=== PATIENT | female | born 1960 | race Caucasian/White ===

== ENCOUNTER 2017-06-20 10:56 | Day surgery (SDC) | payer MEDICARE, MEDICAID, SELFPAY ==
[2017-06-17 14:26] VITALS: BMI 32.5
[2017-06-20 11:19] VITALS: BP 141/72; PULSE 71; RESP 20; TEMP 36.6; O2SAT 93
[2017-06-20 11:27] LABS: POC Glucose,Bedside 159 mg/dL (70-110)
[2017-06-20 12:01] VITALS: O2SAT 98
[2017-06-20 12:12] VITALS: BP 97/50; PULSE 65; RESP 18; TEMP 37.1; O2SAT 93
--- NOTE | 2017-06-20 12:12 | P.PCN_ITS ---
[facility] Procedure Note Procedure Note:: Upper Endoscopy Procedure Report: Esophagogastroduodenoscopy with cold biopsies Endoscopost: Alexy Hernandez II, MD Referring Physician: Charles James MD Date of Procedure: June 20, 2017 Equipment: Olympus GIF 180 standard upper endoscope Sedation: MAC sedation Indications: Mrs. Escalona is a 57-year-old female with chronic/persistent nausea for the last couple of months. She had bloating, gassiness, belching, heartburn, reflux and occasional dysphagia. She does drink very slowly. She does have a history of long-standing type 2 diabetes mellitus. The patient reports no melena or weight loss. She had an EGD in May 2013 and had some linear reactive gastritis. She was taken off of Reglan because she was also using the citalopram and buspirone. There was felt to be some risk of tardive dyskinesia. Procedure: Prior to the procedure, a history and physical exam was performed, and patient' s medications and allergies were reviewed. The risks, benefits and alternatives of the sedation and procedure were discussed with the patient. All questions were answered and informed consent was obtained. The patient was brought to the procedure room. Patient identification and proposed procedure were verified by the physician and the nurse. The patient was placed in a left lateral decubitus position and the scope was passed under direct vision. Throughout the procedure, the patient's blood pressure, pulse, and oxygen saturations were monitored continuously. The upper GI endoscopy was accomplished without difficulty. The patient tolerated the procedure well. Findings: The scope was passed directly into the upper esophagus and advanced to the third portion of the duodenum. The post bulbar duodenum and duodenal bulb were normal with normal mucosa and conniventes. The scope was withdrawn through a normal duodenal bulb and pylorus into the stomach. There was some bile reflux with linear reactive gastritis. The remainder of the antrum, body and fundus of the stomach were grossly normal. Upon retroflexion there was no hiatal hernia. 2 biopsies were taken in the antrum and along the lesser curvature for histology to rule out gastritis and/or H pylori. The scope was then withdrawn into the esophagus. There was mild esophageal dysmotility with nonerosive GERD. The remainder of the esophageal mucosa was normal. Impression: 1. Nonerosive GERD with mild esophageal dysmotility 2. Linear reactive gastritis/antritis with bile reflux Plan: The patient has significantly improved with domperidone. I would continue this is as maintenance therapy. We will discuss additional treatment options. I will follow-up the biopsies.
[2017-06-20 12:22] VITALS: BP 97/59; PULSE 69; RESP 20; TEMP 36.6; O2SAT 95
[2017-06-20 12:32] VITALS: BP 108/49; PULSE 68; RESP 20; TEMP 36.6; O2SAT 94
[2017-06-20 12:42] VITALS: BP 102/57; PULSE 71; RESP 20; TEMP 36.6; O2SAT 95
--- NOTE | 2017-06-20 14:26 | HMH.ANESCL ---
[facility] Anesthesia Checklist - Patient Identification Patient Identification: Arm Band, Verbal (Name & ) - Structural Data Admitted From: Home Planned Operative Procedure/s: egd Consent for Planned Operative Procedure(s) Verified: Yes Verified Documents: Surgical Consent - NPO Status Verified Time NPO: 00:00 - Additional verifications Patient : No Anesthesia Reactions: No Hx Blood Transfusions: No Blood Transfusion Reaction: No Cephalosporin Allergy: No Previous Colonoscopy: No - Cardiovascular Assessment Heart Sounds: S1 & S2 Pulse Strength: Baseline Pulse Rhythm: Regular Peripheral Edema: No - Airway Assessment C-Spine Mobility Assessed: Yes TMJ Mobility Assessed: Yes Dentition: Partials - Neurological Assessment Level of Consciousness: Awake, Alert, Appropriate Hx Seizures: No Numbness or tingling in extremities: No - Anesthesia Plan Anesthesia Risk discussed: Yes Anesthesia Plan: Verified ASA Class: III Anesthesia Type: MAC [facility] Anesthesia HX I have reviewed the patient's past medical history: Yes Medical History: Reports:: Diabetes Mellitus Type 2 (IDDM), Hyperlipidemia, Hypertension, Lung Disease (copd) Denies:: Diabetes Mellitus Type 1, Internal Pacemaker, Seizures Other Surgeries: Yes: Cardiac Catheterization, Coronary Stent. No: Pacemaker
== END 2017-06-20 12:42 | disposition home or self-care (01) ==
LOC: OUTP 11:01
PROVIDERS: Family Provider Internal Medicine; PCP Internal Medicine; Visit Provider Internal Medicine Gastroenterology
PROC: 0DJ08ZZ Inspection of Upper Intestinal Tract, Via Natural or Artificial Opening Endoscopic (ICD-10-PCS; CPT 43235; principal; 2017-06-20 12:00)
DX: E11.9 Type 2 diabetes mellitus without complications; K21.9 Gastro-esophageal reflux disease without esophagitis; K22.4 Dyskinesia of esophagus; K29.60 Other gastritis without bleeding
CPT/HCPCS: 43239; 82962; 88305; 88342

== ENCOUNTER 2017-07-01 04:34 | Inpatient (IN) | payer MEDICARE, MEDICAID, SELFPAY ==
[2017-07-01] VITALS (13 sets, daily range): BP systolic 112–135; BP diastolic 56–80; PULSE 80–111; RESP 16–24; TEMP 36.3–37.2; O2SAT 91–97; BMI 32.5; BMI 32.4
--- NOTE | 2017-07-01 04:54 | XR_ITS ---
XR chest 2V HISTORY: Shortness of air ITS.REASON: soa ORDERING PHYSICIAN: Olga Ennis MD PATIENT AGE: 57 years COMPARISON: None available FINDINGS: Normal heart size. The michel are slightly prominent. May be due to vasculature. Patchy density is present in the right middle lobe consistent with atelectasis or fibrosis or infiltrate. Remaining lungs are clear. No acute bony anomalies. IMPRESSION: Patchy density right middle lobe which may be due to atelectasis/fibrosis or infiltrate
--- NOTE | 2017-07-01 05:01 | HMH.EDSOB ---
ED Disposition Clinical Impression: Pneumonia, COPD (chronic obstructive pulmonary disease), Tobacco abuse, CAD (coronary artery disease) Disposition: Still a Patient Condition on Discharge: Fair Referrals: Charles James [Primary Care Provider] - - Critical Care Critical Care Time: No Attestation: On 07/01/17, the high probability of a clinically significant, sudden or life threatening deterioration of the following system(s) required my full and direct attention, intervention and personal management. The time I documented below is in addition to time spent performing reported procedures but includes the following listed in this critical care notation. Medical Decision Making - Miller Inquiry Pt receiving controlled substance: No Miller was queried for this patient: No Vital Signs: 07/01/17 04:35 07/01/17 05:05 07/01/17 05:30 Temperature 97.4 F L Temperature Source Oral Pulse Rate Pulse Rate [Right Brachial] 99 H 97 H 96 H Respiratory Rate 19 Blood Pressure [Right Arm] 135/68 121/65 120/63 Blood Pressure Mean [Right Arm] 90 83 82 Blood Pressure Source [Right Arm] Automatic Cuff Automatic Cuff Automatic Cuff Blood Pressure Position [Right Arm] Sitting Supine Supine 02 Sat by Pulse Oximetry 92 L 92 L 92 L Oxygen Delivery Method Room Air 07/01/17 05:33 07/01/17 06:00 Temperature Temperature Source Pulse Rate 99 H Pulse Rate [Right Brachial] 99 H Respiratory Rate Blood Pressure [Right Arm] 112/77 Blood Pressure Mean [Right Arm] 88 Blood Pressure Source [Right Arm] Automatic Cuff Blood Pressure Position [Right Arm] Supine 02 Sat by Pulse Oximetry 95 91 L Oxygen Delivery Method Room Air Room Air - Lab Data Lab Results 07/01/17 05:00: WBC 8.6, RBC 4.04 L, Hgb 11.7 L, Hct 35.8 L, MCV 88.6, MCH 29.0, MCHC 32.7, RDW 14.3, Plt Count 219, MPV 8.4, Neut % (Auto) 62.9, Lymph % (Auto) 23.3, Will % (Auto) 7.9, Eos % (Auto) 5.3, Baso % (Auto) 0.6, Neut # (Auto) 5.4, Lymph # (Auto) 2.0, Will # (Auto) 0.7, Eos # (Auto) 0.5 H, Baso # (Auto) 0.1 07/01/17 05:00: Sodium 133 L, Potassium 4.0, Chloride 102, Carbon Dioxide 27, Anion Gap 8.0, BUN 13, Creatinine 1.05 H, Estimated Creat Clear 92, Estimated GFR 54 L, Est GFR ( Amer) 66, Glucose 195 H, Calcium 9.0, Total Bilirubin 0.3, AST 27, ALT 30, Alkaline Phosphatase 115, Total Creatine Kinase 132, CK-MB (CK-2) 0.7, CK-MB (CK-2) Rel Index 0.5, Troponin I < 0.02, Total Protein 7.6, Albumin 3.6, Globulin 4.0 H, Albumin/Globulin Ratio 0.9 L 07/01/17 05:00: Lactic Acid 3.2 H 07/01/17 05:00: B-Natriuretic Peptide 23 Result diagrams: 07/01/17 05:00 07/01/17 05:00 Orders (Tests/Meds): ED MEDICATIONS Generic Name Dose Route Start Last Admin Trade Name Dagobertoq PRN Reason Stop Dose Admin Azithromycin 500 mg/ Sodium 250 mls @ 250 mls/hr 07/01/17 05:15 07/01/17 05:44 Chloride IV 07/15/17 05:14 250 mls/hr Q24H RAÚL Administration Protocol Ceftriaxone Sodium 1 gm/ 50 mls @ 100 mls/hr 07/01/17 05:15 07/01/17 05:17 Sodium Chloride IV 07/15/17 05:14 100 mls/hr Q24H RAÚL Administration Protocol Discontinued Medications Generic Name Dose Route Start Last Admin Trade Name Dagobertoq PRN Reason Stop Dose Admin Acetaminophen 650 mg 07/01/17 05:18 07/01/17 05:22 Acetaminophen 325mg Tab PO 07/01/17 05:19 650 mg ONCE ONE Administration Albuterol/Ipratropium 3 ml 07/01/17 05:09 07/01/17 05:20 Duoneb 3ml Neb IH 07/01/17 05:10 3 ml ONCE ONE Administration Methylprednisolone Sodium Succinate 125 mg 07/01/17 05:09 07/01/17 05:17 Solu-Medrol 125mg/2ml Vial IV 07/01/17 05:10 125 mg ONCE ONE Administration Promethazine HCl 12.5 mg 07/01/17 06:06 07/01/17 06:13 Phenergan 25mg/Ml 1ml Vial IV 07/01/17 06:07 12.5 mg ONCE ONE Administration Sodium Chloride 50 ml 07/01/17 06:06 Sod Chlor 0.9% 50ml Bag IV 07/01/17 06:07 ONCE ONE ORDERS Category Date Time Status Blood
--- NOTE | 2017-07-01 05:04 | ED_ITS ---
ED Disposition Clinical Impression: Pneumonia, COPD (chronic obstructive pulmonary disease), Tobacco abuse, CAD ( coronary artery disease) Disposition: Still a Patient Condition on Discharge: Fair Referrals: Charles James [Primary Care Provider] - - Critical Care Critical Care Time: No Attestation: On 07/01/17, the high probability of a clinically significant, sudden or life threatening deterioration of the following system(s) required my full and direct attention, intervention and personal management. The time I documented below is in addition to time spent performing reported procedures but includes the following listed in this critical care notation. Medical Decision Making - Miller Inquiry Pt receiving controlled substance: No Miller was queried for this patient: No Vital Signs: 07/01/17 04:35 07/01/17 05:05 07/01/17 05:30 Temperature 97.4 F L Temperature Source Oral Pulse Rate Pulse Rate [Right Brachial] 99 H 97 H 96 H Respiratory Rate 19 Blood Pressure [Right Arm] 135/68 121/65 120/63 Blood Pressure Mean [Right Arm] 90 83 82 Blood Pressure Source [Right Arm] Automatic Cuff Automatic Cuff Automatic Cuff Blood Pressure Position [Right Arm] Sitting Supine Supine 02 Sat by Pulse Oximetry 92 L 92 L 92 L Oxygen Delivery Method Room Air 07/01/17 05:33 07/01/17 06:00 Temperature Temperature Source Pulse Rate 99 H Pulse Rate [Right Brachial] 99 H Respiratory Rate Blood Pressure [Right Arm] 112/77 Blood Pressure Mean [Right Arm] 88 Blood Pressure Source [Right Arm] Automatic Cuff Blood Pressure Position [Right Arm] Supine 02 Sat by Pulse Oximetry 95 91 L Oxygen Delivery Method Room Air Room Air - Lab Data Lab Results 07/01/17 05:00: WBC 8.6, RBC 4.04 L, Hgb 11.7 L, Hct 35.8 L, MCV 88.6, MCH 29.0 , MCHC 32.7, RDW 14.3, Plt Count 219, MPV 8.4, Neut % (Auto) 62.9, Lymph % (Auto ) 23.3, [place] % (Auto) 7.9, Eos % (Auto) 5.3, Baso % (Auto) 0.6, Neut # (Auto) 5.4, Lymph # (Auto) 2.0, [place] # (Auto) 0.7, Eos # (Auto) 0.5 H, Baso # (Auto) 0.1 07/01/17 05:00: Sodium 133 L, Potassium 4.0, Chloride 102, Carbon Dioxide 27, Anion Gap 8.0, BUN 13, Creatinine 1.05 H, Estimated Creat Clear 92, Estimated GFR 54 L, Est GFR ( Amer) 66, Glucose 195 H, Calcium 9.0, Total Bilirubin 0.3, AST 27, ALT 30, Alkaline Phosphatase 115, Total Creatine Kinase 132, CK-MB (CK-2) 0.7, CK-MB (CK-2) Rel Index 0.5, Troponin I < 0.02, Total Protein 7.6, Albumin 3.6, Globulin 4.0 H, Albumin/Globulin Ratio 0.9 L 07/01/17 05:00: Lactic Acid 3.2 H 07/01/17 05:00: B-Natriuretic Peptide 23 Result diagrams: 07/01/17 05:00 07/01/17 05:00 Orders (Tests/Meds): ED MEDICATIONS Generic Name Dose Route Start Last Admin Trade Name Freq PRN Reason Stop Dose Admin Azithromycin 500 mg/ Sodium 250 mls @ 250 mls/hr 07/01/17 05:15 07/01/17 05: 44 Chloride IV 07/15/17 05:14 250 mls/hr Q24H RAÚL Administration Protocol Ceftriaxone Sodium 1 gm/ 50 mls @ 100 mls/hr 07/01/17 05:15 07/01/17 05:17 Sodium Chloride IV 07/15/17 05:14 100 mls/hr Q24H RAÚL Administration Protocol Discontinued Medications Generic Name Dose Route Start Last Admin Trade Name Freq PRN Reason Stop Dose Admin Acetaminophe
[2017-07-01 05:26] LABS: Basophils # 0.1 K/mm3 (0-0.2); Basophils % 0.6 % (0.1-2.0); Eosinophils # 0.5 K/mm3 (0.0-0.4); Eosinophils % 5.3 % (0.1-12.0); Hematocrit 35.8 % (37.0-47.0); Hemoglobin 11.7 g/dL (12.2-16.2); Lymphocytes % 23.3 K/mm3 (10-50); Mean Corpuscular HGB Conc 32.7 g/dL (31.8-35.4); Mean Corpuscular Volume 88.6 fl (81-99); Mean Platelet Volume 8.4 fl (7.4-10.4); Monocytes # 0.7 K/mm3 (0.1-1.0); Monocytes % 7.9 % (1.7-9.3); Neutrophils # 5.4 K/mm3 (1.8-7.8); Neutrophils % 62.9 % (37.0-80.0); Platelet Count 219 K/mm3 (142-424); Red Blood Count 4.04 M/mm3 (4.20-5.40); Red Cell Distribution Width 14.3 % (11.5-17.5); White Blood Count 8.6 K/mm3 (4.8-10.8)
[2017-07-01 05:51] LABS: Lactic Acid 3.2 mmol/L (0.4-2.0)
--- NOTE | 2017-07-01 05:53 | PC.NURSE ---
after zithromax infusion began pt began complaining of shakiness and upset stomach and overall not feeling well. pt requests med be stopped. infusion stopped. dr. kimbrough notified. will monitor for improvement in status. vitals stable.
[2017-07-01 05:58] LABS: Alanine Aminotransferase 30 U/L (12-78); Albumin Level 3.6 gm/dL (3.4-5.0); Albumin/Globulin Ratio 0.9 (1.1-1.8); Alkaline Phosphatase 115 U/L (46-116); Aspartate Amino Transferase 27 U/L (15-37); Bilirubin,Total 0.3 mg/dL (0.2-1.0); Blood Urea Nitrogen 13 mg/dL (7-18); CKMB Relative Index 0.5 U/L (0-4.0); Carbon Dioxide 27 mmol/L (21.0-32.0); Chloride 102 mmol/L (98-107); Creatine Kinase 132 U/L (26-192); Creatine Kinase MB 0.7 ng/ml (0.0-3.6); Creatinine Clearance Estimated 92 mL/min (0-300); Creatinine,Serum 1.05 mg/dL (0.55-1.02); Estimated Glomerular Filt Rate 54 ml/min (>60); GFR (African American) 66 ML/MIN (>60); Glucose 195 mg/dL (74-106); Sodium 133 mmol/L (136-145); Total Protein,Serum 7.6 gm/dL (6.4-8.2); Troponin I < 0.02 ng/ml (0.00-0.06)
--- NOTE | 2017-07-01 06:52 | PC.NURSE ---
report called to Tiffany Meade RN.
--- NOTE | 2017-07-01 07:32 | PC.NURSE ---
REPORT GIVEN TO Sherrie GOMEZ W/C
--- NOTE | 2017-07-01 07:39 | P.CONPHA_ITS ---
[facility] VTE Monitoring - Patient Demographics Admission date: 07/01/17 Report Date: 07/01/17 Time: 07:38 Allergies/Adverse Reactions: Patient Allergies adenosine Allergy (Intermediate, Verified 07/01/17 04:47) COUGHING Penicillins Allergy (Intermediate, Verified 07/01/17 04:47) I-RASH Height: 1.73 m Weight: 97.125 kg Patient Problems: Current Active Problems Pneumonia (Acute) COPD (chronic obstructive pulmonary disease) (Acute) Tobacco abuse (Acute) CAD (coronary artery disease) (Acute) - VTE Risk Labs: VTE Related Lab Results Hgb 11.7 g/dL (12.2-16.2) L 07/01/17 05:00 Hct 35.8 % (37.0-47.0) L 07/01/17 05:00 Plt Count 219 K/mm3 (142-424) 07/01/17 05:00 BUN 13 mg/dL (7-18) 07/01/17 05:00 Creatinine 1.05 mg/dL (0.55-1.02) H 07/01/17 05:00 Estimated Creat Clear 92 mL/min (0-300) 07/01/17 05:00 Clinical Trial Participant: No - Prophylaxis VTE Prophylaxis Ordered?: Yes Types of VTE Prophylaxis: TEDS Knee High
--- NOTE | 2017-07-01 08:21 | HMH.HP ---
*Admission Date: 07/01/17 *Chief complaint: Shortness of air and coughing *History of present illness: 57-year-old white female with very heavy smoking history, of over 40 pack years, who presented to the emergency department early this morning with shortness of air, cough, mucopurulent sputum production. Had been treated by Dr. James as an outpatient a couple weeks ago with azithromycin and albuterol inhalers. She is prescribed Symbicort inhaler but does not take this because it makes my heart race. In the emergency department she was found to have hypoxia, infiltrate and chest x-ray and significant coughing. Admitted to hospital for IV antibiotics and enhanced pulmonary toilet. [facility] History Medical History: Reports:: Congestive Heart Failure, Coronary Artery Disease, Diabetes Mellitus Type 2 (IDDM), Hyperlipidemia, Hypertension, Lung Disease (copd) Denies:: Cancer, Diabetes Mellitus Type 1, Internal Pacemaker, MRSA, Seizures Other Medical History: Denies: Blood Transfusion Reaction Other Surgeries: Yes: Cardiac Catheterization, Coronary Stent. No: Pacemaker Amputation: No Fractures: No - *Social History Educational Level: Completed High School Smoking Status: Current every day smoker Tobacco Type: cigarettes Alcohol Intake: never Occupational Status: disabled Housing: house Household Members: significant other - Psychiatric History Expresses thoughts of harming self/others: None Suicide Plan Description: No Plan *Family Hx:: Unable to obtain Review of Systems - Review of Systems Review of systems:: unable to obtain, other, pertinent systems reviewed and negative unless documented below Meds Home Medications Medication Instructions Recorded Confirmed Type Aspirin [Aspirin 81mg chewable 81 mg PO DAILY 06/17/17 07/01/17 History tab] Bisoprolol Fumarate 10 mg PO DAILY 06/17/17 07/01/17 History Buspirone HCl [Buspar 10mg tablet] 10 mg PO BID 06/17/17 07/01/17 History Citalopram Hydrobromide [Celexa 40 mg PO DAILY 06/17/17 07/01/17 History 40mg Tablet] Clopidogrel Bisulfate [Plavix 75mg 75 mg PO DAILY 06/17/17 07/01/17 History Tab] Insulin Glargine,Hum.rec.anlog 500 mg PO DIRECTED 06/17/17 07/01/17 History [Lantus Insulin 100units/mL 10mL vial] Lisinopril [Lisinopril 2.5mg Tab] 2.5 mg PO DAILY 06/17/17 07/01/17 History Magnesium 250 mg PO DAILY 06/17/17 07/01/17 History Metformin HCl [Metformin 500mg 1,000 mg PO BID 06/17/17 07/01/17 History Tablet] Pantoprazole Sodium [Protonix 40mg 40 mg PO DAILY 06/17/17 07/01/17 History tablet] Pravastatin Sodium [Pravachol 40mg 20 mg PO DAILY 06/17/17 07/01/17 History Tablet] diazePAM [diazePAM 5mg Tablet] 5 mg PO NEEDED PRN 06/17/17 07/01/17 History glipiZIDE [Glipizide ER] 2.5 mg PO BID 06/17/17 07/01/17 History hydroCHLOROthiazide [HCTZ 12.5mg 12.5 mg PO DAILY 06/17/17 07/01/17 History cap] Budesonide/Formoterol Fumarate 2 puffs IH BID 07/01/17 07/01/17 History [Symbicort 80-4.5 Mcg Inhaler] Linaclotide [Linzess] 145 mcg PO DAILY 07/01/17 07/01/17 History Allergies Allergy/AdvReac Type Severity Reaction Status Date / Time adenosine Allergy Intermediate COUGHING Verified 07/01/17 04:47 Penicillins Allergy Intermediate I-RASH Verified 07/01/17 04:47 Exam Vital signs and Labs for Last 24 Hours: Temp Pulse Resp BP Pulse Ox 98.9 F 90 24 130/67 94 L 07/01/17 07:25 07/01/17 07:25 07/01/17 07:25 07/01/17 07:25 07/01/17 07:25 I & O for Last 24 hours: Intake & Output 06/28/17 06/29/17 06/30/17 07/01/17 11:59 11:59 11:59 11:59 Weight 214 lb 2 oz Narrative: Patient is alert, oriented, acceptable O2 saturations on oxygen. Skin appears dry. Multiple evidence of nicotine use. Patient appears older than her stated age. Obesity noted. Patient has a heart motif tattoo on the ring finger of her left hand as well as prescription writing tattoo on the thenar aspect of her right
--- NOTE | 2017-07-01 08:24 | P.HP_ITS ---
*Admission Date: 07/01/17 *Chief complaint: Shortness of air and coughing *History of present illness: 57-year-old white female with very heavy smoking history, of over 40 pack years , who presented to the emergency department early this morning with shortness of air, cough, mucopurulent sputum production. Had been treated by Dr. James as an outpatient a couple weeks ago with azithromycin and albuterol inhalers. She is prescribed Symbicort inhaler but does not take this because it makes my heart race. In the emergency department she was found to have hypoxia, infiltrate and chest x-ray and significant coughing. Admitted to hospital for IV antibiotics and enhanced pulmonary toilet. [facility] History Medical History: Reports:: Congestive Heart Failure, Coronary Artery Disease, Diabetes Mellitus Type 2 (IDDM), Hyperlipidemia, Hypertension, Lung Disease ( copd) Denies:: Cancer, Diabetes Mellitus Type 1, Internal Pacemaker, MRSA, Seizures Other Medical History: Denies: Blood Transfusion Reaction Other Surgeries: Yes: Cardiac Catheterization, Coronary Stent. No: Pacemaker Amputation: No Fractures: No - *Social History Educational Level: Completed High School Smoking Status: Current every day smoker Tobacco Type: cigarettes Alcohol Intake: never Occupational Status: disabled Housing: house Household Members: significant other - Psychiatric History Expresses thoughts of harming self/others: None Suicide Plan Description: No Plan *Family Hx:: Unable to obtain Review of Systems - Review of Systems Review of systems:: unable to obtain, other, pertinent systems reviewed and negative unless documented below Meds Home Medications Medication Instructions Recorded Confirmed Type Aspirin [Aspirin 81mg chewable 81 mg PO DAILY 06/17/17 07/01/17 History tab] Bisoprolol Fumarate 10 mg PO DAILY 06/17/17 07/01/17 History Buspirone HCl [Buspar 10mg tablet] 10 mg PO BID 06/17/17 07/01/17 History Citalopram Hydrobromide [Celexa 40 mg PO DAILY 06/17/17 07/01/17 History 40mg Tablet] Clopidogrel Bisulfate [Plavix 75mg 75 mg PO DAILY 06/17/17 07/01/17 History Tab] Insulin Glargine,Hum.rec.anlog 500 mg PO DIRECTED 06/17/17 07/01/17 History [Lantus Insulin 100units/mL 10mL vial] Lisinopril [Lisinopril 2.5mg Tab] 2.5 mg PO DAILY 06/17/17 07/01/17 History Magnesium 250 mg PO DAILY 06/17/17 07/01/17 History Metformin HCl [Metformin 500mg 1,000 mg PO BID 06/17/17 07/01/17 History Tablet] Pantoprazole Sodium [Protonix 40mg 40 mg PO DAILY 06/17/17 07/01/17 History tablet] Pravastatin Sodium [Pravachol 40mg 20 mg PO DAILY 06/17/17 07/01/17 History Tablet] diazePAM [diazePAM 5mg Tablet] 5 mg PO NEEDED PRN 06/17/17 07/01/17 History glipiZIDE [Glipizide ER] 2.5 mg PO BID 06/17/17 07/01/17 History hydroCHLOROthiazide [HCTZ 12.5mg 12.5 mg PO DAILY 06/17/17 07/01/17 History cap] Budesonide/Formoterol Fumarate 2 puffs IH BID 07/01/17 07/01/17 History [Symbicort 80-4.5 Mcg Inhaler] Linaclotide [Linzess] 145 mcg PO DAILY 07/01/17 07/01/17 History Allergies Allergy/AdvReac Type Severity Reaction Status Date / Time adenosine Allergy Intermediate COUGHING Verified 07/01/17 04:47 Penicillins Allergy Intermediate I-RASH Verified 07/01/17 04:47 Exam Vital signs and Labs for Last 24 Hours: Temp Pulse Resp BP Pulse
[2017-07-01 09:26] LABS: Reflex Lactic Add Lactic Reflex
[2017-07-01 10:26] LABS: Lactic Acid Follow Up (RFLX 1) 3.6 (0.4-2.0)
[2017-07-01 12:02] LABS: Reflex Lactic (2 hrs) Add Lactic Reflex
[2017-07-01 12:04] LABS: POC Glucose,Bedside 348 mg/dL (70-110)
[2017-07-01 15:54] LABS: Lactic Acid Follow up (RFLX 2) 4.6 (0.4-2.0)
[2017-07-01 17:33] LABS: POC Glucose,Bedside 281 mg/dL (70-110)
[2017-07-01 21:42] LABS: POC Glucose,Bedside 381 mg/dL (70-110)
[2017-07-02] VITALS (9 sets, daily range): BP systolic 107–144; BP diastolic 50–67; PULSE 60–100; RESP 18–22; TEMP 36.6–37.1; O2SAT 92–97
--- NOTE | 2017-07-02 03:40 | PC.NURSE ---
Pt has rested in intervals this shift. She has complained of a QUINTEROS from coughing, medicated with PRN tylenol and pt also requested a medication to calm her nerves, administered per jun. Pt lung sounds revealed scattered rhonchi and wheezing. BS active in all 4 qauds. Tolerating 3L NC well, attempted to wean o2, pt sats drop to 88 on RA. VSS. No acute distress noted. Will continue to monitor.
[2017-07-02 06:34] LABS: POC Glucose,Bedside 277 mg/dL (70-110)
[2017-07-02 07:03] LABS: Basophils % 0.2 % (0.1-2.0); Eosinophils % 0.3 % (0.1-12.0); Hematocrit 35.5 % (37.0-47.0); Lymphocytes # 1.1 K/mm3 (0.7-4.5); Lymphocytes % 12.5 K/mm3 (10-50); Mean Corpuscular Hemoglobin 28.6 pg (27.0-31.2); Mean Corpuscular Volume 92.2 fl (81-99); Mean Platelet Volume 8.4 fl (7.4-10.4); Monocytes # 0.4 K/mm3 (0.1-1.0); Monocytes % 3.9 % (1.7-9.3); Neutrophils # 7.6 K/mm3 (1.8-7.8); Neutrophils % 83.1 % (37.0-80.0); Platelet Count 237 K/mm3 (142-424); Red Blood Count 3.85 M/mm3 (4.20-5.40); Red Cell Distribution Width 14.4 % (11.5-17.5); White Blood Count 9.1 K/mm3 (4.8-10.8)
[2017-07-02 07:04] LABS: Anion Gap 14.1 mEq/L (5-15); Blood Urea Nitrogen 16 mg/dL (7-18); Carbon Dioxide 25 mmol/L (21.0-32.0); Chloride 102 mmol/L (98-107); Creatinine Clearance Estimated 80 mL/min (0-300); Estimated Glomerular Filt Rate 46 ml/min (>60); GFR (African American) 56 ML/MIN (>60); Glucose 270 mg/dL (74-106); Potassium 4.1 mmoL/L (3.5-5.1); Sodium 137 mmol/L (136-145)
--- NOTE | 2017-07-02 07:28 | PC.NURSE ---
report to maylin segundo rn
--- NOTE | 2017-07-02 09:50 | HMH.ACPN2 ---
Internal Medicine - PN: Subj *Date: 07/02/17 *Time: 09:50 Interval history: Overall feels much better, and wonders about going home today. She continues to cough but is much less short of air. Exam Vital signs and Labs for Last 24 Hours: Temp Pulse Resp BP Pulse Ox 98.7 F 96 H 22 144/67 97 07/02/17 07:52 07/02/17 07:52 07/02/17 07:52 07/02/17 07:52 07/02/17 07:52 Laboratory Results - last 24 hr 07/01/17 09:57: Lactic Acid Fup @ 4Hr 3.6 H 07/01/17 11:53: POC Glucose 348 07/01/17 12:10: Lactic Acid Fup @ 2Hr 4.6 H 07/01/17 17:23: POC Glucose 281 07/01/17 20:07: POC Glucose 381 07/02/17 06:19: POC Glucose 277 07/02/17 06:35: WBC 9.1, RBC 3.85 L, Hgb 11.0 L, Hct 35.5 L, MCV 92.2, MCH 28.6, MCHC 31.0 L, RDW 14.4, Plt Count 237, MPV 8.4, Neut % (Auto) 83.1 H, Lymph % (Auto) 12.5, [place] % (Auto) 3.9, Eos % (Auto) 0.3, Baso % (Auto) 0.2, Neut # (Auto) 7.6, Lymph # (Auto) 1.1, [place] # (Auto) 0.4, Eos # (Auto) 0.0, Baso # (Auto) 0.0 07/02/17 06:35: Sodium 137, Potassium 4.1, Chloride 102, Carbon Dioxide 25, Anion Gap 14.1, BUN 16, Creatinine 1.20 H, Estimated Creat Clear 80, Estimated GFR 46 L, Est GFR ( Amer) 56 L, Glucose 270 H I & O for Last 24 hours: Intake & Output 06/29/17 06/30/17 07/01/17 07/02/17 11:59 11:59 11:59 11:59 Intake Total 150 / 150 1100 / 1100 Output Total 3200 / 3200 Balance 150 / 150 -2100 / -2100 Weight 214 lb 2 oz 213 lb 4 oz Microbiology Reports for the Last 24 Hours: Microbiology 07/01/17 14:20 Sputum - Expectorated Sputum Gram Stain - Final Narrative: Patient is pleasant, alert, still wearing oxygen, continues to have rhonchi in both lower lung [place], worse on the left, heart rate regular. Good perfusion. Abdomen is soft. Assessment and Plan (1) CAD (coronary artery disease) Current visit: Yes Status: Chronic Category: Medical Code(s): I25.10 - Atherosclerotic heart disease of [place] coronary artery without angina pectoris (2) COPD (chronic obstructive pulmonary disease) Current visit: Yes Status: Acute Category: Medical Code(s): J44.9 - Chronic obstructive pulmonary disease, unspecified (3) Pneumonia Current visit: Yes Status: Acute Category: Medical Code(s): J18.9 - Pneumonia, unspecified organism (4) Tobacco abuse Current visit: Yes Status: Acute Category: Medical Code(s): Z72.0 - Tobacco use - Assessment and plan all Dx Assessment and Plan for all problems:: Patient is improved. I d like to keep her for at least one more day to assess sputum culture results before appropriate antibiotics can be prescribed as an outpatient. She certainly willing to do this.
[2017-07-02 11:36] LABS: POC Glucose,Bedside 331 mg/dL (70-110)
[2017-07-02 17:03] LABS: POC Glucose,Bedside 329 mg/dL (70-110)
--- NOTE | 2017-07-02 17:23 | PC.NURSE ---
PATIENT IS RESTING IN BED AT THIS TIME. PATIENT HAS A VERY PRODUCTIVE COUGH WITH GREENISH-YELLOW SPUTUM. PATIENTS LUNGS CONTINUE TO SOUND WHEEZES. VITAL SIGNS ARE STABLE. NO DISTRESS NOTED, DENIES ANY NEEDS, WILL CONTINUE TO MONITOR.
--- NOTE | 2017-07-02 19:00 | PC.NURSE ---
REPORT GIVEN TO WILDA COX
[2017-07-02 21:33] LABS: POC Glucose,Bedside 400 mg/dL (70-110)
[2017-07-03 03:08] VITALS: O2SAT 90
[2017-07-03 04:00] VITALS: BP 136/59; PULSE 96; RESP 22; TEMP 36.5; O2SAT 98
--- NOTE | 2017-07-03 04:41 | PC.NURSE ---
PT HAS SLEPT. ON 2L PER NC. REQUESTED VALIUM AT HS. PT AMBULATED ON EVENING SHIFT.
[2017-07-03 06:00] VITALS: PULSE 91; O2SAT 95
[2017-07-03 06:25] LABS: POC Glucose,Bedside 319 mg/dL (70-110)
[2017-07-03 07:19] LABS: Basophils % 0.1 % (0.1-2.0); Eosinophils % 0.2 % (0.1-12.0); Hematocrit 33.5 % (37.0-47.0); Hemoglobin 10.6 g/dL (12.2-16.2); Lymphocytes # 1.1 K/mm3 (0.7-4.5); Lymphocytes % 11.7 K/mm3 (10-50); Mean Corpuscular HGB Conc 31.7 g/dL (31.8-35.4); Mean Corpuscular Hemoglobin 29.1 pg (27.0-31.2); Mean Corpuscular Volume 91.9 fl (81-99); Mean Platelet Volume 8.4 fl (7.4-10.4); Monocytes # 0.3 K/mm3 (0.1-1.0); Monocytes % 3.7 % (1.7-9.3); Neutrophils # 7.8 K/mm3 (1.8-7.8); Neutrophils % 84.3 % (37.0-80.0); Platelet Count 245 K/mm3 (142-424); Red Blood Count 3.64 M/mm3 (4.20-5.40); Red Cell Distribution Width 14.7 % (11.5-17.5); White Blood Count 9.2 K/mm3 (4.8-10.8)
[2017-07-03 07:25] LABS: Anion Gap 15.2 mEq/L (5-15); Blood Urea Nitrogen 23 mg/dL (7-18); Carbon Dioxide 24 mmol/L (21.0-32.0); Chloride 101 mmol/L (98-107); Creatinine Clearance Estimated 78 mL/min (0-300); Creatinine,Serum 1.23 mg/dL (0.55-1.02); Estimated Glomerular Filt Rate 45 ml/min (>60); GFR (African American) 55 ML/MIN (>60); Glucose 295 mg/dL (74-106); Potassium 4.2 mmoL/L (3.5-5.1); Sodium 136 mmol/L (136-145)
[2017-07-03 07:41] VITALS: BP 138/73; PULSE 92; RESP 20; TEMP 36.9; O2SAT 95
--- NOTE | 2017-07-03 08:20 | HMH.DCSUM ---
General - General Admission date: 07/01/17 Discharge date: 07/03/17 HPI HPI: 57-year-old white female with very heavy smoking history, of over 40 pack years, who presented to the emergency department early this morning with shortness of air, cough, mucopurulent sputum production. Had been treated by Dr. James as an outpatient a couple weeks ago with azithromycin and albuterol inhalers. She is prescribed Symbicort inhaler but does not take this because it makes my heart race. In the emergency department she was found to have hypoxia, infiltrate and chest x-ray and significant coughing. Admitted to hospital for IV antibiotics and enhanced pulmonary toilet. Hospital Course Hospital Course: She was admitted, placed on cefepime and levofloxacin because of her exposure to antibiotics and her failure to improve on p.o. antibiotics. She improved nicely with steroids, pulmonary toilet and IV fluids. She actually wished to go home 24 hours after admission but we were waiting on Gram stain results from her sputum culture. The following day, this morning, she is improving, overall better with diminished oxygen requirement and better airway movement. Gram stain shows gram-positive diplococci. Her graph plan will be to discharge her home with levofloxacin, short-term follow-up with Dr. James. Continuing prednisone therapy and nebulizers at home. I strongly encouraged her to stop smoking. Objective Vital signs: Temp Pulse Resp BP Pulse Ox 98.4 F 92 H 20 138/73 95 07/03/17 07:41 07/03/17 07:41 07/03/17 07:41 07/03/17 07:41 07/03/17 07:41 Narrative: Patient is alert, pleasant. Oriented ?3. Heart rate regular. Good distal perfusion. Abdomen soft. Lungs are much improved with only minimal rhonchi on deep inspiration and expiration. No wheezing. No areas of crackles. Results Labs on day of discharge: Labs from last 24 hours 07/03/17 07/03/17 07/03/17 06:40 06:40 06:08 WBC 9.2 RBC 3.64 L Hgb 10.6 L Hct 33.5 L MCV 91.9 MCH 29.1 MCHC 31.7 L RDW 14.7 Plt Count 245 MPV 8.4 Neut % (Auto) 84.3 H Lymph % (Auto) 11.7 [place] % (Auto) 3.7 Eos % (Auto) 0.2 Baso % (Auto) 0.1 Neut # (Auto) 7.8 Lymph # (Auto) 1.1 [place] # (Auto) 0.3 Eos # (Auto) 0.0 Baso # (Auto) 0.0 Sodium 136 Potassium 4.2 Chloride 101 Carbon Dioxide 24 Anion Gap 15.2 H BUN 23 H D Creatinine 1.23 H Estimated Creat Clear 78 Estimated GFR 45 L Est GFR ( Amer) 55 L Glucose 295 H POC Glucose 319 07/02/17 07/02/17 07/02/17 21:03 16:36 11:20 WBC RBC Hgb Hct MCV MCH MCHC RDW Plt Count MPV Neut % (Auto) Lymph % (Auto) [place] % (Auto) Eos % (Auto) Baso % (Auto) Neut # (Auto) Lymph # (Auto) [place] # (Auto) Eos # (Auto) Baso # (Auto) Sodium Potassium Chloride Carbon Dioxide Anion Gap BUN Creatinine Estimated Creat Clear Estimated GFR Est GFR ( Amer) Glucose POC Glucose 400 329 331 DS: Diagnosis - Discharge Diagnosis (1) CAD (coronary artery disease) Status: Chronic (2) COPD (chronic obstructive pulmonary disease) Status: Acute (3) Pneumonia Status: Acute (4) Tobacco abuse Status: Acute Discharge Plan - Patient Discharge Instructions ACTIVITY: Continue current activity, Limited activity DIET: continue same diet - Follow up Plan Follow up with: Charles James [Primary Care Provider] - 07/07/17 Disposition: Home, Self-Nursing Home Medications: Home Medications Medication Instructions Recorded Confirmed Type Aspirin [Aspirin 81mg chewable 81 mg PO DAILY 06/17/17 07/01/17 History tab] Bisoprolol Fumarate 10 mg PO DAILY 06/17/17 07/01/17 History Buspirone HCl [Buspar 10mg tablet] 10 mg PO BID 06/17/17 07/01/17 History Citalopram Hydrobromide [Celexa 40 mg PO DA
--- NOTE | 2017-07-03 08:26 | P.DS_ITS ---
General - General Admission date: 07/01/17 Discharge date: 07/03/17 HPI HPI: 57-year-old white female with very heavy smoking history, of over 40 pack years , who presented to the emergency department early this morning with shortness of air, cough, mucopurulent sputum production. Had been treated by Dr. James as an outpatient a couple weeks ago with azithromycin and albuterol inhalers. She is prescribed Symbicort inhaler but does not take this because it makes my heart race. In the emergency department she was found to have hypoxia, infiltrate and chest x-ray and significant coughing. Admitted to hospital for IV antibiotics and enhanced pulmonary toilet. Hospital Course Hospital Course: She was admitted, placed on cefepime and levofloxacin because of her exposure to antibiotics and her failure to improve on p.o. antibiotics. She improved nicely with steroids, pulmonary toilet and IV fluids. She actually wished to go home 24 hours after admission but we were waiting on Gram stain results from her sputum culture. The following day, this morning, she is improving, overall better with diminished oxygen requirement and better airway movement. Gram stain shows gram-positive diplococci. Her graph plan will be to discharge her home with levofloxacin, short-term follow-up with Dr. James. Continuing prednisone therapy and nebulizers at home. I strongly encouraged her to stop smoking. Objective Vital signs: Temp Pulse Resp BP Pulse Ox 98.4 F 92 H 20 138/73 95 07/03/17 07:41 07/03/17 07:41 07/03/17 07:41 07/03/17 07:41 07/03/17 07:41 Narrative: Patient is alert, pleasant. Oriented ?3. Heart rate regular. Good distal perfusion. Abdomen soft. Lungs are much improved with only minimal rhonchi on deep inspiration and expiration. No wheezing. No areas of crackles. Results Labs on day of discharge: Labs from last 24 hours 07/03/17 07/03/17 07/03/17 06:40 06:40 06:08 WBC 9.2 RBC 3.64 L Hgb 10.6 L Hct 33.5 L MCV 91.9 MCH 29.1 MCHC 31.7 L RDW 14.7 Plt Count 245 MPV 8.4 Neut % (Auto) 84.3 H Lymph % (Auto) 11.7 [place] % (Auto) 3.7 Eos % (Auto) 0.2 Baso % (Auto) 0.1 Neut # (Auto) 7.8 Lymph # (Auto) 1.1 [place] # (Auto) 0.3 Eos # (Auto) 0.0 Baso # (Auto) 0.0 Sodium 136 Potassium 4.2 Chloride 101 Carbon Dioxide 24 Anion Gap 15.2 H BUN 23 H D Creatinine 1.23 H Estimated Creat Clear 78 Estimated GFR 45 L Est GFR ( Amer) 55 L Glucose 295 H POC Glucose 319 07/02/17 07/02/17 07/02/17 21:03 16:36 11:20 WBC RBC Hgb Hct MCV MCH MCHC RDW Plt Count MPV Neut % (Auto) Lymph % (Auto) [place] % (Auto) Eos % (Auto) Baso % (Auto) Neut # (Auto) Lymph # (Auto) [place] # (Auto) Eos # (Auto) Baso # (Auto) Sodium Potassium Chloride Carbon Dioxide Anion Gap BUN Cre
[2017-07-03 09:10] VITALS: O2SAT 89
--- NOTE | 2017-07-03 09:45 | PC.NURSE ---
CHECKED PATIENTS OXYGEN STATS: RESTING WITH OUT OXYGEN 89% ON ROOM AIR. WALKING WITH OUT OXYGEN 87% ON ROOM AIR. WALKING WITH OXYGEN 91% ON 2 LITERS. WILL CONTINUE TO MONITOR.
[2017-07-03 11:55] LABS: POC Glucose,Bedside 406 mg/dL (70-110)
== END 2017-07-03 12:55 | disposition home or self-care (01) | DRG 190 ==
LOC: ER 06:44 → 2ND 07:42
PROVIDERS: Admitting Provider Family Medicine; Emergency Provider Emergency Medicine; Family Provider Internal Medicine; PCP Internal Medicine; Visit Provider Internal Medicine Adolescent Medicine
DX: J44.0 Chronic obstructive pulmonary disease with (acute) lower respiratory infection (principal); J18.9 Pneumonia, unspecified organism; I50.9 Heart failure, unspecified; Z72.0 Tobacco use; R09.02 Hypoxemia; I25.10 Atherosclerotic heart disease of native coronary artery without angina pectoris; E11.9 Type 2 diabetes mellitus without complications; Z95.5 Presence of coronary angioplasty implant and graft; I10 Essential (primary) hypertension
CPT/HCPCS: 36415; 71046; 80048; 80053; 82550; 82553; 82962; 83605; 83880; 84484; 85025; 87040; 87070; 87205; 93005; 94640; 94761; 96365; 96375; 99284; 99406; J0456; J0692; J1956

== ENCOUNTER → 2017-07-25 15:32 | Outpatient (CLI) | payer MEDICARE, MEDICAID, SELFPAY ==
--- NOTE | 2017-07-25 15:41 | XR_ITS ---
XR chest 2V HISTORY: ITS.REASON: COPD,SOA,COUGH ORDERING PHYSICIAN: Charles James PATIENT AGE: 57 years COMPARISON: 07/01/2017 FINDINGS: The cardiomediastinal silhouette and pulmonary vascularity are within normal limits. Hyperinflation with mild coarsening of the bronchovascular markings consistent with COPD with persistent opacity in the anterior clear space inferiorly slightly more prominent consistent with an area of atelectasis, fibrosis, or infiltrate. The remaining lungs are clear. The michel are somewhat prominent but may be due to prominent pulmonary vessels. IMPRESSION: COPD with slight increasing density in the anterior clear space suggesting an area of atelectasis or infiltrate slightly worse
== END ==
PROVIDERS: PCP Internal Medicine; Visit Provider Internal Medicine
DX: J44.9 Chronic obstructive pulmonary disease, unspecified (principal); R06.02 Shortness of breath; R05 Cough
CPT/HCPCS: 71046

== ENCOUNTER → 2017-09-13 14:23 | Outpatient (CLI) | payer MEDICARE, MEDICAID, SELFPAY | PROVIDERS: PCP Internal Medicine; Visit Provider Internal Medicine | DX: G47.33 Obstructive sleep apnea (adult) (pediatric) (principal); I10 Essential (primary) hypertension; R40.0 Somnolence; R06.83 Snoring | CPT/HCPCS: G0399 ==

== ENCOUNTER → 2017-10-03 13:27 | Outpatient (CLI) | payer MEDICARE, MEDICAID, SELFPAY | PROVIDERS: PCP Internal Medicine; Visit Provider Internal Medicine | DX: R55 Syncope and collapse (principal) | CPT/HCPCS: 93225; 93226 ==

== ENCOUNTER → 2017-10-28 09:34 | Outpatient (CLI) | payer MEDICARE, MEDICAID, SELFPAY ==
--- NOTE | 2017-10-28 09:36 | US_ITS ---
US transvaginal Ordering Physician: Arsen Lopez MD Patient Age: 57 years: Female HISTORY: ITS.REASON: Postmenopausal bleeding- look at endometriumMW TECHNIQUE: Transvaginal pelvic ultrasound. Pelvic pain. Postmenopausal bleeding. Vaginal bleeding COMPARISON :CT abdomen pelvis from 10/01/2017. FINDINGS Uterus appears normal in size. 6.65 cm in length x 2.9 cm AP x 4.1 cm wide. Endometrial stripe slightly more generous at the fundus measuring where it measures up to 6.5 mm. Slight hypoechoic appearance about endometrium in some areas. The ovaries appear normal size. Diffusely slight hypoechoic appearance to the ovaries bilaterally but with otherwise normal features and normal color Doppler flow. No significant enlargement or mass.. Right ovary measures 3.15 cm x 1.9 cm x 1.5 cm Left ovary measures 3.4 x 1.6 x 1.5 cm. No fluid in the cul-de-sac. IMPRESSION: . Uterus normal in size. Ovaries normal in size and appear satisfactory. No fluid in cul-de-sac.
== END ==
PROVIDERS: Family Provider Internal Medicine; PCP Internal Medicine; Visit Provider Nurse Practitioner Obstetrics & Gynecology
DX: N95.0 Postmenopausal bleeding (principal)
CPT/HCPCS: 76830

== ENCOUNTER → 2017-12-27 20:21 | Outpatient (CLI) | payer MEDICARE, MEDICAID, SELFPAY | PROVIDERS: PCP Internal Medicine; Visit Provider Nurse Practitioner Family | DX: G47.33 Obstructive sleep apnea (adult) (pediatric) (principal); R06.83 Snoring; R53.1 Weakness | CPT/HCPCS: 95811 ==

== ENCOUNTER → 2018-01-05 08:06 | Outpatient (POV) | payer MEDICARE, MEDICAID, SELFPAY | PROVIDERS: Family Provider Internal Medicine; PCP Internal Medicine; Visit Provider Dentist | DX: Z00.00 Encounter for general adult medical examination without abnormal findings (principal) ==

== ENCOUNTER → 2018-03-15 13:43 | Outpatient (CLI) | payer MEDICARE, MEDICAID, SELFPAY ==
--- NOTE | 2018-03-15 13:47 | CI_ITS ---
Cerebrovascular Exam Indications: 785.9 Bruit. 435.9 Unspecified transient cerebral ischemia. IMPRESSIONS 1. The bilateral vertebral arteries are patent with normal antegrade flow. 2. Study suggests less than 20% stenosis. 3. Study suggests 20-49% stenosis involving the left internal carotid artery. No change from the study of 18-Nov-2015. History: Risk factors: Current tobacco use. Hypertension. Hyperlipidemia. Carotid duplex study. Complete study and Doppler flow study including spectral analysis, color and urias scale imaging. Height: Height: 172.7cm. Height: 68in. Weight: Weight: 99.8kg. Weight: 219.5lb. Body mass index: BMI: 33.5kg/m^2. Body surface area: BSA: 2.22m^2. Location: Vascular laboratory. Patient status: Outpatient. Tables: Arterial flow: + +--------+---------+ Location V sys V ed + +--------+---------+ Right CCA - proximal 109cm/s 29.9cm/s + +--------+---------+ Right CCA - distal 91.9cm/s 29.1cm/s + +--------+---------+ Right ECA 101cm/s --------- + +--------+---------+ Right ICA - proximal 61.3cm/s 16.5cm/s + +--------+---------+ Right ICA - mid 70.7cm/s 24.4cm/s + +--------+---------+ Right ICA - distal 73.1cm/s -24.4cm/s + +--------+---------+ Right vertebral 59.7cm/s --------- + +--------+---------+ Left CCA - proximal 116cm/s 25.9cm/s + +--------+---------+ Left CCA - distal 106cm/s 25.9cm/s + +--------+---------+ Left ECA 167cm/s --------- + +--------+---------+ Left ICA - proximal 112cm/s 28.3cm/s + +--------+---------+ Left ICA - mid 111cm/s 29.1cm/s + +--------+---------+ Left ICA - distal 112cm/s 33.8cm/s + +--------+---------+ Left vertebral 38.5cm/s --------- + +--------+---------+ Velocity ratios: + + + + + + Right, V sys Right, V ed Left, V sys Left, V ed + + + + + + Max ICA/dist CCA 0.8 0.84 1.06 1.31 + + + + + + (Report amended ) Electronically signed by: Enrique Seaman [id number]
== END ==
PROVIDERS: PCP Internal Medicine; Visit Provider Internal Medicine
DX: R42 Dizziness and giddiness (principal); R09.89 Other specified symptoms and signs involving the circulatory and respiratory systems
CPT/HCPCS: 93880

== ENCOUNTER → 2018-06-27 14:01 | Outpatient (CLI) | payer MEDICARE, MEDICAID, SELFPAY | PROVIDERS: PCP Internal Medicine; Visit Provider Specialist | DX: G47.33 Obstructive sleep apnea (adult) (pediatric) (principal); G47.36 Sleep related hypoventilation in conditions classified elsewhere | CPT/HCPCS: 94762 ==

== ENCOUNTER → 2018-07-21 16:33 | Outpatient (CLI) | payer MEDICARE, MEDICAID, SELFPAY ==
--- NOTE | 2018-07-21 16:40 | XR_ITS ---
XR tibia fibula LT 2V CLINICAL INDICATION: Pain following injury With swelling and bruising ITS.REASON: S/P L LOWER LEG INJURY 07/12/18 ORDERING PHYSICIAN: Charles James PATIENT AGE: 58 years Comparison: None FINDINGS: No acute bony abnormality. There is mild Yamile soft tissue swelling of the lower extremity. No radio opaque foreign body or bony erosive process IMPRESSION: Soft tissue swelling otherwise negative
== END ==
PROVIDERS: PCP Internal Medicine; Visit Provider Internal Medicine
DX: M79.662 Pain in left lower leg (principal)
CPT/HCPCS: 73590

== ENCOUNTER → 2018-09-18 14:19 | Outpatient (CLI) | payer MEDICARE, MEDICAID, SELFPAY ==
--- NOTE | 2018-09-18 14:32 | XR_ITS ---
EXAM: XR cervical spine w flex/ext HISTORY: ITS.REASON: neck pain ORDERING PHYSICIAN: Constanza Dugan MD PATIENT AGE: 58 years COMPARISON: None FINDINGS: Flexion and extension views are obtained of the cervical spine showing no abnormal subluxation in flexion or extension to the C6 level. C6 and C7 are not well demonstrated. There does appear to be an old spinous process fracture of C7 which is only faintly visualized. IMPRESSION: No abnormal subluxation to the C6 level. Old spinous process fracture C7
[2018-09-18 17:58] LABS: Ferritin 26 ng/mL (8-388); Thyroid Stimulating Hormone 4.38 uIU/ml (0.358-3.740)
[2018-09-21 08:56] LABS: Vitamin B12 320 pg/mL (232-1245)
== END ==
PROVIDERS: PCP Internal Medicine; Visit Provider Specialist
DX: G62.9 Polyneuropathy, unspecified (principal); G93.40 Encephalopathy, unspecified; J38.3 Other diseases of vocal cords; M54.2 Cervicalgia; R29.2 Abnormal reflex; E83.10 Disorder of iron metabolism, unspecified; F17.210 Nicotine dependence, cigarettes, uncomplicated
CPT/HCPCS: 36415; 72052; 82607; 82728; 82746; 84443

== ENCOUNTER → 2018-09-22 12:59 | Outpatient (CLI) | payer MEDICARE, MEDICAID, SELFPAY ==
--- NOTE | 2018-09-22 13:01 | MR_ITS ---
MR head/brain wo con HISTORY: Dizziness, pain and numbness and tingling with difficulty with speech ITS.REASON: encephalopathy ORDERING PHYSICIAN: Constanza Dugan MD PATIENT AGE: 58 years Comparison: 11/18/2015 TECHNIQUE: Standard multiplanar multiecho sequences are performed without contrast. FINDINGS: No midline shift, mass effect, intracranial hemorrhage, or hydrocephalus is evident. No evidence of acute infarction. There are small cystic areas in both right and left cerebral peduncles not severely changed and may be due to small areas of cystic encephalomalacia or perivascular dilated spaces. These are not significantly changed. The cerebellopontine angles, cerebellum, and brainstem are unremarkable. There is normal urias-white matter differentiation. Small amount of fluid in the mastoid sinuses. Small retention cyst is present in the sphenoid sinus anteriorly as well as both maxillary sinuses. The pituitary, optic chiasm, corpus callosum, and craniocervical junction evident unremarkable appearance. IMPRESSION: 1. Overall no significant change with no acute finding. 2. Stable small cystic areas within the cerebral peduncles. 3. Mild mastoid sinus disease..
--- NOTE | 2018-09-22 13:01 | MR_ITS ---
MR cervical spine wo con, MR 3-d myelogram/MRCP HISTORY: Head leans forward when sitting and standing. Head also leans to the left. Quiver in voice. Dizziness. Constant neck pain. Bilateral arm pain, numbness. and tingling. ITS.REASON: neck pain ORDERING PHYSICIAN: Constanza Dugan MD PATIENT AGE: 58 years Comparison: X-RAY 09-18-18 TECHNIQUE: Standard multiplanar multiecho sequences are performed without contrast. 3-D MIP and myelographic images are also rendered and reviewed FINDINGS: There is normal alignment. The craniocervical junction has an unremarkable appearance. C2-C3: Unremarkable. C3-C4: Unremarkable. C4-C5: Small central disc protrusion without cord flattening or impingement. There is narrowing of the canal at this level at 10 mm. C5-C6: Minimal bulging disc with narrowing of the canal at 10 mm. No cord effacement. C6-C7 and C7-T1 have an unremarkable appearance. IMPRESSION: 1. Small central disc protrusion at C4-C5 and minimal bulging disc at C5-C6 with canal narrowing at both levels at 10 mm. No cord effacement or impingement. 2. Otherwise negative IMPRESSION:
== END ==
PROVIDERS: PCP Internal Medicine; Visit Provider Specialist
DX: G24.3 Spasmodic torticollis (principal); G62.9 Polyneuropathy, unspecified; G93.40 Encephalopathy, unspecified; J38.7 Other diseases of larynx; M54.2 Cervicalgia; R29.2 Abnormal reflex
CPT/HCPCS: 70551; 72141; 76376

== ENCOUNTER → 2018-10-23 12:24 | Outpatient (POV) | payer MEDICARE, MEDICAID, SELFPAY | PROVIDERS: Visit Provider Specialist | DX: R20.0 Anesthesia of skin (principal); R20.2 Paresthesia of skin; R53.1 Weakness | CPT/HCPCS: 95886; 95910 ==

== ENCOUNTER → 2019-04-30 11:22 | Outpatient (POV) | payer MEDICARE, MEDICAID, SELFPAY | PROVIDERS: Visit Provider Nurse Practitioner Family | DX: Z00.00 Encounter for general adult medical examination without abnormal findings (principal) ==

== ENCOUNTER → 2019-09-10 15:13 | Outpatient (CLI) | payer MEDICARE, MEDICAID, SELFPAY ==
--- NOTE | 2019-09-10 15:18 | XR_ITS ---
PROCEDURE: XR CHEST 2V CLINICAL HISTORY: COPD, EDEMA, SOA COMPARISON: CTAC CTA-CHEST from 08/21/2014 CXR2V XR chest 2V from 09/22/2017 CXR1VP XR chest portable from 11/15/2017 XR CHEST 2V from 12/11/2018 FINDINGS: There is borderline cardiomegaly without failure. Are prominent consistent with prominent pulmonary arteries which may be seen with pulmonary arterial hypertension. There is evidence of old granulomatous disease. There are mild fibrotic changes in the lower aspect of the anterior clear space. No lobar consolidation or collapse. IMPRESSION: Borderline cardiomegaly with possible pulmonary arterial hypertension Dictated by: Enrique Seaman MD 09/10/2019 15:52 Electronically signed by Enrique Seaman MD in [place] 09/10/2019 15:52
== END ==
PROVIDERS: PCP Internal Medicine; Visit Provider Internal Medicine
DX: R06.02 Shortness of breath (principal); J44.9 Chronic obstructive pulmonary disease, unspecified; R60.9 Edema, unspecified
CPT/HCPCS: 71046; 94618

== ENCOUNTER → 2019-09-18 13:58 | Outpatient (CLI) | payer MEDICARE, MEDICAID, SELFPAY ==
--- NOTE | 2019-09-18 14:05 | CA_ITS ---
APPROVED REPORT EXAM: Comprehensive 2D, Doppler, and color-flow Echocardiogram Call Center Support Consultant: Elizabeth Whitney RDCS Ht: 5 ft 8 in Wt: 222lbs BSA: 2.14 BP: 144/62 mmHg Indications: HARRISON,SOA,COPD,PP,DM,HTN,HLP 2D Dimensions LVOT 1.53 cm (M/F) 1.5-2.5 M-Mode Dimensions RVDd 4.76 cm (0.9-2.6) LVDd 4.71 cm (3.5-5.7) LVDs 3.31 cm (3.5-5.7) IVSd 0.85 cm (0.6-1.1) PWd 0.76 cm (0.6-1.1) EF (Teich) 56.80% FS 29.70% EDV (Teich) 102.90 mL ESV (Teich) 44.50 mL LV Diastology E/A Ratio 0.56 Mitral Valve MV A Velocity 114.00 (40-130 cm/s) Left Ventricle Left atrium is mildly enlarged, left ventricle is normal size, mild concentric left ventricular hypertrophy, visually estimated ejection fraction 55% with no regional wall motion abnormality, there is abnormal septal motion. Diastolic parameters are inconclusive. Right Ventricle Right atrium and right ventricle moderately enlarged, contractility of the right ventricle is mildly reduced. Aortic Valve Aortic valve is minimally thickened and fibrosed, there is no aortic stenosis aortic insufficiency. Mitral Valve Mitral valve is grossly normal, there is mild mitral regurgitation. Tricuspid Valve Tricuspid valve is grossly normal, there is mild tricuspid regurgitation, tricuspid regurgitation jet velocity is inadequate for calculation of the right ventricular systolic pressure. Pulmonic Valve Pulmonic valve is poorly visualized. Great Vessels Aortic root is normal size. Pericardium No significant pericardial effusion noted. Conclusion 1. Mildly enlarged left atrium, normal left ventricular size, mild concentric left ventricular hypertrophy, visually estimated ejection fraction 55%, there is abnormal septal motion, diastolic parameters are inconclusive. 2. Moderately enlarged right ventricle with mild reduced contractility. 3. Mild mitral and tricuspid regurgitation. Tricuspid regurgitation jet velocity is inadequate for calculation of the right ventricular systolic pressure. 4. No significant pericardial effusion noted. Electronically signed by : Lake Flores, 09/18/2019 22:43:08
[2019-09-18 14:35] VITALS: PULSE 78; PULSE 80
== END ==
PROVIDERS: PCP Internal Medicine; Visit Provider Internal Medicine
DX: R06.09 Other forms of dyspnea (principal); J44.9 Chronic obstructive pulmonary disease, unspecified
CPT/HCPCS: 93306; 94060; 94640

== ENCOUNTER 2019-10-13 14:44 | Emergency (ER) | payer MEDICARE, MEDICAID, SELFPAY ==
[2019-10-13] VITALS (8 sets, daily range): BP systolic 125–155; BP diastolic 75–94; PULSE 78–88; RESP 22–36; TEMP 36.6; O2SAT 88–95; BMI 33.4
--- NOTE | 2019-10-13 15:01 | ECG_ITS ---
APPROVED REPORT Exam: Resting ECG HR:82 bpm ECG Measurements Heart Rate 82 AXES WY 210 P 65 QRSd 80 QRS 149 QT 390 T -52 QTc 455 <Conclusion> Sinus rhythm with 1st degree AV block Right axis deviation Pulmonary disease pattern ST & T wave abnormality, unchanged from prior Abnormal ECG Electronically signed by : Kareem Newell, 10/15/2019 17:13:28
--- NOTE | 2019-10-13 15:11 | PC.NURSE ---
HARSHIL HILL gave verbal order for antibody COVID test HARSHIL HILL at
[2019-10-13 15:12] LABS: Basophils # 0.1 K/mm3 (0-0.2); Basophils % 0.7 % (0.1-2.0); Eosinophils # 0.2 K/mm3 (0.0-0.4); Eosinophils % 2.2 % (0.1-12.0); Hematocrit 31.7 % (37.0-47.0); Lymphocytes # 1.6 K/mm3 (0.7-4.5); Lymphocytes % 21.5 % (10-50); Mean Corpuscular HGB Conc 31.7 g/dL (31.8-35.4); Mean Corpuscular Hemoglobin 27.3 pg (27.0-31.2); Mean Corpuscular Volume 86.2 fl (81-99); Mean Platelet Volume 9.2 fl (7.4-10.4); Monocytes # 0.5 K/mm3 (0.1-1.0); Monocytes % 7.2 % (1.7-9.3); Neutrophils # 5.1 K/mm3 (1.8-7.8); Neutrophils % 68.5 % (37.0-80.0); Platelet Count 270 K/mm3 (142-424); Red Blood Count 3.67 M/mm3 (4.20-5.40); Red Cell Distribution Width 16.5 % (11.5-17.5); White Blood Count 7.4 K/mm3 (4.8-10.8)
--- NOTE | 2019-10-13 15:12 | PC.NURSE ---
notified rad of xray order
--- NOTE | 2019-10-13 15:13 | CT_ITS ---
PROCEDURE: CT CHEST WO CON CLINICAL INDICATION: SOA Shortness of air, severe shortness of air with leg swelling COMPARISON: CT ANGIO CHEST from 10/13/2019 TECHNIQUE: Axial images obtained with sagittal and coronal reformats. All CT scans at the facility use one or more dose reduction, viz: automated exposure control, ma/kV adjustment per patient size (including targeted exams where dose is matched to indication, i.e. head), or iterative reconstruction technique. FINDINGS: HEART AND MEDIASTINAL STRUCTURES: Mild mediastinal and bilateral hilar adenopathy. Coronary artery calcifications. Cannot adequately evaluate for pulmonary embolus based on this exam therefore, suggest CT angiogram for further evaluation. LUNGS AND PLEURAL SPACES: Upper lobe predominant centrilobular emphysema with mosaic attenuation in the lower lobes. Mild prominence of the interstitium. Scattered calcified granulomas. Atelectatic changes. Trace bilateral effusions. BONY STRUCTURES: No acute bony abnormalities apparent. UPPER ABDOMEN: Unremarkable. ADDITIONAL FINDINGS: No other significant abnormalities. IMPRESSION: Mosaic attenuation in the lower lungs which could be secondary to infectious or inflammatory process or small airway disease. Enlarged mediastinal and hilar lymph nodes along with mild prominence of the interstitium. Sarcoidosis would be considered Trace bilateral effusions Coronary artery disease Dictated by: Enrique Seaman MD 10/14/2019 10:19 Electronically signed by Enrique Seaman MD in [place] 10/14/2019 10:19
--- NOTE | 2019-10-13 15:13 | CT_ITS ---
PROCEDURE: CT ANGIO CHEST CLINCIAL INDICATION: SOA Severe shortness of air COMPARISON: CT CHEST WO RUFINO from 10/13/2019 TECHNIQUE: IV Contrast: 70ML OPTIRAY 350 Axial images obtained with sagittal and coronal reformats. All CT scans at the facility use one or more dose reduction, viz: automated exposure control, ma/kV adjustment per patient size (including targeted exams where dose is matched to indication, i.e. head), or iterative reconstruction technique. FINDINGS: HEART AND MEDIASTINAL STRUCTURES: There is mild mediastinal adenopathy with nodes measuring up to 2 cm in the pretracheal, precarinal, aortopulmonic window area. Mildly prominent nodes are present in the michel on both sides as well. Subcarinal adenopathy is present measuring up to 2.7 by 1.6 cm. No evidence of aortic aneurysm dissection or pulmonary embolus. LUNGS AND PLEURAL SPACES: Centrilobular emphysema with diffuse mosaic attenuation of the lower lobes. There is mild thickening of the interlobular septa in the upper lobes. Mild atelectatic changes are present in the right middle lobe. There are trace bilateral effusions and there is evidence of old granulomatous disease BONY STRUCTURES: Degenerative change thoracic spine UPPER ABDOMEN: Unremarkable. ADDITIONAL FINDINGS: No other significant abnormalities. IMPRESSION: 1. No evidence of pulmonary embolus. 2. Mediastinal and hilar adenopathy. Etiology is indeterminate. There is some interstitial lung disease suspected. Sarcoidosis would be included in the differential diagnosis. 3. Mosaic attenuation in the lower lung zones which may be secondary to infectious or inflammatory process or small airway disease. There are centrilobular emphysematous changes with mild prominence of the interstitium in the upper lobes. Dictated by: Enrique Seaman MD 10/14/2019 10:11 Electronically signed by Enrique Seaman MD in [place] 10/14/2019 10:11
--- NOTE | 2019-10-13 15:15 | PC.NURSE ---
ER MD states to cancel chest xray and order CT chest without contrast and CTA chest PE protocol notified Martha in radiology of changes
[2019-10-13 15:21] LABS: Alanine Aminotransferase 14 U/L (12-78); Albumin Level 4.6 g/dl (3.5-5.0); Albumin/Globulin Ratio 1.5 (1.1-1.8); Alkaline Phosphatase 108 U/L (38-126); Anion Gap 15.7 mEq/L (5-15); Aspartate Amino Transferase 22 U/L (14-36); Bilirubin,Total 0.7 mg/dl (0.2-1.3); Blood Urea Nitrogen 13 mg/dl (7-17); Calcium 9.8 mg/dl (8.4-10.2); Carbon Dioxide 23 mmol/L (22.0-30.0); Chloride 104 mmol/L (98-107); Creatinine Clearance Estimated 107 mL/min (50-200); Estimated Glomerular Filt Rate 64 ml/min (>60); GFR (African American) 78 ML/MIN (>60); Glucose 209 mg/dl (74-100); Potassium 4.7 mmoL/L (3.5-5.1); Sodium 138 mmol/L (136-145); Total Protein,Serum 7.6 g/dl (6.3-8.2)
[2019-10-13 15:23] LABS: Lactic Acid 2.8 mmol/L (0.7-2.1)
[2019-10-13 15:34] LABS: Troponin I < 0.01 ng/ml (0.00-0.034)
[2019-10-13 15:49] LABS: Coronavirus 19 IgG Antibody Negative (Negative); Coronavirus 19 IgM Antibody Negative (Negative)
[2019-10-13 16:07] LABS: NT Pro Brain Natriuretic Pep. 2170 pg/mL (0-125)
--- NOTE | 2019-10-13 16:33 | PC.NURSE ---
Pt to rad.
--- NOTE | 2019-10-13 17:01 | PC.NURSE ---
Pt to restroom upon getting back from CT. Pt states the hat fell into the toilet spilling the urine. Unable to measure at this time. Will continue to monitor.
--- NOTE | 2019-10-13 17:49 | PC.NURSE ---
Pt urinated 600ml of urine at this time.
--- NOTE | 2019-10-13 18:06 | HMH.EDSOB ---
ED Disposition Clinical Impression: CHF (congestive heart failure) Disposition: Home, Self-Care Condition on Discharge: Good Additional Instructions: Please nut picker your prescriptions tomorrow. Also please continue to wear the home oxygen 01/11. Please follow-up with your director of advertising sales for further management. Prescriptions: methylPREDNISolone [Medrol 4mg tab] 4 mg PO DIRECTED #21 tab Transmission Status: [facility] to [facility] Referrals: Charles James [Primary Care Provider] - - Critical Care Critical Care Time: No Attestation: On 10/13/19, the high probability of a clinically significant, sudden or life threatening deterioration of the following system(s) required my full and direct attention, intervention and personal management. The time I documented below is in addition to time spent performing reported procedures but includes the following listed in this critical care notation. Medical Decision Making - Medical Records Medical records reviewed: Yes: I reviewed the patient's medical records. - Miller Inquiry Pt receiving controlled substance: No Vital Signs: 10/13/19 14:57 10/13/19 15:06 10/13/19 15:08 Temperature 97.9 F Temperature Source Oral Pulse Rate [Right Radial] 88 80 Respiratory Rate 36 H Blood Pressure [Right Arm] 140/90 137/79 Blood Pressure Mean [Right Arm] 106 98 Blood Pressure Source [Right Arm] Automatic Cuff Automatic Cuff Blood Pressure Position [Right Arm] Sitting Sitting 02 Sat by Pulse Oximetry 88 L 95 91 L Oxygen Delivery Method Room Air Nasal Cannula Nasal Cannula Oxygen Flow Rate (LPM) 2 2 10/13/19 15:47 10/13/19 16:14 10/13/19 16:30 Temperature Temperature Source Pulse Rate [Right Radial] 80 85 Respiratory Rate Blood Pressure [Right Arm] 145/79 H 137/85 155/94 H Blood Pressure Mean [Right Arm] 101 102 114 Blood Pressure Source [Right Arm] Automatic Cuff Automatic Cuff Automatic Cuff Blood Pressure Position [Right Arm] Sitting Sitting Sitting 02 Sat by Pulse Oximetry 90 L 90 L Oxygen Delivery Method Nasal Cannula Nasal Cannula Oxygen Flow Rate (LPM) 2 2 10/13/19 17:41 Temperature Temperature Source Pulse Rate [Right Radial] 78 Respiratory Rate Blood Pressure [Right Arm] Blood Pressure Mean [Right Arm] Blood Pressure Source [Right Arm] Blood Pressure Position [Right Arm] 02 Sat by Pulse Oximetry 92 L Oxygen Delivery Method Nasal Cannula Oxygen Flow Rate (LPM) 2 - Lab Data Lab results reviewed: Yes: I reviewed the patient's lab results. Lab Results 10/13/19 15:00: WBC 7.4, RBC 3.67 L, Hgb 10.0 L, Hct 31.7 L, MCV 86.2, MCH 27.3, MCHC 31.7 L, RDW 16.5, Plt Count 270, MPV 9.2, Neut % (Auto) 68.5, Lymph % (Auto) 21.5, [place] % (Auto) 7.2, Eos % (Auto) 2.2, Baso % (Auto) 0.7, Neut # (Auto) 5.1, Lymph # (Auto) 1.6, Henry # (Auto) 0.5, Eos # (Auto) 0.2, Baso # (Auto) 0.1 10/13/19 15:00: Sodium 138, Potassium 4.7, Chloride 104, Carbon Dioxide 23, Anion Gap 15.7 H, BUN 13, Creatinine 0.90, Estimated Creat Clear 107, Estimated GFR 64, Est GFR ( Amer) 78, Glucose 209 H, Calcium 9.8, Total Bilirubin 0.7, AST 22, ALT 14, Alkaline Phosphatase 108, Troponin I < 0.01, Total Protein 7.6, Albumin 4.6, Globulin 3.0, Albumin/Globulin Ratio 1.5 10/13/19 15:00: Lactate 2.8 H 10/13/19 15:00: SARS-CoV-2 IgG Ab (Rapid) Negative, SARS-CoV-2 IgM Ab (Rapid) Negative 10/13/19 15:00: NT-Pro-B Natriuret Pep 2170 H Result diagrams: 10/13/19 15:00 10/13/19 15:00 Orders (Tests/Meds): ED MEDICATIONS Discontinued Medications Generic Name Dose Route Start Last Admin Trade Name Freq PRN Reason Stop Dose Admin Dexamethasone Sodium Phosphate 10 mg 10/13/19 18:04 Decadron 4mg/Ml 1ml Vial IV 10/13/19 18:05 ONCE ONE Furosemide 40 mg 10/13/19 15:53 10/13/19 16:08 Lasix 40mg/4ml Vial IV 10/13/19 15:54 40 mg ONCE ONE Administration Ioversol 70 ml 10/13/19 17:03 10/13/19 17:04 Rad-Optiray 350 100ml Vial IV
== END 2019-10-13 18:42 | disposition home or self-care (01) ==
PROVIDERS: Emergency Provider Family Medicine; PCP Internal Medicine
DX: I50.21 Acute systolic (congestive) heart failure (principal); E11.9 Type 2 diabetes mellitus without complications; I10 Essential (primary) hypertension; E78.5 Hyperlipidemia, unspecified; Z79.84 Long term (current) use of oral hypoglycemic drugs; Z88.0 Allergy status to penicillin; Z87.891 Personal history of nicotine dependence; Z79.899 Other long term (current) drug therapy
CPT/HCPCS: 71250; 71275; 80053; 83605; 83880; 84484; 85025; 86328; 87040; 93005; 96374; 99284; Q9967

== ENCOUNTER → 2019-11-22 12:44 | Outpatient (CLI) | payer MEDICARE, MEDICAID, SELFPAY ==
--- NOTE | 2019-11-22 12:47 | NM_ITS ---
PROCEDURE: NM PUL VENT AND PERFUSE CLINICAL INDICATION: PULMONARY HYPERTENSION COMPARISON: No exams were available for comparison TECHNIQUE: Dose 35.5 mCi technetium DTPA inhaled and 8.3 mCi technetium MAA IV FINDINGS: Ventilation images show patchy activity in both lungs with mild diffuse decreased activity in the upper lobes. There is some clumping of the radiopharmaceutical centrally on the ventilation images. Perfusion images show shows homogeneous decreased activity in the right upper lobe. This is not a true defect but rather merely decreased activity. No mismatch pulmonary segmental perfusion defects apparent. IMPRESSION: 1. Low probability for pulmonary embolus. No mismatched pulmonary ventilation and perfusion defects apparent. 2. Match decreased activity in the right upper lobe with some clumping of the radiopharmaceutical centrally on the ventilation images which may be related underlying obstructive airway disease Dictated b Enrique Seaman MD 11/22/2019 17:49 Enrique Seaman MD in [facility] 11/22/2019 17:49
--- NOTE | 2019-11-22 14:07 | XR_ITS ---
PROCEDURE: XR CHEST 2V CLINICAL HISTORY: SOB The shortness of breath, current smoker COMPARISON: CR CXR1VP XR chest portable from 11/15/2017 CR XR CHEST 2V from 12/11/2018 CR XR CHEST 2V from 09/10/[address] ANGIO CHEST from 10/13/2019 FINDINGS: The cardiomediastinal silhouette and pulmonary vascularity are within normal limits. Changes of COPD. There is also prominence of the pulmonary arteries suggesting pulmonary arterial hypertension. Fibrotic changes are present in the anterior clear space. No lobar consolidation or collapse No acute bony abnormalities. IMPRESSION: COPD with suspected pulmonary arterial hypertension. No change with no acute finding Dictated b Enrique Seaman MD 11/22/2019 15:46 Enrique Seaman MD in [facility] 11/22/2019 15:46
== END ==
PROVIDERS: PCP Internal Medicine; Visit Provider Internal Medicine Critical Care Medicine
DX: I27.20 Pulmonary hypertension, unspecified (principal)
CPT/HCPCS: 71046; 78582; A9540; A9567

== ENCOUNTER → 2019-12-24 08:34 | Outpatient (CLI) | payer MEDICARE, MEDICAID, SELFPAY ==
[2019-12-24 10:17] LABS: Chloride 99 mmol/L (98-107); Potassium 4.8 mmoL/L (3.5-5.1); Sodium 136 mmol/L (136-145)
[2019-12-24 10:20] LABS: Anion Gap 20.8 mEq/L (5-15); Blood Urea Nitrogen 15 mg/dl (7-17); Carbon Dioxide 21 mmol/L (22.0-30.0); Estimated Glomerular Filt Rate 57 ml/min (>60); GFR (African American) 69 ML/MIN (>60)
[2019-12-24 10:21] LABS: Calcium 9.9 mg/dl (8.4-10.2); Glucose 387 mg/dl (74-100)
== END ==
PROVIDERS: Visit Provider Nurse Practitioner Acute Care
DX: R06.02 Shortness of breath (principal); I27.20 Pulmonary hypertension, unspecified
CPT/HCPCS: 36415; 80048

== ENCOUNTER → 2020-01-16 14:01 | Outpatient (CLI) | payer MEDICARE, MEDICAID, SELFPAY ==
--- NOTE | 2020-01-16 14:05 | CT_ITS ---
PROCEDURE: CT CHEST WO CON CLINICAL INDICATION: SOA Smoker, shortness of air COMPARISON: CT CT CHEST WO CON from 10/13/[address] ANGIO CHEST from 10/13/2019 TECHNIQUE: Axial images obtained with sagittal and coronal reformats. All CT scans at the facility use one or more dose reduction, viz: automated exposure control, ma/kV adjustment per patient size (including targeted exams where dose is matched to indication, i.e. head), or iterative reconstruction technique. FINDINGS: HEART AND MEDIASTINAL STRUCTURES: There are mildly prominent mediastinal lymph nodes. These may be slightly smaller compared to the previous exam. Pretracheal and precarinal area measuring up 2 1.2 cm previously measuring 1.5 cm. Coronary artery calcifications are present. LUNGS AND PLEURAL SPACES: There are centrilobular emphysematous changes. Patchy ground-glass attenuation once again noted in the lower lobes with some atelectatic changes in the right middle lobe. Atelectatic changes are present in the lingula which have developed in the interval.. There are few calcified granulomas. Changes BONY STRUCTURES: No acute bony abnormalities apparent. UPPER ABDOMEN: Unremarkable. ADDITIONAL FINDINGS: No other significant abnormalities. IMPRESSION: 1. Persistent mosaic/ground-glass attenuation in the lower lobes which may be slightly improved with persistent right middle lobe atelectasis and new atelectasis in the lingula. Trace bilateral effusions have resolved. 2. Mild mediastinal adenopathy unchanged to slightly improved. 3. COPD with centrilobular emphysema Dictated by: Enrique Seaman MD 01/17/2020 14:42 Enrique Seaman MD in [facility] 01/17/2020 14:42
== END ==
PROVIDERS: PCP Internal Medicine; Visit Provider Internal Medicine Critical Care Medicine
DX: J44.9 Chronic obstructive pulmonary disease, unspecified (principal)
CPT/HCPCS: 71250

== ENCOUNTER → 2020-01-21 13:58 | Outpatient (POV) | payer MEDICARE, MEDICAID, SELFPAY | PROVIDERS: Visit Provider Nurse Practitioner Family | DX: Z00.00 Encounter for general adult medical examination without abnormal findings (principal) ==

== ENCOUNTER → 2020-01-22 13:50 | Outpatient (CLI) | payer MEDICARE, MEDICAID, SELFPAY ==
[2020-01-22 13:53] LABS: Adenovirus F 40/41, stool Not Detected (NotDetected); Astrovirus Not Detected (NotDetected); Campylobacter Not Detected (NotDetected); Clostridium Difficile A/B, PCR Not Detected (NotDetected); Cryptosporidium Not Detected (NotDetected); Cyclospora Cayetanesis Not Detected (NotDetected); Entamoeba histolytica Not Detected (NotDetected); Enteroaggregative E coli Not Detected (NotDetected); Enterotoxigenic E coli Not Detected (NotDetected); Giardia lamblia Not Detected (NotDetected); Norovirus Not Detected (NotDetected); Plesimonas Shigalloides, PCR Not Detected (NotDetected); Rotavirus A Not Detected (NotDetected); Salmonella, PCR Not Detected (NotDetected); Sapovirus Not Detected (NotDetected); Shiga-like toxin E coli Not Detected (NotDetected); Shigella Enterovasive E coli Not Detected (NotDetected); Vibrio Cholerae Not Detected (NotDetected); Vibrio, PCR Not Detected (NotDetected); Yersinia Entercolitica, PCR Not Detected (NotDetected)
[2020-01-25 14:38] LABS: Enteropathogenic E coli Detected (NotDetected)
== END ==
PROVIDERS: Visit Provider Nurse Practitioner Family
DX: K31.84 Gastroparesis (principal); R14.0 Abdominal distension (gaseous); R19.7 Diarrhea, unspecified; A04.0 Enteropathogenic Escherichia coli infection; K30 Functional dyspepsia
CPT/HCPCS: 87506

== ENCOUNTER → 2020-01-29 09:30 | Outpatient (CLI) | payer MEDICARE, MEDICAID, SELFPAY ==
--- NOTE | 2020-01-29 09:32 | US_ITS ---
PROCEDURE: US ABDOMEN LIMITED CLINICAL INDICATION: RUQ PAIN COMPARISON: US ABD US ABD(COMPLETE-MULTI ORGANS from 01/31/[address] ABDOMEN PELVIS WO CON from 12/11/2018 FINDINGS: PANCREAS: Unremarkable. No obvious mass or abnormal fluid collection. No ductal dilatation LIVER: No focal liver lesions demonstrated. Homogeneous echogenicity. No intrahepatic biliary ductal dilatation evident. There is appropriate direction of blood flow within the portal vein. The portal vein is slightly prominent at 19 mm. RIGHT KIDNEY: Unremarkable. Normal size and echogenicity. No hydronephrosis GALLBLADDER: There is a small amount of sludge noted. Small polyp is present along the anterior gallbladder wall at 3 mm. No shadowing stones are apparent. Common bile duct is normal at 3 mm. IMPRESSION: 1. Small gallbladder wall polyp in mild sludge noted. No shadowing stones. 2. Mildly prominent portal vein with appropriate direction of blood flow within the portal vein. Dictated by: Enrique Seaman MD 01/29/2020 13:00 Enrique Seaman MD in [facility] 01/29/2020 13:00
== END ==
PROVIDERS: PCP Internal Medicine; Visit Provider Internal Medicine
DX: R10.11 Right upper quadrant pain (principal)
CPT/HCPCS: 76705

== ENCOUNTER → 2020-02-20 15:03 | Outpatient (CLI) | payer MEDICARE, MEDICAID, SELFPAY | PROVIDERS: PCP Internal Medicine; Visit Provider Nurse Practitioner Family | DX: Z71.3 Dietary counseling and surveillance (principal); E11.9 Type 2 diabetes mellitus without complications | CPT/HCPCS: 97802 ==

== ENCOUNTER → 2020-02-25 10:22 | Outpatient (CLI) | payer MEDICARE, MEDICAID, SELFPAY ==
--- NOTE | 2020-02-25 10:25 | NM_ITS ---
PROCEDURE: NM HEPATOBILIARY W PHARM CLINICAL INDICATION: ABD PAIN,N/V COMPARISON: No exams were available for comparison TECHNIQUE: DOSE: 8.12 mCi technetium Choletec and 1.9 mcg of CCK FINDINGS: Homogeneous activity is present within the hepatic parenchyma. Activity is present in the gallbladder by 20 minutes. Activity is present in the small bowel by 25 minutes. The gallbladder ejection fraction is calculated to be 13 percent. Mild pain reported with CCK infusion. IMPRESSION: No evidence of common or cystic duct obstruction. Low gallbladder ejection fraction of 13 percent. Mild pain was reported with CCK infusion. These findings may be seen with gallbladder dyskinesia. Dictated by: Enrique Seaman MD 02/25/2020 17:43 Enrique Seaman MD in [facility] 02/25/2020 17:43
--- NOTE | 2020-02-25 10:53 | HMH.ITSHM ---
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 []VORTIOXETIN TIZANADINE POTASSIUM ONDANSETRON MEDROL METFORMIN MECLIZINE LISINOPRIL LEVOTHYROXINE INSULIN PANTOPRAZOLE PLAVIX HCTZ GLIPIZIDE GABAPENTIN FLUCONAZOLE DULOXETINE DIAZEPAM BISOPROLOL ATORVASTATIN ALBUTEROL BUSPIRONE ASA
== END ==
PROVIDERS: PCP Internal Medicine; Visit Provider Nurse Practitioner Family
DX: R10.11 Right upper quadrant pain (principal); R11.2 Nausea with vomiting, unspecified
CPT/HCPCS: 78227; A9537; J2805

== ENCOUNTER → 2020-09-24 14:50 | Outpatient (CLI) | payer MEDICARE, MEDICAID, SELFPAY ==
--- NOTE | 2020-09-24 14:53 | CT_ITS ---
PROCEDURE: CT CHEST WO CON CLINICAL INDICATION: SOB COMPARISON: CT CT CHEST WO CON from 01/16/2020 TECHNIQUE: Axial images obtained with sagittal and coronal reformats. All CT scans at the facility use one or more dose reduction, viz: automated exposure control, ma/kV adjustment per patient size (including targeted exams where dose is matched to indication, i.e. head), or iterative reconstruction technique. FINDINGS: Scattered areas of atelectasis and some scar versus atelectasis in the right middle lobe again noted similar to prior exam. No new pulmonary consolidation or ground-glass opacities in the lungs. Scattered mild emphysematous changes are present. No pleural effusion or pneumothorax. Heart is not enlarged. No pericardial effusion or thickening. Multiple middle mediastinal lymph nodes are again noted similar to prior exam. Scattered calcified granulomata again noted in both lungs. Calcified hilar and middle mediastinal lymph nodes also are unchanged. Some coronary artery calcifications similar to prior exam. Mild calcification of the thoracic aorta without aneurysm. No discrete pulmonary nodules are noted. Images of the upper abdomen show several calcifications in the spleen. Prior cholecystectomy. No adrenal mass. IMPRESSION: Scattered mild emphysematous changes and bilateral areas of unchanged atelectasis and some scar versus atelectasis in the right middle lobe, similar to prior exam. No new pulmonary consolidation or ground-glass opacities in the lungs. No discrete pulmonary nodules. Moderate middle mediastinal lymphadenopathy similar to prior exam. Dictated by: Alex Golden MD 09/24/2020 16:11 Alex Golden MD in [facility] 09/24/2020 16:11
== END ==
PROVIDERS: PCP Internal Medicine; Visit Provider Internal Medicine Critical Care Medicine
DX: R06.02 Shortness of breath (principal)
CPT/HCPCS: 71250

== ENCOUNTER 2021-01-31 14:59 | Emergency (ER) | payer MEDICARE, MEDICAID, SELFPAY ==
[2021-01-31 15:46] VITALS: BMI 29.2
--- NOTE | 2021-01-31 15:46 | XR_ITS ---
PROCEDURE INFORMATION: Exam: XR Chest Exam date and time: 01/31/2021 3:46 PM Age: 60 years old Clinical indication: Shortness of breath TECHNIQUE: Imaging protocol: XR of the chest. Views: 2 views. COMPARISON: CT CHEST WO CON 09/24/2020 2:57 PM FINDINGS: Lungs: Faint infiltrates are seen within both lungs. Pleural spaces: Unremarkable. No pleural effusion. No pneumothorax. Heart/Mediastinum: Unremarkable. No cardiomegaly. Bones/joints: Unremarkable. IMPRESSION: Faint bilateral lung infiltrates may represent pneumonia.
--- NOTE | 2021-01-31 15:47 | ECG_ITS ---
APPROVED REPORT Exam: Resting ECG HR:75 bpm ECG Measurements Heart Rate 75 AXES [place] 248 P 73 QRSd 94 QRS 121 QT 424 T 93 QTc 473 Conclusion Sinus rhythm with 1st degree AV block Right axis deviation Pulmonary disease pattern Incomplete right bundle branch block Nonspecific T wave abnormality Prolonged QT Abnormal ECG Electronically signed by : Kareem Newell MD 02/01/2021 08:46:29
[2021-01-31 15:48] VITALS: BP 104/55; PULSE 81; RESP 18; TEMP 37.1; O2SAT 93; BMI 29.2
--- NOTE | 2021-01-31 15:53 | HMH.EDGENADL ---
ED Disposition Clinical Impression: CAP (community acquired pneumonia) Qualifiers: Laterality: unspecified laterality Qualified Code(s): J18.9 - Pneumonia, unspecified organism COPD (chronic obstructive pulmonary disease) Qualifiers: COPD type: unspecified COPD Qualified Code(s): J44.9 - Chronic obstructive pulmonary disease, unspecified Disposition: Home, Self-Care Condition on Discharge: Fair Instructions: DI for Pneumonia -- Adult Additional Instructions: Take antibiotics as prescribed. Take prednisone as prescribed. Continue your inhalers. Wear your oxygen 24 hours a day. Follow-up with your primary care provider next week, call Tuesday to make appointment. Return to the emergency department if worsening shortness of breath. Prescriptions: Cefdinir [Omnicef 300mg Capsule] 300 mg PO BID #20 cap Transmission Status: Pending to [email or web address] # predniSONE [Prednisone 20mg Tab] 20 mg PO BID #10 tab Transmission Status: Pending to [email or web address] # Azithromycin [Zithromax 250mg tab] 250 mg PO DAILY #4 tab Transmission Status: Pending to [email or web address] # Referrals: Charles James [Primary Care Provider] - - Critical Care Critical Care Time: No Attestation: On 01/31/21, the high probability of a clinically significant, sudden or life threatening deterioration of the following system(s) required my full and direct attention, intervention and personal management. The time I documented below is in addition to time spent performing reported procedures but includes the following listed in this critical care notation. Medical Decision Making - Medical Records Medical records reviewed: Yes: I reviewed the patient's medical records. MR Comment: Reviewed most recent emergency department visit in October 2019. Diagnosis was congestive heart failure, apparently based on elevated BNP. However, chest x-ray and CT scan of the chest were not interpreted as showing congestive heart failure. Reviewed prior echocardiogram results, see below. - Miller Inquiry Pt receiving controlled substance: No Vital Signs: 01/31/21 15:48 Temperature 98.7 F Temperature Source Oral Pulse Rate [Left Radial] 81 Respiratory Rate 18 Blood Pressure [Right Arm] 104/55 L Blood Pressure Mean [Right Arm] 71 Blood Pressure Source [Right Arm] Automatic Cuff Blood Pressure Position [Right Arm] Sitting 02 Sat by Pulse Oximetry 93 L Oxygen Delivery Method Nasal Cannula Oxygen Flow Rate (LPM) 3.5 - Lab Data Lab Results 01/31/21 15:43: WBC 11.1 H, RBC 4.31, Hgb 9.4 L, Hct 32.9 L, MCV 76.2 L, MCH 21.8 L, MCHC 28.6 L, RDW 18.5 H, Plt Count 463 H, MPV 9.0, Neut % (Auto) 71.8, Lymph % (Auto) 19.7, [place] % (Auto) 5.2, Eos % (Auto) 2.4, Baso % (Auto) 0.9, Neut # (Auto) 8.0 H, Lymph # (Auto) 2.2, [place] # (Auto) 0.6, Eos # (Auto) 0.3, Baso # (Auto) 0.1 01/31/21 15:43: Sodium 140, Potassium 4.6, Chloride 101, Carbon Dioxide 24, Anion Gap 19.6 H, BUN 16, Creatinine 1.30 H, Estimated Creat Clear 64, Estimated GFR 42 L, Est GFR ( Amer) 51 L, Glucose 193 H, Calcium 9.9, Total Bilirubin 0.4, AST 25, ALT 15, Alkaline Phosphatase 132 H, Troponin I < 0.01, Total Protein 8.3 H, Albumin 4.8, Globulin 3.5 H, Albumin/Globulin Ratio 1.4 01/31/21 15:43: NT-Pro-B Natriuret Pep 378 H 01/31/21 16:03: SARS-CoV-2 (PCR) Not detected, Influenza A Untype (PCR) Not detected, Influenza Type B (PCR) Not detected 01/31/21 18:00: Lactate 2.5 H Result diagrams: 01/31/21 15:43 01/31/21 15:43 Orders (Tests/Meds): ED MEDICATIONS Generic Name Dose Route Start Last Admin Trade Name Freq PRN Reason Stop Dose Admin Ceftriaxone Sodium 1 gm/ 50 mls @ 100 mls/hr 01/31/21 17:45 01/31/21 18:22 Sodium Chloride IV 02/14/21 17:44 100 mls/hr Q24H RAÚL Administration Azithromycin 500 mg/ Sodium 250 mls @ 250 mls/hr 01/31/21 17:45 Chloride IV 11/06/21 17:44 Q24H RAÚL Discontinued Medications Generic Name Dose Ro
[2021-01-31 16:00] LABS: Basophils # 0.1 K/mm3 (0-0.2); Basophils % 0.9 % (0.1-2.0); Eosinophils # 0.3 K/mm3 (0.0-0.4); Eosinophils % 2.4 % (0.1-12.0); Hematocrit 32.9 % (37.0-47.0); Hemoglobin 9.4 g/dL (12.2-16.2); Lymphocytes # 2.2 K/mm3 (0.7-4.5); Lymphocytes % 19.7 % (10-50); Mean Corpuscular HGB Conc 28.6 g/dL (31.8-35.4); Mean Corpuscular Hemoglobin 21.8 pg (27.0-31.2); Mean Corpuscular Volume 76.2 fl (81-99); Monocytes # 0.6 K/mm3 (0.1-1.0); Monocytes % 5.2 % (1.7-9.3); Neutrophils % 71.8 % (37.0-80.0); Platelet Count 463 K/mm3 (142-424); Red Blood Count 4.31 M/mm3 (4.20-5.40); Red Cell Distribution Width 18.5 % (11.5-17.5); White Blood Count 11.1 K/mm3 (4.8-10.8)
[2021-01-31 16:03] LABS: Chloride 101 mmol/L (98-107); Potassium 4.6 mmoL/L (3.5-5.1); Sodium 140 mmol/L (136-145)
[2021-01-31 16:06] LABS: Alanine Aminotransferase 15 U/L (12-78); Albumin Level 4.8 g/dl (3.5-5.0); Albumin/Globulin Ratio 1.4 (1.1-1.8); Alkaline Phosphatase 132 U/L (38-126); Anion Gap 19.6 mEq/L (5-15); Aspartate Amino Transferase 25 U/L (14-36); Bilirubin,Total 0.4 mg/dl (0.2-1.3); Blood Urea Nitrogen 16 mg/dl (7-17); Calcium 9.9 mg/dl (8.4-10.2); Carbon Dioxide 24 mmol/L (22.0-30.0); Creatinine Clearance Estimated 64 mL/min (50-200); Estimated Glomerular Filt Rate 42 ml/min (>60); GFR (African American) 51 ML/MIN (>60); Globulin 3.5 g/dL (1.3-3.2); Glucose 193 mg/dl (74-100); Total Protein,Serum 8.3 g/dl (6.3-8.2)
[2021-01-31 16:10] LABS: Coronavirus 19, PCR Not Detected (NotDetected); Influenza A, PCR Not Detected (NotDetected); Influenza B, PCR Not Detected (NotDetected)
[2021-01-31 16:16] LABS: NT Pro Brain Natriuretic Pep. 378 pg/mL (0-125)
[2021-01-31 16:18] LABS: Troponin I < 0.01 ng/ml (0.00-0.034)
[2021-01-31 18:25] LABS: Lactic Acid 2.5 mmol/L (0.7-2.1)
[2021-01-31 19:43] VITALS: BP 138/75; PULSE 73; RESP 18; TEMP 36.8; O2SAT 98
[2021-01-31 22:10] LABS: Reflex Lactic Add Lactic Reflex
== END 2021-01-31 20:40 | disposition home or self-care (01) ==
PROVIDERS: Emergency Provider Emergency Medicine; PCP Internal Medicine
DX: J18.9 Pneumonia, unspecified organism (principal); J44.9 Chronic obstructive pulmonary disease, unspecified; Z20.822 Contact with and (suspected) exposure to COVID-19; E11.65 Type 2 diabetes mellitus with hyperglycemia; I10 Essential (primary) hypertension; E78.5 Hyperlipidemia, unspecified; Z99.81 Dependence on supplemental oxygen; Z87.891 Personal history of nicotine dependence; I50.9 Heart failure, unspecified; Z88.0 Allergy status to penicillin; Z79.899 Other long term (current) drug therapy
CPT/HCPCS: 71046; 80053; 83605; 83880; 84484; 85025; 87040; 87077; 87186; 93005; 96365; 96375; 99284; C9803; J0456; U0003; U0005

== ENCOUNTER → 2021-03-17 15:22 | Outpatient (CLI) | payer MEDICARE, MEDICAID, SELFPAY ==
[2021-03-17 15:43] LABS: Basophils # 0.1 K/mm3 (0-0.2); Basophils % 0.7 % (0.1-2.0); Eosinophils # 0.3 K/mm3 (0.0-0.4); Eosinophils % 2.7 % (0.1-12.0); Hematocrit 29.8 % (37.0-47.0); Hemoglobin 8.7 g/dL (12.2-16.2); Lymphocytes # 1.8 K/mm3 (0.7-4.5); Lymphocytes % 18.7 % (10-50); Mean Corpuscular Hemoglobin 21.6 pg (27.0-31.2); Mean Corpuscular Volume 74.3 fl (81-99); Mean Platelet Volume 9.3 fl (7.4-10.4); Monocytes # 0.7 K/mm3 (0.1-1.0); Monocytes % 7.2 % (1.7-9.3); Neutrophils # 6.8 K/mm3 (1.8-7.8); Neutrophils % 70.6 % (37.0-80.0); Platelet Count 383 K/mm3 (142-424); Red Blood Count 4.01 M/mm3 (4.20-5.40); Red Cell Distribution Width 18.9 % (11.5-17.5); White Blood Count 9.6 K/mm3 (4.8-10.8)
[2021-03-17 17:02] LABS: Hemoglobin A1C 6.9 % (4.0-6.0)
[2021-03-17 17:17] LABS: Alanine Aminotransferase 11 U/L (12-78); Albumin Level 4.5 g/dl (3.5-5.0); Albumin/Globulin Ratio 1.8 (1.1-1.8); Alkaline Phosphatase 110 U/L (38-126); Anion Gap 15.6 mEq/L (5-15); Aspartate Amino Transferase 17 U/L (14-36); Bilirubin,Total 0.2 mg/dl (0.2-1.3); Blood Urea Nitrogen 21 mg/dl (7-17); Calcium 9.7 mg/dl (8.4-10.2); Carbon Dioxide 25 mmol/L (22.0-30.0); Chloride 102 mmol/L (98-107); Chol/HDL Ratio 3.4 (1-3.5); Cholesterol 110 mg/dl (140-200); Estimated Glomerular Filt Rate 42 ml/min (>60); GFR (African American) 51 ML/MIN (>60); Globulin 2.5 g/dL (1.3-3.2); Glucose 101 mg/dl (74-100); HDL Cholesterol 32 mg/dl (40-60); Potassium 4.6 mmoL/L (3.5-5.1); Sodium 138 mmol/L (136-145); Triglycerides 237 mg/dl (30-150); VLDL Cholesterol 47 mg/dL (0-40)
[2021-03-17 17:28] LABS: Direct LDL Cholesterol 51.89 mg/dL (100-129)
== END ==
PROVIDERS: Visit Provider Internal Medicine
DX: E11.59 Type 2 diabetes mellitus with other circulatory complications (principal); E11.42 Type 2 diabetes mellitus with diabetic polyneuropathy; I25.10 Atherosclerotic heart disease of native coronary artery without angina pectoris; I10 Essential (primary) hypertension; E78.5 Hyperlipidemia, unspecified; J44.9 Chronic obstructive pulmonary disease, unspecified; Z79.4 Long term (current) use of insulin
CPT/HCPCS: 80053; 80061; 83036; 85025

== ENCOUNTER 2021-05-03 14:48 | Inpatient (IN) | payer MEDICARE, MEDICAID, SELFPAY ==
[2021-05-03] VITALS (14 sets, daily range): BP systolic 104–136; BP diastolic 57–77; PULSE 83–103; RESP 14–24; TEMP 36.4–37.4; O2SAT 68–100; BMI 25.1; BMI 30.7
--- NOTE | 2021-05-03 14:52 | PC.NURSE ---
pt in the bathroom at this time
--- NOTE | 2021-05-03 15:30 | HMH.EDGENADL ---
ED Disposition Clinical Impression: Elevated troponin, COPD exacerbation Respiratory failure with hypoxia Qualifiers: Chronicity: acute on chronic Qualified Code(s): J96.21 - Acute and chronic respiratory failure with hypoxia Pneumonia Qualifiers: Pneumonia type: due to unspecified organism Laterality: bilateral Lung location: lower lobe of lung Qualified Code(s): J18.9 - Pneumonia, unspecified organism Congestive heart failure Qualifiers: Heart failure type: unspecified Heart failure chronicity: acute on chronic Qualified Code(s): I50.9 - Heart failure, unspecified Anemia Qualifiers: Anemia type: unspecified type Qualified Code(s): D64.9 - Anemia, unspecified Disposition: Admitted As Inpatient Condition on Discharge: Serious - Critical Care Critical Care Time: Yes Attestation: On 05/03/21, the high probability of a clinically significant, sudden or life threatening deterioration of the following system(s) required my full and direct attention, intervention and personal management. The time I documented below is in addition to time spent performing reported procedures but includes the following listed in this critical care notation. Total Critical Care Time: 35 Vital system(s) involved:: Respiratory Failure My critical care processes included: Assessment & monitoring of V/S, Initial and Re-exams, Data Review/Interpretation, Coordinating Care, Medication Orders and management, Documentation Medical Decision Making - Miller Inquiry Pt receiving controlled substance: No Vital Signs: 05/03/21 14:49 05/03/21 14:50 05/03/21 15:27 Temperature 97.6 F Temperature Source Oral Pulse Rate 92 H Pulse Rate [Left Radial] 103 H Respiratory Rate 24 Blood Pressure 112/69 Blood Pressure [Right Arm] 114/58 L Blood Pressure Mean Blood Pressure Mean [Right Arm] 76 Blood Pressure Source [Right Arm] Automatic Cuff Blood Pressure Position [Right Arm] Sitting 02 Sat by Pulse Oximetry 68 L 95 93 L Oxygen Delivery Method Room Air Non-Rebreather Oxygen Flow Rate (LPM) 15 05/03/21 15:30 05/03/21 15:45 05/03/21 16:15 Temperature Temperature Source Pulse Rate 91 H 95 H 91 H Pulse Rate [Left Radial] Respiratory Rate Blood Pressure 107/66 L 107/66 L 109/57 L Blood Pressure [Right Arm] Blood Pressure Mean Blood Pressure Mean [Right Arm] Blood Pressure Source [Right Arm] Blood Pressure Position [Right Arm] 02 Sat by Pulse Oximetry 95 99 97 Oxygen Delivery Method Oxygen Flow Rate (LPM) 05/03/21 16:17 05/03/21 16:30 05/03/21 17:01 Temperature Temperature Source Pulse Rate 92 H 95 H Pulse Rate [Left Radial] Respiratory Rate Blood Pressure 109/57 L 114/67 104/70 L Blood Pressure [Right Arm] Blood Pressure Mean 76 Blood Pressure Mean [Right Arm] Blood Pressure Source [Right Arm] Blood Pressure Position [Right Arm] 02 Sat by Pulse Oximetry 97 96 Oxygen Delivery Method Oxygen Flow Rate (LPM) 05/03/21 17:37 05/03/21 17:45 Temperature Temperature Source Pulse Rate 83 91 H Pulse Rate [Left Radial] Respiratory Rate Blood Pressure 136/77 Blood Pressure [Right Arm] Blood Pressure Mean Blood Pressure Mean [Right Arm] Blood Pressure Source [Right Arm] Blood Pressure Position [Right Arm] 02 Sat by Pulse Oximetry 99 Oxygen Delivery Method Oxygen Flow Rate (LPM) - Lab Data Lab Results 05/03/21 15:13: WBC 11.3 H, RBC 3.92 L, Hgb 8.5 L, Hct 28.1 L, MCV 71.7 L, MCH 21.7 L, MCHC 30.3 L, RDW 19.1 H, Plt Count 472 H, MPV 9.1, Neut % (Auto) 67.5, Lymph % (Auto) 23.8, [place] % (Auto) 6.4, Eos % (Auto) 1.0, Baso % (Auto) 1.3, Neut # (Auto) 7.6, Lymph # (Auto) 2.7, [place] # (Auto) 0.7, Eos # (Auto) 0.1, Baso # (Auto) 0.2 05/03/21 15:13: Sodium 139, Potassium 4.5, Chloride 102, Carbon Dioxide 20 L, Anion Gap 21.5 H, BUN 27 H, Creatinine 1.60 H, Estimated Creat Clear 48, Estimated GFR 33 L, Est GFR ( Amer) 40 L, G
--- NOTE | 2021-05-03 15:37 | XR_ITS ---
PROCEDURE INFORMATION: Exam: XR Chest Exam date and time: 05/03/2021 3:37 PM Age: 61 years old Clinical indication: Shortness of breath; Additional info: SOA TECHNIQUE: Imaging protocol: XR of the chest. Views: 1 view. COMPARISON: CR XR CHEST 2V 01/31/2021 3:50 PM FINDINGS: Lungs: Bilateral hyperinflation is present. Atelectasis and/or early infiltrative changes noted within both lung bases. Pleural spaces: There is no evidence of pneumothorax. Heart/Mediastinum: Unremarkable. No cardiomegaly. Bones/joints: Unremarkable. Other findings: The patient's chin overlies the lung apices. IMPRESSION: 1. Bilateral hyperinflation is present. 2. Atelectasis and/or early infiltrative changes noted within both lung bases.
--- NOTE | 2021-05-03 15:40 | PC.NURSE ---
respiratory at beside drawing ABG
--- NOTE | 2021-05-03 15:42 | PC.NURSE ---
radiology at bedside
[2021-05-03 15:44] LABS: ABG Base Excess -3.4 mmol/L (-2.4-2.3); ABG HCO3 21.9 mmhg (22.0-26.0); ABG Oxygen Saturation 91 % (90-100); ABG PCO2 38.9 mmhg (35.0-45.0); ABG PH 7.37 mmol/L (7.35-7.45); ABG PO2 69.5 mmhg (80-100); ABG TCO2 23.1 mmhg (23-27)
[2021-05-03 15:45] LABS: Allen's Test Acceptable; Oxygen 100 NRB %
[2021-05-03 15:46] LABS: Coronavirus 19, PCR Not Detected (NotDetected); Influenza A, PCR Not Detected (NotDetected); Influenza B, PCR Not Detected (NotDetected)
[2021-05-03 15:46] LABS: Source Right Radial
[2021-05-03 15:48] LABS: Basophils # 0.2 K/mm3 (0-0.2); Basophils % 1.3 % (0.1-2.0); Eosinophils # 0.1 K/mm3 (0.0-0.4); Hematocrit 28.1 % (37.0-47.0); Hemoglobin 8.5 g/dL (12.2-16.2); Lymphocytes # 2.7 K/mm3 (0.7-4.5); Lymphocytes % 23.8 % (10-50); Mean Corpuscular HGB Conc 30.3 g/dL (31.8-35.4); Mean Corpuscular Hemoglobin 21.7 pg (27.0-31.2); Mean Corpuscular Volume 71.7 fl (81-99); Mean Platelet Volume 9.1 fl (7.4-10.4); Monocytes # 0.7 K/mm3 (0.1-1.0); Monocytes % 6.4 % (1.7-9.3); Neutrophils # 7.6 K/mm3 (1.8-7.8); Neutrophils % 67.5 % (37.0-80.0); Platelet Count 472 K/mm3 (142-424); Red Blood Count 3.92 M/mm3 (4.20-5.40); Red Cell Distribution Width 19.1 % (11.5-17.5); White Blood Count 11.3 K/mm3 (4.8-10.8)
[2021-05-03 15:49] LABS: Chloride 102 mmol/L (98-107)
[2021-05-03 15:50] LABS: Potassium 4.5 mmoL/L (3.5-5.1); Sodium 139 mmol/L (136-145)
--- NOTE | 2021-05-03 15:50 | ECG_ITS ---
APPROVED REPORT Exam: Resting ECG HR:93 bpm ECG Measurements Heart Rate 93 AXES [place] 224 P 59 QRSd 90 QRS 136 QT 312 T -37 QTc 363 Conclusion SINUS RHYTHM WITH FIRST DEGREE AV BLOCK ABNORMAL ECG UNCONFIRMED REPORT Electronically signed by : Kareem Newell MD 05/04/2021 18:35:39
[2021-05-03 15:53] LABS: Anion Gap 21.5 mEq/L (5-15); Blood Urea Nitrogen 27 mg/dl (7-17); Calcium 9.7 mg/dl (8.4-10.2); Carbon Dioxide 20 mmol/L (22.0-30.0); Creatinine Clearance Estimated 48 mL/min (50-200); Estimated Glomerular Filt Rate 33 ml/min (>60); GFR (African American) 40 ML/MIN (>60); Glucose 225 mg/dl (74-100)
--- NOTE | 2021-05-03 15:57 | INFXCTL.NOTE ---
urine collected and sent to lab. aircraft launch and recovery technician at beside drawing ABG Respiratory at beside
[2021-05-03 16:01] LABS: Microscopic, Urine URINE MICROSCOPIC (MICROSCOPIC)
[2021-05-03 16:04] LABS: NT Pro Brain Natriuretic Pep. 4880 pg/mL (0-125)
[2021-05-03 16:08] LABS: Appearance,Urine CLOUDY (Clear); Bilirubin,Urine Negative (Negative); Blood, Urine 3+ (Negative); Color,Urine YELLOW (Yellow); Glucose,Urine (UA) 3+ (Negative); Ketones,Urine Negative (Negative); Leukocyte Esterase,Urine Negative (Negative); Nitrate,Urine POSITIVE (Negative); PH,Urine 5.5 (5.0-8.5); Protein,Urine Negative (Negative); Urobilinogen,Urine 0.2 EU/dl (0.2)
[2021-05-03 16:11] LABS: Troponin I 0.11 ng/ml (0.00-0.034)
[2021-05-03 16:28] LABS: Bacteria,Urine 3+ /lpf
--- NOTE | 2021-05-03 16:44 | PC.NURSE ---
call placed for Dr. Newell
--- NOTE | 2021-05-03 16:46 | PC.NURSE ---
Dr. Newell returned call back to ED at this time.
--- NOTE | 2021-05-03 17:00 | PC.NURSE ---
called supervisor tank house for admission, stated she would call back
--- NOTE | 2021-05-03 17:05 | PC.NURSE ---
house cleaner supervisor called back for admission
--- NOTE | 2021-05-03 17:11 | PC.NURSE ---
respiratory therapist is bedside
[2021-05-03 17:21] LABS: Iron 28 ug/dL (37-170)
[2021-05-03 17:31] LABS: Total Iron Binding Capacity 408 ug/dL (265-497)
[2021-05-03 17:57] LABS: Ferritin 10.6 ng/ml (11.1-264)
--- NOTE | 2021-05-03 18:16 | PC.NURSE ---
Report called to Claudia [facility]
[2021-05-03 18:43] LABS: Vitamin B12 255 pg/mL (239-931)
[2021-05-03 18:47] LABS: Lactic Acid 1.3 mmol/L (0.7-2.1)
[2021-05-03 18:48] LABS: Folate 6.92 ng/mL
[2021-05-04] VITALS (10 sets, daily range): BP systolic 93–140; BP diastolic 54–77; PULSE 60–110; RESP 16–23; TEMP 36.4–37.3; O2SAT 93–100; BMI 30.4
[2021-05-04 06:28] LABS: Basophils % 0.2 % (0.1-2.0); Hematocrit 27.6 % (37.0-47.0); Hemoglobin 8.2 g/dL (12.2-16.2); Lymphocytes # 0.5 K/mm3 (0.7-4.5); Lymphocytes % 6.1 % (10-50); Mean Corpuscular HGB Conc 29.9 g/dL (31.8-35.4); Mean Corpuscular Hemoglobin 21.5 pg (27.0-31.2); Mean Platelet Volume 8.6 fl (7.4-10.4); Monocytes # 0.1 K/mm3 (0.1-1.0); Monocytes % 1.3 % (1.7-9.3); Neutrophils # 7.4 K/mm3 (1.8-7.8); Neutrophils % 92.4 % (37.0-80.0); Platelet Count 366 K/mm3 (142-424); Red Blood Count 3.83 M/mm3 (4.20-5.40); Red Cell Distribution Width 18.6 % (11.5-17.5)
[2021-05-04 06:31] LABS: Blood Urea Nitrogen 26 mg/dl (7-17); Calcium 9.2 mg/dl (8.4-10.2); Carbon Dioxide 25 mmol/L (22.0-30.0); Chloride 101 mmol/L (98-107); Creatinine Clearance Estimated 66 mL/min (50-200); Estimated Glomerular Filt Rate 42 ml/min (>60); GFR (African American) 51 ML/MIN (>60); Glucose 197 mg/dl (74-100); Sodium 137 mmol/L (136-145)
[2021-05-04 06:40] LABS: MANUAL DIFFERENTIAL MANUAL DIFFERENTIAL (MANUAL DIFF)
--- NOTE | 2021-05-04 06:45 | CA_ITS ---
APPROVED REPORT EXAM: Comprehensive 2D, Doppler, and color-flow Echocardiogram Presales Engineer: Shanon Ralph, RT(R) Ht: 5 ft 11 in Wt: 180lbs BSA: 2.02 BP: 140/71 mmHg Indications: CHF, pneumonia, resp failure on vapotherm, COPD, HTN, DM, SOB, hyperlipidemia, elevated troponin, low hemoglobin, weakness, CAD, TIA 2D Dimensions LVOT 1.99 cm (M/F) 1.5-2.5 LA Volume 24.90 mL LA Volume Index 12.38 mL/m2 (M/F) 16-34 M-Mode Dimensions RVDd 2.73 cm (0.9-2.6) LA Diam 3.74 cm (1.9-4.0) LVDd 4.02 cm (3.5-5.7) Ao Diam 2.97 cm (2.0-3.7) LVDs 2.92 cm (3.5-5.7) IVSd 1.25 cm (0.6-1.1) PWd 1.10 cm (0.6-1.1) EF (Teich) 53.70% FS 27.40% EDV (Teich) 70.80 mL TAPSE 2.45 (<1.7) ESV (Teich) 32.80 mL LV Diastology E Decel Time 180.00 (160-240 msec) E/A Ratio 0.7 MED E' 13.70 (< 7 cm/sec) E'/MED E' Ratio 6.30 (>14) LAT E' 16.10 (<10 cm/sec) E/LAT E' Ratio 5.36 (>14) Mitral Valve MV E Max Deni. 86.00 (40-130 cm/s) MV A Velocity 122.00 (40-130 cm/s) E/A Ratio 0.71 MV Decel. Time 180.00 (160-240 ms) MV PHT 53.00 ms Left Ventricle Left atrium is mildly enlarged, left ventricle is normal size, mild concentric left ventricular hypertrophy, visually estimated ejection fraction 55% with no regional wall motion abnormality, grade 1 diastolic dysfunction seen without tissue Doppler evidence of raise left atrial pressure. Right Ventricle Right atrium and right ventricle are mildly enlarged with normal contractility. Aortic Valve Aortic valve is minimally thickened and calcified without aortic stenosis or aortic insufficiency. Mitral Valve Mitral valve grossly normal, there is trace mitral regurgitation. Tricuspid Valve Tricuspid valve grossly normal, there is trace tricuspid regurgitation, tricuspid regurgitation jet velocity is inadequate for calculation of the right ventricular systolic pressure. Pulmonic Valve Pulmonic valve is poorly visualized. Great Vessels Aortic root is normal size. Inferior vena cava is mildly enlarged with normal inspiratory collapse. Pericardium No significant pericardial effusion noted. Conclusion 1. Mild biatrial enlargement, normal left ventricular size, mild concentric left ventricular hypertrophy, visually estimated ejection fraction 55% with no regional wall motion abnormality, grade 1 diastolic dysfunction seen without tissue Doppler evidence of raise left atrial pressure. 2. Mildly enlarged right ventricle with normal contractility. 3. Trace mitral and tricuspid regurgitation. 4. No significant pericardial effusion noted. 5. Inferior vena cava is mildly dilated with normal inspiratory collapse. Electronically signed by : Lake Flores MD 05/04/2021 13:42:42
--- NOTE | 2021-05-04 07:48 | HMH.PHAVTE ---
[facility] Pharmacy VTE Monitoring - Patient Demographics Admission date: 05/04/21 Report Date: 05/04/21 Time: 07:48 Allergies/Adverse Reactions: Patient Allergies adenosine Allergy (Intermediate, Verified 05/03/21 18:57) COUGHING Penicillins Allergy (Intermediate, Verified 05/03/21 18:57) I-RASH Height: 1.73 m Weight: 90.945 kg Patient Problems: Current Active Problems CHF (congestive heart failure) (Acute) Respiratory failure with hypoxia (Acute) Elevated troponin (Acute) Anemia (Acute) COPD exacerbation (Acute) Pneumonia (Acute) - VTE Risk Labs: VTE Related Lab Results Hgb 8.2 g/dL (12.2-16.2) L 05/04/21 05:45 Hct 27.6 % (37.0-47.0) L 05/04/21 05:45 Plt Count 366 K/mm3 (142-424) 05/04/21 05:45 BUN 26 mg/dl (7-17) H 05/04/21 05:45 Creatinine 1.30 mg/dl (0.52-1.04) H 05/04/21 05:45 Estimated Creat Clear 66 mL/min (50-200) 05/04/21 05:45 Clinical Trial Participant: No - Prophylaxis VTE Prophylaxis Ordered?: Yes Types of VTE Prophylaxis: TEDS Knee High
--- NOTE | 2021-05-04 08:00 | HMH.PHAINT ---
verified pt meds with pharmacy
[2021-05-04 08:06] LABS: POC Glucose,Bedside 210 (70-110)
[2021-05-04 08:06] LABS: POC Glucose,Bedside 296 (70-110)
[2021-05-04 08:08] LABS: Lymphocytes % 6 % (10-50); Monocytes % 1 % (2-9); Neutrophils % 93 % (42-76); Total Cells Counted 100
[2021-05-04 08:09] LABS: Microcytosis 1+; Platelet Estimate Normal; Poikilocytosis 2+
[2021-05-04 08:10] LABS: Anisocytosis 1+
--- NOTE | 2021-05-04 08:52 | HMH.HP ---
*Admission Date: 05/03/21 *Chief complaint: Fatigue/dyspnea. *History of present illness: 61-year-old white female, oxygen dependent COPD, follows with Dr. Marks in [place] for pulmonary care, came to the emergency department because of shortness of air, fatigue and congestion, and was found to be in significantly more need of oxygen than her baseline, transition to Vapotherm in the emergency department and stabilized with O2 saturations in the low 90s. Other work-up included lower hemoglobin which has been trending downward over the past couple of years. Electrolytes were essentially normal. Her initial troponin was slightly elevated at 0.11, but uncertain etiology. She denies anginal chest pain. This morning she feels much more comfortable and actually wanted to discuss going home today. [facility] History I have reviewed the patient's past medical history: Yes Medical History: Reports:: Congestive Heart Failure, Coronary Artery Disease, Diabetes Mellitus Type 2, Hyperlipidemia, Hypertension, Lung Disease, Transient Ischemic Attacks (TIA) Denies:: Cancer, Diabetes Mellitus Type 1, Internal Pacemaker, MRSA, Seizures *Have you ever received a pneumonia vaccine?: Yes *Have you received a flu vaccine this season?: Yes Other Medical History: Reports: Other. Denies: Blood Transfusion Reaction Other Surgeries: Yes: Cardiac Catheterization, Cardiac Surgery, Cholecystectomy, Coronary Stent, Tubal Ligation, Other. 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 Review of Systems - Review of Systems Review of systems:: pertinent systems reviewed and negative unless documented below Meds Home Medications Medication Instructions Recorded Confirmed Type Aspirin [Aspirin 81mg chewable 81 mg PO DAILY 06/17/17 05/03/21 History tab] Buspirone HCl [Buspar 10mg 10 mg PO BID 06/17/17 05/03/21 History tablet] Clopidogrel Bisulfate [Plavix 75mg 75 mg PO DAILY 06/17/17 05/03/21 History Tab] Metformin HCl [Glucophage 500mg 1,000 mg PO BID 06/17/17 05/03/21 History Tablet] Pantoprazole Sodium [Protonix 40mg 40 mg PO DAILY 06/17/17 05/03/21 History tablet] diazePAM [diazePAM 5mg Tablet] 5 mg PO TID PRN 06/17/17 05/04/21 History glipiZIDE [Glipizide ER] 2.5 mg PO BID 06/17/17 05/03/21 History lisinopriL [Lisinopril 2.5mg Tab] 2.5 mg PO DAILY 06/17/17 05/03/21 History meclizine 25 mg tablet 25 mg PO TID PRN 10 Days tab 07/18/18 05/04/21 History atorvastatin 40 mg tablet 40 mg PO HS #30 tab 09/18/18 05/04/21 History gabapentin 300 mg capsule 300 mg PO 5XDAY 90 Days #450 cap 09/18/18 05/04/21 History ondansetron 4 mg disintegrating 4 mg PO NEEDED PRN 8 Days #50 09/18/18 05/03/21 History tablet tab duloxetine 60 mg capsule,delayed 60 mg PO DAILY #90 cap 10/30/18 05/03/21 History release insulin glargine 100 unit/mL 85 unit SQ HS ml MDD diabetes 01/30/19 05/04/21 History subcutaneous solution levothyroxine 50 mcg tablet 50 mcg PO DAILY #90 tab 01/30/19 05/03/21 History fluticasone fur. 100 mcg-umeclid 1 puff INHALATION Q4H 05/30/19 05/03/21 History 62.5 mcg-vilant 25 mcg inhalat.powder prucalopride 2 mg tablet 2 mg PO DAILY 05/30/19 05/03/21 History tizanidine 4 mg tablet 4 mg PO TID PRN 05/30/19 05/04/21 History Bumetanide 1 mg PO DAILY 05/03/21 05/03/21 History Spironolactone [Spironolactone 25 mg PO DAILY 05/03/21 05/03/21 History 25mg Tablet] Empagliflozin [Jardiance] 25 mg PO AM 05/04/21
--- NOTE | 2021-05-04 09:52 | PC.NURSE ---
Pts vapotherm settings turned down to 30 L and 80%.
[2021-05-04 21:33] LABS: POC Glucose,Bedside 367 (70-110)
[2021-05-05] VITALS (13 sets, daily range): BP systolic 101–119; BP diastolic 44–61; PULSE 60–85; RESP 16–20; TEMP 36.4–36.8; O2SAT 90–100; BMI 32.1
--- NOTE | 2021-05-05 06:49 | HMH.ACPN2 ---
Internal Medicine - PN: Subj *Date: 05/05/21 *Time: 20:05 Interval history: Febrile on rounds this morning. Hemodynamically stable. Continues to have significant oxygen requirement. Satting 100% on Vapotherm of 70% this morning. Dropped to 60% during rounds. Having some nausea, this is chronic for her given gastroparesis. No diarrhea or vomiting. Sitting at bedside on exam Exam Vital signs and Labs for Last 24 Hours: Temp Pulse Resp BP Pulse Ox 97.9 F 72 23 104/63 L 99 05/04/21 16:00 05/05/21 06:30 05/04/21 16:00 05/04/21 16:00 05/05/21 06:30 Laboratory Results - last 24 hr 05/03/21 15:57: Urine Color Yellow, Urine Appearance Cloudy, Urine pH 5.5, Ur Specific [place] 1.020, Urine Protein Negative, Urine Glucose (UA) 3+, Urine Ketones Negative, Urine Blood 3+, Urine Nitrate Positive, Urine Bilirubin Negative, Urine Urobilinogen 0.2, Ur Leukocyte Esterase Negative, Urine RBC 10-20, Urine WBC 10-20, Ur Squamous Epith Cells 3-5, Urine Bacteria 3+ 05/03/21 23:16: POC Glucose 296 H 05/04/21 05:45: Total Counted 100, Neutrophils % (Manual) 93 H, Lymphocytes % (Manual) 6 L, Monocytes % (Manual) 1 L, Platelet Estimate Normal, Poikilocytosis 2+, Anisocytosis 1+, Microcytosis 1+ 05/04/21 05:51: POC Glucose 210 H 05/04/21 16:14: POC Glucose 367 H* I & O for Last 24 hours: Intake & Output 05/02/21 05/03/21 05/04/21 05/05/21 23:59 23:59 23:59 23:59 Intake Total 1440 / 1440 Output Total 950 / 950 Balance 490 / 490 Weight 91.796 kg 90.945 kg Microbiology Reports for the Last 24 Hours: Microbiology 05/03/21 15:57 Urine,Clean Catch Urine Culture - Preliminary Gram Negative Rods - Constitutional mild distress, obese - *Routine HEENT Exam Head: Present: normocephalic Eye: Present: EOMI, PERRL ENT: Present: mucous membranes moist - *Routine Neck Exam Present: supple. Absent: lymphadenopathy - *Routine Respiratory Exam Present: wheezes, crackles, diminished air movement - *Routine Cardiovascular Exam Present: RRR - *Routine Abdominal Exam Present: soft, normoactive bowel sounds. Absent: tenderness - *Routine Extremities Exam Present: edema. Absent: cyanosis, clubbing - *Routine Skin Exam Present: warm. Absent: rash - *Routine Neurological Exam Present: alert, oriented X3 Assessment and Plan (1) Acute on chronic respiratory failure with hypoxemia Status: Acute Category: Medical Code(s): J96.21 - Acute and chronic respiratory failure with hypoxia (2) Anemia Status: Acute Qualifiers: Anemia type: unspecified type Qualified Code(s): D64.9 - Anemia, unspecified Category: Medical Code(s): D64.9 - Anemia, unspecified (3) CAP (community acquired pneumonia) Status: Acute Category: Medical Code(s): J18.9 - Pneumonia, unspecified organism (4) CHF (congestive heart failure) Status: Acute Qualifiers: Heart failure type: unspecified Heart failure chronicity: acute on chronic Qualified Code(s): I50.9 - Heart failure, unspecified Category: Medical Code(s): I50.9 - Heart failure, unspecified (5) COPD (chronic obstructive pulmonary disease) Status: Acute Category: Medical Code(s): J44.9 - Chronic obstructive pulmonary disease, unspecified (6) UTI (urinary tract infection) Status: Acute Category: Medical Code(s): N39.0 - Urinary tract infection, site not specified (7) BANDAR (acute kidney injury) Status: Acute Category: Medical Code(s): N17.9 - Acute kidney failure, unspecified - Assessment and plan all Dx Assessment and Plan for all problems:: 61-year-old female with chronic anemia, who presented with pneumonia and UTI. Acute on chronic hypoxemic respiratory failure requiring increased oxygen above baseline 3 L nasal cannula that she uses at home. Continue ceftriaxone and azithromycin for broad coverage for both respiratory and urinary source. E. coli from urine sensitive
[2021-05-05 09:35] LABS: Basophils % 0.1 % (0.1-2.0); Hematocrit 27.2 % (37.0-47.0); Hemoglobin 7.7 g/dL (12.2-16.2); Lymphocytes # 0.4 K/mm3 (0.7-4.5); Lymphocytes % 4.6 % (10-50); Mean Corpuscular HGB Conc 28.2 g/dL (31.8-35.4); Mean Corpuscular Volume 74.5 fl (81-99); Mean Platelet Volume 8.3 fl (7.4-10.4); Monocytes # 0.2 K/mm3 (0.1-1.0); Monocytes % 2.6 % (1.7-9.3); Neutrophils # 8.6 K/mm3 (1.8-7.8); Neutrophils % 92.8 % (37.0-80.0); Platelet Count 356 K/mm3 (142-424); Red Blood Count 3.65 M/mm3 (4.20-5.40); Red Cell Distribution Width 18.5 % (11.5-17.5); White Blood Count 9.2 K/mm3 (4.8-10.8)
[2021-05-05 09:44] LABS: MANUAL DIFFERENTIAL MANUAL DIFFERENTIAL (MANUAL DIFF)
[2021-05-05 09:56] LABS: Anion Gap 19.9 mEq/L (5-15); Blood Urea Nitrogen 38 mg/dl (7-17); Carbon Dioxide 22 mmol/L (22.0-30.0); Chloride 98 mmol/L (98-107); Creatinine Clearance Estimated 57 mL/min (50-200); Estimated Glomerular Filt Rate 33 ml/min (>60); GFR (African American) 40 ML/MIN (>60); Potassium 4.9 mmoL/L (3.5-5.1); Sodium 135 mmol/L (136-145)
[2021-05-05 10:04] LABS: Glucose 421 mg/dl (74-100)
[2021-05-05 11:38] LABS: POC Glucose,Bedside 391 (70-110)
[2021-05-05 11:38] LABS: POC Glucose,Bedside 370 (70-110)
[2021-05-05 11:39] LABS: POC Glucose,Bedside 332 (70-110)
[2021-05-05 14:18] LABS: Lymphocytes % 3 % (10-50); Monocytes % 1 % (2-9); Neutrophils % 96 % (42-76); Total Cells Counted 100
[2021-05-05 14:19] LABS: Anisocytosis 1+; Microcytosis 1+; Platelet Estimate Normal; Poikilocytosis 1+
[2021-05-05 17:28] LABS: POC Glucose,Bedside 393 (70-110)
--- NOTE | 2021-05-05 20:02 | PC.NURSE ---
Addendum entered by Jeff Seymour RN 05/05/21 20:34: Made Dr. Choe aware of pt's critical glucose of 421, NNO Original Note: Held lisinopril this am and made Dr. Choe aware. Also received order for a 21 mg nicotine patch prn daily for pt.
[2021-05-06] VITALS (12 sets, daily range): BP systolic 100–115; BP diastolic 48–55; PULSE 56–90; RESP 18–20; TEMP 36.4–36.9; O2SAT 88–100; BMI 31.3
[2021-05-06 00:44] LABS: POC Glucose,Bedside 401 (70-110)
[2021-05-06 07:37] LABS: Anion Gap 10.2 mEq/L (5-15); Blood Urea Nitrogen 42 mg/dl (7-17); Calcium 8.8 mg/dl (8.4-10.2); Carbon Dioxide 28 mmol/L (22.0-30.0); Chloride 97 mmol/L (98-107); Creatinine Clearance Estimated 74 mL/min (50-200); Estimated Glomerular Filt Rate 46 ml/min (>60); GFR (African American) 55 ML/MIN (>60); Glucose 278 mg/dl (74-100); Potassium 4.2 mmoL/L (3.5-5.1); Sodium 131 mmol/L (136-145)
[2021-05-06 08:11] LABS: Basophils % 0.1 % (0.1-2.0); Eosinophils % 0.1 % (0.1-12.0); Hematocrit 24.3 % (37.0-47.0); Hemoglobin 7.1 g/dL (12.2-16.2); Lymphocytes # 0.3 K/mm3 (0.7-4.5); Lymphocytes % 5.9 % (10-50); Mean Corpuscular HGB Conc 29.4 g/dL (31.8-35.4); Mean Corpuscular Hemoglobin 21.2 pg (27.0-31.2); Mean Corpuscular Volume 72.2 fl (81-99); Mean Platelet Volume 9.2 fl (7.4-10.4); Monocytes # 0.1 K/mm3 (0.1-1.0); Monocytes % 1.8 % (1.7-9.3); Neutrophils # 4.4 K/mm3 (1.8-7.8); Platelet Count 360 K/mm3 (142-424); Red Blood Count 3.37 M/mm3 (4.20-5.40); Red Cell Distribution Width 18.4 % (11.5-17.5); White Blood Count 4.8 K/mm3 (4.8-10.8)
[2021-05-06 08:16] LABS: MANUAL DIFFERENTIAL MANUAL DIFFERENTIAL (MANUAL DIFF)
--- NOTE | 2021-05-06 08:43 | HMH.ACPN2 ---
Internal Medicine - PN: Subj *Date: 05/06/21 *Time: 08:43 Interval history: Overall patient feels better, is eating 100% of her meals. Up and around in the room and when the chair even with her Vapotherm device. Microbiology results reviewed. Exam Vital signs and Labs for Last 24 Hours: Temp Pulse Resp BP Pulse Ox 97.5 F L 71 18 115/52 L 97 05/06/21 07:32 05/06/21 07:32 05/06/21 07:32 05/06/21 07:32 05/06/21 07:32 Laboratory Results - last 24 hr 05/04/21 12:08: POC Glucose 391 H* 05/04/21 20:55: POC Glucose 370 H* 05/05/21 07:44: POC Glucose 332 H* 05/05/21 09:15: WBC 9.2, RBC 3.65 L, Hgb 7.7 L, Hct 27.2 L, MCV 74.5 L, MCH 21.0 L, MCHC 28.2 L, RDW 18.5 H, Plt Count 356, MPV 8.3, Neut % (Auto) 92.8 H, Lymph % (Auto) 4.6 L, [place] % (Auto) 2.6, Eos % (Auto) 0.0 L, Baso % (Auto) 0.1, Neut # (Auto) 8.6 H, Lymph # (Auto) 0.4 L, [place] # (Auto) 0.2, Eos # (Auto) 0.0, Baso # (Auto) 0.0, Total Counted 100, Neutrophils % (Manual) 96 H, Lymphocytes % (Manual) 3 L, Monocytes % (Manual) 1 L, Platelet Estimate Normal, Poikilocytosis 1+, Anisocytosis 1+, Microcytosis 1+ 05/05/21 09:15: Sodium 135 L, Potassium 4.9, Chloride 98, Carbon Dioxide 22, Anion Gap 19.9 H, BUN 38 H D, Creatinine 1.60 H D, Estimated Creat Clear 57, Estimated GFR 33 L, Est GFR ( Amer) 40 L D, Glucose 421 H*, Calcium 9.0 05/05/21 11:41: POC Glucose 393 H* 05/05/21 20:47: POC Glucose 401 H* 05/06/21 06:01: Sodium 131 L, Potassium 4.2, Chloride 97 L, Carbon Dioxide 28, Anion Gap 10.2, BUN 42 H, Creatinine 1.20 H D, Estimated Creat Clear 74, Estimated GFR 46 L, Est GFR ( Amer) 55 L D, Glucose 278 H D, Calcium 8.8 05/06/21 06:14: WBC 4.8 D, RBC 3.37 L, Hgb 7.1 L, Hct 24.3 L, MCV 72.2 L, MCH 21.2 L, MCHC 29.4 L, RDW 18.4 H, Plt Count 360, MPV 9.2, Neut % (Auto) 92.0 H, Lymph % (Auto) 5.9 L, [place] % (Auto) 1.8, Eos % (Auto) 0.1, Baso % (Auto) 0.1, Neut # (Auto) 4.4, Lymph # (Auto) 0.3 L, [place] # (Auto) 0.1, Eos # (Auto) 0.0, Baso # (Auto) 0.0 I & O for Last 24 hours: Intake & Output 05/03/21 05/04/21 05/05/21 05/06/21 11:59 11:59 11:59 11:59 Intake Total 600 / 600 1320 / 1320 960 / 960 Output Total 950 / 950 Balance -350 / -350 1320 / 1320 960 / 960 Weight 200 lb 8 oz 211 lb 10.3 oz 206 lb 8 oz Microbiology Reports for the Last 24 Hours: Microbiology 05/06/21 01:00 Sputum - Expectorated Sputum Gram Stain - Final 05/03/21 16:05 Blood Blood Culture - Preliminary NO GROWTH AFTER 48 HOURS 05/03/21 16:05 Blood Blood Culture - Preliminary NO GROWTH AFTER 48 HOURS 05/03/21 15:57 Urine,Clean Catch Urine Culture - Final Escherichia coli Narrative: Loose rhonchi in chest, good air movement, minimal wheezing. Heart rate regular. Abdomen soft, good distal perfusion. ENT exam clear. Neurologic exam intact. Assessment and Plan (1) Acute on chronic respiratory failure with hypoxemia Status: Acute Category: Medical Code(s): J96.21 - Acute and chronic respiratory failure with hypoxia (2) Anemia Status: Acute Qualifiers: Anemia type: unspecified type Qualified Code(s): D64.9 - Anemia, unspecified Category: Medical Code(s): D64.9 - Anemia, unspecified (3) CAP (community acquired pneumonia) Status: Acute Category: Medical Code(s): J18.9 - Pneumonia, unspecified organism (4) CHF (congestive heart failure) Status: Acute Qualifiers: Heart failure type: unspecified Heart failure chronicity: acute on chronic Qualified Code(s): I50.9 - Heart failure, unspecified Category: Medical Code(s): I50.9 - Heart failure, unspecified (5) COPD (chronic obstructive pulmonary disease) Status: Acute Category: Medical Code(s): J44.9 - Chronic obstructive pulmonary disease, unspecified (6) UTI (urinary tract infection) Status: Acute Category: Medical Code(s): N39.0 - Urinary tract infection, site not s
--- NOTE | 2021-05-06 10:15 | PC.NURSE ---
RESP CARE NOTE: Pt vapotherm settings decreased per Dr Newell order. Vapotherm placed on 25L/40% FIO2. Will continue to monitor patient.
[2021-05-06 11:27] LABS: POC Glucose,Bedside 347 (70-110)
[2021-05-06 11:27] LABS: POC Glucose,Bedside 308 (70-110)
--- NOTE | 2021-05-06 11:52 | PC.NURSE ---
RESP CARE NOTE: Pt sleeping in semi fowlers position with vapotherm in place. SPO2 at 76% on 25lpm/40% FIO2. To maintain SPO2 of 90% vapotherm settings we adjusted to 40lpm/80% FIO2. NSG informed, and will continue to monitor patient.
[2021-05-06 12:22] LABS: Anisocytosis 2+; Eosinophils % 1 % (0-3); Hypochromasia 2+; Lymphocytes % 1 % (10-50); Microcytosis 2+; Monocytes % 1 % (2-9); Neutrophils % 97 % (42-76); Platelet Estimate Normal; Total Cells Counted 100
[2021-05-06 16:55] LABS: POC Glucose,Bedside 458 (70-110)
[2021-05-06 16:55] LABS: POC Glucose,Bedside 431 (70-110)
--- NOTE | 2021-05-06 18:47 | PC.NURSE ---
No acute changes this shift. Pt remains on vapotherm, d/t unsuccessful attempts of weaning fio2 and LPM down. Pt currently 35/70%. No other acute changes or complaints
[2021-05-07] VITALS (8 sets, daily range): BP systolic 105–120; BP diastolic 51–58; PULSE 55–66; RESP 16–19; TEMP 36.4–36.9; O2SAT 91–100; BMI 30.6
[2021-05-07 08:04] LABS: Anion Gap 12.2 mEq/L (5-15); Basophils % 0.3 % (0.1-2.0); Blood Urea Nitrogen 39 mg/dl (7-17); Calcium 8.7 mg/dl (8.4-10.2); Carbon Dioxide 27 mmol/L (22.0-30.0); Chloride 97 mmol/L (98-107); Creatinine Clearance Estimated 87 mL/min (50-200); Eosinophils % 0.1 % (0.1-12.0); Estimated Glomerular Filt Rate 57 ml/min (>60); GFR (African American) 68 ML/MIN (>60); Glucose 394 mg/dl (74-100); Hematocrit 27.4 % (37.0-47.0); Lymphocytes # 0.2 K/mm3 (0.7-4.5); Lymphocytes % 3.5 % (10-50); Mean Corpuscular HGB Conc 29.2 g/dL (31.8-35.4); Mean Corpuscular Hemoglobin 21.3 pg (27.0-31.2); Mean Corpuscular Volume 72.9 fl (81-99); Monocytes # 0.1 K/mm3 (0.1-1.0); Monocytes % 2.1 % (1.7-9.3); Neutrophils # 5.4 K/mm3 (1.8-7.8); Neutrophils % 93.9 % (37.0-80.0); Platelet Count 305 K/mm3 (142-424); Potassium 4.2 mmoL/L (3.5-5.1); Red Blood Count 3.75 M/mm3 (4.20-5.40); Red Cell Distribution Width 18.3 % (11.5-17.5); Sodium 132 mmol/L (136-145); White Blood Count 5.7 K/mm3 (4.8-10.8)
[2021-05-07 08:17] LABS: MANUAL DIFFERENTIAL MANUAL DIFFERENTIAL (MANUAL DIFF)
[2021-05-07 09:57] LABS: Lymphocytes % 7 % (10-50); Monocytes % 3 % (2-9); Neutrophils % 90 % (42-76); Total Cells Counted 100
[2021-05-07 09:58] LABS: Anisocytosis 1+; Hypochromasia 2+; Microcytosis 1+; Platelet Estimate Normal
--- NOTE | 2021-05-07 14:20 | HMH.DCSUM ---
General - General Admission date:: 05/03/21 Discharge date: 05/07/21 HPI HPI: 61-year-old white female, oxygen dependent COPD, follows with Dr. Marks in [place] for pulmonary care, came to the emergency department because of shortness of air, fatigue and congestion, and was found to be in significantly more need of oxygen than her baseline, transition to Vapotherm in the emergency department and stabilized with O2 saturations in the low 90s. Other work-up included lower hemoglobin which has been trending downward over the past couple of years. Electrolytes were essentially normal. Her initial troponin was slightly elevated at 0.11, but uncertain etiology. She denies anginal chest pain. This morning she feels much more comfortable and actually wanted to discuss going home today. Hospital Course Hospital Course: Patient was admitted, placed on standard IV antibiotics and Solu-Medrol for COPD exacerbation with superimposed lobar pneumonia. Patient was tested for Covid and flu with PCR testing that was negative. Patient did require Vapotherm over the first couple of days of hospital admission but today this was able to be weaned as she started to feel better and move about and cough up a significant amount of mucus. Blood cultures and sputum cultures were negative throughout her hospital course. Today she was feeling much better, down to 6 to 8 L on nasal cannula, and she will be discharged home with antibiotics, steroids, oxygen and nebulizer treatments as noted. I will do a telemedicine visit on her on Tuesday. She will follow-up before that as needed. Instructions were given about weaning O2 based on pulse oximetry readings at home. Of note she was found to be chronically anemic in the hospital. This is been going on for quite a while. She does not recall any work-up done although has had a normal colonoscopy within the past year. Iron studies were done showing low ferritin and total iron stores. This will be addressed as an outpatient. Objective Vital signs: Temp Pulse Resp BP Pulse Ox 98.2 F 64 16 107/51 L 92 L 05/07/21 11:13 05/07/21 13:45 05/07/21 11:13 05/07/21 11:13 05/07/21 13:45 no acute distress - *Routine HEENT Exam Head: Present: normocephalic Eye: Present: EOMI, PERRL ENT: Present: mucous membranes moist - *Routine Neck Exam Present: supple - *Routine Respiratory Exam Present: rhonchi Comments: Good air movement bilaterally. Much better than admission. Breathing comfortably. No retractions, no respiratory distress - *Routine Cardiovascular Exam Present: RRR - *Routine Abdominal Exam Present: soft, normoactive bowel sounds. Absent: tenderness - *Routine Extremities Exam Absent: cyanosis, clubbing, edema - *Routine Skin Exam Present: warm. Absent: rash - Detailed Eye Exam Eyelids: Bilateral normal inspection Results Labs on day of discharge: Labs from last 24 hours 05/07/21 05/07/21 05/06/21 07:45 07:45 16:40 WBC 5.7 RBC 3.75 L Hgb 8.0 L Hct 27.4 L MCV 72.9 L MCH 21.3 L MCHC 29.2 L RDW 18.3 H Plt Count 305 MPV 8.0 Neut % (Auto) 93.9 H Lymph % (Auto) 3.5 L [place] % (Auto) 2.1 Eos % (Auto) 0.1 Baso % (Auto) 0.3 Neut # (Auto) 5.4 Lymph # (Auto) 0.2 L [place] # (Auto) 0.1 Eos # (Auto) 0.0 Baso # (Auto) 0.0 Total Counted 100 Neutrophils % (Manual) 90 H Lymphocytes % (Manual) 7 L Monocytes % (Manual) 3 Platelet Estimate Normal Hypochromasia 2+ Anisocytosis 1+ Microcytosis 1+ Sodium 132 L Potassium 4.2 Chloride 97 L Carbon Dioxide 27 Anion Gap 12.2 BUN 39 H Creatinine 1.00 Estimated Creat Clear 87 Estimated GFR 57 L Est GFR ( Amer) 68 D Glucose 394 H POC Glucose 431 H* Calcium 8.7 05/06/21 11:11 WBC RBC Hgb Hct MCV MCH MCHC RDW Plt Count MPV Neut % (Auto) Lymph % (Auto
[2021-05-07 14:25] LABS: POC Glucose,Bedside 344 (70-110)
[2021-05-07 14:25] LABS: POC Glucose,Bedside 410 (70-110)
[2021-05-07 14:25] LABS: POC Glucose,Bedside 327 (70-110)
--- NOTE | 2021-05-07 14:40 | SW/DCPLANNER ---
SET UP NEBULIZER AND A CONCENTRATOR TO ACCOMMODATE MORE LITER FLOW FOR THIS PATIENT THAT ALREADY HAS HOME 02.. PATIENT IS DISCHARGING THIS AFTERNOON..... PATIENT IS ALREADY ESTABLISHED WITH [facility].
--- NOTE | 2021-05-07 15:18 | HMH.PHAINT ---
DISCHARGE COUNSELING COMPLETED ON PATIENT. NEW MEDICATIONS INCLUDE DUONEBS, DEXAMETHASONE, AND CEFDINIR. ALL NEW PRESCRIPTIONS WERE SENT TO CLINIC PHARMACY. PATIENT IS TO CONTINUE ALL OTHER HOME MEDICATIONS. PATIENT VERBALIZED UNDERSTANDING AND HAD NO QUESTIONS AT THIS TIME. -PAM COHEN, PETERD
== END 2021-05-07 16:52 | disposition home or self-care (01) | DRG 193 ==
LOC: ER 17:00 → 2ND 17:25
PROVIDERS: Internal Medicine Adolescent Medicine; Admitting Provider Internal Medicine Adolescent Medicine; Emergency Provider Emergency Medicine; PCP Internal Medicine; Visit Provider Internal Medicine Adolescent Medicine
DX: J18.9 Pneumonia, unspecified organism (principal); J96.21 Acute and chronic respiratory failure with hypoxia; J44.0 Chronic obstructive pulmonary disease with (acute) lower respiratory infection; N39.0 Urinary tract infection, site not specified; I50.30 Unspecified diastolic (congestive) heart failure; N17.9 Acute kidney failure, unspecified; D64.9 Anemia, unspecified; Z79.4 Long term (current) use of insulin; I11.0 Hypertensive heart disease with heart failure; I25.10 Atherosclerotic heart disease of native coronary artery without angina pectoris; Z86.73 Personal history of transient ischemic attack (TIA), and cerebral infarction without residual deficits; Z87.891 Personal history of nicotine dependence
CPT/HCPCS: 36415; 71045; 80048; 81001; 82607; 82728; 82746; 82803; 82962; 83540; 83550; 83605; 83880; 84484; 85007; 85025; 87040; 87070; 87077; 87086; 87088; 87186; 87205; 93005; 93306; 94640; 96365; 96375; 99285; C9803; J0456; J0696; U0003; U0005

== ENCOUNTER → 2021-05-13 13:02 | Outpatient (CLI) | payer MEDICARE, MEDICAID, SELFPAY ==
--- NOTE | 2021-05-13 13:07 | CT_ITS ---
FINAL REPORT CLINICAL HISTORY: HX OF TOBACCO USE COMPARISON: CT chest without contrast dated September 24, 2020 and January 16, 2020 FINDINGS: Low-Dose Chest CT CTDI vol (mGy): 2.90 DLP (mGy-cm): 101.86 Axial images were obtained from the lung apex to the mid abdomen by computed tomography. Low-dose protocol was utilized. FINDINGS: CHEST: There is no axillary adenopathy. There is no hilar or mediastinal adenopathy. The heart is proper size. There are moderate to severe coronary artery calcifications. There is no pericardial or pleural effusion. Limited images of the upper abdomen are unremarkable. Lung window images demonstrate moderate emphysema. There is mild scarring. There are multiple small pulmonary nodules, many are calcified and consistent with granulomas. Some of them are not definitely calcified. There is a 2 mm nodule in the lateral right upper lobe on image 26. There is a 2 mm nodule in the lateral right middle lobe on image 50. IMPRESSION: Lung RADS category 2S. Recommend 12 month follow-up low-dose chest CT. S modifier: [id number] coronary artery calcifications. Reviewed, Interpreted and Dictated by Carmine Magaña III, MD Transcribed by Christal Yoo Authenticated by Carmine Magaña III, MD on 05/13/2021 04:57:05 PM [facility]
--- NOTE | 2021-05-13 13:08 | XR_ITS ---
FINAL REPORT CLINICAL HISTORY: LT FOOT INJURY-PAIN/BRUISING FINDINGS: LEFT FOOT Three views of the left foot demonstrate no acute fracture or dislocation. There are mild degenerative changes. There are calcaneal spurs. The soft tissues are unremarkable. IMPRESSION: No acute bony abnormality. Reviewed, Interpreted and Dictated by Carmine Magaña III, MD Transcribed by Christal Yoo Authenticated by Carmine Magaña III, MD on 05/13/2021 02:14:47 PM [facility]
== END ==
PROVIDERS: PCP Internal Medicine; Visit Provider Internal Medicine Critical Care Medicine
DX: Z87.891 Personal history of nicotine dependence (principal); Z12.2 Encounter for screening for malignant neoplasm of respiratory organs; M79.672 Pain in left foot; S99.922A Unspecified injury of left foot, initial encounter
CPT/HCPCS: 71271; 73630

== ENCOUNTER 2021-05-18 13:44 | Outpatient (CLI) | payer MEDICARE, MEDICAID, SELFPAY ==
--- NOTE | 2021-05-18 14:45 | PC.NURSE ---
1445-pt notified about length of infusion and did not want to stay and have it today but would come back tomorrow
== END 2021-05-18 14:45 | disposition home or self-care (01) ==
LOC: INF 13:45
PROVIDERS: PCP Internal Medicine; Visit Provider Internal Medicine
DX: D50.9 Iron deficiency anemia, unspecified (principal)

== ENCOUNTER 2021-05-19 10:09 | Outpatient (CLI) | payer MEDICARE, MEDICAID, SELFPAY ==
[2021-05-19 10:35] VITALS: BP 109/43; PULSE 68; RESP 20; O2SAT 100
[2021-05-19 12:00] VITALS: BP 110/60; PULSE 70; RESP 20
[2021-05-19 13:30] VITALS: BP 122/59; PULSE 76; RESP 20
[2021-05-19 14:40] VITALS: BP 116/53; PULSE 74; RESP 20
== END 2021-05-19 14:40 | disposition home or self-care (01) ==
LOC: INF 10:10
PROVIDERS: PCP Internal Medicine; Visit Provider Internal Medicine
DX: D50.9 Iron deficiency anemia, unspecified (principal)
CPT/HCPCS: 96365; 96366; J1756

== ENCOUNTER 2021-06-02 08:04 | Outpatient (CLI) | payer MEDICARE, MEDICAID, SELFPAY ==
[2021-06-02 10:20] VITALS: BP 101/55; PULSE 83; RESP 22; O2SAT 98
[2021-06-02 11:30] VITALS: BP 117/78; PULSE 59; RESP 21
[2021-06-02 12:20] VITALS: BP 123/60; PULSE 77; RESP 22
[2021-06-02 14:02] VITALS: BP 120/53; PULSE 81; RESP 22; O2SAT 98
== END 2021-06-02 14:02 | disposition home or self-care (01) ==
LOC: INF 08:05
PROVIDERS: PCP Internal Medicine; Visit Provider Internal Medicine
DX: D50.0 Iron deficiency anemia secondary to blood loss (chronic) (principal)
CPT/HCPCS: 96365; 96366; J1756

== ENCOUNTER → 2021-06-16 14:08 | Outpatient (CLI) | payer MEDICARE, MEDICAID, SELFPAY ==
[2021-06-16 14:46] LABS: Basophils # 0.1 K/mm3 (0-0.2); Basophils % 0.6 % (0.1-2.0); Eosinophils # 0.1 K/mm3 (0.0-0.4); Eosinophils % 1.2 % (0.1-12.0); Hematocrit 34.1 % (37.0-47.0); Hemoglobin 10.4 g/dL (12.2-16.2); Lymphocytes # 1.5 K/mm3 (0.7-4.5); Lymphocytes % 17.1 % (10-50); Mean Corpuscular HGB Conc 30.6 g/dL (31.8-35.4); Mean Corpuscular Hemoglobin 25.4 pg (27.0-31.2); Mean Corpuscular Volume 83.1 fl (81-99); Mean Platelet Volume 9.3 fl (7.4-10.4); Monocytes # 0.7 K/mm3 (0.1-1.0); Monocytes % 8.1 % (1.7-9.3); Neutrophils # 6.5 K/mm3 (1.8-7.8); Platelet Count 293 K/mm3 (142-424); Reticulocyte % (Auto) 3.1 % (0.9-3.2); White Blood Count 8.9 K/mm3 (4.8-10.8)
[2021-06-16 15:02] LABS: Red Cell Distribution Width 26.3 % (11.5-17.5)
[2021-06-16 15:11] LABS: Anion Gap 20.5 mEq/L (5-15); Blood Urea Nitrogen 20 mg/dl (7-17); Calcium 9.4 mg/dl (8.4-10.2); Carbon Dioxide 25 mmol/L (22.0-30.0); Chloride 94 mmol/L (98-107); Estimated Glomerular Filt Rate 38 ml/min (>60); GFR (African American) 46 ML/MIN (>60); Glucose 225 mg/dl (74-100); Potassium 4.5 mmoL/L (3.5-5.1); Sodium 135 mmol/L (136-145)
[2021-06-16 15:36] LABS: Hemoglobin A1C 6.9 % (4.0-6.0)
== END ==
PROVIDERS: Visit Provider Internal Medicine
DX: I25.118 Atherosclerotic heart disease of native coronary artery with other forms of angina pectoris (principal); I10 Essential (primary) hypertension; E11.40 Type 2 diabetes mellitus with diabetic neuropathy, unspecified; E11.59 Type 2 diabetes mellitus with other circulatory complications; D50.9 Iron deficiency anemia, unspecified; F17.209 Nicotine dependence, unspecified, with unspecified nicotine-induced disorders; Z79.4 Long term (current) use of insulin
CPT/HCPCS: 80048; 83036; 85025; 85044

== ENCOUNTER 2021-06-21 15:06 | Emergency (ER) | payer MEDICARE, MEDICAID, SELFPAY ==
[2021-06-21] VITALS (7 sets, daily range): BP systolic 93–112; BP diastolic 54–68; PULSE 78–94; RESP 13–32; TEMP 36.6; O2SAT 95–98; BMI 31.8
--- NOTE | 2021-06-21 | ECG_ITS ---
APPROVED REPORT Exam: Resting ECG HR:91 bpm ECG Measurements Heart Rate 91 AXES FL 212 P 77 QRSd 104 QRS 137 QT 363 T 80 QTc 412 Conclusion SINUS RHYTHM WITH FIRST DEGREE AV BLOCK POSSIBLE LEFT ATRIAL ENLARGEMENT [-0.1mV P-WAVE IN V1/V2] PATTERN CONSISTENT WITH PULMONARY DISEASE INCOMPLETE RIGHT BUNDLE BRANCH BLOCK [90+ ms QRS DURATION, TERMINAL R IN V1/V2, 40+ ms S IN I/aVL/V4/V5/V6] RIGHT VENTRICULAR HYPERTROPHY [SOME/ALL OF: PROMINENT R IN V1, LATE TRANSITION, RAD, SANAZ, SSS] ABNORMAL ECG UNCONFIRMED REPORT Electronically signed by : Kareem Newell MD 06/22/2021 13:43:36
--- NOTE | 2021-06-21 15:26 | XR_ITS ---
PROCEDURE INFORMATION: Exam: XR Chest Exam date and time: 06/21/2021 3:26 PM Age: 61 years old Clinical indication: Shortness of breath; Additional info: SOA, fall TECHNIQUE: Imaging protocol: XR of the chest. Views: 1 view. COMPARISON: CR XR CHEST PORTABLE 05/03/2021 3:40 PM FINDINGS: Lungs: No lobar consolidation, effusion or edema. Mild nonspecific interstitial prominence. Pleural spaces: Unremarkable. No pleural effusion. No pneumothorax. Heart/Mediastinum: Unremarkable. No cardiomegaly. Bones/joints: Unremarkable. IMPRESSION: No lobar consolidation, effusion or edema. Plain films are relatively insensitive for detecting any possible ground glass opacities.
--- NOTE | 2021-06-21 15:27 | PC.NURSE ---
tech obtained bs reported rn and md of result 209
--- NOTE | 2021-06-21 15:27 | PC.NURSE ---
pt sitting up in bed speaking with Dr. Brown. Call light within reach. Nothing needed at this time.
[2021-06-21 15:33] LABS: POC Glucose,Bedside 209 (70-110)
[2021-06-21 15:37] LABS: Basophils # 0.1 K/mm3 (0-0.2); Basophils % 1.3 % (0.1-2.0); Eosinophils # 0.2 K/mm3 (0.0-0.4); Eosinophils % 1.9 % (0.1-12.0); Hematocrit 36.9 % (37.0-47.0); Hemoglobin 11.5 g/dL (12.2-16.2); Lymphocytes # 1.8 K/mm3 (0.7-4.5); Lymphocytes % 17.8 % (10-50); Mean Corpuscular HGB Conc 31.2 g/dL (31.8-35.4); Mean Corpuscular Hemoglobin 26.2 pg (27.0-31.2); Mean Corpuscular Volume 83.9 fl (81-99); Mean Platelet Volume 8.3 fl (7.4-10.4); Monocytes # 0.6 K/mm3 (0.1-1.0); Monocytes % 5.9 % (1.7-9.3); Neutrophils # 7.3 K/mm3 (1.8-7.8); Neutrophils % 73.1 % (37.0-80.0); Platelet Count 340 K/mm3 (142-424); White Blood Count 9.9 K/mm3 (4.8-10.8)
[2021-06-21 15:41] LABS: Anion Gap 20.7 mEq/L (5-15); Blood Urea Nitrogen 20 mg/dl (7-17); Calcium 9.9 mg/dl (8.4-10.2); Carbon Dioxide 22 mmol/L (22.0-30.0); Chloride 97 mmol/L (98-107); Creatinine Clearance Estimated 79 mL/min (50-200); Estimated Glomerular Filt Rate 51 ml/min (>60); GFR (African American) 61 ML/MIN (>60); Glucose 191 mg/dl (74-100); Potassium 4.7 mmoL/L (3.5-5.1); Sodium 135 mmol/L (136-145)
[2021-06-21 15:43] LABS: Red Cell Distribution Width 25.6 % (11.5-17.5)
--- NOTE | 2021-06-21 15:43 | CT_ITS ---
PROCEDURE INFORMATION: Exam: CT Angiography Head With Contrast, Arteriography Exam date and time: 06/21/2021 3:43 PM Age: 61 years old Clinical indication: Injury or trauma; Fall; Blunt trauma; Head; Injury date: 06/21/21; Additional info: Recurrent falls with weakness and dizziness TECHNIQUE: Imaging protocol: Computed tomography angiography of the head with contrast. Exam focused on the arteries. 3D rendering (Not supervised by radiologist): MIP and/or 3D reconstructed images were created by the technologist. Radiation optimization: All CT scans at this facility use at least one of these dose optimization techniques: automated exposure control; mA and/or kV adjustment per patient size (includes targeted exams where dose is matched to clinical indication); or iterative reconstruction. Contrast material: ISOVUE; Contrast volume: 100 ml; Contrast route: INTRAVENOUS (IV); COMPARISON: CT HEAD/BRAIN WO CON 06/21/2021 2:58 PM FINDINGS: ANTERIOR CIRCULATION: Right internal carotid artery: 2 x 2 mm aneurysm versus prominent infundibulum projecting inferior to the supraclinoid segment of the right internal carotid artery. Right middle cerebral artery: Unremarkable. No occlusion or significant stenosis. No aneurysm. Right anterior cerebral artery: Unremarkable. No occlusion or significant stenosis. No aneurysm. Left internal carotid artery: Unremarkable. Intracranial segment is patent with no significant stenosis. No aneurysm. Left middle cerebral artery: Unremarkable. No occlusion or significant stenosis. No aneurysm. Left anterior cerebral artery: Unremarkable. No occlusion or significant stenosis. No aneurysm. POSTERIOR CIRCULATION: Right vertebral artery: Unremarkable. No occlusion or significant stenosis. No aneurysm. Left vertebral artery: Unremarkable. No occlusion or significant stenosis. No aneurysm. Basilar artery: Unremarkable. No occlusion or significant stenosis. No aneurysm. Right posterior cerebral artery: Unremarkable. No occlusion or significant stenosis. No aneurysm. Left posterior cerebral artery: Unremarkable. No occlusion or significant stenosis. No aneurysm. Aorta: Limited atherosclerosis without dissection, flow-limiting lesion in the main intracranial arterial branching. Brain: No definite mass, mass effect, or midline shift. Cerebral ventricles: No ventriculomegaly. Bones/joints: Unremarkable. No acute fracture. Soft tissues: Unremarkable. Other findings: Please see noncontrast head CT report same date. IMPRESSION: 1. Please see noncontrast head CT report same date. 2. Limited atherosclerosis without dissection, flow-limiting lesion in the main intracranial arterial branching. 3. 2 x 2 mm aneurysm versus prominent infundibulum projecting inferior to the supraclinoid segment of the right internal carotid artery.
--- NOTE | 2021-06-21 15:43 | CT_ITS ---
PROCEDURE INFORMATION: Exam: CT Angiography Neck With Contrast Exam date and time: 06/21/2021 3:43 PM Age: 61 years old Clinical indication: Dizziness and giddiness and headache; Additional info: Recurrent falls with weakness and dizziness TECHNIQUE: Imaging protocol: Computed tomography angiography of the neck with contrast. 3D rendering (Not supervised by radiologist): MIP and/or 3D reconstructed images were created by the technologist. Radiation optimization: All CT scans at this facility use at least one of these dose optimization techniques: automated exposure control; mA and/or kV adjustment per patient size (includes targeted exams where dose is matched to clinical indication); or iterative reconstruction. Contrast material: ISOVUE; Contrast volume: 100 ml; Contrast route: INTRAVENOUS (IV); COMPARISON: CT HEAD/BRAIN WO CON 06/21/2021 2:58 PM FINDINGS: Right common carotid artery: No stenosis. No dissection or occlusion. Right internal carotid artery: Limited calcific plaque right carotid bulb and origin of right internal carotid artery with mild stenosis of the internal carotid. Right external carotid artery: No occlusion or stenosis of the origin. Left common carotid artery: No stenosis. No dissection or occlusion. Left internal carotid artery: Irregular calcific plaque left carotid bulb and origin of the left internal carotid artery with short segment severe stenosis at the origin of the internal carotid. No occlusion. Left external carotid artery: Severe stenosis origin left external carotid artery. Right vertebral artery: No stenosis. No dissection or occlusion. Left vertebral artery: No stenosis. No dissection or occlusion. Soft tissues: Normal. No significant soft tissue swelling. Bones/joints: No acute fracture. Lungs: Emphysema. IMPRESSION: 1. Irregular calcific plaque left carotid bulb and origin of the left internal carotid artery with short segment severe stenosis at the origin of the internal carotid. No occlusion. 2. Limited calcific plaque right carotid bulb and origin of right internal carotid artery with mild stenosis of the internal carotid. REFERENCES: NASCET CRITERIA. The degree of internal carotid artery stenosis is based on NASCET criteria. Normal is no stenosis. Mild is less than 50% stenosis. Moderate is 50-69% stenosis. Severe is 70% to 99% stenosis. Total occlusion is no detectable patent lumen.
--- NOTE | 2021-06-21 15:43 | XR_ITS ---
PROCEDURE INFORMATION: Exam: XR Pelvis Exam date and time: 06/21/2021 3:43 PM Age: 61 years old Clinical indication: Injury or trauma; Fall; Blunt trauma (contusions or hematomas); Bilateral; Pelvic region; Injury date: 06/21/21; Additional info: Left buttocks pain after fall TECHNIQUE: Imaging protocol: XR pelvis. Views: 1 or 2 view. COMPARISON: CT ABDOMEN PELVIS WO CON 12/11/2018 9:10 PM FINDINGS: Bones/joints: No fracture seen on trauma AP views of the pelvis. Soft tissues: Unremarkable. IMPRESSION: No fracture seen on trauma AP views of the pelvis.
--- NOTE | 2021-06-21 15:43 | CT_ITS ---
PROCEDURE INFORMATION: Exam: CT Head Without Contrast Exam date and time: 06/21/2021 3:43 PM Age: 61 years old Clinical indication: Dizziness and walking, difficulty; Additional info: Recurrent falls with weakness and dizziness TECHNIQUE: Imaging protocol: Computed tomography of the head without contrast. Radiation optimization: All CT scans at this facility use at least one of these dose optimization techniques: automated exposure control; mA and/or kV adjustment per patient size (includes targeted exams where dose is matched to clinical indication); or iterative reconstruction. COMPARISON: FINDINGS: Brain: There is age-appropriate cerebral atrophy. Moderate changes of chronic small vessel ischemia within the cerebral white matter regions bilaterally. No acute infarct or hemorrhage. Cerebral ventricles: No ventriculomegaly. Paranasal sinuses: Visualized sinuses are unremarkable. No fluid levels. Mastoid air cells: Visualized mastoid air cells are well aerated. Bones/joints: Unremarkable. No acute fracture. Soft tissues: Unremarkable. IMPRESSION: No acute intracranial abnormality.
--- NOTE | 2021-06-21 15:46 | XR_ITS ---
PROCEDURE INFORMATION: Exam: XR Left Femur Exam date and time: 06/21/2021 3:46 PM Age: 61 years old Clinical indication: Injury or trauma; Fall; Blunt trauma; Thigh or upper leg; Left; Injury date: 06/21/21; Additional info: Left thigh tenderness after fall TECHNIQUE: Imaging protocol: XR Left femur. Views: 2 views. COMPARISON: CT ABDOMEN PELVIS WO CON 12/11/2018 9:10 PM FINDINGS: Bones/joints: Mild osteoarthritis in the hips. No fracture or subluxation. Soft tissues: Unremarkable. IMPRESSION: Mild osteoarthritis in the hips. No fracture or subluxation.
--- NOTE | 2021-06-21 15:47 | PC.NURSE ---
customer experience retail clerk is in with the patient at this time. is still bedside. nothing needed at this time.
--- NOTE | 2021-06-21 15:48 | HMH.EDGENADL ---
ED Disposition Clinical Impression: Generalized weakness Disposition: Home, Self-Care Condition on Discharge: Fair Referrals: Charles James [Primary Care Provider] - - Critical Care Critical Care Time: No Attestation: On 06/21/21, the high probability of a clinically significant, sudden or life threatening deterioration of the following system(s) required my full and direct attention, intervention and personal management. The time I documented below is in addition to time spent performing reported procedures but includes the following listed in this critical care notation. Medical Decision Making - Miller Inquiry Pt receiving controlled substance: No Vital Signs: 06/21/21 15:24 06/21/21 15:30 06/21/21 16:30 Temperature 97.8 F Temperature Source Oral Pulse Rate 94 H 87 Pulse Rate [Radial] 90 Respiratory Rate 28 H 13 Blood Pressure 93/54 L 106/68 L Blood Pressure [Right Arm] 112/57 L Blood Pressure Mean [Right Arm] 75 Blood Pressure Position [Right Arm] Sitting 02 Sat by Pulse Oximetry 95 95 97 Oxygen Delivery Method Nasal Cannula Nasal Cannula Nasal Cannula Oxygen Flow Rate (LPM) 6 6 6 06/21/21 17:00 06/21/21 17:30 06/21/21 18:00 Temperature Temperature Source Pulse Rate 83 80 78 Pulse Rate [Radial] Respiratory Rate 28 H 32 H 27 H Blood Pressure 110/60 107/59 L 109/55 L Blood Pressure [Right Arm] Blood Pressure Mean [Right Arm] Blood Pressure Position [Right Arm] 02 Sat by Pulse Oximetry 98 95 97 Oxygen Delivery Method Nasal Cannula Nasal Cannula Nasal Cannula Oxygen Flow Rate (LPM) 6 6 6 - Lab Data Lab Results 06/21/21 15:18: WBC 9.9, RBC 4.40, Hgb 11.5 L, Hct 36.9 L, MCV 83.9, MCH 26.2 L, MCHC 31.2 L, RDW 25.6 H*, Plt Count 340, MPV 8.3, Neut % (Auto) 73.1, Lymph % (Auto) 17.8, [place] % (Auto) 5.9, Eos % (Auto) 1.9, Baso % (Auto) 1.3, Neut # (Auto) 7.3, Lymph # (Auto) 1.8, Wise # (Auto) 0.6, Eos # (Auto) 0.2, Baso # (Auto) 0.1 06/21/21 15:18: Sodium 135 L, Potassium 4.7, Chloride 97 L, Carbon Dioxide 22, Anion Gap 20.7 H, BUN 20 H, Creatinine 1.10 H, Estimated Creat Clear 79, Estimated GFR 51 L, Est GFR ( Amer) 61, Glucose 191 H, Calcium 9.9, Troponin I < 0.01 06/21/21 15:18: Lactate 4.6 H 06/21/21 15:18: Phosphorus 4.0, Magnesium 1.7, NT-Pro-B Natriuret Pep 159 H, TSH 2.94, Thyroxine (T4) 6.7 06/21/21 15:26: POC Glucose 209 H 06/21/21 15:47: VBG pH 7.31, VBG pCO2 42.4, VBG pO2 38.7, VBG HCO3 20.9 L, VBG Total CO2 22.2 L, VBG O2 Saturation 69.6, VBG Base Excess -5.3 L 06/21/21 16:46: SARS-CoV-2 (PCR) Not detected, Influenza A Untype (PCR) Not detected, Influenza Type B (PCR) Not detected 06/21/21 17:05: Urine Color Yellow, Urine Appearance Clear, Urine pH 5.5, Ur Specific [place] 1.010, Urine Protein Negative, Urine Glucose (UA) 2+, Urine Ketones Negative, Urine Blood Negative, Urine Nitrate Negative, Urine Bilirubin Negative, Urine Urobilinogen 0.2, Ur Leukocyte Esterase Trace, Urine RBC Occasional, Urine WBC 3-5, Ur Squamous Epith Cells Occasional, Urine Bacteria Trace 06/21/21 18:25: Troponin I < 0.01 06/21/21 18:25: Lactate 2.9 H Result diagrams: 06/21/21 15:18 06/21/21 15:18 Orders (Tests/Meds): ED MEDICATIONS Generic Name Dose Route Start Last Admin Trade Name Freq PRN Reason Stop Dose Admin Lactated Ringer's 1,000 mls @ 999 mls/hr 06/21/21 16:30 06/21/21 17:51 Lactated Ringer's 1000 Ml Bag IV 06/21/21 17:30 Not Given .Q1H1M RAÚL Sodium Chloride 10 ml 06/21/21 15:27 Sodium Chloride 0.9% 10ml Flush Syringe IV 07/21/21 15:26 NEEDED PRN Maintain IV Site Discontinued Medications Generic Name Dose Route Start Last Admin Trade Name Dagobertoq PRN Reason Stop Dose Admin Lactated Ringer's 2,760 mls @ 1,380 mls/hr 06/21/21 16:09 06/21/21 16:33 Lactated Ringer's 1000 Ml Bag 30 ml/kg infuse over 2 hr (2760 ml) 06/21/21 18:08 1,380 mls/hr IV Administration .Q2H ONE Iopamidol 100 ml 06/21/21 16:14 06/21/21 16:
[2021-06-21 15:53] LABS: Troponin I < 0.01 ng/ml (0.00-0.034)
--- NOTE | 2021-06-21 15:55 | PC.NURSE ---
pt to CT scan
--- NOTE | 2021-06-21 15:56 | CT_ITS ---
PROCEDURE INFORMATION: Exam: CT Lumbar Spine Without Contrast Exam date and time: 06/21/2021 3:56 PM Age: 61 years old Clinical indication: Injury or trauma; Fall; Blunt trauma (contusions or hematomas); Injury date: 06/21/21; Additional info: Lower back pain after fall TECHNIQUE: Imaging protocol: Computed tomography images of the lumbar spine without contrast. Radiation optimization: All CT scans at this facility use at least one of these dose optimization techniques: automated exposure control; mA and/or kV adjustment per patient size (includes targeted exams where dose is matched to clinical indication); or iterative reconstruction. COMPARISON: CT ABDOMEN PELVIS WO CON 12/11/2018 9:10 PM FINDINGS: Vertebrae: No lumbar fracture or subluxation. Discs/Spinal canal/Neural foramina: Mild degenerative change without CT evidence of greater than mild stenosis at any level. Vasculature: Atherosclerosis. Soft tissues: Unremarkable. IMPRESSION: No lumbar fracture or subluxation.
[2021-06-21 16:02] LABS: Magnesium 1.7 mg/dl (1.6-2.3)
[2021-06-21 16:03] LABS: Lactic Acid 4.6 mmol/L (0.7-2.1)
--- NOTE | 2021-06-21 16:03 | PC.NURSE ---
Aliyah from lab called a critical lactic of 4.6 MD notified.
[2021-06-21 16:12] LABS: NT Pro Brain Natriuretic Pep. 159 pg/mL (0-125)
[2021-06-21 16:19] LABS: VBG Base Excess -5.3 mmol/L (-2.4-2.3); VBG HCO3 20.9 mmol/L (23-30); VBG Oxygen Saturation 69.6 % (50-70); VBG PCO2 42.4 mmol/L (35-51); VBG PH 7.31 mmol/L (7.31-7.41); VBG PO2 38.7 mmol/L (28-40); VBG Total CO2 22.2 mmol/L (23-27)
[2021-06-21 16:20] LABS: T4 (Thyroxine) 6.7 ug/dl (5.53-11.0)
--- NOTE | 2021-06-21 16:29 | PC.NURSE ---
back from CT scan and hooked back up to cardiac monitoring and vital signs. call light within reach.
[2021-06-21 16:33] LABS: Thyroid Stimulating Hormone 2.94 uIU/mL (0.465-4.68)
[2021-06-21 16:52] LABS: Coronavirus 19, PCR Not Detected (NotDetected); Influenza A, PCR Not Detected (NotDetected); Influenza B, PCR Not Detected (NotDetected)
--- NOTE | 2021-06-21 16:54 | PC.NURSE ---
Covid swab obtained
[2021-06-21 17:20] LABS: Microscopic, Urine URINE MICROSCOPIC (MICROSCOPIC)
[2021-06-21 17:21] LABS: Appearance,Urine CLEAR (Clear); Bilirubin,Urine Negative (Negative); Blood, Urine Negative (Negative); Color,Urine YELLOW (Yellow); Glucose,Urine (UA) 2+ (Negative); Ketones,Urine Negative (Negative); Leukocyte Esterase,Urine TRACE (Negative); Nitrate,Urine Negative (Negative); PH,Urine 5.5 (5.0-8.5); Protein,Urine Negative (Negative); Urobilinogen,Urine 0.2 EU/dl (0.2)
[2021-06-21 17:45] LABS: Bacteria,Urine Trace /lpf; RBC,Urine Occasional #/hpf (0-3); Squamous Epithelial Cell,Urine Occasional #/hpf (0-5)
[2021-06-21 18:33] LABS: Reflex Lactic Add Lactic Reflex
[2021-06-21 18:42] LABS: Lactic Acid Follow Up (RFLX 1) 2.9 mmol/L (0.7-2.1)
[2021-06-21 19:01] LABS: Troponin I < 0.01 ng/ml (0.00-0.034)
[2021-06-21 19:52] LABS: Reflex Lactic (2 hrs) Add Lactic Reflex
== END 2021-06-21 19:51 | disposition home or self-care (01) ==
PROVIDERS: Emergency Provider Student in an Organized Health Care Education/Training Program; PCP Internal Medicine
DX: R53.83 Other fatigue (principal); W18.39XA Other fall on same level, initial encounter; Y92.019 Unspecified place in single-family (private) house as the place of occurrence of the external cause; J44.9 Chronic obstructive pulmonary disease, unspecified; I50.9 Heart failure, unspecified; I10 Essential (primary) hypertension; E78.5 Hyperlipidemia, unspecified; F17.210 Nicotine dependence, cigarettes, uncomplicated; R42 Dizziness and giddiness; Z79.899 Other long term (current) drug therapy; Z88.0 Allergy status to penicillin
CPT/HCPCS: 36415; 70450; 70496; 70498; 71045; 72131; 72170; 73552; 80048; 81001; 82803; 82962; 83605; 83735; 83880; 84100; 84436; 84443; 84484; 85025; 87040; 93005; 96365; 99284; C9803; Q9967; U0003; U0005

== ENCOUNTER → 2021-06-24 15:46 | Outpatient (CLI) | payer MEDICARE, MEDICAID, SELFPAY ==
--- NOTE | 2021-06-24 15:50 | XR_ITS ---
FINAL REPORT CLINICAL HISTORY: CHEST PAIN, patient fell last night, pain in right lateral side of chest. COMPARISON: June 21, 2021 FINDINGS: Two views of the chest were obtained. The heart size and pulmonary vascularity are within normal limits. The mediastinum is normal. The lungs are hyperinflated consistent with COPD. No acute pulmonary abnormality is identified. There is no pneumothorax. The bony thorax is intact. IMPRESSION: No acute cardiopulmonary process. Reviewed, Interpreted and Dictated by Carmine Magaña III, MD Transcribed by Anatoliy Guthrie Authenticated by Carmine Magaña III, MD on 06/24/2021 04:31:45 PM [facility]
--- NOTE | 2021-06-24 15:53 | XR_ITS ---
FINAL REPORT CLINICAL HISTORY: WRIST PAIN, right, patient fell last night. FINDINGS: 3 views of the right wrist were obtained. There is an oblique nondisplaced fracture of the distal radius. The fracture line extends to the radiocarpal joint. The joint spaces are intact. There is no soft tissue abnormality. IMPRESSION: Nondisplaced distal radius fracture with intra-articular extension. Reviewed, Interpreted and Dictated by Carmine Magaña III, MD Transcribed by Anatoliy Guthrie Authenticated by Carmine Magaña III, MD on 06/24/2021 04:31:[address] [facility]
== END ==
PROVIDERS: PCP Internal Medicine; Visit Provider Internal Medicine
DX: R07.89 Other chest pain (principal); M25.531 Pain in right wrist; W19.XXXA Unspecified fall, initial encounter
CPT/HCPCS: 71046; 73110

== ENCOUNTER 2021-07-02 14:12 | Inpatient (IN) | payer MEDICARE, MEDICAID, SELFPAY ==
[2021-07-02] VITALS (21 sets, daily range): BP systolic 73–120; BP diastolic 36–66; PULSE 54–96; RESP 15–22; TEMP 36.5–36.8; O2SAT 87–100; BMI 30.9; BMI 31.1
--- NOTE | 2021-07-02 13:50 | ECG_ITS ---
APPROVED REPORT Exam: Resting ECG HR:75 bpm ECG Measurements Heart Rate 75 AXES OK 238 P 76 QRSd 105 QRS 139 QT 412 T 90 QTc 441 Conclusion SINUS RHYTHM WITH FIRST DEGREE AV BLOCK PATTERN CONSISTENT WITH PULMONARY DISEASE ABNORMAL ECG UNCONFIRMED REPORT Electronically signed by : Kareem Newell MD 07/03/2021 19:41:12
--- NOTE | 2021-07-02 14:04 | XR_ITS ---
FINAL REPORT CLINICAL HISTORY: WEAKNESS COMPARISON: June 24, 2021 FINDINGS: The heart size is normal. The mediastinum is normal. The lungs are underinflated. There are patchy bibasilar airspace infiltrates that have increased since the prior exam. There are no pleural effusions. There is no pneumothorax. There is no osseous abnormality. IMPRESSION: Worsening bibasilar pneumonia. Reviewed, Interpreted and Dictated by He Barlow MD Transcribed by Anatoliy Guthrie Authenticated by He Barlow MD on 07/02/2021 03:00:47 PM [facility]
--- NOTE | 2021-07-02 14:04 | PC.NURSE ---
ED MD at
--- NOTE | 2021-07-02 14:12 | CT_ITS ---
FINAL REPORT TECHNIQUE: Axial CT images were performed through the head. Coronal reformatted images were submitted. This study was performed with techniques to keep radiation doses as low as reasonably achievable (ALARA). Individualized dose reduction techniques using automated exposure control or adjustment of mA and/or kV according to the patient's size were employed. CLINICAL HISTORY: multiple falls FINDINGS: There is mild atrophy. There is mild hyperostosis frontalis interna. The ventricles are normal in size. There is no evidence of hemorrhage. There is no mass or edema identified. There is no abnormal extra-axial fluid seen. The sinuses are well aerated. IMPRESSION: No acute intracranial process. Reviewed, Interpreted and Dictated by He Barlow MD Transcribed by Christal Yoo Authenticated by He Barlow MD on 07/02/2021 03:24:34 PM [facility]
--- NOTE | 2021-07-02 14:12 | CT_ITS ---
FINAL REPORT TECHNIQUE: Axial images were obtained of the cervical spine by computed tomography. Coronal and sagittal reconstruction process performed. This study was performed with techniques to keep radiation doses as low as reasonably achievable (ALARA). Individualized dose reduction techniques using automated exposure control or adjustment of mA and/or kV according to the patient''s size were employed. CLINICAL HISTORY: multiple falls FINDINGS: Cervical vertebrae show normal height. Disc spaces are well-preserved. There is no malalignment. The facets are properly aligned. There is no significant disc bulge or protrusion. IMPRESSION: No fracture. Reviewed, Interpreted and Dictated by He Barlow MD Transcribed by Christal Yoo Authenticated by He Barlow MD on 07/02/2021 03:24:36 PM [facility]
[2021-07-02 14:14] LABS: Basophils # 0.1 K/mm3 (0-0.2); Basophils % 1.1 % (0.1-2.0); Eosinophils # 0.3 K/mm3 (0.0-0.4); Eosinophils % 2.5 % (0.1-12.0); Hematocrit 35.8 % (37.0-47.0); Lymphocytes # 1.5 K/mm3 (0.7-4.5); Lymphocytes % 13.9 % (10-50); Mean Corpuscular HGB Conc 30.8 g/dL (31.8-35.4); Mean Corpuscular Hemoglobin 26.9 pg (27.0-31.2); Mean Corpuscular Volume 87.2 fl (81-99); Mean Platelet Volume 8.9 fl (7.4-10.4); Monocytes # 0.7 K/mm3 (0.1-1.0); Monocytes % 6.2 % (1.7-9.3); Neutrophils # 8.3 K/mm3 (1.8-7.8); Neutrophils % 76.2 % (37.0-80.0); Platelet Count 423 K/mm3 (142-424); Red Blood Count 4.11 M/mm3 (4.20-5.40); Red Cell Distribution Width 24.8 % (11.5-17.5); White Blood Count 10.9 K/mm3 (4.8-10.8)
--- NOTE | 2021-07-02 14:15 | XR_ITS ---
FINAL REPORT CLINICAL HISTORY: fall, contusion LT LOWER LEG FINDINGS: LEFT TIBIA FIBULA 2 views were obtained. There is no acute fracture or dislocation. The joint spaces are intact. There is mild soft tissue swelling about the ankle. IMPRESSION: Mild swelling without acute fracture Reviewed, Interpreted and Dictated by He Barlow MD Transcribed by Christal Yoo Authenticated by He Barlow MD on 07/02/2021 03:24:34 PM [facility]
--- NOTE | 2021-07-02 14:19 | HMH.EDGENADL ---
ED Disposition Clinical Impression: Pneumonia Qualifiers: Pneumonia type: due to unspecified organism Laterality: bilateral Lung location: lower lobe of lung Qualified Code(s): J18.9 - Pneumonia, unspecified organism Sepsis Qualifiers: Sepsis type: sepsis due to unspecified organism Sepsis acute organ dysfunction status: with acute organ dysfunction Severe sepsis acute organ dysfunction type: acute respiratory failure Acute respiratory failure type: with hypercapnia Severe sepsis shock status: with septic shock Qualified Code(s): A41.9 - Sepsis, unspecified organism; R65.21 - Severe sepsis with septic shock; J96.02 - Acute respiratory failure with hypercapnia Disposition: Admitted As Inpatient Condition on Discharge: Good - Critical Care Critical Care Time: Yes Attestation: On , the high probability of a clinically significant, sudden or life threatening deterioration of the following system(s) required my full and direct attention, intervention and personal management. The time I documented below is in addition to time spent performing reported procedures but includes the following listed in this critical care notation. Vital system(s) involved:: Respiratory Failure, Renal Failure, Shock (Septic) My critical care processes included: Assessment & monitoring of V/S, Initial and Re-exams, Data Review/Interpretation, Coordinating Care, Medication Orders and management, Documentation Medical Decision Making - Medical Records Medical records reviewed: Yes: I reviewed the patient's medical records. - Miller Inquiry Pt receiving controlled substance: No Vital Signs: 07/02/21 13:53 07/02/21 13:56 07/02/21 14:07 Temperature 97.7 F Temperature Source Oral Pulse Rate 76 77 Pulse Rate [Radial] 54 L Respiratory Rate 20 22 15 Blood Pressure 73/41 L 73/42 L Blood Pressure [Right Arm] 74/36 L Blood Pressure Mean [Right Arm] 48 Blood Pressure Position [Right Arm] Sitting 02 Sat by Pulse Oximetry 87 L 88 L 88 L Oxygen Delivery Method Nasal Cannula Nasal Cannula Oxygen Flow Rate (LPM) 6 6 07/02/21 14:45 07/02/21 15:15 07/02/21 15:21 Temperature Temperature Source Pulse Rate 80 71 71 Pulse Rate [Radial] Respiratory Rate 21 21 20 Blood Pressure 101/53 L 88/47 L 91/44 L Blood Pressure [Right Arm] Blood Pressure Mean [Right Arm] Blood Pressure Position [Right Arm] 02 Sat by Pulse Oximetry 91 L 100 100 Oxygen Delivery Method Nasal Cannula BiPAP BiPAP Oxygen Flow Rate (LPM) 6 07/02/21 16:00 07/02/21 16:30 07/02/21 17:00 Temperature Temperature Source Pulse Rate 79 77 82 Pulse Rate [Radial] Respiratory Rate 19 20 17 Blood Pressure 95/47 L 98/47 L 106/50 L Blood Pressure [Right Arm] Blood Pressure Mean [Right Arm] Blood Pressure Position [Right Arm] 02 Sat by Pulse Oximetry 96 99 99 Oxygen Delivery Method BiPAP BiPAP BiPAP Oxygen Flow Rate (LPM) 07/02/21 17:33 Temperature Temperature Source Pulse Rate 75 Pulse Rate [Radial] Respiratory Rate 17 Blood Pressure 110/56 L Blood Pressure [Right Arm] Blood Pressure Mean [Right Arm] Blood Pressure Position [Right Arm] 02 Sat by Pulse Oximetry 99 Oxygen Delivery Method BiPAP Oxygen Flow Rate (LPM) - Lab Data Lab Results 07/02/21 14:05: WBC 10.9 H, RBC 4.11 L, Hgb 11.0 L, Hct 35.8 L, MCV 87.2, MCH 26.9 L, MCHC 30.8 L, RDW 24.8 H, Plt Count 423, MPV 8.9, Neut % (Auto) 76.2, Lymph % (Auto) 13.9, [place] % (Auto) 6.2, Eos % (Auto) 2.5, Baso % (Auto) 1.1, Neut # (Auto) 8.3 H, Lymph # (Auto) 1.5, [place] # (Auto) 0.7, Eos # (Auto) 0.3, Baso # (Auto) 0.1 07/02/21 14:05: Sodium 138, Potassium 4.0, Chloride 101, Carbon Dioxide 25, Anion Gap 16.0 H, BUN 44 H, Creatinine 3.00 H, Estimated Creat Clear 29, Estimated GFR 16 L*, Est GFR ( Amer) 19 L*, Glucose 79, Calcium 8.8, Total Bilirubin 0.6, AST 28, ALT 14, Alkaline Phosphatase 156 H, Troponin I < 0.01, Total Protein 7.1, Albumin 4.3, Globulin 2.8, Albumin/Globulin
--- NOTE | 2021-07-02 14:20 | PC.NURSE ---
LUNGS DIMINISHED YURY
--- NOTE | 2021-07-02 14:21 | PC.NURSE ---
pt is on bedpan at this time.
[2021-07-02 14:26] LABS: Chloride 101 mmol/L (98-107); Sodium 138 mmol/L (136-145)
[2021-07-02 14:28] LABS: Blood Urea Nitrogen 44 mg/dl (7-17); Creatinine Clearance Estimated 29 mL/min (50-200); Estimated Glomerular Filt Rate 16 ml/min (>60); GFR (African American) 19 ML/MIN (>60)
[2021-07-02 14:29] LABS: Alanine Aminotransferase 14 U/L (12-78); Albumin Level 4.3 g/dl (3.5-5.0); Albumin/Globulin Ratio 1.5 (1.1-1.8); Alkaline Phosphatase 156 U/L (38-126); Aspartate Amino Transferase 28 U/L (14-36); Bilirubin,Total 0.6 mg/dl (0.2-1.3); Calcium 8.8 mg/dl (8.4-10.2); Carbon Dioxide 25 mmol/L (22.0-30.0); Globulin 2.8 g/dL (1.3-3.2); Glucose 79 mg/dl (74-100); Total Protein,Serum 7.1 g/dl (6.3-8.2)
[2021-07-02 14:30] LABS: Lactic Acid 1.5 mmol/L (0.7-2.1)
[2021-07-02 14:38] LABS: NT Pro Brain Natriuretic Pep. 1020 pg/mL (0-125)
[2021-07-02 14:38] LABS: VBG Base Excess -4.2 mmol/L (-2.4-2.3); VBG HCO3 23.2 mmol/L (23-30); VBG Oxygen Saturation 66.8 % (50-70); VBG PH 7.24 mmol/L (7.31-7.41); VBG PO2 40.5 mmol/L (28-40); VBG Total CO2 24.8 mmol/L (23-27)
[2021-07-02 14:43] LABS: VBG PCO2 54.9 mmol/L (35-51)
[2021-07-02 14:43] LABS: Troponin I < 0.01 ng/ml (0.00-0.034)
--- NOTE | 2021-07-02 14:45 | PC.NURSE ---
PT INCONTINENT OF STOOL PT CLEANED LINENS CHANGED
--- NOTE | 2021-07-02 14:47 | PC.NURSE ---
Patient to radiology by stretcher with 2 rad techs
[2021-07-02 15:05] LABS: Ammonia < 9 umol/L (9-30)
--- NOTE | 2021-07-02 15:10 | PC.NURSE ---
Respiratory at BS to correction officer supervisor to bipap
[2021-07-02 15:22] LABS: Coronavirus 19, PCR Not Detected (NotDetected); Influenza A, PCR Not Detected (NotDetected); Influenza B, PCR Not Detected (NotDetected)
--- NOTE | 2021-07-02 15:23 | HMH.PHACONS ---
- Pharmacy Consult Date: 07/02/21 Time: 15:23 Referring provider: DR. AMADOR Reason for Consult:: VANCOMYCIN DOSING Allergies and ADEs:: Allergies Allergy/AdvReac Type Severity Reaction Status Date / Time adenosine Allergy Intermediate COUGHING Verified 05/03/21 18:57 Penicillins Allergy Intermediate I-RASH Verified 05/03/21 18:57 Home Medications:: Home Medications Medication Instructions Recorded Confirmed Type Aspirin [Aspirin 81mg chewable 81 mg PO DAILY 06/17/17 05/03/21 History tab] Buspirone HCl [Buspar 10mg 10 mg PO BID 06/17/17 05/03/21 History tablet] Clopidogrel Bisulfate [Plavix 75mg 75 mg PO DAILY 06/17/17 05/03/21 History Tab] Metformin HCl [Glucophage 500mg 1,000 mg PO BID 06/17/17 05/03/21 History Tablet] Pantoprazole Sodium [Protonix 40mg 40 mg PO DAILY 06/17/17 05/03/21 History tablet] diazePAM [diazePAM 5mg Tablet] 5 mg PO TID PRN 06/17/17 05/04/21 History glipiZIDE [Glipizide ER] 2.5 mg PO BID 06/17/17 05/03/21 History lisinopriL [Lisinopril 2.5mg Tab] 2.5 mg PO DAILY 06/17/17 05/03/21 History meclizine 25 mg tablet 25 mg PO TID PRN 10 Days tab 07/18/18 05/04/21 History atorvastatin 40 mg tablet 40 mg PO HS #30 tab 09/18/18 05/04/21 History gabapentin 300 mg capsule 300 mg PO 5XDAY 90 Days #450 cap 09/18/18 05/04/21 History ondansetron 4 mg disintegrating 4 mg PO NEEDED PRN 8 Days #50 09/18/18 05/03/21 History tablet tab duloxetine 60 mg capsule,delayed 60 mg PO DAILY #90 cap 10/30/18 05/03/21 History release insulin glargine 100 unit/mL 85 unit SQ HS ml MDD diabetes 01/30/19 05/04/21 History subcutaneous solution levothyroxine 50 mcg tablet 50 mcg PO DAILY #90 tab 01/30/19 05/03/21 History fluticasone fur. 100 mcg-umeclid 1 puff INHALATION Q4H 05/30/19 05/03/21 History 62.5 mcg-vilant 25 mcg inhalat.powder prucalopride 2 mg tablet 2 mg PO DAILY 05/30/19 05/03/21 History tizanidine 4 mg tablet 4 mg PO TID PRN 05/30/19 05/04/21 History Bumetanide 1 mg PO DAILY 05/03/21 05/03/21 History Spironolactone [Spironolactone 25 mg PO DAILY 05/03/21 05/03/21 History 25mg Tablet] Empagliflozin [Jardiance] 25 mg PO AM 05/04/21 05/04/21 History Vortioxetine Hydrobromide 10 mg PO DAILY 05/04/21 05/03/21 History [Trintellix] bisoproloL fumarate [Bisoprolol 5 mg PO DAILY 05/04/21 05/04/21 History Fumarate] dilTIAZem HCl [Diltiazem 240mg 240 mg PO DAILY 05/04/21 05/04/21 History 24Hr ER Cap] Cefdinir [Omnicef 300mg Capsule] 300 mg PO BID #14 cap 05/07/21 Rx Ipratropium/Albuterol Sulfate 3 ml IH QID #120 ml 05/07/21 Rx [Duoneb 3mL neb] dexAMETHasone [Decadron 4mg tablet] 4 mg PO BID #14 tab 05/07/21 Rx Height: 1.73 m Weight: 92.079 kg Laboratory Results:: Laboratory Results - last 24 hr 07/02/21 14:05: WBC 10.9 H, RBC 4.11 L, Hgb 11.0 L, Hct 35.8 L, MCV 87.2, MCH 26.9 L, MCHC 30.8 L, RDW 24.8 H, Plt Count 423, MPV 8.9, Neut % (Auto) 76.2, Lymph % (Auto) 13.9, [place] % (Auto) 6.2, Eos % (Auto) 2.5, Baso % (Auto) 1.1, Neut # (Auto) 8.3 H, Lymph # (Auto) 1.5, [place] # (Auto) 0.7, Eos # (Auto) 0.3, Baso # (Auto) 0.1 07/02/21 14:05: Sodium 138, Potassium 4.0, Chloride 101, Carbon Dioxide 25, Anion Gap 16.0 H, BUN 44 H, Creatinine 3.00 H, Estimated Creat Clear 29, Estimated GFR 16 L*, Est GFR ( Amer) 19 L*, Glucose 79, Calcium 8.8, Total Bilirubin 0.6, AST 28, ALT 14, Alkaline Phosphatase 156 H, Troponin I < 0.01, Total Protein 7.1, Albumin 4.3, Globulin 2.8, Albumin/Globulin Ratio 1.5 07/02/21 14:05: Lactate 1.5 07/02/21 14:05: NT-Pro-B Natriuret Pep 1020 H 07/02/21 14:14: VBG pH 7.24 L, VBG pCO2 54.9 H, VBG pO2 40.5 H, VBG HCO3 23.2, VBG Total CO2 24.8, VBG O2 Saturation 66.8, VBG Base Excess -4.2 L 07/02/21 14:45: Ammonia < 9 L Medical History: Reports:: Congestive Heart Failure, Coronary Artery Disease, Diabetes Mellitus Type 2, Hyperlipidemia, Hypertension, Lung Disease, Transient Ischemic Attacks (TIA) Denies:: Cancer, Diabetes M
[2021-07-02 15:52] LABS: Microscopic, Urine URINE MICROSCOPIC (MICROSCOPIC)
[2021-07-02 16:05] LABS: Appearance,Urine CLEAR (Clear); Bilirubin,Urine Negative (Negative); Blood, Urine Negative (Negative); Color,Urine YELLOW (Yellow); Glucose,Urine (UA) TRACE (Negative); Ketones,Urine Negative (Negative); Leukocyte Esterase,Urine Negative (Negative); Nitrate,Urine Negative (Negative); PH,Urine 5.5 (5.0-8.5); Protein,Urine Negative (Negative); Specific Gravity, Urine >= 1.030 (1.005-1.030); Urobilinogen,Urine 0.2 EU/dl (0.2)
[2021-07-02 17:02] LABS: ABG Base Excess -3.7 mmol/L (-2.4-2.3); ABG HCO3 22.6 mmhg (22.0-26.0); ABG Oxygen Saturation 93 % (90-100); ABG PCO2 46.3 mmhg (35.0-45.0); ABG PH 7.31 mmol/L (7.35-7.45); ABG PO2 75.1 mmhg (80-100); ABG TCO2 24.1 mmhg (23-27)
[2021-07-02 17:03] LABS: Allen's Test Acceptable; Oxygen 40% %; Pressure Support 18/8; Vent Rate 20
[2021-07-02 17:04] LABS: Source Right Brachial
--- NOTE | 2021-07-02 17:19 | PC.NURSE ---
ED MD on Phone with Dr. Jarrett for possible admission
[2021-07-02 17:28] LABS: Yeast,Urine 1+ /lpf
--- NOTE | 2021-07-02 17:31 | PC.NURSE ---
pt has had several loose bowel movements since she has been in the ED. Pt is incontinent at this time.
--- NOTE | 2021-07-02 18:00 | PC.NURSE ---
FAMILY UPDATED ON PLAN OF CARE
[2021-07-02 18:26] LABS: Troponin I < 0.01 ng/ml (0.00-0.034)
--- NOTE | 2021-07-02 18:53 | PC.NURSE ---
PT CONTINUES ON BIPAP ABRAN WELL
--- NOTE | 2021-07-02 19:20 | PC.NURSE ---
Patient chose password of William for her information.
--- NOTE | 2021-07-02 21:49 | PC.NURSE ---
patient up to floor via stretcher @ this time.
--- NOTE | 2021-07-02 22:18 | PC.NURSE ---
Pt is unsure of medications she takes.
[2021-07-03] VITALS (8 sets, daily range): BP systolic 104–127; BP diastolic 55–70; PULSE 57–110; RESP 15–22; TEMP 36.7–37; O2SAT 90–100; BMI 31.1; BMI 31.0
[2021-07-03 02:55] LABS: ABG Base Excess -4.6 mmol/L (-2.4-2.3); ABG HCO3 20.4 mmhg (22.0-26.0); ABG Oxygen Saturation 88 % (90-100); ABG PCO2 34.4 mmhg (35.0-45.0); ABG PH 7.39 mmol/L (7.35-7.45); ABG PO2 56.7 mmhg (80-100); ABG TCO2 21.4 mmhg (23-27)
[2021-07-03 02:57] LABS: Allen's Test Acceptable; Source Left Radial
[2021-07-03 03:15] LABS: POC Glucose,Bedside 318 (70-110)
--- NOTE | 2021-07-03 04:12 | PC.NURSE ---
PT ORIENTED TO SELF ONLY. PT HAS REMOVED MITTENS, PULLED OUT HER 2ND IV (L AC) AND REMOVED BIPAP. ATTEMPTED TO REORIENT PT, MITTENS REPLACED, BIPAP REPLACED. BED ALARM REMAINS ACTIVATED.
[2021-07-03 05:02] LABS: ABG Base Excess -1.5 mmol/L (-2.4-2.3); ABG HCO3 22.7 mmhg (22.0-26.0); ABG Oxygen Saturation 98 % (90-100); ABG PCO2 34.5 mmhg (35.0-45.0); ABG PH 7.44 mmol/L (7.35-7.45); ABG PO2 105.4 mmhg (80-100); ABG TCO2 23.8 mmhg (23-27)
[2021-07-03 05:05] LABS: Allen's Test Acceptable; Oxygen 40 %; Pressure Support 10; Source Right Radial
[2021-07-03 06:32] LABS: POC Glucose,Bedside 238 (70-110)
--- NOTE | 2021-07-03 07:16 | P.CONPHA_ITS ---
[facility] Pharmacy VTE Monitoring - Patient Demographics Admission date: 07/03/21 Report Date: 07/03/21 Time: 07:16 Allergies/Adverse Reactions: Patient Allergies adenosine Allergy (Intermediate, Verified 05/03/21 18:57) COUGHING Penicillins Allergy (Intermediate, Verified 05/03/21 18:57) I-RASH Height: 1.73 m Weight: 93.032 kg Patient Problems: Current Active Problems Sepsis (Acute) Pneumonia (Acute) - VTE Risk Labs: VTE Related Lab Results Hgb 11.0 g/dL (12.2-16.2) L 07/02/21 14:05 Hct 35.8 % (37.0-47.0) L 07/02/21 14:05 Plt Count 423 K/mm3 (142-424) 07/02/21 14:05 BUN 44 mg/dl (7-17) H 07/02/21 14:05 Creatinine 3.00 mg/dl (0.52-1.04) H 07/02/21 14:05 Estimated Creat Clear 29 mL/min (50-200) 07/02/21 14:05 Was VTE Risk Assessment Performed: Yes VTE Score: 7 VTE Risk Level: Moderate Risk Clinical Trial Participant: No - Prophylaxis VTE Prophylaxis Ordered?: Yes Types of VTE Prophylaxis: TEDS Knee High
--- NOTE | 2021-07-03 08:56 | CA_ITS ---
APPROVED REPORT EXAM: Comprehensive 2D, Doppler, and color-flow Echocardiogram Public Improvement Inspector: Wilda Caldera CRT Ht: 5 ft 8 in Wt: 205lbs BSA: 2.07 BP: 108/85 mmHg Indications: ef check Shortness of Breath R06.02, Hypertension I10 M-Mode Dimensions RVDd 2.82 cm (0.9-2.6) LA Diam 3.66 cm (1.9-4.0) LVDd 4.75 cm (3.5-5.7) Ao Diam 3.51 cm (2.0-3.7) LVDs 2.95 cm (3.5-5.7) IVSd 0.90 cm (0.6-1.1) PWd 1.00 cm (0.6-1.1) EF (Teich) 68.00% FS 37.90% EDV (Teich) 104.90 mL ESV (Teich) 33.60 mL Conclusion 1. Limited echocardiogram was performed to evaluate left ventricular systolic function. 2. Normal left ventricular size with hyperdynamic left ventricular systolic function, estimated ejection fraction over 65%. With no regional wall motion abnormality. 3. No significant pericardial effusion noted. Electronically signed by : Lake Flores MD 07/03/2021 15:59:26
--- NOTE | 2021-07-03 08:57 | HMH.HP ---
*Admission Date: 07/03/21 *Chief complaint: soa *History of present illness: 61-year-old female presenting to the ED with generalized weakness, confusion. History of CHF, COPD, diabetes, CKD. Per ed note pt states the patient has had several falls over the past week most recently overnight. 6 L nasal cannula oxygen at home. Pt wears bipap at night. Pt she is more confused than normal. [facility] History I have reviewed the patient's past medical history: Yes Medical History: Reports:: Congestive Heart Failure, Coronary Artery Disease, Diabetes Mellitus Type 2, Hyperlipidemia, Hypertension, Lung Disease, Myocardial Infarction, Transient Ischemic Attacks (TIA) Denies:: Cancer, Diabetes Mellitus Type 1, Internal Pacemaker, MRSA, Seizures *Have you ever received a pneumonia vaccine?: Yes *Have you received a flu vaccine this season?: Yes Other Medical History: Reports: Anemia, Cataracts, Hypothyroidism, Other. Denies: Blood Transfusion Reaction Other Surgeries: Yes: Cardiac Catheterization, Cardiac Surgery, Cholecystectomy, Colonoscopy, Coronary Stent, EGD, Tubal Ligation, Other. 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 Review of Systems - Review of Systems Review of systems:: pertinent systems reviewed and negative unless documented below - Constitutional Reports fatigue, Reports weakness - Eyes Denies blurry vision - ENT Denies bleeding gums - *Cardiovascular Reports shortness of breath with activity, Denies chest pain at rest - *Respiratory Reports shortness of breath, Reports shortness of breath with activity, Denies change in phlegm color - *Gastrointestinal Denies abdominal pain - *Genitourinary Denies urinary urgency - *Musculoskeletal Denies abnormal walking - Integumentary/Breasts Denies hair loss - *Neurologic Denies abnormal walking - Psychiatric Denies abnormal sleep pattern - Endocrine Denies excessive sweating - Hematologic/Lymphatic Denies easy bruising - Allergic/Immunologic Denies GI upset with certain foods Meds Home Medications Medication Instructions Recorded Confirmed Type Aspirin [Aspirin 81mg chewable 81 mg PO DAILY 06/17/17 07/02/21 History tab] Buspirone HCl [Buspar 10mg 10 mg PO BID 06/17/17 07/02/21 History tablet] Clopidogrel Bisulfate [Plavix 75mg 75 mg PO DAILY 06/17/17 07/02/21 History Tab] Metformin HCl [Glucophage 500mg 1,000 mg PO BIDWMEAL 06/17/17 07/03/21 History Tablet] Pantoprazole Sodium [Protonix 40mg 40 mg PO DAILY 06/17/17 07/02/21 History tablet] diazePAM [diazePAM 5mg Tablet] 5 mg PO TIDP PRN 06/17/17 07/03/21 History lisinopriL [Lisinopril 2.5mg Tab] 2.5 mg PO DAILY 06/17/17 07/02/21 History atorvastatin 40 mg tablet 40 mg PO HS #30 tab 09/18/18 07/02/21 History duloxetine 60 mg capsule,delayed 60 mg PO DAILY #90 cap 10/30/18 07/02/21 History release insulin glargine 100 unit/mL 85 unit SQ HS ml 01/30/19 07/02/21 History subcutaneous solution levothyroxine 50 mcg tablet 50 mcg PO DAILYDM #90 tab 01/30/19 07/03/21 History fluticasone fur. 100 mcg-umeclid 1 puff INHALATION DAILY 05/30/19 07/03/21 History 62.5 mcg-vilant 25 mcg inhalat.powder prucalopride 2 mg tablet 2 mg PO DAILY 05/30/19 07/02/21 History tizanidine 4 mg tablet 4 mg PO TID PRN 05/30/19 07/02/21 History Bumetanide 1 mg PO DAILY 05/03/21 07/02/21 History Spironolactone [Spironolactone 25 mg PO DAILY 05/03/21 07/02/21 History 25mg Tablet]
--- NOTE | 2021-07-03 11:18 | XR_ITS ---
FINAL REPORT CLINICAL HISTORY: hypoxia COMPARISON: July 02, 2021 FINDINGS: The heart is mildly enlarged. The mediastinum is normal. There is coarse interstitial opacity in both lungs that is probably chronic. There are no pleural effusions. There is no pneumothorax. There is no osseous abnormality. IMPRESSION: No acute cardiopulmonary process Reviewed, Interpreted and Dictated by He Barlow MD Transcribed by Anatoliy Guthrie Authenticated by He Barlow MD on 07/03/2021 12:38:[address] [facility]
--- NOTE | 2021-07-03 12:15 | HMH.PULMCON ---
*Admission Date: 07/03/21 *Reason for consult:: Acute on chronic hypoxic respiratory failure. *History of present illness: Patient altered. Much of the history is obtained from chart review. Ms. Escalona is a 61-year-old female current smoker greater than [id number] smoking history, diagnosed with COPD, chronic hypoxic respiratory failure uses 2 to 3 L oxygen at home presented to the hospital with worsening respiratory distress found to be hypoxic and chest x-ray pulmonary infiltrates and pulmonary was called for further management. [facility] History Medical History: Reports:: Congestive Heart Failure, Coronary Artery Disease, Diabetes Mellitus Type 2, Hyperlipidemia, Hypertension, Lung Disease, Myocardial Infarction, Transient Ischemic Attacks (TIA) Denies:: Cancer, Diabetes Mellitus Type 1, Internal Pacemaker, MRSA, Seizures *Have you ever received a pneumonia vaccine?: Yes *Have you received a flu vaccine this season?: Yes Other Medical History: Reports: Anemia, Cataracts, Hypothyroidism, Other. Denies: Blood Transfusion Reaction Other Surgeries: Yes: Cardiac Catheterization, Cardiac Surgery, Cholecystectomy, Colonoscopy, Coronary Stent, EGD, Tubal Ligation, Other. 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 ROS - Review of Systems Review of systems:: unable to obtain Unable to obtain a reliable review of systems as patient's altered mentation and unable to engage in meaningful conversation Meds Home Medications Medication Instructions Recorded Confirmed Type Aspirin [Aspirin 81mg chewable 81 mg PO DAILY 06/17/17 07/02/21 History tab] Buspirone HCl [Buspar 10mg 10 mg PO BID 06/17/17 07/02/21 History tablet] Clopidogrel Bisulfate [Plavix 75mg 75 mg PO DAILY 06/17/17 07/02/21 History Tab] Metformin HCl [Glucophage 500mg 1,000 mg PO BIDWMEAL 06/17/17 07/03/21 History Tablet] Pantoprazole Sodium [Protonix 40mg 40 mg PO DAILY 06/17/17 07/02/21 History tablet] diazePAM [diazePAM 5mg Tablet] 5 mg PO TIDP PRN 06/17/17 07/03/21 History lisinopriL [Lisinopril 2.5mg Tab] 2.5 mg PO DAILY 06/17/17 07/02/21 History atorvastatin 40 mg tablet 40 mg PO HS #30 tab 09/18/18 07/02/21 History duloxetine 60 mg capsule,delayed 60 mg PO DAILY #90 cap 10/30/18 07/02/21 History release insulin glargine 100 unit/mL 85 unit SQ HS ml 01/30/19 07/02/21 History subcutaneous solution levothyroxine 50 mcg tablet 50 mcg PO DAILYDM #90 tab 01/30/19 07/03/21 History fluticasone fur. 100 mcg-umeclid 1 puff INHALATION DAILY 05/30/19 07/03/21 History 62.5 mcg-vilant 25 mcg inhalat.powder prucalopride 2 mg tablet 2 mg PO DAILY 05/30/19 07/02/21 History tizanidine 4 mg tablet 4 mg PO TID PRN 05/30/19 07/02/21 History Bumetanide 1 mg PO DAILY 05/03/21 07/02/21 History Spironolactone [Spironolactone 25 mg PO DAILY 05/03/21 07/02/21 History 25mg Tablet] Empagliflozin [Jardiance] 25 mg PO DAILYDM 05/04/21 07/03/21 History Vortioxetine Hydrobromide 10 mg PO DAILY 05/04/21 07/02/21 History [Trintellix] bisoproloL fumarate [Bisoprolol 10 mg PO DAILY 05/04/21 07/03/21 History Fumarate] dilTIAZem HCl [Diltiazem 240mg 240 mg PO DAILY 05/04/21 07/02/21 History 24Hr ER Cap] Ipratropium/Albuterol Sulfate 3 ml IH QID 07/02/21 07/02/21 History [Duoneb 3mL neb] Albuterol Sulfate [Proair Hfa] 2 puffs IH Q4HP PRN 07/03/21 07/03/21 History Gabapentin 300 mg PO 1300 07/03/21 07/03/21 History Gabapentin 600 mg PO BID
--- NOTE | 2021-07-03 14:41 | CA_ITS ---
FINAL REPORT TECHNIQUE: Bilateral lower extremity venous duplex was performed with augmentation and compression. CLINICAL HISTORY: HYPOXIA,SMOKER,HTN,HLD,DM FINDINGS: Proper flow is seen throughout the deep venous systems bilaterally. There is no evidence of deep venous thrombosis. IMPRESSION: No evidence of deep venous thrombosis. Reviewed, Interpreted and Dictated by He Barlow MD Transcribed by Carmen Burris Authenticated by He Barlow MD on 07/03/2021 03:45:15 PM [facility]
--- NOTE | 2021-07-03 15:59 | PC.NURSE ---
patient has remained confused but is able to answer some questions appropriately. realizes she is confused. has been up to shower chair and had a shower. gan removed. family has been visiting. vitals stable. remains on 6 l o2.
[2021-07-03 18:09] LABS: Microscopic, Urine URINE MICROSCOPIC (MICROSCOPIC)
[2021-07-03 18:31] LABS: Appearance,Urine CLEAR (Clear); Bilirubin,Urine Negative (Negative); Blood, Urine 3+ (Negative); Color,Urine YELLOW (Yellow); Glucose,Urine (UA) 3+ (Negative); Ketones,Urine Negative (Negative); Leukocyte Esterase,Urine Negative (Negative); Nitrate,Urine Negative (Negative); Protein,Urine Negative (Negative); Specific Gravity, Urine 1.015 (1.005-1.030); Urobilinogen,Urine 0.2 EU/dl (0.2)
[2021-07-03 18:42] LABS: Bacteria,Urine Trace /lpf; Squamous Epithelial Cell,Urine Occasional #/hpf (0-5)
[2021-07-03 20:13] LABS: POC Glucose,Bedside 255 (70-110)
[2021-07-04] VITALS (9 sets, daily range): BP systolic 100–119; BP diastolic 44–54; PULSE 64–89; RESP 17–20; TEMP 36.4–37.2; O2SAT 89–95; BMI 31.1
[2021-07-04 01:20] LABS: POC Glucose,Bedside 342 (70-110)
[2021-07-04 01:21] LABS: POC Glucose,Bedside 135 (70-110)
[2021-07-04 07:01] LABS: POC Glucose,Bedside 215 (70-110)
[2021-07-04 08:45] LABS: Anion Gap 10.9 mEq/L (5-15); Blood Urea Nitrogen 24 mg/dl (7-17); Calcium 9.1 mg/dl (8.4-10.2); Carbon Dioxide 28 mmol/L (22.0-30.0); Chloride 104 mmol/L (98-107); Creatinine Clearance Estimated 88 mL/min (50-200); Estimated Glomerular Filt Rate 57 ml/min (>60); GFR (African American) 68 ML/MIN (>60); Glucose 176 mg/dl (74-100); Potassium 3.9 mmoL/L (3.5-5.1); Sodium 139 mmol/L (136-145)
[2021-07-04 08:49] LABS: Vancomycin,Trough 5.4 ug/mL (5.0-10.0)
--- NOTE | 2021-07-04 09:09 | HMH.ACPN2 ---
Internal Medicine - PN: Subj *Date: 07/04/21 *Time: 09:11 Interval history: Patient relays uneventful night. She is more alert today Exam Vital signs and Labs for Last 24 Hours: Temp Pulse Resp BP Pulse Ox 98.9 F 64 18 118/54 L 94 L 07/04/21 08:00 07/04/21 08:00 07/04/21 08:00 07/04/21 08:00 07/04/21 08:00 Laboratory Results - last 24 hr 07/03/21 11:00: POC Glucose 342 H* 07/03/21 14:43: Urine Color Yellow, Urine Appearance Clear, Urine pH 5.0, Ur Specific [place] 1.015, Urine Protein Negative, Urine Glucose (UA) 3+, Urine Ketones Negative, Urine Blood 3+, Urine Nitrate Negative, Urine Bilirubin Negative, Urine Urobilinogen 0.2, Ur Leukocyte Esterase Negative, Urine RBC 10-20, Urine WBC 3-5, Ur Squamous Epith Cells Occasional, Urine Bacteria Trace 07/03/21 17:11: POC Glucose 135 H 07/03/21 20:00: POC Glucose 255 H 07/04/21 06:14: POC Glucose 215 H 07/04/21 08:05: Vancomycin Trough 5.4 07/04/21 08:05: Sodium 139, Potassium 3.9, Chloride 104, Carbon Dioxide 28, Anion Gap 10.9, BUN 24 H D, Creatinine 1.00 D, Estimated Creat Clear 88, Estimated GFR 57 L, Est GFR ( Amer) 68 D, Glucose 176 H, Calcium 9.1 I & O for Last 24 hours: Intake & Output 07/01/21 07/02/21 07/03/21 07/04/21 23:59 23:59 23:59 23:59 Intake Total 1080 / 1080 0 / 0 Output Total 2900 / 2900 Balance -1820 / -1820 0 / 0 Weight 205 lb 1.6 oz 205 lb 0.478 oz 205 lb 4 oz - Constitutional no acute distress, chronically ill appearing - *Routine HEENT Exam Head: Present: normocephalic Eye: Present: EOMI, PERRL ENT: Present: mucous membranes moist - *Routine Neck Exam Present: supple. Absent: lymphadenopathy - *Routine Respiratory Exam Present: rhonchi, diminished air movement. Absent: accessory muscle use, wheezes - *Routine Cardiovascular Exam Present: RRR - *Routine Abdominal Exam Present: soft, normoactive bowel sounds. Absent: tenderness - *Routine Extremities Exam Absent: cyanosis, clubbing, edema - *Routine Skin Exam Present: warm. Absent: cyanosis, rash - *Routine Neurological Exam Present: alert, oriented X3, moving all extremities, vision grossly intact, hearing grossly intact, normal speech. Absent: tremors, asterixis Assessment and Plan (1) Pneumonia Status: Acute Qualifiers: Pneumonia type: due to unspecified organism Laterality: bilateral Lung location: lower lobe of lung Qualified Code(s): J18.9 - Pneumonia, unspecified organism Category: Medical Code(s): J18.9 - Pneumonia, unspecified organism (2) Sepsis Status: Acute Qualifiers: Sepsis type: sepsis due to unspecified organism Sepsis acute organ dysfunction status: with acute organ dysfunction Severe sepsis acute organ dysfunction type: acute respiratory failure Acute respiratory failure type: with hypercapnia Severe sepsis shock status: with septic shock Qualified Code(s): A41.9 - Sepsis, unspecified organism; R65.21 - Severe sepsis with septic shock; J96.02 - Acute respiratory failure with hypercapnia Category: Medical Code(s): A41.9 - Sepsis, unspecified organism (3) BANDAR (acute kidney injury) Status: Acute Category: Medical Code(s): N17.9 - Acute kidney failure, unspecified (4) CHF (congestive heart failure) Status: Acute Qualifiers: Heart failure type: unspecified Heart failure chronicity: acute on chronic Qualified Code(s): I50.9 - Heart failure, unspecified Category: Medical Code(s): I50.9 - Heart failure, unspecified (5) Generalized weakness Status: Acute Category: Medical Code(s): R53.1 - Weakness - Assessment and plan all Dx Assessment and Plan for all problems:: We will continue current antibiotic regimen. Will continue duo nebs with budesonide. Blood and urine cultures are pending. Patient appears to have made good progress in terms of mentation.
--- NOTE | 2021-07-04 09:10 | PC.NURSE ---
spoke with MD ray pt hypotension. he wants me to give all morning medications
--- NOTE | 2021-07-04 09:25 | HMH.PHACONS ---
- Pharmacy Consult Date: 07/04/21 Time: 09:25 Referring provider: DR. HOLMAN Reason for Consult:: VANCOMYCIN TROUGH LEVEL Allergies and ADEs:: Allergies Allergy/AdvReac Type Severity Reaction Status Date / Time adenosine Allergy Intermediate COUGHING Verified 05/03/21 18:57 Penicillins Allergy Intermediate I-RASH Verified 05/03/21 18:57 Home Medications:: Home Medications Medication Instructions Recorded Confirmed Type Aspirin [Aspirin 81mg chewable 81 mg PO DAILY 06/17/17 07/02/21 History tab] Buspirone HCl [Buspar 10mg 10 mg PO BID 06/17/17 07/02/21 History tablet] Clopidogrel Bisulfate [Plavix 75mg 75 mg PO DAILY 06/17/17 07/02/21 History Tab] Metformin HCl [Glucophage 500mg 1,000 mg PO BIDWMEAL 06/17/17 07/03/21 History Tablet] Pantoprazole Sodium [Protonix 40mg 40 mg PO DAILY 06/17/17 07/02/21 History tablet] diazePAM [diazePAM 5mg Tablet] 5 mg PO TIDP PRN 06/17/17 07/03/21 History lisinopriL [Lisinopril 2.5mg Tab] 2.5 mg PO DAILY 06/17/17 07/02/21 History atorvastatin 40 mg tablet 40 mg PO HS #30 tab 09/18/18 07/02/21 History duloxetine 60 mg capsule,delayed 60 mg PO DAILY #90 cap 10/30/18 07/02/21 History release insulin glargine 100 unit/mL 85 unit SQ HS ml 01/30/19 07/02/21 History subcutaneous solution levothyroxine 50 mcg tablet 50 mcg PO DAILYDM #90 tab 01/30/19 07/03/21 History fluticasone fur. 100 mcg-umeclid 1 puff INHALATION DAILY 05/30/19 07/03/21 History 62.5 mcg-vilant 25 mcg inhalat.powder prucalopride 2 mg tablet 2 mg PO DAILY 05/30/19 07/02/21 History tizanidine 4 mg tablet 4 mg PO TID PRN 05/30/19 07/02/21 History Bumetanide 1 mg PO DAILY 05/03/21 07/02/21 History Spironolactone [Spironolactone 25 mg PO DAILY 05/03/21 07/02/21 History 25mg Tablet] Empagliflozin [Jardiance] 25 mg PO DAILYDM 05/04/21 07/03/21 History Vortioxetine Hydrobromide 10 mg PO DAILY 05/04/21 07/02/21 History [Trintellix] bisoproloL fumarate [Bisoprolol 10 mg PO DAILY 05/04/21 07/03/21 History Fumarate] dilTIAZem HCl [Diltiazem 240mg 240 mg PO DAILY 05/04/21 07/02/21 History 24Hr ER Cap] Ipratropium/Albuterol Sulfate 3 ml IH QID 07/02/21 07/02/21 History [Duoneb 3mL neb] Albuterol Sulfate [Proair Hfa] 2 puffs IH Q4HP PRN 07/03/21 07/03/21 History Gabapentin 300 mg PO 1300 07/03/21 07/03/21 History Gabapentin 600 mg PO BID 07/03/21 07/03/21 History glipiZIDE [Glucotrol 5mg tablet] 2.5 mg PO BIDWMEAL 07/03/21 07/03/21 History Height: 1.73 m Weight: 93.1 kg Laboratory Results:: Laboratory Results - last 24 hr 07/03/21 11:00: POC Glucose 342 H* 07/03/21 14:43: Urine Color Yellow, Urine Appearance Clear, Urine pH 5.0, Ur Specific [place] 1.015, Urine Protein Negative, Urine Glucose (UA) 3+, Urine Ketones Negative, Urine Blood 3+, Urine Nitrate Negative, Urine Bilirubin Negative, Urine Urobilinogen 0.2, Ur Leukocyte Esterase Negative, Urine RBC 10-20, Urine WBC 3-5, Ur Squamous Epith Cells Occasional, Urine Bacteria Trace 07/03/21 17:11: POC Glucose 135 H 07/03/21 20:00: POC Glucose 255 H 07/04/21 06:14: POC Glucose 215 H 07/04/21 08:05: Vancomycin Trough 5.4 07/04/21 08:05: Sodium 139, Potassium 3.9, Chloride 104, Carbon Dioxide 28, Anion Gap 10.9, BUN 24 H D, Creatinine 1.00 D, Estimated Creat Clear 88, Estimated GFR 57 L, Est GFR ( Amer) 68 D, Glucose 176 H, Calcium 9.1 Medical History: Reports:: Congestive Heart Failure, Coronary Artery Disease, Diabetes Mellitus Type 2, Hyperlipidemia, Hypertension, Lung Disease, Myocardial Infarction, Transient Ischemic Attacks (TIA) Denies:: Cancer, Diabetes Mellitus Type 1, Internal Pacemaker, MRSA, Seizures Assessment and Plan (1) Pneumonia Status: Acute Qualifiers: Pneumonia type: due to unspecified organism Laterality: bilateral Lung location: lower lobe of lung Qualified Code(s): J18.9 - Pneumonia, unspecified organism Category: Medical Code(s): J18.9 - Pneumonia, unspecified organism
[2021-07-04 11:06] LABS: POC Glucose,Bedside 138 (70-110)
[2021-07-04 21:01] LABS: POC Glucose,Bedside 196 (70-110)
[2021-07-05] VITALS: BP 124/54; PULSE 70; RESP 20; TEMP 36.7; O2SAT 87
[2021-07-05 04:00] VITALS: BP 118/52; PULSE 71; RESP 16; TEMP 36.3; O2SAT 89
[2021-07-05 05:00] VITALS: BMI 67.4
--- NOTE | 2021-07-05 05:06 | PC.NURSE ---
pt has rested fairly well throughout shift, pt is alert and oriented and has been able to make needs known, pt does become SOA with any exertion, lungs remain clear, sputum sent down this shift for culture, pt was medicated x1 for back pain, vss, call light within reach will continue to monitor at this time
[2021-07-05 05:56] VITALS: PULSE 67; PULSE 69; O2SAT 95
--- NOTE | 2021-07-05 06:00 | XR_ITS ---
PROCEDURE INFORMATION: Exam: XR Chest Exam date and time: 07/05/2021 5:46 AM Age: 61 years old Clinical indication: Shortness of breath and other: Pneumonia; Additional info: Pna TECHNIQUE: Imaging protocol: XR of the chest. Views: 1 view. COMPARISON: CR XR CHEST PORTABLE 07/03/2021 11:35 AM FINDINGS: Lungs: No focal airspace disease. Pleural spaces: Unremarkable. No pleural effusion. No pneumothorax. Heart/Mediastinum: Cardiomediastinal silhouette is within normal limits. Bones/joints: Unremarkable. IMPRESSION: No acute cardiopulmonary abnormality.
[2021-07-05 06:25] LABS: POC Glucose,Bedside 135 (70-110)
[2021-07-05 08:00] VITALS: BP 123/58; PULSE 98; RESP 16; TEMP 36.8; O2SAT 94
[2021-07-05 08:24] LABS: Basophils # 0.1 K/mm3 (0-0.2); Basophils % 1.1 % (0.1-2.0); Eosinophils # 0.2 K/mm3 (0.0-0.4); Eosinophils % 3.5 % (0.1-12.0); Hematocrit 32.7 % (37.0-47.0); Hemoglobin 10.2 g/dL (12.2-16.2); Lymphocytes # 1.7 K/mm3 (0.7-4.5); Lymphocytes % 28.1 % (10-50); Mean Corpuscular HGB Conc 31.1 g/dL (31.8-35.4); Mean Corpuscular Hemoglobin 27.2 pg (27.0-31.2); Mean Corpuscular Volume 87.5 fl (81-99); Mean Platelet Volume 8.6 fl (7.4-10.4); Monocytes # 0.4 K/mm3 (0.1-1.0); Monocytes % 5.8 % (1.7-9.3); Neutrophils # 3.6 K/mm3 (1.8-7.8); Neutrophils % 61.3 % (37.0-80.0); Platelet Count 358 K/mm3 (142-424); Red Blood Count 3.74 M/mm3 (4.20-5.40); White Blood Count 5.9 K/mm3 (4.8-10.8)
[2021-07-05 08:34] LABS: Red Cell Distribution Width 25.1 % (11.5-17.5)
[2021-07-05 08:54] LABS: Chloride 100 mmol/L (98-107); Potassium 3.4 mmoL/L (3.5-5.1); Sodium 139 mmol/L (136-145)
[2021-07-05 08:57] LABS: Anion Gap 13.4 mEq/L (5-15); Blood Urea Nitrogen 22 mg/dl (7-17); Calcium 8.9 mg/dl (8.4-10.2); Carbon Dioxide 29 mmol/L (22.0-30.0); Creatinine Clearance Estimated 60 mL/min (50-200); Estimated Glomerular Filt Rate 57 ml/min (>60); GFR (African American) 68 ML/MIN (>60); Glucose 129 mg/dl (74-100)
--- NOTE | 2021-07-05 09:26 | HMH.DCSUM ---
General - General Admission date:: 07/02/21 Discharge date: 07/05/21 HPI HPI: 61-year-old female presenting to the ED with generalized weakness, confusion. History of CHF, COPD, diabetes, CKD. Per ed note pt states the patient has had several falls over the past week most recently overnight. 6 L nasal cannula oxygen at home. Pt wears bipap at night. Pt she is more confused than normal. Hospital Course Hospital Course: Patient is a 63-year-old white female, admitted to our service with a longstanding history of COPD and propensity for pneumonia. Patient received broad-spectrum antibiotics. White count declined progressively over the course of her stay, which correlated with clinical signs of improvement. Patient's renal function proved with a creatinine of 1.0 at discharge. Patient's chest imaging improved. Patient has home oxygen and home nebulizer equipment. Patient follows Dr. James for her primary care. Objective Vital signs: Temp Pulse Resp BP Pulse Ox 98.3 F 98 H 16 123/58 L 94 L 07/05/21 08:00 07/05/21 08:00 07/05/21 08:00 07/05/21 08:00 07/05/21 08:00 obese, chronically ill appearing, cooperative - *Routine HEENT Exam Head: Present: normocephalic Eye: Present: EOMI, PERRL ENT: Present: mucous membranes moist - *Routine Neck Exam Present: supple - *Routine Respiratory Exam Present: decreased breath sounds. Absent: respiratory distress, wheezes - *Routine Cardiovascular Exam Present: RRR - *Routine Abdominal Exam Present: soft, normoactive bowel sounds. Absent: tenderness - *Routine Extremities Exam Absent: cyanosis, clubbing, edema - *Routine Skin Exam Present: warm. Absent: jaundice, rash Results Labs on day of discharge: Labs from last 24 hours 07/05/21 07/05/21 07/05/21 07:00 07:00 06:16 WBC 5.9 D RBC 3.74 L Hgb 10.2 L Hct 32.7 L MCV 87.5 MCH 27.2 MCHC 31.1 L RDW 25.1 H* Plt Count 358 MPV 8.6 Neut % (Auto) 61.3 Lymph % (Auto) 28.1 Bulloch % (Auto) 5.8 Eos % (Auto) 3.5 Baso % (Auto) 1.1 Neut # (Auto) 3.6 Lymph # (Auto) 1.7 Bulloch # (Auto) 0.4 Eos # (Auto) 0.2 Baso # (Auto) 0.1 Sodium 139 Potassium 3.4 L Chloride 100 Carbon Dioxide 29 Anion Gap 13.4 BUN 22 H Creatinine 1.00 Estimated Creat Clear 60 Estimated GFR 57 L Est GFR ( Amer) 68 Glucose 129 H D POC Glucose 135 H Calcium 8.9 07/04/21 07/04/21 20:06 10:55 WBC RBC Hgb Hct MCV MCH MCHC RDW Plt Count MPV Neut % (Auto) Lymph % (Auto) Bulloch % (Auto) Eos % (Auto) Baso % (Auto) Neut # (Auto) Lymph # (Auto) Bulloch # (Auto) Eos # (Auto) Baso # (Auto) Sodium Potassium Chloride Carbon Dioxide Anion Gap BUN Creatinine Estimated Creat Clear Estimated GFR Est GFR ( Amer) Glucose POC Glucose 196 H 138 H Calcium Preliminary micro results at discharge 07/03/21 14:43 Urine Culture - Preliminary Urine,Clean Catch NO GROWTH AFTER 24 HOURS 07/02/21 14:05 Blood Culture - Preliminary Blood NO GROWTH AFTER 48 HOURS 07/02/21 14:05 Blood Culture - Preliminary Blood NO GROWTH AFTER 48 HOURS DS: Diagnosis - Discharge Diagnosis (1) Pneumonia Status: Acute (2) Sepsis Status: Acute (3) BANDAR (acute kidney injury) Status: Acute (4) CHF (congestive heart failure) Status: Acute (5) Generalized weakness Status: Acute Discharge Plan - Patient Discharge Instructions ACTIVITY: Limited activity DIET: diabetic diet Patient Instructions: Sepsis, DI for Heart Failure, DI for Pneumonia -- Adult, Acute Kidney Injury, Catheter-associated Urinary Tract Infection - Follow up Plan Follow up with: Charles James [Primary Care Provider] - 07/07/21 (please have pt call for appointment) Disposition: Home, Self-Care Condition at discharge:: Improved Home [place]
--- NOTE | 2021-07-05 11:10 | PC.NURSE ---
pt has been discahrged from [facility]. IV discontinued. pt was on 3lnc upon discahrge
--- NOTE | 2021-07-06 14:29 | CARE MANAGER ---
Spoke with patient regarding hospital stay and she said she had gotten her medicine, knows her follow-up and has no issues at this time.
--- NOTE | 2021-07-09 10:05 | SW/DCPLANNER ---
Patient information has been faxed to [facility].
== END 2021-07-05 11:00 | disposition home or self-care (01) | DRG 871 ==
LOC: ER 15:24 → 2ND 17:32
PROVIDERS: Nurse Practitioner Family; Admitting Provider Family Medicine; Emergency Provider Emergency Medicine; PCP Internal Medicine; Visit Provider Family Medicine
DX: A41.9 Sepsis, unspecified organism (principal); J18.9 Pneumonia, unspecified organism; J96.02 Acute respiratory failure with hypercapnia; R65.21 Severe sepsis with septic shock; J96.21 Acute and chronic respiratory failure with hypoxia; J44.0 Chronic obstructive pulmonary disease with (acute) lower respiratory infection; N17.9 Acute kidney failure, unspecified; I13.0 Hypertensive heart and chronic kidney disease with heart failure and stage 1 through stage 4 chronic kidney disease, or unspecified chronic kidney disease; Z99.81 Dependence on supplemental oxygen; Z86.73 Personal history of transient ischemic attack (TIA), and cerebral infarction without residual deficits; Z95.5 Presence of coronary angioplasty implant and graft; F17.210 Nicotine dependence, cigarettes, uncomplicated; E11.22 Type 2 diabetes mellitus with diabetic chronic kidney disease; N18.9 Chronic kidney disease, unspecified; Z79.4 Long term (current) use of insulin; E03.9 Hypothyroidism, unspecified; I50.9 Heart failure, unspecified
CPT/HCPCS: 51702; 70450; 71045; 72125; 73590; 80048; 80053; 80202; 81001; 82140; 82803; 82962; 83605; 83880; 84484; 85025; 87040; 87070; 87081; 87086; 87106; 87205; 93005; 93306; 93308; 93970; 94640; 94761; 96365; 96366; 96367; 96375; 99285; C9803; J0692; U0003; U0005

== ENCOUNTER → 2021-07-08 14:52 | Outpatient (CLI) | payer MEDICARE, MEDICAID, SELFPAY ==
--- NOTE | 2021-07-08 14:59 | XR_ITS ---
FINAL REPORT CLINICAL HISTORY: FALL, LEFT 5TH FINGER, INJURY FINDINGS: LEFT FIFTH FINGER Three views demonstrate a nondisplaced fracture involving the proximal aspect of the fifth mid phalanx. Mild degenerative changes are present. No other fracture or dislocation. IMPRESSION: Fracture as above. Reviewed, Interpreted and Dictated by Carmine Magaña III, MD Transcribed by Carmen Burris Authenticated by Carmine Magaña III, MD on 07/08/2021 04:09:50 PM [facility]
== END ==
PROVIDERS: PCP Internal Medicine; Visit Provider Internal Medicine
DX: S62.647D Nondisplaced fracture of proximal phalanx of left little finger, subsequent encounter for fracture with routine healing (principal)
CPT/HCPCS: 73140

== ENCOUNTER 2021-07-08 15:39 | Outpatient (RCR) | payer MEDICARE, MEDICAID, SELFPAY | END 2021-07-08 16:30 | disposition home or self-care (01) | LOC: OT 15:39 | PROVIDERS: Visit Provider Internal Medicine | DX: S52.571D Other intraarticular fracture of lower end of right radius, subsequent encounter for closed fracture with routine healing (principal) | CPT/HCPCS: 97763 ==

== ENCOUNTER → 2021-07-22 17:44 | Outpatient (CLI) | payer MEDICARE, MEDICAID, SELFPAY ==
[2021-07-22 18:38] LABS: Basophils # 0.1 K/mm3 (0-0.2); Basophils % 1.1 % (0.1-2.0); Eosinophils # 0.5 K/mm3 (0.0-0.4); Eosinophils % 6.3 % (0.1-12.0); Hematocrit 33.9 % (37.0-47.0); Hemoglobin 10.8 g/dL (12.2-16.2); Lymphocytes # 1.8 K/mm3 (0.7-4.5); Lymphocytes % 22.7 % (10-50); Mean Corpuscular HGB Conc 31.7 g/dL (31.8-35.4); Mean Corpuscular Hemoglobin 28.1 pg (27.0-31.2); Mean Corpuscular Volume 88.5 fl (81-99); Mean Platelet Volume 9.3 fl (7.4-10.4); Monocytes # 0.4 K/mm3 (0.1-1.0); Monocytes % 5.5 % (1.7-9.3); Neutrophils % 64.4 % (37.0-80.0); Platelet Count 331 K/mm3 (142-424); Red Blood Count 3.83 M/mm3 (4.20-5.40); Red Cell Distribution Width 21.6 % (11.5-17.5); White Blood Count 7.7 K/mm3 (4.8-10.8)
[2021-07-22 18:43] LABS: Alanine Aminotransferase 17 U/L (12-78); Albumin Level 4.5 g/dl (3.5-5.0); Alkaline Phosphatase 157 U/L (38-126); Aspartate Amino Transferase 18 U/L (14-36); Bilirubin,Total 0.5 mg/dl (0.2-1.3); Blood Urea Nitrogen 26 mg/dl (7-17); Carbon Dioxide 20 mmol/L (22.0-30.0); Chloride 104 mmol/L (98-107); Estimated Glomerular Filt Rate 42 ml/min (>60); GFR (African American) 51 ML/MIN (>60); Globulin 2.3 g/dL (1.3-3.2); Glucose 137 mg/dl (74-100); Sodium 137 mmol/L (136-145); Total Protein,Serum 6.8 g/dl (6.3-8.2)
== END ==
PROVIDERS: PCP Internal Medicine; Visit Provider Internal Medicine
DX: N39.0 Urinary tract infection, site not specified (principal); D50.9 Iron deficiency anemia, unspecified; I10 Essential (primary) hypertension; I25.118 Atherosclerotic heart disease of native coronary artery with other forms of angina pectoris; E11.59 Type 2 diabetes mellitus with other circulatory complications; I27.81 Cor pulmonale (chronic); J44.9 Chronic obstructive pulmonary disease, unspecified; Z79.4 Long term (current) use of insulin
CPT/HCPCS: 80053; 85025; 87086

== ENCOUNTER → 2021-08-05 16:50 | Outpatient (CLI) | payer MEDICARE, MEDICAID, SELFPAY | PROVIDERS: PCP Internal Medicine; Visit Provider Internal Medicine | DX: N39.0 Urinary tract infection, site not specified (principal) | CPT/HCPCS: 87086 ==

== ENCOUNTER → 2021-08-14 10:21 | Outpatient (CLI) | payer MEDICARE, MEDICAID, SELFPAY ==
--- NOTE | 2021-08-14 10:26 | MR_ITS ---
FINAL REPORT CLINICAL HISTORY: LT SIDED WEAKNESS. PT WAS IN THE HOSPITAL RECENTLY FOR COPD. POSSIBLE STROKE WHILE IN HOSPITAL X'S 1 MONTH AGO. FINDINGS: Multi planar MR imaging was obtained through the brain without contrast. The midline structures appear intact. There is no evidence of Chiari malformation. On T2 and flair axial images the brain parenchyma is homogeneous. On diffusion-weighted images there is no evidence of restricted diffusion. The visualized paranasal sinuses demonstrate normal signal voids. The seventh and eighth nerve root complexes are intact. IMPRESSION: Essentially unremarkable nonenhanced brain MRI. Reviewed, Interpreted and Dictated by He Barlow MD Transcribed by Leta Connor Authenticated by He Barlow MD on 08/14/2021 04:03:29 PM [facility]
== END ==
PROVIDERS: PCP Internal Medicine; Visit Provider Internal Medicine
DX: M62.81 Muscle weakness (generalized) (principal)
CPT/HCPCS: 70551

== ENCOUNTER → 2021-09-04 14:41 | Outpatient (CLI) | payer MEDICARE, MEDICAID, SELFPAY ==
--- NOTE | 2021-09-04 14:49 | XR_ITS ---
FINAL REPORT CLINICAL HISTORY: COPD COMPARISON: July 05, 2021 FINDINGS: PA and lateral views of the chest were obtained. The heart size is normal. There is enlargement of the central pulmonary vessels which is similar to the prior. There are changes of emphysema. The lungs are otherwise clear. The lungs are clear. There is no pleural effusion or pneumothorax. No acute osseous abnormality is identified. IMPRESSION: 1. No acute cardiopulmonary process. 2. Enlargement of the central pulmonary vessels, similar to the prior. Reviewed, Interpreted and Dictated by Lelia Cabrera MD Transcribed by Christal Yoo Authenticated by Lelia Cabrera MD on 09/04/2021 03:42:02 PM [facility]
== END ==
PROVIDERS: PCP Internal Medicine; Visit Provider Internal Medicine
DX: J18.9 Pneumonia, unspecified organism (principal); J44.9 Chronic obstructive pulmonary disease, unspecified
CPT/HCPCS: 71046

== ENCOUNTER → 2021-11-10 16:48 | Outpatient (CLI) | payer MEDICARE, MEDICAID, SELFPAY ==
[2021-11-10 18:20] LABS: Basophils # 0.1 K/mm3 (0-0.2); Eosinophils # 0.2 K/mm3 (0.0-0.4); Eosinophils % 2.1 % (0.1-12.0); Hematocrit 39.3 % (37.0-47.0); Hemoglobin 12.3 g/dL (12.2-16.2); Lymphocytes # 1.5 K/mm3 (0.7-4.5); Lymphocytes % 16.6 % (10-50); Mean Corpuscular HGB Conc 31.3 g/dL (31.8-35.4); Mean Corpuscular Hemoglobin 28.9 pg (27.0-31.2); Mean Corpuscular Volume 92.1 fl (81-99); Mean Platelet Volume 9.2 fl (7.4-10.4); Monocytes # 0.6 K/mm3 (0.1-1.0); Monocytes % 6.5 % (1.7-9.3); Neutrophils # 6.6 K/mm3 (1.8-7.8); Neutrophils % 73.7 % (37.0-80.0); Platelet Count 335 K/mm3 (142-424); Red Blood Count 4.27 M/mm3 (4.20-5.40); Red Cell Distribution Width 16.3 % (11.5-17.5); White Blood Count 8.9 K/mm3 (4.8-10.8)
[2021-11-10 18:55] LABS: Creatinine,Urine Random 16 mg/dL (Not Estab.); Hemoglobin A1C 6.9 % (4.0-6.0)
[2021-11-10 18:59] LABS: Alanine Aminotransferase 14 U/L (12-78); Albumin Level 4.6 g/dl (3.5-5.0); Albumin/Globulin Ratio 1.7 (1.1-1.8); Alkaline Phosphatase 118 U/L (38-126); Anion Gap 18.1 mEq/L (5-15); Aspartate Amino Transferase 18 U/L (14-36); Bilirubin,Total 0.4 mg/dl (0.2-1.3); Blood Urea Nitrogen 24 mg/dl (7-17); Calcium 10.5 mg/dl (8.4-10.2); Carbon Dioxide 20 mmol/L (22.0-30.0); Chloride 106 mmol/L (98-107); Chol/HDL Ratio 3.5 (1-3.5); Cholesterol 140 mg/dl (140-200); Estimated Glomerular Filt Rate 38 ml/min (>60); GFR (African American) 46 ML/MIN (>60); Globulin 2.7 g/dL (1.3-3.2); Glucose 108 mg/dl (74-100); HDL Cholesterol 40 mg/dl (40-60); Potassium 5.1 mmoL/L (3.5-5.1); Sodium 139 mmol/L (136-145); Total Protein,Serum 7.3 g/dl (6.3-8.2); Triglycerides 257 mg/dl (30-150); VLDL Cholesterol 51 mg/dL (0-40)
[2021-11-10 19:03] LABS: Microalbumin < 6.000 mg/L (0-16.7)
[2021-11-10 19:09] LABS: Direct LDL Cholesterol 55.01 mg/dL (100-129)
== END ==
PROVIDERS: PCP Internal Medicine; Visit Provider Internal Medicine
DX: E11.59 Type 2 diabetes mellitus with other circulatory complications (principal); E11.42 Type 2 diabetes mellitus with diabetic polyneuropathy; I25.118 Atherosclerotic heart disease of native coronary artery with other forms of angina pectoris; I27.81 Cor pulmonale (chronic); J44.9 Chronic obstructive pulmonary disease, unspecified; I10 Essential (primary) hypertension; E78.5 Hyperlipidemia, unspecified; Z79.4 Long term (current) use of insulin
CPT/HCPCS: 80053; 80061; 82043; 82570; 83036; 85025

== ENCOUNTER → 2022-01-25 15:11 | Outpatient (CLI) | payer MEDICARE, MEDICAID, SELFPAY ==
--- NOTE | 2022-01-25 15:15 | XR_ITS ---
FINAL REPORT CLINICAL HISTORY: SOA,COPD COMPARISON: 09/04/2021 FINDINGS: 2 views of the chest were obtained . The heart is enlarged. The mediastinum is within normal limits. There are mild bibasilar opacities, favor atelectasis or scarring. Lungs are hyperinflated consistent with COPD. There is no pneumothorax. Osseous structures are unremarkable. IMPRESSION: Mild bibasilar opacities, favor atelectasis or scarring. Reviewed, Interpreted and Dictated by Carmine Magaña III, MD Transcribed by Leta Connor Authenticated and [facility]
== END ==
PROVIDERS: PCP Internal Medicine; Visit Provider Internal Medicine
DX: R06.02 Shortness of breath (principal)
CPT/HCPCS: 71046

== ENCOUNTER 2022-01-28 13:51 | Inpatient (IN) | payer MEDICARE, MEDICAID, SELFPAY ==
[2022-01-28] VITALS (16 sets, daily range): BP systolic 84–120; BP diastolic 33–59; PULSE 74–85; RESP 17–33; TEMP 36.1–36.6; O2SAT 86–98; BMI 32.8; BMI 31.1; BMI 31.5
--- NOTE | 2022-01-28 14:09 | ECG_ITS ---
APPROVED REPORT Exam: Resting ECG HR:85 bpm ECG Measurements Heart Rate 85 AXES ME 219 P 74 QRSd 98 QRS 136 QT 368 T -74 QTc 410 Conclusion SINUS RHYTHM WITH FIRST DEGREE AV BLOCK INCOMPLETE RIGHT BUNDLE BRANCH BLOCK [90+ ms QRS DURATION, TERMINAL R IN V1/V2, 40+ ms S IN I/aVL/V4/V5/V6] ABNORMAL ECG UNCONFIRMED REPORT Electronically signed by : Kareem Newell MD 01/28/2022 17:13:00
--- NOTE | 2022-01-28 14:15 | PC.NURSE ---
Pt noted at 86% on 4L. She's usually on 4L at home. Increased to 6L. aware.
--- NOTE | 2022-01-28 14:20 | XR_ITS ---
FINAL REPORT CLINICAL HISTORY: SOA, cough, congestion x days. Hx COPD, smoker COMPARISON: 01/25/2022 FINDINGS: A single portable view of the chest was obtained. There is cardiomegaly. There is persistent but partially improved pulmonary vascular congestion. The mediastinum is within normal limits. There are mild right lung base opacities consistent with atelectasis or pneumonia. The bony thorax is intact. IMPRESSION: Cardiomegaly with persistent but partially improved pulmonary vascular congestion. Mild right lung base atelectasis or pneumonia. Reviewed, Interpreted and Dictated by Carmine Magaña III, MD Transcribed by Christal Yoo Authenticated and [facility]
--- NOTE | 2022-01-28 14:20 | PC.NURSE ---
RT called for pt eval
--- NOTE | 2022-01-28 14:27 | PC.NURSE ---
Radiology at bedside.
--- NOTE | 2022-01-28 14:27 | HMH.EDGENADL ---
Discharge Plan Disposition Patient Disposition: Admitted As Inpatient Condition: Serious Clinical Impressions Clinical Impression: Septic shock, Pneumonia, BANDAR (acute kidney injury), Acute and chronic respiratory failure with hypoxia Discharge ED Provider: Tay Amin General Adult HPI General Chief complaint: Shortness of Breath/Dyspnea Stated complaint: SOA Time Seen by Provider: 01/28/22 14:28 Mode of Arrival: Ambulatory Source of Information: Patient Limitations: No Limitations Description of Symptoms (Recalled from ER Triage Doc. by RN): pt states she has had increased shortness of breath and weakness for a week and a half, she has fallen several times, states she has a productive cough along with stuffy/ runny nose, denies fever, was seen by Dr James on Tuesday for the same thing History of Present Illness HPI narrative: Patient states that she has been sick for a week and a half. She has been generally weak, has fallen several times. She denies any injuries except for bruises. She has had a cough producing green sputum. She has had a stuffy runny nose. She denies chest pain. Denies fever. She has increased swelling of her legs and feet. She saw Dr. James in the office on Tuesday. She says that she had a chest x-ray done which showed fluid in the lungs and was started on metolazone (although review of x-ray report shows radiologist interpretation is atelectasis or scarring in the bases and there is no mention of pulmonary edema, congestive heart failure, or pleural effusions). She notes she is already on bumetanide. Despite the 2 diuretics she says she is not urinating very much. Related Data Home Medications Medication Instructions Recorded Confirmed aspirin 81 mg chewable tablet 81 mg PO DAILY heart health 06/17/17 01/28/22 buspirone 10 mg tablet 10 mg PO BID Depression 06/17/17 01/28/22 clopidogrel 75 mg tablet 75 mg PO DAILY platelet inhibitor 06/17/17 01/28/22 diazepam 5 mg tablet 5 mg PO TIDP PRN Anxiety 06/17/17 01/28/22 lisinopril 2.5 mg tablet 2.5 mg PO DAILY Hypertension 06/17/17 01/28/22 metformin 500 mg tablet 1,000 mg PO BIDWMEAL Diabetes 06/17/17 01/28/22 pantoprazole 40 mg tablet,delayed 40 mg PO DAILY acid reflux 06/17/17 01/28/22 release atorvastatin 40 mg tablet 40 mg PO HS High cholesterol #30 09/18/18 01/28/22 tabs duloxetine 60 mg capsule,delayed 60 mg PO DAILY Depression #90 caps 10/30/18 01/28/22 release insulin glargine 100 unit/mL 85 unit SQ HS Diabetes 01/30/19 01/28/22 subcutaneous solution levothyroxine 50 mcg tablet 50 mcg PO DAILYDM hypothyroidism 01/30/19 01/28/22 #90 tabs fluticasone fur. 100 mcg-umeclid 1 puff inhalation DAILY COPD 05/30/19 01/28/22 62.5 mcg-vilant 25 mcg inhalat.powder prucalopride 2 mg tablet 2 mg PO DAILY constipation 05/30/19 01/28/22 bumetanide 1 mg tablet 1 mg PO DAILY Edema 05/03/21 01/28/22 spironolactone 25 mg tablet 25 mg PO DAILY Edema 05/03/21 01/28/22 bisoprolol fumarate 5 mg tablet 10 mg PO DAILY Hypertension 05/04/21 01/28/22 diltiazem HCl 240 mg 240 mg PO DAILY Hypertension 05/04/21 01/28/22 capsule,extended release 24 hr empagliflozin 25 mg tablet 25 mg PO DAILYDM Diabetes 05/04/21 01/28/22 vortioxetine 10 mg tablet 10 mg PO DAILY Depression 05/04/21 01/28/22 ipratropium 0.5 mg-albuterol 3 mg 3 ml IH QID UNKNOWN 07/02/21 01/28/22 (2.5 mg base)/3 mL nebulization soln albuterol sulfate 90 mcg/actuation 2 puffs IH Q4HP PRN Shortness Of 07/03/21 01/28/22 aerosol inhaler Breath gabapentin 300 mg capsule 300 mg PO 1300 NEUROPATHY 07/03/21 01/28/22 gabapentin 300 mg capsule 600 mg PO BID NEUROPATHY 07/03/21 01/28/22 glipizide 5 mg tablet 2.5 mg PO BIDWMEAL Diabetes 07/03/21 01/28/22 fluconazole 150 mg tablet 150 mg PO Q3D Infection 01/28/22 01/28/22 (Diflucan) levofloxacin 750 mg tablet 750 mg PO DAILY antibiotic 01/28/22 Allergies Allergy/AdvReac Type Severity Reaction Status Date / Time adenosine Allergy Intermedi
--- NOTE | 2022-01-28 14:44 | PC.NURSE ---
RESP PLACED PT ON VENTI MASK @50% O2 SAT 92%
[2022-01-28 14:45] LABS: ABG HCO3 21.4 mmhg (22.0-26.0); ABG Oxygen Saturation 86 % (90-100); ABG PCO2 38.3 mmhg (35.0-45.0); ABG PH 7.37 mmol/L (7.35-7.45); ABG PO2 53.7 mmhg (80-100); ABG TCO2 22.6 mmhg (23-27); Allen's Test Acceptable; Oxygen 6L NC %; Source Left Radial
--- NOTE | 2022-01-28 14:51 | PC.NURSE ---
pt sitting up in bed, IVF started per ER MD order, explained to pt about bp being low and starting IVF to help increase bp. Pt verbalized understanding. Call light hooked to pt bedrail in reach of pt. Pt drinking ice water (okayed per ER MD)
[2022-01-28 14:58] LABS: Coronavirus 19, PCR Not Detected (NotDetected); Influenza A, PCR Not Detected (NotDetected); Influenza B, PCR Not Detected (NotDetected)
[2022-01-28 15:03] LABS: Basophils # 0.1 K/mm3 (0-0.2); Basophils % 0.6 % (0.1-2.0); Eosinophils # 0.4 K/mm3 (0.0-0.4); Eosinophils % 3.1 % (0.1-12.0); Hematocrit 39.6 % (37.0-47.0); Hemoglobin 11.2 g/dL (12.2-16.2); Lymphocytes # 1.8 K/mm3 (0.7-4.5); Lymphocytes % 12.8 % (10-50); Mean Corpuscular HGB Conc 28.3 g/dL (31.8-35.4); Mean Corpuscular Hemoglobin 26.9 pg (27.0-31.2); Mean Corpuscular Volume 95.3 fl (81-99); Mean Platelet Volume 8.4 fl (7.4-10.4); Monocytes # 0.9 K/mm3 (0.1-1.0); Monocytes % 6.4 % (1.7-9.3); Neutrophils # 10.6 K/mm3 (1.8-7.8); Neutrophils % 77.2 % (37.0-80.0); Platelet Count 381 K/mm3 (142-424); Red Blood Count 4.16 M/mm3 (4.20-5.40); Red Cell Distribution Width 16.6 % (11.5-17.5); White Blood Count 13.8 K/mm3 (4.8-10.8)
[2022-01-28 15:22] LABS: Alanine Aminotransferase 19 U/L (12-78); Albumin Level 4.5 g/dl (3.5-5.0); Albumin/Globulin Ratio 1.6 (1.1-1.8); Alkaline Phosphatase 147 U/L (38-126); Anion Gap 24.6 mEq/L (5-15); Aspartate Amino Transferase 28 U/L (14-36); Bilirubin,Total 0.6 mg/dl (0.2-1.3); Blood Urea Nitrogen 34 mg/dl (7-17); Calcium 9.3 mg/dl (8.4-10.2); Carbon Dioxide 21 mmol/L (22.0-30.0); Chloride 100 mmol/L (98-107); Creatinine Clearance Estimated 38 mL/min (50-200); Estimated Glomerular Filt Rate 22 ml/min (>60); GFR (African American) 26 ML/MIN (>60); Globulin 2.8 g/dL (1.3-3.2); Glucose 122 mg/dl (74-100); Potassium 4.6 mmoL/L (3.5-5.1); Sodium 141 mmol/L (136-145); Total Protein,Serum 7.3 g/dl (6.3-8.2)
[2022-01-28 15:25] LABS: Lactic Acid 3.4 mmol/L (0.7-2.1)
[2022-01-28 15:51] LABS: NT Pro Brain Natriuretic Pep. 8530 pg/mL (0-125)
[2022-01-28 15:54] LABS: Troponin I 0.02 ng/ml (0.00-0.034)
--- NOTE | 2022-01-28 16:25 | PC.NURSE ---
[place] speaking with dr. petty
--- NOTE | 2022-01-28 16:38 | PC.NURSE ---
house called for bed
--- NOTE | 2022-01-28 16:42 | EXP.HP ---
History of Present Illness *Admission Date: 01/28/22 *Reason for visit:: weakness, falling,Shortness of breath *History of present illness: 61 yo F with complex medical history of Patient states that she has been sick for a week and a half.? She has been generally weak, has fallen several times.? She denies any injuries except for bruises.? She has had a cough producing green sputum.? She has had a stuffy runny nose.? She denies chest pain.? Denies fever.? She has increased swelling of her legs and feet.? She saw Dr. James in the office on Tuesday.? She says that she had a chest x-ray done which showed fluid in the lungs and was started on metolazone (although review of x-ray report shows radiologist interpretation is atelectasis or scarring in the bases and there is no mention of pulmonary edema, congestive heart failure, or pleural effusions).? She notes she is already on bumetanide.? Despite the 2 diuretics she says she is not urinating very much. [facility] Medical History (Updated 01/28/22 @ 19:20 by Alex Choe MD) Anemia CHF (congestive heart failure) COPD (chronic obstructive pulmonary disease) Generalized weakness Respiratory failure with hypoxia Tobacco abuse Surgical History (Updated 01/28/22 @ 19:16 by Alex Choe MD) History of cardiac cath Family History Coronary artery disease Hypertension Social History Smoking Status: Current every day smoker tobacco type: cigarettes packs per day: 1 second hand exposure: No alcohol intake: never counseling provided: none substance use type: marijuana current occupational status: disabled Travel in the last 8 weeks: None household members: significant other housing: house number of children: 1 current occupational exposures/hazards: No caffeine: No Review of Systems Review of Systems Review of systems (narrative): 14 point review of systems performed, pertinent positives and negatives as per HPI Constitutional Constitutional: Denies headache(s) and Reports weakness ENT Ears, Nose, Mouth, and Throat: Denies headache(s) *Musculoskeletal Musculoskeletal: Denies numbness *Neurologic Neurologic: Denies headache(s), Denies numbness and Reports weakness Meds Home Medications and Allergies Home Medications Medication Instructions Recorded Confirmed Type aspirin 81 mg chewable tablet 81 mg PO DAILY heart health 06/17/17 01/28/22 History buspirone 10 mg tablet 10 mg PO BID Depression 06/17/17 01/28/22 History clopidogrel 75 mg tablet 75 mg PO DAILY platelet inhibitor 06/17/17 01/28/22 History diazepam 5 mg tablet 5 mg PO TIDP PRN Anxiety 06/17/17 01/28/22 History lisinopril 2.5 mg tablet 2.5 mg PO DAILY Hypertension 06/17/17 01/28/22 History metformin 500 mg tablet 1,000 mg PO BIDWMEAL Diabetes 06/17/17 01/28/22 History pantoprazole 40 mg tablet,delayed 40 mg PO DAILY acid reflux 06/17/17 01/28/22 History release atorvastatin 40 mg tablet 40 mg PO HS High cholesterol #30 09/18/18 01/28/22 History tabs duloxetine 60 mg capsule,delayed 60 mg PO DAILY Depression #90 caps 10/30/18 01/28/22 History release insulin glargine 100 unit/mL 85 unit SQ HS Diabetes 01/30/19 01/28/22 History subcutaneous solution levothyroxine 50 mcg tablet 50 mcg PO DAILYDM hypothyroidism 01/30/19 01/28/22 History #90 tabs fluticasone fur. 100 mcg-umeclid 1 puff inhalation DAILY COPD 05/30/19 01/28/22 History 62.5 mcg-vilant 25 mcg inhalat.powder prucalopride 2 mg tablet 2 mg PO DAILY constipation 05/30/19 01/28/22 History bumetanide 1 mg tablet 1 mg PO DAILY Edema 05/03/21 01/28/22 History spironolactone 25 mg tablet 25 mg PO DAILY Edema 05/03/21 01/28/22 History bisoprolol fumarate 5 mg tablet 10 mg PO DAILY Hypertension 05/04/21 01/28/22 History diltiazem HCl 240 mg 240 mg PO DAILY Hypertension 05/04/21 01/28/22 History capsule,extended release 24
--- NOTE | 2022-01-28 17:02 | PC.NURSE ---
Assisted pt to bsc with 2 person assist. Pt had BM and urinated. Pt tolerated well. Pt cleaned and assisted back to bed. No concerns voiced at this time. Fluids and antibiotics going. Updated pt.
--- NOTE | 2022-01-28 17:09 | PC.NURSE ---
attemtpted to call report, ludivina gordillo states she will call me back she is in another pts room
--- NOTE | 2022-01-28 17:32 | PC.NURSE ---
Called report to Adebayo [facility].
--- NOTE | 2022-01-28 17:36 | ECG_ITS ---
APPROVED REPORT Exam: Resting ECG HR:76 bpm ECG Measurements Heart Rate 76 AXES WV 196 P 15 QRSd 90 QRS 137 QT 405 T -79 QTc 435 Conclusion SINUS RHYTHM PATTERN CONSISTENT WITH PULMONARY DISEASE ABNORMAL ECG UNCONFIRMED REPORT Electronically signed by : Kareem Newell MD 01/29/2022 12:34:38
--- NOTE | 2022-01-28 17:38 | PC.NURSE ---
Pt rang out and stated she is having chest pain. ER MD notified and EKG obtained.
--- NOTE | 2022-01-28 17:55 | PC.NURSE ---
Pt arrived to the floor at this time
--- NOTE | 2022-01-28 18:24 | XR_ITS ---
PROCEDURE INFORMATION: Exam: XR Right Foot Exam date and time: 01/28/2022 7:22 PM Age: 61 years old Clinical indication: Injury or trauma; Fall; Blunt trauma; Patient HX: Patient fell, right foot pain with bruising. Inpatient in this hospital. TECHNIQUE: Imaging protocol: Radiologic exam of the Right foot. Views: 3 or more views. COMPARISON: No relevant prior studies available. FINDINGS: Bones/joints: Osteopenia. Small plantar calcaneal spur. Minimal spurring at the Achilles tendon calcaneal attachment. No fractures. Normal alignment is maintained in the midfoot, hindfoot, and forefoot. Joint spaces are well-maintained. No blastic or lytic lesions. No gross ankle joint effusion. No hindfoot coalition. Soft tissues: No periostitis or osteolysis. Dorsal soft tissue swelling in the forefoot. 3 x 1.5 mm ovoid density in the dorsal medial soft tissues of the forefoot near the 1st metatarsal head, probably an incidental soft tissue calcification. Small foreign body less likely. IMPRESSION: 1. No fracture or dislocation. 2. Soft tissue swelling in the forefoot. 3. 3 mm ovoid probable soft tissue calcification in the dorsal medial forefoot, less likely small foreign body. 4. Mild calcaneal spurring.
[2022-01-28 18:55] LABS: Reflex Lactic Add Lactic Reflex
[2022-01-28 19:01] LABS: Troponin I 0.02 ng/ml (0.00-0.034)
[2022-01-28 19:40] LABS: Lactic Acid Follow Up (RFLX 1) 2.1 mmol/L (0.7-2.1)
--- NOTE | 2022-01-28 19:49 | PC.NURSE ---
1855- Sepsis bolus completed at this time.
[2022-01-28 21:23] LABS: Reflex Lactic (2 hrs) Add Lactic Reflex
--- NOTE | 2022-01-28 22:00 | PC.NURSE ---
fsbs 45, notified silver sanchez, ordered to give 1 amp D50, 1 amp D50 given per IV
[2022-01-28 22:02] LABS: Lactic Acid Follow up (RFLX 2) 1.2 mmol/L (0.7-2.1)
[2022-01-28 22:14] LABS: Troponin I 0.02 ng/ml (0.00-0.034)
--- NOTE | 2022-01-28 22:34 | PC.NURSE ---
spoke with MAYTE Clinton about pt's frequent bedpan use with no results, telephone order to place gan catheter, successfully placed 16FR gan catheter with 1000ml clear yellow urine out, sent UA to lab per protocol
[2022-01-29] VITALS (18 sets, daily range): BP systolic 91–128; BP diastolic 52–78; PULSE 72–96; RESP 13–28; TEMP 36.4–36.8; O2SAT 90–98; BMI 31.1; BMI 31.0
--- NOTE | 2022-01-29 00:03 | PC.NURSE ---
[address] Emptied trash and linens
--- NOTE | 2022-01-29 05:50 | PC.NURSE ---
fsbs 40, notified MAYTE Clinton, instructed to give amp D50, amp D50 given
--- NOTE | 2022-01-29 05:58 | PC.NURSE ---
[address] Trash emptied and ice water refilled
[2022-01-29 06:49] LABS: Potassium 3.8 mmoL/L (3.5-5.1)
[2022-01-29 06:52] LABS: Alanine Aminotransferase 13 U/L (12-78); Albumin Level 3.9 g/dl (3.5-5.0); Albumin/Globulin Ratio 1.6 (1.1-1.8); Alkaline Phosphatase 119 U/L (38-126); Aspartate Amino Transferase 24 U/L (14-36); Bilirubin,Total 0.3 mg/dl (0.2-1.3); Blood Urea Nitrogen 27 mg/dl (7-17); Calcium 8.6 mg/dl (8.4-10.2); Carbon Dioxide 22 mmol/L (22.0-30.0); Creatinine Clearance Estimated 59 mL/min (50-200); Estimated Glomerular Filt Rate 35 ml/min (>60); GFR (African American) 43 ML/MIN (>60); Globulin 2.5 g/dL (1.3-3.2); Total Protein,Serum 6.4 g/dl (6.3-8.2)
[2022-01-29 07:15] LABS: Basophils # 0.1 K/mm3 (0-0.2); Basophils % 0.7 % (0.1-2.0); Eosinophils # 0.5 K/mm3 (0.0-0.4); Eosinophils % 4.3 % (0.1-12.0); Hematocrit 33.5 % (37.0-47.0); Hemoglobin 10.5 g/dL (12.2-16.2); Lymphocytes # 2.2 K/mm3 (0.7-4.5); Lymphocytes % 20.7 % (10-50); Mean Corpuscular HGB Conc 31.4 g/dL (31.8-35.4); Mean Corpuscular Hemoglobin 27.9 pg (27.0-31.2); Mean Corpuscular Volume 88.9 fl (81-99); Monocytes # 0.8 K/mm3 (0.1-1.0); Neutrophils # 7.3 K/mm3 (1.8-7.8); Neutrophils % 67.3 % (37.0-80.0); Platelet Count 346 K/mm3 (142-424); Red Blood Count 3.77 M/mm3 (4.20-5.40); Red Cell Distribution Width 17.3 % (11.5-17.5); White Blood Count 10.8 K/mm3 (4.8-10.8)
[2022-01-29 07:45] LABS: Chloride 107 mmol/L (98-107); Sodium 141 mmol/L (136-145)
[2022-01-29 07:47] LABS: Anion Gap 15.8 mEq/L (5-15)
[2022-01-29 07:50] LABS: Glucose 31 mg/dl (74-100)
--- NOTE | 2022-01-29 07:51 | PC.NURSE ---
received call from lab reporting glucose 31. Notified Dr. Choe who reports that he will order MIVF and enter order in computer.
--- NOTE | 2022-01-29 08:38 | NM_ITS ---
FINAL REPORT CLINICAL HISTORY: emphysema, right heart failure, enlarged RV FINDINGS: The patient was injected with 7.52 mCi of technetium 99m MAA. 35.8 mCi of aerosolized DTPA was utilized for ventilation. Images of the lungs were obtained in multiple projections. Overall, perfusion is superior to ventilation. There are no mismatched defects to suggest PE. IMPRESSION: Low probability for PE. Reviewed, Interpreted and Dictated by Carmine Magaña III, MD Transcribed by Leta Connor Authenticated and [facility]
[2022-01-29 08:47] LABS: POC Glucose,Bedside 125 (70-110)
[2022-01-29 08:47] LABS: POC Glucose,Bedside 152 (70-110)
[2022-01-29 08:47] LABS: POC Glucose,Bedside 159 (70-110)
--- NOTE | 2022-01-29 08:55 | EXP.CARD.CON ---
History of Present Illness History of Present Illness Consult date: 01/29/22 Requesting physician: Alex Choe Consult reason: hypotension Chief complaint: SOA, hypotension, weakness Additional Medical History:: 1. Diabetes mellitus, treated for many years A. Hemoglobin A1c, 6.9, 11/10/2021 2. History of coronary artery disease with prior coronary stenting, [place], [place], records unavailable 3. Smoking with history of centrilobular emphysema on CT of the chest back to 2019 A. Tobacco use continued, 1 pack/day x [address] of the chest evidence of emphysema, patient followed by research quality assurance specialist in [place], [place], records unavailable C. PFTs, 2019, moderately severe obstructive airway disease 4. Prior history of TIA with confusion, remotely with no residual. Chronic Plavix therapy. A. CT of head, 06/2021, age-appropriate cerebral atrophy with moderate changes of chronic small vessel ischemia within the cerebral white matter regions bilaterally. No acute infarct or hemorrhage. B. CTA of head, 06/2021, see noncontrast CT report above. Limited atherosclerosis without dissection or flow-limiting lesion in the main intracranial arterial branching. 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 C. Brain MRI, 08/14/2021, essentially unremarkable nonenhanced brain MRI. 5. BANDAR, 01/28/2022 6. History of cardiac ablation for unknown reason with records unavailable at this time 7. Hypertension A. Echo, 09/18/19, mild LAE, normal LV size, mild concentric LVH, EF 55% with abnormal septal motion. Diastolic parameters inconclusive. Moderately enlarged RV with mild reduced contractility. Mild MR and TR. B. Echo, 05/04/21, mild biatrial enlargement, normal LV size, mild concentric LVH, EF 55% with no regional WMA grade 1 diastolic dysfunction, mild RV enlargement with normal contractility. Trace MR TR. 8. Carotid artery disease A. Carotid duplex, 03/15/2018, 20-49% stenosis of the LICA, less than 20% of the JESSICA B. Neck CTA, 06/21/2021, mild stenosis JESSICA, severe stenosis of the origin of LICA 9. Hyperlipidemia A. LDL 55 on 11/10/2021 10. Nonerosive GERD with mild esophageal dysmotility, linear reactive gastritis/antritis with bile reflux on EGD, Dr. Alexy Hernandez, 2018 A. Colonoscopy, 2019, colonic polyps x6, left-sided diverticulosis, grade 1-2 internal hemorrhoid 11. Obstructive sleep apnea, CPAP use 12. History of major depressive disorder History of present illness: Patient states that she has been sick for a week and a half.? She has been generally weak, has fallen several times.? She denies any injuries except for bruises.? She has had a cough producing green sputum.? She has had a stuffy runny nose.? She denies chest pain.? Denies fever.? She has increased swelling of her legs and feet.? She saw Dr. James in the office on Tuesday.? She says that she had a chest x-ray done which showed fluid in the lungs and was started on metolazone (although review of x-ray report shows radiologist interpretation is atelectasis or scarring in the bases and there is no mention of pulmonary edema, congestive heart failure, or pleural effusions).? She notes she is already on bumetanide.? Despite the 2 diuretics she says she is not urinating very much. The above per Dr. Choe, hospitalist 61-year-old pleasant white female in bed slightly drowsy at this time but able to answer and respond to questions appropriately. Blood sugar noted to be 31 this morning but has received an amp of D50 just prior to my arrival and has been started on glucose infusion. Patient confirms events as noted above. Earlier this morning echocardiogram was performed with preliminary report revealing significant RV enlargement to the point of pressing against the left side with mildly reduced left ventricular ejection fraction. Right ventricular sy
--- NOTE | 2022-01-29 10:30 | PC.NURSE ---
pt to radiology via wheelchair with La Espinoza
--- NOTE | 2022-01-29 11:00 | HMH.PHAINT1 ---
Pharmacy Intervention Comments: MEDICATION RECONCILIATION COMPLETE USING LIST FROM DR PAK'S OFFICE AND EXTERNAL PHARMACY FILL HISTORY.
--- NOTE | 2022-01-29 11:24 | EXP.ACUTE.PN ---
Subjective *Date: 01/29/22 *Time: 18:35 Interval history: Patient complains of shortness of breath. Still appears quite fatigued and ill. Denies chest pain, nausea, vomiting. Significant other at bedside along with brother this morning. Echo obtained this morning, concern for significantly elevated RVSP. Discussed concern for heart failure with patient. Her blood pressures have stabilized overnight, appears to be improving from her sepsis however concerned that her symptoms now are complicated by her heart failure. Discussed this with her on rounds this morning. Patient is afebrile, able to wean down to nasal cannula oxygen 6 to 8 L. Tolerating this better than the Ventimask. Wharton catheter still in place having adequate urine output. Medical Exam Vital signs and Labs for Last 24 Hours: Vital Signs Temp Pulse Pulse Resp BP BP Pulse Ox 01/29/22 09:59 81 01/29/22 09:59 82 01/29/22 08:00 97.5 F L 80 26 H 96/52 L 90 L 01/29/22 06:47 76 01/29/22 06:47 78 01/29/22 06:47 90 L 01/29/22 06:00 78 18 110/61 92 L 01/29/22 04:00 75 01/29/22 04:00 97.9 F 01/29/22 04:00 75 20 123/61 90 L 01/29/22 02:00 72 21 117/67 96 01/29/22 00:00 74 13 105/57 L 93 L 01/28/22 22:00 81 17 90/57 L 93 L 01/29/22 00:00 95 01/29/22 00:00 74 01/28/22 20:00 80 01/29/22 00:00 97.7 F 01/28/22 20:00 97.9 F 84 20 120/54 L 92 L 01/28/22 20:00 81 33 H 99/59 L 88 L 01/28/22 19:00 74 22 103/47 L 93 L 01/28/22 18:30 97 F L 77 26 H 88/54 L 94 L 01/28/22 19:32 75 01/28/22 19:32 76 01/28/22 19:32 90 L 01/28/22 18:17 97.8 F 79 26 H 100/58 L 01/28/22 17:30 79 25 H 96/58 L 95 01/28/22 17:00 79 28 H 100/51 L 91 L 01/28/22 16:30 76 28 H 84/40 L 93 L 01/28/22 16:04 78 29 H 88/44 L 87 L 01/28/22 15:36 78 26 H 88/41 L 86 L 01/28/22 15:30 78 30 H 85/50 L 93 L 01/28/22 15:03 76 28 H 108/33 L 93 L 01/28/22 14:52 93 L 01/28/22 14:30 84 20 87/41 L 88 L 01/28/22 14:15 97.5 F L 85 28 H 98/45 L 88 L FiO2 01/29/22 09:59 01/29/22 09:59 01/29/22 08:00 50 01/29/22 06:47 01/29/22 06:47 01/29/22 06:47 50 01/29/22 06:00 50 01/29/22 04:00 01/29/22 04:00 01/29/22 04:00 50 01/29/22 02:00 50 01/29/22 00:00 50 01/28/22 22:00 50 01/29/22 00:00 50 01/29/22 00:00 01/28/22 20:00 01/29/22 00:00 01/28/22 20:00 01/28/22 20:00 01/28/22 19:00 50 01/28/22 18:30 50 01/28/22 19:32 01/28/22 19:32 01/28/22 19:32 50 01/28/22 18:17 01/28/22 17:30 01/28/22 17:00 01/28/22 16:30 01/28/22 16:04 01/28/22 15:36 01/28/22 15:30 01/28/22 15:03 01/28/22 14:52 50 01/28/22 14:30 01/28/22 14:15 Intake and Output 01/28/22 01/29/22 01/29/22 23:59 07:59 15:59 Intake Total 0 / 0 Output Total 2400 / 2400 650 / 650 Balance -2400 / -2400 -650 / -650 Intake: Intake, Oral Amount 0 / 0 Output: Output, Urine Amount 1100 / 1100 650 / 650 Output, Stool Amount 300 / 300 Output, Urine Amount (Catheter) 1000 / 1000 Wharton 1000 / 1000 Other: Number of Unmeasured Voids 1 Number of Bowel Movements 2 Weight 94.12 kg 93.395 kg Patient Weight 01/29/22 23:59 Weight 93.395 kg Laboratory Results - last 24 hr 01/28/22 14:15: SARS-CoV-2 (PCR) Not detected, Influenza A Untype (PCR) Not detected, Influenza Type B (PCR) Not detected 01/28/22 14:26: WBC 13.8 H, RBC 4.16 L, Hgb 11.2 L, Hct 39.6, MCV 95.3, MCH 26.9 L, MCHC 28.3 L, RDW 16.6, Plt Count 381, MPV 8.4, Neut % (Auto) 77.2, Lymph % (Auto) 12.8, Imperial % (Auto) 6.4, Eos % (Auto) 3.1, Baso % (Auto) 0.6, Neut # (Auto) 10.6 H, Lymph # (Auto) 1.8, Imperial # (Auto) 0.9, Eos # (Auto) 0.4, Baso # (Auto) 0.1 01/28/22 14:26: Lactate 3.4 H 01/28/22 14:26: Sodium 141, Potassium 4.6, Chl
--- NOTE | 2022-01-29 12:24 | PC.NURSE ---
back from radiology
[2022-01-29 16:30] LABS: POC Glucose,Bedside 184 (70-110)
[2022-01-29 20:17] LABS: POC Glucose,Bedside 75 (70-110)
[2022-01-30] VITALS (21 sets, daily range): BP systolic 102–143; BP diastolic 57–83; PULSE 75–103; RESP 12–31; TEMP 36.4–36.9; O2SAT 89–100; BMI 30.5
[2022-01-30 02:26] LABS: POC Glucose,Bedside 240 (70-110)
[2022-01-30 07:01] LABS: Basophils # 0.1 K/mm3 (0-0.2); Basophils % 1.3 % (0.1-2.0); Chloride 98 mmol/L (98-107); Eosinophils # 0.3 K/mm3 (0.0-0.4); Eosinophils % 4.6 % (0.1-12.0); Hematocrit 35.4 % (37.0-47.0); Lymphocytes # 1.3 K/mm3 (0.7-4.5); Lymphocytes % 17.7 % (10-50); Mean Corpuscular HGB Conc 31.1 g/dL (31.8-35.4); Mean Corpuscular Hemoglobin 28.1 pg (27.0-31.2); Mean Corpuscular Volume 90.3 fl (81-99); Mean Platelet Volume 8.3 fl (7.4-10.4); Monocytes # 0.6 K/mm3 (0.1-1.0); Monocytes % 7.7 % (1.7-9.3); Neutrophils # 5.1 K/mm3 (1.8-7.8); Neutrophils % 68.7 % (37.0-80.0); Platelet Count 244 K/mm3 (142-424); Red Blood Count 3.92 M/mm3 (4.20-5.40); Red Cell Distribution Width 17.3 % (11.5-17.5); White Blood Count 7.4 K/mm3 (4.8-10.8)
[2022-01-30 07:02] LABS: Potassium 3.2 mmoL/L (3.5-5.1); Sodium 140 mmol/L (136-145)
[2022-01-30 07:04] LABS: Alanine Aminotransferase 16 U/L (12-78); Albumin Level 4.2 g/dl (3.5-5.0); Albumin/Globulin Ratio 1.6 (1.1-1.8); Alkaline Phosphatase 124 U/L (38-126); Anion Gap 16.2 mEq/L (5-15); Aspartate Amino Transferase 23 U/L (14-36); Bilirubin,Total 0.6 mg/dl (0.2-1.3); Blood Urea Nitrogen 23 mg/dl (7-17); Calcium 8.9 mg/dl (8.4-10.2); Carbon Dioxide 29 mmol/L (22.0-30.0); Creatinine Clearance Estimated 66 mL/min (50-200); Estimated Glomerular Filt Rate 42 ml/min (>60); GFR (African American) 51 ML/MIN (>60); Globulin 2.6 g/dL (1.3-3.2); Glucose 137 mg/dl (74-100); Total Protein,Serum 6.8 g/dl (6.3-8.2)
[2022-01-30 07:05] LABS: Magnesium 1.7 mg/dl (1.6-2.3)
[2022-01-30 08:12] LABS: POC Glucose,Bedside 144 (70-110)
--- NOTE | 2022-01-30 09:39 | PC.NURSE ---
received call from [facility]. They do not have any beds available. Spoke to Carmen ([phone]) who wishes to speak to Dr. Choe. Number given to him to return call.
--- NOTE | 2022-01-30 10:30 | EXP.ACUTE.PN ---
Subjective *Date: 01/30/22 *Time: 18:34 Interval history: Chief complaint remains fatigue and shortness of breath. No significant improvement or worsening clinically from yesterday. Denies chest pain, vomiting, diarrhea. Mild nausea this morning on exam. Tolerating p.o. intake however. Stable on 8 L nasal cannula this morning, weaned to 6 L during morning rounds. Maintaining saturations in the mid 90s. Further discussed concerns for severity of heart failure today. Expressed the need to consider other institutions for transfer other than [facility]. Patient is open to other transfer options in [place] however she is very clear that she does not want to consider anywhere else at this time. Offered [place] as another option, she does not want to look outside of [place] for the time being. Wharton catheter monitoring urine output. Has responded very well to Lasix from last night. Negative greater than 2 L over the past 24 hours. Blood pressure acceptable this morning, above 110/70. Afebrile Medical Exam Vital signs and Labs for Last 24 Hours: Vital Signs Temp Pulse Pulse Resp BP Pulse Ox FiO2 01/30/22 08:00 88 25 H 112/69 98 01/30/22 08:30 87 01/30/22 08:30 86 01/30/22 08:30 97 01/30/22 08:00 98.5 F 01/30/22 06:00 75 18 106/61 L 96 01/30/22 05:00 83 01/30/22 04:00 97.6 F 01/30/22 04:00 83 12 115/83 91 L 01/30/22 02:00 79 22 106/62 L 89 L 01/30/22 00:00 86 01/30/22 00:00 99 H 23 115/57 L 96 01/29/22 23:42 97.6 F 01/29/22 20:00 96 H 01/29/22 22:00 90 24 116/71 96 01/29/22 20:00 96 H 23 99/72 L 95 01/29/22 19:39 98.2 F 01/29/22 19:13 92 H 01/29/22 19:13 93 H 01/29/22 19:13 90 L 01/29/22 18:00 92 H 16 93/53 L 93 L 01/29/22 16:00 90 01/29/22 16:00 50 01/29/22 16:00 97.5 F L 92 H 28 H 91/60 L 98 50 01/29/22 15:12 80 01/29/22 15:12 80 01/29/22 14:00 85 22 92/55 L 93 L 50 01/29/22 12:20 97.6 F 80 20 128/78 92 L 40 Intake and Output 01/29/22 01/30/22 01/30/22 23:59 07:59 15:59 Intake Total 781 / 901 640 / 1000 360 / 1000 Output Total 3700 / 4350 1800 / 1800 Balance -2919 / -3449 -1160 / -800 360 / -800 Intake: Intake, Oral Amount 120 / 240 360 / 360 Intake, Total IV Amount 661 / 661 640 / 640 D5W/0.45% NaCl w/20mEq KCL 1, 661 / 661 640 / 640 000 ml @ 50 mls/hr IV .Q20H [facility] Rx#:[id number] Output: Output, Urine Amount 1000 / 1650 1800 / 1800 Output, Urine Amount (Catheter) 2700 / 2700 Wharton 2700 / 2700 Other: Number of Unmeasured Voids 0 Weight 91.49 kg Patient Weight 01/30/22 23:59 Weight 91.49 kg Laboratory Results - last 24 hr 01/29/22 12:23: POC Glucose 75 01/29/22 16:10: POC Glucose 184 H 01/29/22 20:50: POC Glucose 240 H 01/30/22 05:47: POC Glucose 144 H 01/30/22 06:35: WBC 7.4 D, RBC 3.92 L, Hgb 11.0 L, Hct 35.4 L, MCV 90.3, MCH 28.1, MCHC 31.1 L, RDW 17.3, Plt Count 244 D, MPV 8.3, Neut % (Auto) 68.7, Lymph % (Auto) 17.7, Hudson % (Auto) 7.7, Eos % (Auto) 4.6, Baso % (Auto) 1.3, Neut # (Auto) 5.1, Lymph # (Auto) 1.3, Hudson # (Auto) 0.6, Eos # (Auto) 0.3, Baso # (Auto) 0.1 01/30/22 06:35: Sodium 140, Potassium 3.2 L, Chloride 98, Carbon Dioxide 29, Anion Gap 16.2 H, BUN 23 H, Creatinine 1.30 H, Estimated Creat Clear 66, Estimated GFR 42 L, Est GFR ( Amer) 51 L, Glucose 137 H, Calcium 8.9, Magnesium 1.7 D, Total Bilirubin 0.6, AST 23, ALT 16, Alkaline Phosphatase 124, Total Protein 6.8, Albumin 4.2, Globulin 2.6, Albumin/Globulin Ratio 1.6 I & O for Labs for Last 24 Hours: Intake & Output 01/27/22 01/28/22 01/29/22 01/30/22 23:59 23:59 23:59 23:59 Intake Total 901 / 901 1000 / 1000 Output Total 2400 / 2400 4350 / 4350 1800 / 1800 Balance -2400 / -2400 -3449 / -3449 -800 / -800 Weight 94.12 kg 93 kg 91.49 kg
[2022-01-30 10:31] LABS: POC Glucose,Bedside 291 (70-110)
[2022-01-30 18:01] LABS: POC Glucose,Bedside 267 (70-110)
[2022-01-30 19:07] LABS: Chloride 90 mmol/L (98-107); Potassium 3.6 mmoL/L (3.5-5.1); Sodium 139 mmol/L (136-145)
[2022-01-30 19:09] LABS: Blood Urea Nitrogen 23 mg/dl (7-17)
[2022-01-30 19:10] LABS: Anion Gap 20.6 mEq/L (5-15); Calcium 8.7 mg/dl (8.4-10.2); Carbon Dioxide 32 mmol/L (22.0-30.0); Creatinine Clearance Estimated 62 mL/min (50-200); Estimated Glomerular Filt Rate 38 ml/min (>60); GFR (African American) 46 ML/MIN (>60)
[2022-01-30 19:11] LABS: Glucose 269 mg/dl (74-100)
--- NOTE | 2022-01-30 19:14 | PC.NURSE ---
[facility] called and [facility] does not have a bed at this time.
--- NOTE | 2022-01-30 21:25 | PC.NURSE ---
report given to BROOKE Leigh at [facility], calling for ambulance now to transport pt to [facility] [phone]
--- NOTE | 2022-01-30 22:57 | PC.NURSE ---
PT LEFT FLOOR VIA STRETCHER WITH EMS AT THIS TIME
[2022-01-31 05:01] LABS: POC Glucose,Bedside 260 (70-110)
--- NOTE | 2022-01-31 07:42 | EXP.DC.SUM ---
General Admission date:: 01/28/22 Discharge date: 01/30/22 HPI HPI HPI: 61 yo F with complex medical history of Patient states that she has been sick for a week and a half.? She has been generally weak, has fallen several times.? She denies any injuries except for bruises.? She has had a cough producing green sputum.? She has had a stuffy runny nose.? She denies chest pain.? Denies fever.? She has increased swelling of her legs and feet.? She saw Dr. James in the office on Tuesday.? She says that she had a chest x-ray done which showed fluid in the lungs and was started on metolazone (although review of x-ray report shows radiologist interpretation is atelectasis or scarring in the bases and there is no mention of pulmonary edema, congestive heart failure, or pleural effusions).? She notes she is already on bumetanide.? Despite the 2 diuretics she says she is not urinating very much. Hospital Course Hospital Course Hospital Course: 61-year-old female with multiple cardiac comorbidities who presented with severe sepsis secondary to pneumonia versus CHF exacerbation versus volume overload. Treated initially for sepsis per protocol with fluid bundle. Blood pressures improved. Started on antibiotic for pneumonia, and cultures obtained.? Patient's blood pressure low normal but map above 65 at this time.? Given improvement in sepsis symptoms, heart failure was addressed leading to diuresis. Able to wean oxygen requirement from 50% Ventimask to 6 L nasal cannula. Imaging concerning for severe right-sided heart failure. In light of her combined systolic and diastolic failure and the severity thereof, transfer initiated for higher level of care to coordinate care with her planisher, cardiology, and for ongoing infection. Patient transferred to [facility], appreciate their assistance in care of this patient. Problems addressed as follows: Essential hypertension Severely elevated RVSP Diastolic CHF - Holding blood pressure meds at this time.? Given low blood pressures. - Continue diuresis.? Goal -1 to 2 L a day as tolerated by patient. - Echo obtained yesterday showing severely elevated right ventricular systolic pressure, estimated at ~100mmHg - Holding on heart cath due to BANDAR. - Cardiology consulted, appreciate their recommendations - VQ scan with low likelihood of PE.? No perfusion mismatch.? Have low suspicion for CTEPH -Again discussed this morning with patient the benefit in transferring to a tertiary care center.? Spoke with [facility] patient is on a wait list for telemetry bed.? Have contacted , on wait list with them as well. Severe sepsis, resolved Pneumonia -Treated with sepsis bundle, 30 per cake bolus. Tolerated well with improvement in blood pressure and stabilization clinically. Cultures obtained, currently negative. Started on ceftriaxone and azithromycin for pneumonia. Initial oxygen requirement of 50% Venti, weaned to 6 L nasal cannula by time of discharge. Goal saturation greater 92%. Continued duo nebs and home long-acting inhalers. BANDAR on CKD -Improved over hospitalization with fluids, remained appropriate with diuresis. Presented with creatinine of 2.5, down to 1.3 on day of discharge. Type 2 diabetes -Continued home regimen with decreased Lantus dose.? Initiated sliding scale insulin and fingersticks before meals and at bedtime. Hypokalemia -Secondary to diuresis.? Replacing IV as needed Patient has severe right-sided heart failure in conjunction with systolic heart failure. Needs higher level of care. Was on a wait list at and [facility]. [facility] gratefully excepted her for transfer. Stable at discharge with transfer to higher level of care for further work-up and management of her heart failure. Exam Data for Last 24 hours Vital signs and Labs for Last 24 Hours: Temp Pulse Resp BP Pulse Ox FiO2 98.2 F 97 H 26 H 113/70 94 L 50 01/30/22 20:00 01/30/22 22:00
== END 2022-01-30 22:57 | disposition short-term general hospital (02) | DRG 871 ==
LOC: ER 16:24 → 2ND 18:21
PROVIDERS: Admitting Provider Internal Medicine Adolescent Medicine; Emergency Provider Emergency Medicine; PCP Internal Medicine; Visit Provider Internal Medicine Adolescent Medicine
DX: A41.9 Sepsis, unspecified organism (principal); I50.33 Acute on chronic diastolic (congestive) heart failure; J18.9 Pneumonia, unspecified organism; R65.21 Severe sepsis with septic shock; J96.21 Acute and chronic respiratory failure with hypoxia; N17.9 Acute kidney failure, unspecified; I13.0 Hypertensive heart and chronic kidney disease with heart failure and stage 1 through stage 4 chronic kidney disease, or unspecified chronic kidney disease; Z79.4 Long term (current) use of insulin; F17.210 Nicotine dependence, cigarettes, uncomplicated; I11.0 Hypertensive heart disease with heart failure; J43.2 Centrilobular emphysema; Z86.73 Personal history of transient ischemic attack (TIA), and cerebral infarction without residual deficits; F32.A Depression, unspecified; G47.33 Obstructive sleep apnea (adult) (pediatric); F32.9 Major depressive disorder, single episode, unspecified; Z71.6 Tobacco abuse counseling; I25.10 Atherosclerotic heart disease of native coronary artery without angina pectoris; E11.22 Type 2 diabetes mellitus with diabetic chronic kidney disease; N18.9 Chronic kidney disease, unspecified; E87.6 Hypokalemia
CPT/HCPCS: 36415; 71045; 71046; 73630; 78582; 80048; 80053; 82803; 82962; 83605; 83735; 83880; 84484; 85025; 87040; 93005; 93041; 93306; 94640; 94761; 99291; A9540; A9567; C9803; J0456; J0696; J2405; J3475; U0003; U0005

== ENCOUNTER 2022-03-01 22:15 | Emergency (ER) | payer MEDICARE, MEDICAID, SELFPAY ==
[2022-03-01 22:16] VITALS: BP 148/78; PULSE 87; RESP 26; TEMP 36.5; O2SAT 89; BMI 33.7
--- NOTE | 2022-03-01 22:41 | ECG_ITS ---
APPROVED REPORT Exam: Resting ECG HR:100 bpm ECG Measurements Heart Rate 100 AXES WV 214 P 75 QRSd 96 QRS 122 QT 340 T 92 QTc 397 Conclusion SINUS TACHYCARDIA WITH FIRST DEGREE AV BLOCK INCOMPLETE RIGHT BUNDLE BRANCH BLOCK [90+ ms QRS DURATION, TERMINAL R IN V1/V2, 40+ ms S IN I/aVL/V4/V5/V6] RIGHT VENTRICULAR HYPERTROPHY [SOME/ALL OF: PROMINENT R IN V1, LATE TRANSITION, RAD, SANAZ, SSS] ST DEVIATION AND MODERATE T-WAVE ABNORMALITY, CONSIDER ANTEROLATERAL ISCHEMIA [-0.1+ mV T-WAVE IN V3-V6] ABNORMAL ECG UNCONFIRMED REPORT Electronically signed by : Kareem Newell MD 03/04/2022 20:19:19
[2022-03-01 22:54] VITALS: BMI 33.9
--- NOTE | 2022-03-01 22:55 | XR_ITS ---
PROCEDURE INFORMATION: Exam: XR Chest Exam date and time: 03/01/2022 11:36 PM Age: 61 years old Clinical indication: Shortness of breath; Additional info: SOA, copd, recent pna/hospitalization TECHNIQUE: Imaging protocol: Radiologic exam of the chest. Views: 1 view. COMPARISON: CR XR CHEST PORTABLE 01/28/2022 2:38 PM FINDINGS: Lungs: Peripheral left mid lung interstitial infiltrate, consider COVID-19 pneumonitis. Pleural spaces: Unremarkable. No pleural effusion. No pneumothorax. Heart/Mediastinum: Unremarkable. No cardiomegaly. Bones/joints: Unremarkable. IMPRESSION: Peripheral left mid lung interstitial infiltrate, consider COVID-19 pneumonitis.
[2022-03-01 23:08] LABS: Basophils % 0.5 % (0.1-2.0); Eosinophils # 0.2 K/mm3 (0.0-0.4); Hematocrit 33.1 % (37.0-47.0); Hemoglobin 10.4 g/dL (12.2-16.2); Lymphocytes # 1.5 K/mm3 (0.7-4.5); Lymphocytes % 17.6 % (10-50); Mean Corpuscular HGB Conc 31.3 g/dL (31.8-35.4); Mean Corpuscular Hemoglobin 28.4 pg (27.0-31.2); Mean Corpuscular Volume 90.5 fl (81-99); Mean Platelet Volume 9.3 fl (7.4-10.4); Monocytes # 0.4 K/mm3 (0.1-1.0); Monocytes % 4.3 % (1.7-9.3); Neutrophils # 6.4 K/mm3 (1.8-7.8); Neutrophils % 75.5 % (37.0-80.0); Platelet Count 255 K/mm3 (142-424); Red Blood Count 3.65 M/mm3 (4.20-5.40); Red Cell Distribution Width 17.6 % (11.5-17.5); White Blood Count 8.4 K/mm3 (4.8-10.8)
[2022-03-01 23:10] LABS: Alanine Aminotransferase 20 U/L (12-78); Albumin Level 4.6 g/dl (3.5-5.0); Albumin/Globulin Ratio 1.7 (1.1-1.8); Alkaline Phosphatase 114 U/L (38-126); Aspartate Amino Transferase 24 U/L (14-36); Bilirubin,Total 0.6 mg/dl (0.2-1.3); Blood Urea Nitrogen 20 mg/dl (7-17); Calcium 8.2 mg/dl (8.4-10.2); Carbon Dioxide 24 mmol/L (22.0-30.0); Chloride 98 mmol/L (98-107); Creatinine Clearance Estimated 64 mL/min (50-200); Estimated Glomerular Filt Rate 38 ml/min (>60); GFR (African American) 46 ML/MIN (>60); Globulin 2.7 g/dL (1.3-3.2); Glucose 291 mg/dl (74-100); Sodium 140 mmol/L (136-145); Total Protein,Serum 7.3 g/dl (6.3-8.2)
[2022-03-01 23:11] LABS: ABG Base Excess -2.7 mmol/L (-2.4-2.3); ABG HCO3 21.9 mmhg (22.0-26.0); ABG Oxygen Saturation 82 % (90-100); ABG PCO2 34.9 mmhg (35.0-45.0); ABG PH 7.42 mmol/L (7.35-7.45); ABG TCO2 22.9 mmhg (23-27)
[2022-03-01 23:12] LABS: Allen's Test Acceptable; Oxygen 6lpm %; Source Right Radial
[2022-03-01 23:22] LABS: NT Pro Brain Natriuretic Pep. 2890 pg/mL (0-125)
--- NOTE | 2022-03-01 23:24 | PC.NURSE ---
Dr Mendoza aware of critical ABG
[2022-03-01 23:30] LABS: Troponin I < 0.01 ng/ml (0.00-0.034)
[2022-03-01 23:52] LABS: Lactic Acid 3.5 mmol/L (0.7-2.1)
[2022-03-02 00:03] LABS: Coronavirus 19, PCR Not Detected (NotDetected); Influenza A, PCR Not Detected (NotDetected); Influenza B, PCR Not Detected (NotDetected)
[2022-03-02 00:13] LABS: Acetone, Serum (Rapid) None Detected (None Detect)
--- NOTE | 2022-03-02 02:12 | HMH.EDSOB ---
Discharge Plan Disposition Patient Disposition: Home, Self-Care Chief Complaint: Shortness of Breath/Dyspnea Prescriptions Prescriptions: No Action atorvastatin 40 mg tablet 40 mg PO HS Qty: 30 aoixysdhrch-izgfgsjee-shoskzkl 100-62.5-25 mcg blister with device 1 puff INHALATION DAILY duloxetine 60 mg capsule,delayed release(DR/EC) 60 mg PO DAILY Qty: 90 levothyroxine 50 mcg tablet 50 mcg PO DAILYDM Qty: 90 spironolactone 25 MG tablet 25 mg PO DAILY bumetanide 1 MG tablet 1 - 2 mg PO DAILY empagliflozin 25 MG tablet 25 mg PO DAILYDM metolazone 5 mg tablet 5 mg PO DAILY bisoprolol fumarate 10 mg tablet 10 mg PO DAILY Label Comments: TAKE ONE TABLET BY MOUTH EVERY DAY metformin 500 MG tablet 1,000 mg PO BIDWMEAL clopidogrel 75 MG tablet 75 mg PO DAILY aspirin 81 MG tablet,chewable 81 mg PO DAILY pantoprazole 40 MG tablet,delayed release (DR/EC) 40 mg PO DAILY buspirone 10 MG tablet 10 mg PO BID lisinopril 2.5 MG tablet 2.5 mg PO DAILY diazepam 5 MG tablet 5 mg PO TIDP PRN (Reason: Anxiety) insulin glargine 100 unit/mL solution 85 unit SQ HS albuterol sulfate 8.5 GM HFA aerosol inhaler 2 puffs IH Q4HP PRN (Reason: Shortness Of Breath) Label Comments: INHALE TWO PUFFS BY MOUTH FOUR TIMES DAILY NEEDED --SHAKE WELL BEFORE USE-- glipizide 5 MG tablet 2.5 mg PO BIDWMEAL gabapentin 300 MG capsule 600 mg PO BID gabapentin 300 MG capsule 300 mg PO 1300 potassium chloride 10 mEq capsule, extended release 20 meq PO DAILY Label Comments: TAKE TWO CAPSULES BY MOUTH EVERY DAY WITH FUROSEMIDE sildenafil (pulm.hypertension) 20 mg tablet 20 mg PO TID Label Comments: TAKE ONE TABLET BY MOUTH EVERY 8 HOURS FOR pulmonary hypertension Referrals Follow up/Referrals: Charles James MD [Primary Care Provider] - See instructions Clinical Impressions Clinical Impression: CHF (congestive heart failure), COPD (chronic obstructive pulmonary disease) Instructions Patient Instructions: DI for Shortness of Breath Discharge ED Provider: Uriel Mendoza Resp/SOB HPI General Chief Complaint: Shortness of Breath/Dyspnea Stated Complaint: SOA Time Seen by Provider: 03/02/22 02:12 Mode of Arrival: Family Vehicle Source of Information: Patient, Significant Other and Medical Record Limitations: No Limitations Description of Symptoms (Recalled from ER Triage Doc. by RN): Pt c/o SOA and increased work of breathing. Pt has a copd and new pulmonary htn. She was recently admitted (transfer to [facility]) for pneumonia and d/c about 3 wks ago. Stated she was started on Sildenifil. Pt reprots she was d/c on on O2 @ 6lpm nc and was doing ok until last 2 days and tonight is worsened greatly. History of Present Illness pt with rt side ht failure with admit at [facility] a few weeks ago - has good and bad days with sob - MD Complaint: shortness of breath Onset (ago): day(s) Context: recent illness Severity: moderate Consistency/Duration: intermittent Relieving factors: oxygen Exacerbating factors: movement Known history of: COPD and congestive heart failure Associated symptoms: denies other symptoms Related Data Home oxygen amount: other (6 liters ) Home Medications Medication Instructions Recorded Confirmed aspirin 81 mg chewable tablet 81 mg PO DAILY heart health 06/17/17 03/02/22 buspirone 10 mg tablet 10 mg PO BID Depression 06/17/17 03/02/22 clopidogrel 75 mg tablet 75 mg PO DAILY platelet inhibitor 06/17/17 03/02/22 diazepam 5 mg tablet 5 mg PO TIDP PRN Anxiety 06/17/17 03/02/22 lisinopril 2.5 mg tablet 2.5 mg PO DAILY Hypertension 06/17/17 03/02/22 metformin 500 mg tablet 1,000 mg PO BIDWMEAL Diabetes 06/17/17 03/02/22 pantoprazole 40 mg tablet,delayed 40 mg PO DAILY acid reflux 06/17/17 03/02/22 release atorvastatin 40 mg tablet 40 mg PO HS
[2022-03-02 03:28] LABS: Troponin I < 0.01 ng/ml (0.00-0.034)
[2022-03-02 03:29] LABS: Reflex Lactic Add Lactic Reflex
[2022-03-02 03:34] VITALS: BP 116/70; PULSE 83; RESP 24; TEMP 36.8; O2SAT 95
[2022-03-02 03:41] LABS: Lactic Acid Follow Up (RFLX 1) 2.7 mmol/L (0.7-2.1)
== END 2022-03-02 03:55 | disposition home or self-care (01) ==
PROVIDERS: Emergency Provider Emergency Medicine; PCP Internal Medicine
DX: I50.9 Heart failure, unspecified (principal); J44.9 Chronic obstructive pulmonary disease, unspecified; I27.20 Pulmonary hypertension, unspecified; Z87.01 Personal history of pneumonia (recurrent); Z79.82 Long term (current) use of aspirin; Z79.84 Long term (current) use of oral hypoglycemic drugs; Z79.4 Long term (current) use of insulin; Z79.51 Long term (current) use of inhaled steroids; Z79.899 Other long term (current) drug therapy; Z88.0 Allergy status to penicillin; Z88.8 Allergy status to other drugs, medicaments and biological substances; Z72.0 Tobacco use
CPT/HCPCS: 71045; 80053; 82009; 82803; 83605; 83880; 84484; 85025; 93005; 96374; 96375; 99285; C9803; U0003; U0005

== ENCOUNTER → 2022-03-22 17:18 | Outpatient (CLI) | payer MEDICARE, MEDICAID, SELFPAY ==
[2022-03-22 19:15] LABS: Basophils # 0.1 K/mm3 (0-0.2); Basophils % 0.7 % (0.1-2.0); Eosinophils # 0.1 K/mm3 (0.0-0.4); Eosinophils % 1.2 % (0.1-12.0); Hematocrit 33.5 % (37.0-47.0); Hemoglobin 10.2 g/dL (12.2-16.2); Lymphocytes # 1.1 K/mm3 (0.7-4.5); Lymphocytes % 13.3 % (10-50); Mean Corpuscular HGB Conc 30.5 g/dL (31.8-35.4); Mean Corpuscular Hemoglobin 26.8 pg (27.0-31.2); Mean Corpuscular Volume 87.9 fl (81-99); Mean Platelet Volume 9.1 fl (7.4-10.4); Monocytes # 0.4 K/mm3 (0.1-1.0); Monocytes % 4.8 % (1.7-9.3); Neutrophils # 6.4 K/mm3 (1.8-7.8); Neutrophils % 80.1 % (37.0-80.0); Platelet Count 326 K/mm3 (142-424); Red Blood Count 3.82 M/mm3 (4.20-5.40); Red Cell Distribution Width 17.2 % (11.5-17.5); White Blood Count 7.9 K/mm3 (4.8-10.8)
[2022-03-22 19:33] LABS: Anion Gap 21.7 mEq/L (5-15); Blood Urea Nitrogen 21 mg/dl (7-17); Calcium 9.2 mg/dl (8.4-10.2); Carbon Dioxide 21 mmol/L (22.0-30.0); Chloride 103 mmol/L (98-107); Estimated Glomerular Filt Rate 42 ml/min (>60); GFR (African American) 50 ML/MIN (>60); Glucose 59 mg/dl (74-100); Potassium 4.7 mmoL/L (3.5-5.1); Sodium 141 mmol/L (136-145)
[2022-03-22 21:05] LABS: Hemoglobin A1C 5.8 % (4.0-6.0)
== END ==
PROVIDERS: PCP Internal Medicine; Visit Provider Internal Medicine
DX: E11.59 Type 2 diabetes mellitus with other circulatory complications (principal); E11.42 Type 2 diabetes mellitus with diabetic polyneuropathy; I10 Essential (primary) hypertension; J44.9 Chronic obstructive pulmonary disease, unspecified; J18.9 Pneumonia, unspecified organism; I27.81 Cor pulmonale (chronic); Z79.4 Long term (current) use of insulin
CPT/HCPCS: 80048; 83036; 85025

== ENCOUNTER 2022-04-07 14:32 | Inpatient (IN) | payer MEDICARE, MEDICAID, SELFPAY ==
[2022-04-07] VITALS (16 sets, daily range): BP systolic 109–134; BP diastolic 63–78; PULSE 88–94; RESP 20–30; TEMP 36.4–36.7; O2SAT 84–95; BMI 32.6
--- NOTE | 2022-04-07 14:33 | PC.NURSE ---
1433 PT PLACED ON 6L/NC PER PT HOME REQUIREMENT, SAT MINIMALLY IMPROVED. PT PLACED ON NRB AT 15L/NC
--- NOTE | 2022-04-07 14:33 | ECG_ITS ---
APPROVED REPORT Exam: Resting ECG HR:93 bpm ECG Measurements Heart Rate 93 AXES MA 220 P 152 QRSd 89 QRS 151 QT 365 T 6 QTc 416 Conclusion SINUS RHYTHM WITH FIRST DEGREE AV BLOCK Right axis deviation and RVH - previously noted ABNORMAL ECG UNCONFIRMED REPORT Electronically signed by : Kareem Newell MD 04/09/2022 08:55:31
--- NOTE | 2022-04-07 14:39 | PC.NURSE ---
RT at BS for SONA
--- NOTE | 2022-04-07 14:40 | PC.NURSE ---
RESPIRATORY AT BEDSIDE
--- NOTE | 2022-04-07 14:47 | PC.NURSE ---
PT O2 SAT 92% AT THIS TIME, DUO NEB AT THIS TIME
[2022-04-07 14:48] LABS: ABG Base Excess -4.3 mmol/L (-2.4-2.3); ABG HCO3 21.1 mmhg (22.0-26.0); ABG Oxygen Saturation 84 % (90-100); ABG PCO2 37.7 mmhg (35.0-45.0); ABG PH 7.37 mmol/L (7.35-7.45); ABG PO2 51.7 mmhg (80-100); ABG TCO2 22.2 mmhg (23-27)
[2022-04-07 14:49] LABS: Coronavirus 19, PCR Not Detected (NotDetected); Influenza A, PCR Not Detected (NotDetected); Influenza B, PCR Not Detected (NotDetected)
[2022-04-07 14:50] LABS: Allen's Test Acceptable; Oxygen 100% NRB %; Source Right Radial
--- NOTE | 2022-04-07 14:51 | PC.NURSE ---
DR. AREVALO AT BEDSIDE
--- NOTE | 2022-04-07 15:03 | PC.NURSE ---
PT PLACED ON 4L/NC PER RESPIRATORY. ED MD MORAES'D WITH O2 SAT 88-90%
[2022-04-07 15:12] LABS: Basophils # 0.1 K/mm3 (0-0.2); Basophils % 1.2 % (0.1-2.0); Eosinophils # 0.1 K/mm3 (0.0-0.4); Eosinophils % 1.1 % (0.1-12.0); Hematocrit 34.4 % (37.0-47.0); Hemoglobin 10.5 g/dL (12.2-16.2); Lymphocytes % 9.7 % (10-50); Mean Corpuscular HGB Conc 30.5 g/dL (31.8-35.4); Mean Corpuscular Hemoglobin 27.4 pg (27.0-31.2); Mean Corpuscular Volume 89.7 fl (81-99); Mean Platelet Volume 9.6 fl (7.4-10.4); Monocytes # 0.5 K/mm3 (0.1-1.0); Monocytes % 4.9 % (1.7-9.3); Neutrophils # 8.6 K/mm3 (1.8-7.8); Neutrophils % 83.2 % (37.0-80.0); Platelet Count 365 K/mm3 (142-424); Red Blood Count 3.84 M/mm3 (4.20-5.40); Red Cell Distribution Width 18.8 % (11.5-17.5); White Blood Count 10.4 K/mm3 (4.8-10.8)
--- NOTE | 2022-04-07 15:12 | HMH.EDGENADL ---
Discharge Plan Disposition Patient Disposition: Admitted As Inpatient Condition: Serious Chief Complaint: Shortness of Breath/Dyspnea Prescriptions Prescriptions: No Action atorvastatin 40 mg tablet 40 mg PO HS Qty: 30 tnynvowkkoy-vrfstqxyc-havgayvc 100-62.5-25 mcg blister with device 1 puff INHALATION DAILY duloxetine 60 mg capsule,delayed release(DR/EC) 60 mg PO DAILY Qty: 90 levothyroxine 50 mcg tablet 50 mcg PO DAILYDM Qty: 90 spironolactone 25 MG tablet 25 mg PO DAILY bumetanide 1 MG tablet 1 - 2 mg PO DAILY empagliflozin 25 MG tablet 25 mg PO DAILYDM metolazone 5 mg tablet 5 mg PO DAILY bisoprolol fumarate 10 mg tablet 10 mg PO DAILY Label Comments: TAKE ONE TABLET BY MOUTH EVERY DAY metformin 500 MG tablet 1,000 mg PO BIDWMEAL clopidogrel 75 MG tablet 75 mg PO DAILY aspirin 81 MG tablet,chewable 81 mg PO DAILY pantoprazole 40 MG tablet,delayed release (DR/EC) 40 mg PO DAILY buspirone 10 MG tablet 10 mg PO BID lisinopril 2.5 MG tablet 2.5 mg PO DAILY diazepam 5 MG tablet 5 mg PO TIDP PRN (Reason: Anxiety) insulin glargine 100 unit/mL solution 85 unit SQ HS albuterol sulfate 8.5 GM HFA aerosol inhaler 2 puffs IH Q4HP PRN (Reason: Shortness Of Breath) Label Comments: INHALE TWO PUFFS BY MOUTH FOUR TIMES DAILY NEEDED --SHAKE WELL BEFORE USE-- glipizide 5 MG tablet 2.5 mg PO BIDWMEAL gabapentin 300 MG capsule 600 mg PO BID gabapentin 300 MG capsule 300 mg PO 1300 potassium chloride 10 mEq capsule, extended release 20 meq PO DAILY Label Comments: TAKE TWO CAPSULES BY MOUTH EVERY DAY WITH FUROSEMIDE sildenafil (pulm.hypertension) 20 mg tablet 20 mg PO TID Label Comments: TAKE ONE TABLET BY MOUTH EVERY 8 HOURS FOR pulmonary hypertension Referrals Follow up/Referrals: Provider,Referral, MD [Referring] - See instructions Clinical Impressions Clinical Impression: CHF (congestive heart failure), Acute and chronic respiratory failure with hypoxia, Acute exacerbation of chronic obstructive airways disease Discharge ED Provider: Christian Lee General Adult HPI General Chief complaint: Shortness of Breath/Dyspnea Stated complaint: SOA Time Seen by Provider: 04/07/22 14:58 Mode of Arrival: EMS Limitations: No Limitations Description of Symptoms (Recalled from ER Triage Doc. by RN): PT BROUGHT IN VIA EMS FOR INCREASED SHORTNESS OF BREATH FOR SEVERAL DAYS. PT REPORTS FALL AT HOME TO LEFT SIDE ON TUESDAY. History of Present Illness HPI narrative: This is a 62-year-old female with history of COPD on 6 L nasal cannula home oxygen and is still smoking tobacco, CHF, diabetes, CAD, CKD who is presenting with shortness of breath. Patient states that she has been progressively short of breath over the last 2 days. Today, it got to the point where she was having difficulty breathing and working harder to breathe despite her home nasal cannula, so she called EMS. On arrival, EMS states that patient's oxygen saturations were in the 70s and patient was working hard to breathe, but responsive, alert, oriented. DuoNeb was administered and she was transferred to [facility] with nonrebreather in place. Patient denies chest pain, nausea, vomiting, fevers, chills, back pain, syncope, neurologic deficits, but has had increasingly productive cough with yellow sputum. Related Data Home Medications Medication Instructions Recorded Confirmed aspirin 81 mg chewable tablet 81 mg PO DAILY heart health 06/17/17 04/07/22 buspirone 10 mg tablet 10 mg PO BID Depression 06/17/17 04/07/22 clopidogrel 75 mg tablet 75 mg PO DAILY platelet inhibitor 06/17/17 04/07/22 diazepam 5 mg tablet 5 mg PO TIDP PRN Anxiety 06/17/17 04/07/22 lisinopril 2.5 mg tablet 2.5 mg PO DAILY Hypertension 06/17/17 04/07/22 metformin 500 mg tablet 1,000 mg PO BIDWMEAL Diab
[2022-04-07 15:13] LABS: Chloride 101 mmol/L (98-107); Sodium 141 mmol/L (136-145)
--- NOTE | 2022-04-07 15:14 | PC.NURSE ---
patient placed back on 15L NR, after her sats were 73 on 4L NC
--- NOTE | 2022-04-07 15:14 | PC.NURSE ---
O2 SAT 70'S ON 4L/NC PT UNABLE TO TOLERATED NC R/T CONGESTION.PT PLACED ON NRB. ED MD NOTIFIED. O2 SAT 90%
[2022-04-07 15:15] LABS: Alanine Aminotransferase 27 U/L (12-78); Alkaline Phosphatase 117 U/L (38-126); Aspartate Amino Transferase 32 U/L (14-36); Bilirubin,Total 0.7 mg/dl (0.2-1.3); Blood Urea Nitrogen 23 mg/dl (7-17); Creatinine Clearance Estimated 61 mL/min (50-200); Estimated Glomerular Filt Rate 35 ml/min (>60); GFR (African American) 43 ML/MIN (>60)
--- NOTE | 2022-04-07 15:15 | XR_ITS ---
FINAL REPORT CLINICAL HISTORY: [facility]d [facility] COMPARISON: 03/01/2022 FINDINGS: SINGLE-VIEW CHEST There is cardiomegaly with pulmonary vascular congestion. The mediastinum is normal. There are worsening pulmonary alveolar opacities, favor edema over bilateral pneumonia. There is no pneumothorax. IMPRESSION: Worsening alveolar opacities, favor edema over bilateral pneumonia. Reviewed, Interpreted and Dictated by Carmine Magaña III, MD Transcribed by Carmen Burris Authenticated and [facility]
[2022-04-07 15:16] LABS: Albumin Level 4.5 g/dl (3.5-5.0); Albumin/Globulin Ratio 1.7 (1.1-1.8); Calcium 8.9 mg/dl (8.4-10.2); Carbon Dioxide 25 mmol/L (22.0-30.0); Globulin 2.6 g/dL (1.3-3.2); Glucose 216 mg/dl (74-100); Total Protein,Serum 7.1 g/dl (6.3-8.2)
--- NOTE | 2022-04-07 15:17 | PC.NURSE ---
RESP CALLED FOR VAPOTHERM
--- NOTE | 2022-04-07 15:20 | PC.NURSE ---
XR AT BEDSIDE
[2022-04-07 15:25] LABS: NT Pro Brain Natriuretic Pep. 4920 pg/mL (0-125)
--- NOTE | 2022-04-07 15:25 | PC.NURSE ---
RESPIRATORY AT BEDSIDE TO PLACE PT ON VAPOTHERM
[2022-04-07 15:28] LABS: Troponin I 0.03 ng/ml (0.00-0.034)
--- NOTE | 2022-04-07 15:32 | PC.NURSE ---
RT at BS
--- NOTE | 2022-04-07 15:36 | PC.NURSE ---
30L AT 40% ON VAPOTHERM PER RESPIRATORY
--- NOTE | 2022-04-07 15:53 | PC.NURSE ---
PT VOIDED ON BEDPAN
--- NOTE | 2022-04-07 16:13 | PC.NURSE ---
HARSHIL HILL at
--- NOTE | 2022-04-07 16:14 | PC.NURSE ---
PT UNABLE TO TOLERATE VAPOTHERM R/T NASAL CONGESTION. ED MD REQUESTS BIPAP , RESPIRATORY NOTIFIED. O2 SAT 83%
--- NOTE | 2022-04-07 16:14 | PC.NURSE ---
Called RT for a BIPAP per ER MD request. Spoke with Kristi
--- NOTE | 2022-04-07 16:20 | PC.NURSE ---
RT at BS with BIPAP; spouse at BS
--- NOTE | 2022-04-07 16:29 | PC.NURSE ---
PT PLACED ON BI-PAP
[2022-04-07 16:46] LABS: Microscopic, Urine URINE MICROSCOPIC (MICROSCOPIC)
--- NOTE | 2022-04-07 16:49 | PC.NURSE ---
PT RESTING COMFORTABLE WITH BIPAP IN PLACE
--- NOTE | 2022-04-07 16:58 | PC.NURSE ---
DR. AREVALO SPEAKING WITH DR. RUBI
[2022-04-07 17:25] LABS: Appearance,Urine CLEAR (Clear); Bilirubin,Urine Negative (Negative); Blood, Urine Negative (Negative); Color,Urine YELLOW (Yellow); Glucose,Urine (UA) 3+ (Negative); Ketones,Urine Negative (Negative); Leukocyte Esterase,Urine Negative (Negative); Nitrate,Urine Negative (Negative); PH,Urine 5.5 (5.0-8.5); Protein,Urine Negative (Negative); Urobilinogen,Urine 0.2 EU/dl (0.2)
[2022-04-07 17:26] LABS: Hemoglobin A1C 5.7 % (4.0-6.0)
[2022-04-07 18:29] LABS: WBC,Urine Occasional #/hpf (0-3)
[2022-04-07 18:41] LABS: Troponin I 0.03 ng/ml (0.00-0.034)
--- NOTE | 2022-04-07 18:43 | PC.NURSE ---
patient given a drink of water. She is still on BIPAP. Spouse at BS. They are aware that they will be staying in the ER for the time being because the hospital is full. No other needs at this time
[2022-04-07 19:31] LABS: Adenovirus,PCR Not Detected (NotDetected); Bordetella Pertussis Not Detected (NotDetected); Chlamydophila Pneumoniae, PCR Not Detected (NotDetected); Coronavirus 19, PCR Not Detected (NotDetected); Coronavirus 229E Not Detected (NotDetected); Coronavirus NL63 Not Detected (NotDetected); Coronavirus OC43 Not Detected (NotDetected); Coronovirus HKU1,PCR Not Detected (NotDetected); Human Metapneumovirus Not Detected (NotDetected); Influenza A, PCR Not Detected (NotDetected); Influenza AH1, 2009 Not Detected (NotDetected); Influenza AH1, PCR Not Detected (NotDetected); Influenza AH3,PCR Not Detected (NotDetected); Influenza B, PCR Not Detected (NotDetected); Mycoplasma Pneumoniae, PCR Not Detected (NotDetected); Parainfluenza 1, PCR Not Detected (NotDetected); Parainfluenza 2, PCR Not Detected (NotDetected); Parainfluenza 3, PCR Not Detected (NotDetected); Parainfluenza 4, PCR Not Detected (NotDetected); Respiratory Syncytial Virus Not Detected (NotDetected); Rhinovirus/Enterovirus Not Detected (NotDetected)
[2022-04-07 20:08] LABS: Lactic Acid 4.9 mmol/L (0.7-2.1)
--- NOTE | 2022-04-07 20:08 | PC.NURSE ---
notified md of critical lactic 4.9
--- NOTE | 2022-04-07 20:26 | CT_ITS ---
PROCEDURE INFORMATION: Exam: CT Chest Without Contrast; Diagnostic Exam date and time: 04/07/2022 8:44 PM Age: 62 years old Clinical indication: Condition or disease; Lung condition and disease; Hypoxia; Additional info: Hypoxia recent tx for pneum, elevated lactic acid TECHNIQUE: Imaging protocol: Diagnostic computed tomography of the chest without contrast. Radiation optimization: All CT scans at this facility use at least one of these dose optimization techniques: automated exposure control; mA and/or kV adjustment per patient size (includes targeted exams where dose is matched to clinical indication); or iterative reconstruction. COMPARISON: CT LUNG SCREENING 05/13/2021 1:16 PM FINDINGS: Lungs: Interstitial pulmonary edema. Bibasal subsegmental atelectasis/scarring. No acute airspace consolidation. Few calcified pulmonary granulomata compatible with chronic sequelae of prior granulomatous disease, unchanged. Pleural spaces: Trace right pleural effusion. No pneumothorax. Heart: Mild cardiomegaly with prominent right heart chambers. Coronary arteries: Calcific coronary artery disease, unchanged. Lymph nodes: Calcified lymph nodes compatible with chronic sequelae of prior granulomatous disease, unchanged. Enlarged subcarinal lymph node measuring 1.5 cm in short axis, nonspecific. Vasculature: Aorta is normal in caliber with a moderate amount of calcified atherosclerotic plaque. Dilated central pulmonary arteries suggestive of pulmonary arterial hypertension, similar to prior exam. Intraperitoneal space: Trace ascites in the upper abdomen. Bones/joints: No acute osseous abnormality. Soft tissues: Unremarkable. IMPRESSION: 1. Interstitial pulmonary edema. 2. Mild cardiomegaly with prominent right heart chambers. 3. Dilated central pulmonary arteries suggestive of pulmonary arterial hypertension, similar to prior exam. 4. Trace right pleural effusion. 5. Trace ascites in the upper abdomen. 6. Enlarged subcarinal lymph node measuring 1.5 cm in short axis, nonspecific. Please see comments below. 7. Additional non-acute ancillary findings are detailed above. COMMENTS: Regarding incidental lymphadenopathy in the chest: If explainable disease is present, such as infection, emphysema, interstitial lung disease, sarcoidosis, or cardiac disease, ACR guidelines suggest further management decisions to be based on clinical protocol. Otherwise, follow-up chest CT at 3-6 months and/or PET-CT could be considered as further diagnostic workup. (Reference: Epifanio) REFERENCES: Epifanio RF, Johnny BW, Maye C, Lucy H, Kristopher WC, Juan CIRA, Liset HP, Maddi SE, Malou AN, Dona PM, Diego MS, Lion K, Meagan DS, Adrian TE, EM, Yanelis DP, Phillip EA, Himanshu LL, Terri PV. Managing Incidental Findings on Thoracic CT: Mediastinal and Cardiovascular Findings. A White Paper of the ACR Incidental Findings Committee. J Am Amber Radiol. 2018 Nov;15(8):5307-5785. doi: 10.1016/j.jacr.2018.04.029. Epub 2017Sep 30. PMID: [id number].
--- NOTE | 2022-04-07 20:32 | EXP.HP ---
History of Present Illness *Admission Date: 04/07/22 *Reason for visit:: Shortness of air *History of present illness: Ms. Escalona is a 62-year-old female with a past medical history that is positive for COPD, home oxygen dependent at 6L nasal cannula, chronic tobacco use, Pulmonary HTN, CAD, h/o SVT s/p Ablation, DM. She presented to [facility] via EMS due to progressive shortness of air and weakness over a reported 2 week period, but particulary worse over the last couple of days. Per discussion with the patient and chart review the patient was recently discharged from [facility] around 6 weeks ago due to a similar presentation. She was being treated per patient report for COPD exacerbation and CHF exacerbation. She reports that she received antibiotics, had increases in her diuretic therapy and was discharged to home. She reports that she took the medications as prescribed, but did not weigh as instructed daily or monitor her intake. She reports that she progressed to feel weak and became extremely short of air so she called 911 today. She denies any known fevers or myalgias, but does report a non-productive cough. In the Field despite 6L nasal cannula the patient was noted to have oxygen saturations in the 70's. She was given a duoneb by EMS and placed on a non-rebreather. Upon arrival to the ER, ABG showed a pH of 7.37 and PO2 of 51.7 with SpO2 of 84% taken on 100% non-rebreather. Cxray showed worsening alveolar opacities favoring edema over bilateral pneumonia. Procalcitonin was within normal range at 0.100, however Lactic Acid was elevated at 4.9. The patient was given Rocephin, Lasix and Admitted with initial impression of Acute on Chronic Hypoxic Respiratory Failure. At time of exam the patient is currently on a BIPAP with improvement of symptoms, she has a gan in place with approximately 2liters in the gan bag. An echo in the system from an outside facility shows a severely dilated right ventricle with RVSP at >70 mm. She is on Viagra for her Pulmonary HTN. [facility] Disclaimer: The information contained in this section may have been updated after the patient was seen, as this information can be updated by other users. Medical History Acute and chronic respiratory failure with hypoxia Acute on chronic diastolic (congestive) heart failure Anemia CAD (coronary artery disease) CHF (congestive heart failure) CKD (chronic kidney disease) COPD (chronic obstructive pulmonary disease) COPD (chronic obstructive pulmonary disease) Diabetes Family history of coronary artery disease Family history of hypertension Generalized weakness GERD (gastroesophageal reflux disease) History of paroxysmal supraventricular tachycardia Hyperlipidemia Marijuana use Pulmonary hypertension Respiratory failure with hypoxia Severe pulmonary hypertension Shortness of Breath Sleep apnea Tobacco abuse Tobacco use Surgical History History of cardiac cath History of cardiac radiofrequency ablation (RFA) History of esophagogastroduodenoscopy (EGD) History of percutaneous coronary intervention Family History Other Coronary artery disease Hypertension Social History (Updated 04/08/22 @ 01:37 by Monika Hartley RN) Smoking Status: Current every day smoker tobacco type: cigarettes packs per day: 1 quit status: considering quitting second hand exposure: No alcohol intake: never counseling provided: none substance use type: marijuana current occupational status: disabled Travel in the last 8 weeks: None household members: significant other housing: house lives independently: No (boyfriend ) marital status: single number of children: 1 current occupational exposures/hazards: No diet: diabetic caffeine: No physical activity: none special jose luis needs: No agree to trans
--- NOTE | 2022-04-07 21:35 | PC.NURSE ---
pt received via stretcher from emergency room accompanied by pct and rt, pt transported on non rebreather and placed on bipap upon arrival to room 263, pt in satis condition, no acute distress noted.
--- NOTE | 2022-04-07 21:40 | HMH.PHAINT ---
2141 pharmacy nightwatch toy called for vancomycin dosing, stated to give 2gm first dose then 1.5gm q 24hours after repeated and verified, also clarified pt allergy to pcn with cefepime ordered, toy stated should be ok to give repeated and verified.
[2022-04-07 23:19] LABS: Reflex Lactic Add Lactic Reflex
[2022-04-08] VITALS (14 sets, daily range): BP systolic 119–146; BP diastolic 72–90; PULSE 75–94; RESP 15–22; TEMP 36.6–37.4; O2SAT 84–97
[2022-04-08 00:45] LABS: POC Glucose,Bedside 146 (70-110)
--- NOTE | 2022-04-08 05:14 | PC.NURSE ---
pt admitted this shift, pt remains on bipap through the night with 02 sats 88-90%, pt drops to 84% and lower when bipap taken off, f/c to bsd with vidhi clear urine noted, lung sounds diminished, vss, telemetry reveals nsr with 1st degree avb, pt is alert and oriented x4, no acute distress.
[2022-04-08 06:15] LABS: POC Glucose,Bedside 149 (70-110)
[2022-04-08 06:18] LABS: Chloride 102 mmol/L (98-107); Potassium 3.8 mmoL/L (3.5-5.1); Sodium 142 mmol/L (136-145)
[2022-04-08 06:21] LABS: Alanine Aminotransferase 19 U/L (12-78); Albumin/Globulin Ratio 1.5 (1.1-1.8); Alkaline Phosphatase 100 U/L (38-126); Anion Gap 15.8 mEq/L (5-15); Aspartate Amino Transferase 25 U/L (14-36); Bilirubin,Total 0.6 mg/dl (0.2-1.3); Blood Urea Nitrogen 26 mg/dl (7-17); Calcium 8.6 mg/dl (8.4-10.2); Carbon Dioxide 28 mmol/L (22.0-30.0); Creatinine Clearance Estimated 70 mL/min (50-200); Estimated Glomerular Filt Rate 42 ml/min (>60); GFR (African American) 50 ML/MIN (>60); Globulin 2.6 g/dL (1.3-3.2); Glucose 143 mg/dl (74-100); Magnesium 1.2 mg/dl (1.6-2.3); Total Protein,Serum 6.6 g/dl (6.3-8.2)
[2022-04-08 06:24] LABS: Basophils % 0.4 % (0.1-2.0); Eosinophils % 0.1 % (0.1-12.0); Hematocrit 30.8 % (37.0-47.0); Hemoglobin 9.7 g/dL (12.2-16.2); Lymphocytes # 0.8 K/mm3 (0.7-4.5); Lymphocytes % 8.5 % (10-50); Mean Corpuscular HGB Conc 31.7 g/dL (31.8-35.4); Mean Corpuscular Hemoglobin 27.5 pg (27.0-31.2); Mean Corpuscular Volume 86.9 fl (81-99); Mean Platelet Volume 9.5 fl (7.4-10.4); Monocytes # 0.5 K/mm3 (0.1-1.0); Monocytes % 4.6 % (1.7-9.3); Neutrophils # 8.5 K/mm3 (1.8-7.8); Neutrophils % 86.4 % (37.0-80.0); Platelet Count 322 K/mm3 (142-424); Red Blood Count 3.54 M/mm3 (4.20-5.40); Red Cell Distribution Width 19.1 % (11.5-17.5); White Blood Count 9.8 K/mm3 (4.8-10.8)
[2022-04-08 06:29] LABS: MANUAL DIFFERENTIAL MANUAL DIFFERENTIAL (MANUAL DIFF)
--- NOTE | 2022-04-08 06:30 | XR_ITS ---
PROCEDURE INFORMATION: Exam: XR Chest Exam date and time: 04/08/2022 4:58 AM Age: 62 years old Clinical indication: Dyspnea; Additional info: Dyspnea, evaluate pulmonary edema TECHNIQUE: Imaging protocol: Radiologic exam of the chest. Views: 1 view. COMPARISON: CT CHEST WO CON 04/07/2022 8:44 PM FINDINGS: Lungs: Persistent pulmonary vascular congestion with diffuse interstitial prominence similar in appearance to the prior exam. No acute appearing consolidation. Pleural spaces: No pleural effusion. No pneumothorax. Heart/Mediastinum: Mild cardiomegaly. Bones/joints: No acute findings. IMPRESSION: 1. Persistent pulmonary vascular congestion and diffuse interstitial prominence/edema similar to the prior exam. 2. Mild Cardiomegaly.
[2022-04-08 06:35] LABS: ABG Base Excess 2.6 mmol/L (-2.4-2.3); ABG HCO3 26.6 mmhg (22.0-26.0); ABG Oxygen Saturation 89 % (90-100); ABG PCO2 39.3 mmhg (35.0-45.0); ABG PH 7.45 mmol/L (7.35-7.45); ABG PO2 56.1 mmhg (80-100); ABG TCO2 27.8 mmhg (23-27)
[2022-04-08 06:36] LABS: Oxygen 40 %
[2022-04-08 06:37] LABS: Allen's Test Patient Unable; Source Left Radial; Vent Rate 20
--- NOTE | 2022-04-08 07:00 | PC.NURSE ---
abg results called to jack laurent per rt
--- NOTE | 2022-04-08 07:05 | PC.NURSE ---
pt placed on 6L pnc of 02 at this time per RT.
[2022-04-08 07:10] LABS: Anisocytosis 1+; Hypochromasia 1+; Lymphocytes % 5 % (10-50); Monocytes % 4 % (2-9); Neutrophils % 91 % (42-76); Ovalocytes 1+; Platelet Estimate Normal; Total Cells Counted 100
--- NOTE | 2022-04-08 09:02 | CA_ITS ---
APPROVED REPORT EXAM: Comprehensive 2D, Doppler, and color-flow Echocardiogram Data Solutions Architect: Anh Light RVT Ht: 5 ft 8 in Wt: 215lbs BSA: 2.11 BP: 133/78 mmHg Indications: SOA,COPD,PHTN,PAM,CAD,CO,SMOKER,DM,CHF,HYPOXIA 2D Dimensions LVOT 1.89 cm (M/F) 1.5-2.5 M-Mode Dimensions RVDd 4.62 cm (0.9-2.6) LA Diam 3.25 cm (1.9-4.0) LVDd 2.21 cm (3.5-5.7) Ao Diam 2.70 cm (2.0-3.7) LVDs 1.17 cm (3.5-5.7) IVSd 1.61 cm (0.6-1.1) PWd 0.88 cm (0.6-1.1) EF (Teich) 81.10% FS 47.10% EDV (Teich) 16.40 mL TAPSE 1.32 (<1.7) ESV (Teich) 3.10 mL LV Diastology E Decel Time 150.00 (160-240 msec) E/A Ratio 0.5 MED E' 6.00 (< 7 cm/sec) E'/MED E' Ratio 8.85 (>14) LAT E' 6.40 (<10 cm/sec) E/LAT E' Ratio 8.30 (>14) Aortic Valve AO Peak GR. 3.20 mmHg Mitral Valve MV E Max Deni. 53.00 (40-130 cm/s) MV A Velocity 99.00 (40-130 cm/s) E/A Ratio 0.54 MV Decel. Time 150.00 (160-240 ms) MV PHT 44.00 ms Pulmonary Valve PV Peak Velocity 63.00 (50-150 cm/s) Tricuspid Valve TR P. Velocity 424.00 cm/s RAP Estimate 15.00 mmHg RVSP 86.70 mmHg Left Ventricle Left atrium is mildly enlarged, left ventricle is normal size mild concentric left ventricular hypertrophy, estimated ejection fraction 55% with no regional wall motion abnormality, there is flattening of the interventricular septum during systole and diastole consistent with pressure and volume overload in right ventricle. Right Ventricle Right atrium and right ventricle markedly enlarged, contractility of the right ventricle is moderately to severely reduced. Aortic Valve Aortic valve is minimally thickened and fibrosed there is no aortic stenosis or aortic insufficiency. Mitral Valve Mitral valve grossly normal, there is mild mitral regurgitation. Tricuspid Valve Tricuspid valve is grossly normal, there is mild to moderate tricuspid regurgitation, calculated right ventricular systolic pressure is 87 mmHg. Pulmonic Valve Pulmonic valve is poorly visualized. Great Vessels Aortic root is normal size. Inferior vena cava is dilated with less than 50% inspiratory collapse. Pericardium No significant pericardial effusion noted. Conclusion 1. Biatrial enlargement, normal left ventricular size, mild concentric left ventricular hypertrophy, estimated ejection fraction 55% with no regional wall motion abnormality, there is flattening of the intraventricular septum during systole and diastole consistent with pressure and volume overload in right ventricle. Grade 1 diastolic dysfunction seen without tissue Doppler evidence of raise left atrial pressure. 2. Markedly enlarged right ventricle with moderate to severe reduction in right ventricular systolic function. 3. Mild mitral and moderate tricuspid regurgitation, calculated right ventricular is 87 mmHg. 4. Inferior vena cava is dilated with less than 50% inspiratory collapse. 5. No significant pericardial effusion noted. Electronically signed by : Lake Flores MD 04/09/2022 10:33:56
--- NOTE | 2022-04-08 09:34 | EXP.CARD.CON ---
History of Present Illness History of Present Illness Consult date: 04/08/22 Requesting physician: Alex Choe Consult reason: shortness of breath Chief complaint: soa History of present illness: This is a 62-year-old white female who presented to the emergency department with shortness of breath. The patient reports that she has been feeling short of breath for the last several weeks but over the last 2 weeks it got particularly bad. She states over the last few days it significantly worsened. She states that she is short of breath all the time even at rest. It is worse with exertion. Her shortness of breath improves with rest but does not completely resolve. It is associated with edema in the bilateral lower extremities as well as PND and orthopnea. She denies any chest pain or pressure. She denies any fever, chills, nausea, vomiting, diarrhea. The patient states that she does have a nonproductive cough associated with the shortness of breath as well. The patient states that she called EMS because her shortness of breath got so bad. She states that she has not been weighing herself daily but she has been taking all of her medications. She did not go to her appointment with Dr. 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 When EMS arrived at her home the patient was on 6 L/min of oxygen via nasal cannula and her oxygen saturations were in the 70s. The patient was given duo nebs and placed on a nonrebreather. When she got to the emergency department ABG showed a pH of 7.37 and a PO2 of 51.7. She was then later placed on a BiPAP and this morning she is back on a nonrebreather maintaining her oxygen saturations. The patient has a history of nonocclusive coronary artery disease, severe pulmonary hypertension, SVT with a history of radiofrequency ablation and chronic tobacco use. The patient states that she was admitted to [facility] approximately 6 weeks ago and had her diuretics adjusted and did feel better initially but her symptoms began to worsen again. [facility] Disclaimer: The information contained in this section may have been updated after the patient was seen, as this information can be updated by other users. Medical History Acute on chronic diastolic (congestive) heart failure Anemia CAD (coronary artery disease) CHF (congestive heart failure) CKD (chronic kidney disease) COPD (chronic obstructive pulmonary disease) COPD (chronic obstructive pulmonary disease) Diabetes Family history of coronary artery disease Family history of hypertension Generalized weakness GERD (gastroesophageal reflux disease) History of paroxysmal supraventricular tachycardia Hyperlipidemia Marijuana use Pulmonary hypertension Respiratory failure with hypoxia Severe pulmonary hypertension Shortness of Breath Sleep apnea Tobacco abuse Tobacco use Surgical History History of cardiac cath History of cardiac radiofrequency ablation (RFA) History of esophagogastroduodenoscopy (EGD) History of percutaneous coronary intervention Family History Other Coronary artery disease Hypertension Social History (Updated 04/08/22 @ 01:37 by Monika Hartley, BROOKE) Smoking Status: Current every day smoker tobacco type: cigarettes packs per day: 1 quit status: considering quitting second hand exposure: No alcohol intake: never counseling provided: none substance use type: marijuana current occupational status: disabled Travel in the last 8 weeks: None household members: significant other housing: house lives independently: No (boyfriend ) marital status: single number of children: 1 current occupational exposures/hazards: No diet: diabetic caffeine: No physical activity: none special joes luis needs: No agree to transfusion: No do you feel s
[2022-04-08 10:51] LABS: POC Glucose,Bedside 244 (70-110)
--- NOTE | 2022-04-08 11:37 | CT_ITS ---
FINAL REPORT TECHNIQUE: Thin section axial CT images were obtained from the lung apices to the upper abdomen. IV contrast was administered. MIP 3-D reformats were obtained. This study was performed with techniques to keep radiation doses as low as reasonably achievable (ALARA). Individualized dose reduction techniques using automated exposure control or adjustment of mA and/or kV according to the patient's size were employed. CLINICAL HISTORY: elevated d-dimer/soa FINDINGS: The heart size is normal. There is mediastinal and bilateral hilar adenopathy that is nonspecific. There is no filling defect to suggest PE. There is no aortic dissection. There is no pericardial effusion. There are mild changes of emphysema. There is mild bibasilar atelectasis. There is a small right pleural effusion. Limited images of the upper abdomen demonstrate a small amount of ascites. IMPRESSION: No pulmonary embolism or aortic dissection. Nonspecific mediastinal and bilateral hilar adenopathy could be reactive or neoplastic. Mild bibasilar atelectasis with a small right pleural effusion. Reviewed, Interpreted and Dictated by aCrmine Magaña III, MD Transcribed by Anatoliy Guthrie Authenticated and [facility]
--- NOTE | 2022-04-08 11:52 | EXP.ACUTE.PN ---
Subjective *Date: 04/08/22 *Time: 20:37 Interval history: Transitioned to Vapotherm this morning. Tolerating 60%. Denies any chest pain. Tolerating p.o. intake. Feeling a little bit better since starting diuresis. Denies any confusion. Having good output with diuresis. Noted to have worsening swelling over the past month per her report. Medical Exam Vital signs and Labs for Last 24 Hours: Vital Signs Temp Pulse Pulse Resp BP BP Pulse Ox 04/08/22 11:39 98.2 F 79 22 126/81 92 L 04/08/22 09:43 84 20 04/08/22 08:00 96 04/08/22 08:00 97.9 F 82 20 128/72 96 04/08/22 08:00 96 04/08/22 08:00 79 04/08/22 06:25 04/08/22 04:00 85 04/08/22 04:00 98.5 F 86 20 119/83 92 L 04/07/22 21:48 90 04/08/22 00:00 90 04/08/22 01:26 04/08/22 00:00 90 L 04/07/22 22:00 91 L 04/08/22 00:00 99.4 F 94 H 20 127/73 96 04/07/22 21:35 98.0 F 93 H 24 121/68 91 L 04/07/22 21:25 94 L 04/07/22 21:25 04/07/22 20:26 97.5 F L 94 H 25 H 133/78 04/07/22 20:00 94 H 26 H 133/78 94 L 04/07/22 19:30 88 24 124/73 93 L 04/07/22 19:00 92 H 24 124/78 93 L 04/07/22 18:30 92 H 20 109/73 L 93 L 04/07/22 18:00 89 23 126/71 94 L 04/07/22 17:30 93 H 25 H 120/71 92 L 04/07/22 17:00 90 20 126/76 94 L 04/07/22 16:30 93 H 24 134/74 95 04/07/22 15:30 04/07/22 16:37 04/07/22 15:00 91 H 27 H 131/63 92 L 04/07/22 14:32 97.5 F L 93 H 30 H 129/65 84 L FiO2 04/08/22 11:39 50 04/08/22 09:43 04/08/22 08:00 04/08/22 08:00 50 04/08/22 08:00 04/08/22 08:00 04/08/22 06:25 40 04/08/22 04:00 04/08/22 04:00 04/07/22 21:48 04/08/22 00:00 04/08/22 01:26 40 04/08/22 00:00 04/07/22 22:00 04/08/22 00:00 04/07/22 21:35 04/07/22 21:25 40 04/07/22 21:25 40 04/07/22 20:26 04/07/22 20:00 04/07/22 19:30 04/07/22 19:00 04/07/22 18:30 04/07/22 18:00 04/07/22 17:30 04/07/22 17:00 04/07/22 16:30 04/07/22 15:30 40 04/07/22 16:37 40 04/07/22 15:00 04/07/22 14:32 Intake and Output 04/07/22 04/08/22 04/08/22 23:59 07:59 15:59 Intake Total 400 / 880 480 / 880 Output Total 0 / 0 850 / 850 Balance 0 / 0 -450 / 30 480 / 30 Intake: Intake, Oral Amount 480 / 480 Intake, Total IV Amount 400 / 400 Aztreonam 2 gm In 0.9 % Sodium 100 / 100 Chloride 100 ml @ 100 mls/hr IV Q8H [facility] Rx#:[id number] Cefepime HCl 1 gm In 0.9 % 50 / 50 Sodium Chloride 50 ml @ 100 mls /hr IV Q12H [facility] Rx#:[id number] Vancomycin HCl 2,000 mg In 0.9 250 / 250 % Sodium Chloride 250 ml @ 125 mls/hr IV ONCE ONE Rx#:[id number] Output: Output, Urine Amount 0 / 0 850 / 850 Other: Number of Unmeasured Voids 0 0 0 Laboratory Results - last 24 hr 04/07/22 14:34: Specimen Source Right radial, O2 % 100% nrb, ABG pH 7.37, ABG pCO2 37.7, ABG pO2 51.7 L, ABG HCO3 21.1 L, ABG Total CO2 22.2 L, ABG O2 Saturation 84 L*, ABG Base Excess -4.3 L, Enrique Test Acceptable 04/07/22 14:38: SARS-CoV-2 (PCR) Not detected, Influenza A Untype (PCR) Not detected, Influenza Type B (PCR) Not detected 04/07/22 14:38: Chlamy pneumoniae PCR Not detected, Adenovirus (PCR) Not detected, B. pertussis DNA (PCR) Not detected, Coronavirus OC43 (PCR) Not detected, Coronavirus HKU1 (PCR) Not detected, Coronavirus 229E (PCR) Not detected, SARS-CoV-2 (PCR) Not detected, Coronavirus NL63 (PCR) Not detected, Human Metapneumovir PCR Not detected, Influenza A (H1) PCR Not detected, Influ A (H1N1/09) PCR Not detected, Influenza A (H3) PCR Not detected, Influenza Type A (PCR) Not detected, Influenza Type B (PCR) Not detected, M. pneumoniae (PCR) Not detected, Parainfluenza 1 (PCR) Not detected, Parainfluenza 2 (PCR) Not detected, Parainfluenza 3 (PCR) Not detected, Parainfluenza 4 (PCR) Not detected,
--- NOTE | 2022-04-08 12:57 | EXP.PULM.CON ---
History of Present Illness History of present illness: Ms. perkins 62-year-old female with reported history of COPD, > 30 pack years, current smoker, Chronic hypoxic resp failure, Pulmonary HTN presented to the hospital with progressive worsening Shortness of breath and pulmonary was called for further evaluation [facility] Disclaimer: The information contained in this section may have been updated after the patient was seen, as this information can be updated by other users. Medical History Acute and chronic respiratory failure with hypoxia Acute on chronic diastolic (congestive) heart failure Anemia CAD (coronary artery disease) CHF (congestive heart failure) CKD (chronic kidney disease) COPD (chronic obstructive pulmonary disease) COPD (chronic obstructive pulmonary disease) Diabetes Family history of coronary artery disease Family history of hypertension Generalized weakness GERD (gastroesophageal reflux disease) History of paroxysmal supraventricular tachycardia Hyperlipidemia Marijuana use Pulmonary hypertension Respiratory failure with hypoxia Severe pulmonary hypertension Shortness of Breath Sleep apnea Tobacco abuse Tobacco use Surgical History History of cardiac cath History of cardiac radiofrequency ablation (RFA) History of esophagogastroduodenoscopy (EGD) History of percutaneous coronary intervention Family History Other Coronary artery disease Hypertension Social History (Updated 04/08/22 @ 01:37 by Monika Hartley RN) Smoking Status: Current every day smoker tobacco type: cigarettes packs per day: 1 quit status: considering quitting second hand exposure: No alcohol intake: never counseling provided: none substance use type: marijuana current occupational status: disabled Travel in the last 8 weeks: None household members: significant other housing: house lives independently: No (boyfriend ) marital status: single number of children: 1 current occupational exposures/hazards: No diet: diabetic caffeine: No physical activity: none special jose luis needs: No agree to transfusion: No do you feel safe at home: Yes victim of physical abuse: No victim of emotional abuse: No victim of sexual abuse: No Review of Systems Constitutional Constitutional: Reports fatigue and Reports weakness Eyes Eyes: Denies eye discharge, Denies dry eyes, Denies irritation and Denies itchy eyes ENT Ears, Nose, Mouth, and Throat: Denies epistaxis, Denies facial pain, Denies lip swelling and Denies throat swelling *Cardiovascular Cardiovascular: Reports dyspnea, Reports dyspnea on exertion and Reports orthopnea *Respiratory Respiratory: Reports chest congestion, Reports cough, Reports dyspnea, Reports dyspnea on exertion, Reports excessive phlegm production and Reports wheezing *Gastrointestinal Gastrointestinal: Denies abdominal pain, Denies belching and Denies cramping *Musculoskeletal Musculoskeletal: Reports back pain, Reports myalgias and Reports other (No small joint swelling or Pain) *Neurologic Neurologic: Reports system reviewed and no additional complaints, except as documented and Reports weakness Psychiatric Psychiatric: Denies homicidal ideation and Denies suicidal ideation Endocrine Endocrine: Reports fatigue and Denies heat intolerance Hematologic/Lymphatic Hematologic/Lymphatic: Denies easy bleeding and Denies lymphadenopathy Allergic/Immunologic Allergic/Immunologic: Denies itchy eyes, Denies lip swelling, Denies throat swelling and Reports wheezing Pulmonology Exam Inpatient Vital signs and Labs for Last 24 Hours: Temp Pulse Resp BP Pulse Ox FiO2 98.2 F 82 22 126/81 92 L 50 04/08/22 11:39 04/08/22 12:00 04/08/22 11:39 04/08/22 11:39 04/08/22 11:39 04/08/22 11:39 Laboratory Results - last 24 hr 04/07/22 14:34: Specimen So
--- NOTE | 2022-04-08 15:02 | PC.NURSE ---
PT IS RESTING IN BED. O2 SATURATION HAS MAINTAINED 93-96% ON 50 % VENTI MASK ALL THE WAY UP TILL 1400 THIS AFTERNOON. O2 SATURATION WAS MAINTAINING 85-88% WHILE SLEEPING. NOTIFIED AND HE ORDERED VAPOTHERM AT 70% FIO2. O2 SATURATION IS MAINTAINING 92-96% ON 30 L 70% FIO2. LUNG SOUNDS DIMINISHED WITH BILATERAL CRACKLES (BASES). ABDOMEN SOFT/NON TENDER/OBESE. BLE EDEMA NOTED. WILL CONTINUE TO MONITOR.
[2022-04-08 16:10] LABS: POC Glucose,Bedside 220 (70-110)
--- NOTE | 2022-04-08 16:33 | HMH.PHAINT1 ---
Pharmacy Intervention Comments: MEDICATION RECONCILIATION COMPLETED ON PATIENT USING EXTERNAL FILL HISTORY FROM PHARMACY. -PAM COHEN, PETERD
[2022-04-08 20:25] LABS: Chloride 90 mmol/L (98-107); Potassium 3.5 mmoL/L (3.5-5.1); Sodium 136 mmol/L (136-145)
[2022-04-08 20:28] LABS: Anion Gap 17.5 mEq/L (5-15); Blood Urea Nitrogen 32 mg/dl (7-17); Calcium 9.2 mg/dl (8.4-10.2); Carbon Dioxide 32 mmol/L (22.0-30.0); Creatinine Clearance Estimated 65 mL/min (50-200); Estimated Glomerular Filt Rate 38 ml/min (>60); GFR (African American) 46 ML/MIN (>60); Glucose 199 mg/dl (74-100)
[2022-04-08 22:11] LABS: POC Glucose,Bedside 189 (70-110)
[2022-04-09] VITALS (13 sets, daily range): BP systolic 83–132; BP diastolic 45–75; PULSE 78–90; RESP 18–20; TEMP 36.6–37; O2SAT 89–97; BMI 32.5; BMI 32.3
[2022-04-09 06:01] LABS: POC Glucose,Bedside 121 (70-110)
--- NOTE | 2022-04-09 06:07 | PC.NURSE ---
Addendum entered by Monika Hartley RN 04/09/22 06:30: note when pt removes vapotherm sats drop to 69-75% Addendum entered by Monika Hartley RN 04/09/22 06:16: jack laurent aprn was notified of pt uop this shift with no new orders noted, telemetry reveals nsr with 1st degree avb. Original Note: pt with bumex drip infusing at 10ml/hr with 5050 uop this shift, pt is alert and oriented x4, vss, pt with bilateral lung sounds clear and diminished, vapotherm at 30/60 with sats 92%, f/c to bsd with cyu noted, no acute distress.
[2022-04-09 06:26] LABS: Chloride 85 mmol/L (98-107); Sodium 137 mmol/L (136-145)
[2022-04-09 06:29] LABS: Blood Urea Nitrogen 32 mg/dl (7-17); Creatinine Clearance Estimated 65 mL/min (50-200); Estimated Glomerular Filt Rate 38 ml/min (>60); GFR (African American) 46 ML/MIN (>60)
[2022-04-09 06:30] LABS: Calcium 9.4 mg/dl (8.4-10.2); Glucose 112 mg/dl (74-100)
[2022-04-09 06:33] LABS: Basophils # 0.1 K/mm3 (0-0.2); Basophils % 0.9 % (0.1-2.0); Eosinophils # 0.2 K/mm3 (0.0-0.4); Eosinophils % 1.6 % (0.1-12.0); Hematocrit 34.8 % (37.0-47.0); Hemoglobin 10.8 g/dL (12.2-16.2); Lymphocytes # 1.7 K/mm3 (0.7-4.5); Lymphocytes % 15.3 % (10-50); Mean Corpuscular HGB Conc 31.1 g/dL (31.8-35.4); Mean Corpuscular Hemoglobin 26.6 pg (27.0-31.2); Mean Corpuscular Volume 85.3 fl (81-99); Mean Platelet Volume 9.1 fl (7.4-10.4); Monocytes # 0.9 K/mm3 (0.1-1.0); Monocytes % 7.4 % (1.7-9.3); Neutrophils # 8.5 K/mm3 (1.8-7.8); Neutrophils % 74.7 % (37.0-80.0); Platelet Count 364 K/mm3 (142-424); Red Blood Count 4.08 M/mm3 (4.20-5.40); White Blood Count 11.4 K/mm3 (4.8-10.8)
[2022-04-09 06:36] LABS: Carbon Dioxide 37 mmol/L (22.0-30.0)
--- NOTE | 2022-04-09 09:39 | EXP.PULM.PN ---
Subjective *Date: 04/09/22 *Time: 12:38 Interval history: No acute respiratory events overnight. Patient admits continued improvement in her respiratory symptoms. Pulmonology Exam Inpatient Vital signs and Labs for Last 24 Hours: Temp Pulse Resp BP Pulse Ox FiO2 98.2 F 90 20 132/75 90 L 60 04/09/22 03:34 04/09/22 08:00 04/09/22 08:00 04/09/22 08:00 04/09/22 08:00 04/09/22 08:00 Laboratory Results - last 24 hr 04/08/22 09:42: D-Dimer 1.30 H 04/08/22 10:31: POC Glucose 244 H 04/08/22 15:57: POC Glucose 220 H 04/08/22 19:47: Sodium 136, Potassium 3.5, Chloride 90 L, Carbon Dioxide 32 H, Anion Gap 17.5 H, BUN 32 H, Creatinine 1.40 H, Estimated Creat Clear 65, Estimated GFR 38 L, Est GFR ( Amer) 46 L, Glucose 199 H D, Calcium 9.2 04/08/22 20:29: POC Glucose 189 H 04/09/22 05:47: WBC 11.4 H, RBC 4.08 L, Hgb 10.8 L, Hct 34.8 L, MCV 85.3, MCH 26.6 L, MCHC 31.1 L, RDW 19.0 H, Plt Count 364, MPV 9.1, Neut % (Auto) 74.7, Lymph % (Auto) 15.3, [place] % (Auto) 7.4, Eos % (Auto) 1.6, Baso % (Auto) 0.9, Neut # (Auto) 8.5 H, Lymph # (Auto) 1.7, [place] # (Auto) 0.9, Eos # (Auto) 0.2, Baso # (Auto) 0.1 04/09/22 05:47: Sodium 137, Potassium 3.0 L, Chloride 85 L, Carbon Dioxide 37 H, Anion Gap 18.0 H, BUN 32 H, Creatinine 1.40 H, Estimated Creat Clear 65, Estimated GFR 38 L, Est GFR ( Amer) 46 L, Glucose 112 H D, Calcium 9.4 04/09/22 05:49: POC Glucose 121 H I & O for Labs for Last 24 Hours: Intake & Output 04/06/22 04/07/22 04/08/22 04/09/22 23:59 23:59 23:59 23:59 Intake Total 1475 / 1475 115 / 115 Output Total 0 / 0 8150 / 8150 2450 / 2450 Balance 0 / 0 -6675 / -6675 -2335 / -2335 Weight 215 lb 215 lb 3 oz Microbiology Reports for the Last 24 Hours: Microbiology 04/07/22 17:00 Sputum - Expectorated Sputum Gram Stain - Final Constitutional: Present moderate distress Head: Present normocephalic and atraumatic ENT: Present normal exam and mucous membranes moist Neck: Present normal inspection and full ROM Respiratory: Present respiratory distress, wheezes, crackles and diminished air movement; Absent able to speak in complete sentences Cardiac: Present S1/S2, Tachycardia and radial pulses present GI: Present soft and distention; Absent tenderness or guarding Rectal (female): Present deferred (female): Present deferred Skin: Present intact; Absent cyanosis or jaundice Neuro: Present alert, awake and oriented x 3 Extremities: Present normal inspection; Absent clubbing or cyanosis Psychiatric: Present normal affect and cooperative Assessment and Plan *Assessment and plan (1) Severe pulmonary hypertension: Status: Acute Category: Medical Code(s): I27.20 - Pulmonary hypertension, unspecified (2) Shortness of Breath: Status: Acute Category: Medical Code(s): R06.02 - Shortness of breath (3) Acute and chronic respiratory failure with hypoxia: Status: Acute Category: Medical Code(s): J96.21 - Acute and chronic respiratory failure with hypoxia (4) COPD exacerbation: Status: Acute Category: Medical Code(s): J44.1 - Chronic obstructive pulmonary disease with (acute) exacerbation Plan 62-year-old female with reported history of COPD, Chronic hypoxic resp failure, Pulmonary HTN presented to the hospital with progressive worsening Shortness of breath CT chest from this admission Severe, pulmonary, negative diffuse bilateral upper lobe centrilobular emphysematous changes along with volume overload. Also concerning for subpleural interstitial changes. Spirometry from 2019, moderate COPD and Decreased FVC. No lung volumes available for review. Echocardiography from January 2022, concerned for severe Pul HTN with RVSP at 101 mm Hg and septal flattening. Patient with hypoxic respiratory failure likely combination of volume overload, COPD, pulmonary hypertension II and III. Possibility of concomitant group I P-HTN and ILD cannot e ruled out, s
[2022-04-09 10:37] LABS: POC Glucose,Bedside 151 (70-110)
--- NOTE | 2022-04-09 12:55 | EXP.CARD.PN ---
Subjective Subjective Date: 04/09/22 Time: 10:30 Principal diagnosis: diastolic dyfunction/CHF, pulmonary htn Interval history: This is a 62-year-old white female presented to the emergency department complaints of shortness of breath. The patient was diuresed overnight with a Bumex drip. The patient has a -9 L fluid balance overnight. Her creatinine remained the same at 1.4 today. She states that her shortness of breath has improved since being diuresed. She denies any chest pain or pressure. She still has some orthopnea associated with her shortness of breath. She still has lower extremity edema but this is also improved. She denies any fever, chills, nausea, vomiting, diarrhea, PND or orthopnea. The patient is still on a Vapotherm mask at 60%. Exam Data for Last 24 hours Vital signs and Labs for Last 24 Hours: Temp Pulse Resp BP Pulse Ox FiO2 98.1 F 84 20 95/54 L 89 L 45 04/09/22 11:24 04/09/22 11:55 04/09/22 11:24 04/09/22 11:24 04/09/22 11:24 04/09/22 11:24 Laboratory Results - last 24 hr 04/08/22 15:57: POC Glucose 220 H 04/08/22 19:47: Sodium 136, Potassium 3.5, Chloride 90 L, Carbon Dioxide 32 H, Anion Gap 17.5 H, BUN 32 H, Creatinine 1.40 H, Estimated Creat Clear 65, Estimated GFR 38 L, Est GFR ( Amer) 46 L, Glucose 199 H D, Calcium 9.2 04/08/22 20:29: POC Glucose 189 H 04/09/22 05:47: WBC 11.4 H, RBC 4.08 L, Hgb 10.8 L, Hct 34.8 L, MCV 85.3, MCH 26.6 L, MCHC 31.1 L, RDW 19.0 H, Plt Count 364, MPV 9.1, Neut % (Auto) 74.7, Lymph % (Auto) 15.3, [place] % (Auto) 7.4, Eos % (Auto) 1.6, Baso % (Auto) 0.9, Neut # (Auto) 8.5 H, Lymph # (Auto) 1.7, [place] # (Auto) 0.9, Eos # (Auto) 0.2, Baso # (Auto) 0.1 04/09/22 05:47: Sodium 137, Potassium 3.0 L, Chloride 85 L, Carbon Dioxide 37 H, Anion Gap 18.0 H, BUN 32 H, Creatinine 1.40 H, Estimated Creat Clear 65, Estimated GFR 38 L, Est GFR ( Amer) 46 L, Glucose 112 H D, Calcium 9.4 04/09/22 05:49: POC Glucose 121 H 04/09/22 10:30: POC Glucose 151 H I & O for Last 24 hours: Intake & Output 04/06/22 04/07/22 04/08/22 04/09/22 23:59 23:59 23:59 23:59 Intake Total 1475 / 1475 358.833 / 358.833 Output Total 0 / 0 8150 / 8150 3400 / 3400 Balance 0 / 0 -6675 / -6675 -3041.167 / -3041.167 Weight 215 lb 215 lb 3 oz Microbiology Reports for the Last 24 Hours: Microbiology 04/07/22 17:00 Sputum - Expectorated Sputum Gram Stain - Final Narrative: Echocardiogram shows: 1.? Biatrial enlargement, normal left ventricular size, mild concentric left ventricular hypertrophy, estimated ejection fraction 55% with no regional wall motion abnormality, there is flattening of the intraventricular septum during systole and diastole consistent with pressure and volume overload in right ventricle.? Grade 1 diastolic dysfunction seen without tissue Doppler evidence of raise left atrial pressure. 2.? Markedly enlarged right ventricle with moderate to severe reduction in right ventricular systolic function. 3.? Mild mitral and moderate tricuspid regurgitation, calculated right ventricular is 87 mmHg. 4.? Inferior vena cava is dilated with less than 50% inspiratory collapse. 5.? No significant pericardial effusion noted. Constitutional Constitutional: no acute distress and obese *Routine HEENT Exam Head: Present normocephalic and atraumatic ENT: Present mucous membranes moist *Routine Neck Exam Neck: Present supple, full ROM and normal carotid upstroke; Absent JVD, carotid bruit or lymphadenopathy *Routine Respiratory Exam Respiratory: Present CTA bilaterally, diminished air movement, normal respiratory effort, able to speak in complete sentences and symmetric chest movement *Routine Cardiovascular Exam Cardiovascular: Present RRR, Normal S1 and Normal S2; Absent murmur or gallop *Routine Abdominal Exam Abdominal: Present soft and normoactive bowel sounds; Absent tenderness, distended or organomegaly *Routine Extremities Exam Extremities: Present edema (1+ bilateral lo
--- NOTE | 2022-04-09 14:49 | PC.NURSE ---
NOTIFED ABOUT PT'S BILATERAL MANUAL BP'S RIGHT ARM (80/42) LEFT ARM (90/58). MELIZA ORDERS (STOP BUMEX DRIP AND HOLD ALDACTONE FOR NOW).
[2022-04-09 16:22] LABS: Chloride 84 mmol/L (98-107)
[2022-04-09 16:23] LABS: Sodium 134 mmol/L (136-145)
[2022-04-09 16:25] LABS: Blood Urea Nitrogen 39 mg/dl (7-17); Creatinine Clearance Estimated 45 mL/min (50-200); Estimated Glomerular Filt Rate 25 ml/min (>60); GFR (African American) 31 ML/MIN (>60)
[2022-04-09 16:26] LABS: Calcium 8.9 mg/dl (8.4-10.2); Glucose 233 mg/dl (74-100); Magnesium 1.4 mg/dl (1.6-2.3)
[2022-04-09 16:33] LABS: Carbon Dioxide 38 mmol/L (22.0-30.0)
[2022-04-09 16:41] LABS: POC Glucose,Bedside 226 (70-110)
--- NOTE | 2022-04-09 18:09 | PC.NURSE ---
PT IS RESTING IN BED WITH FAMILY AT BEDSIDE. ALERT AND ORIENTED X4. PT HAS BEEN VERY DROWSY BUT WILL AWAKEN EASILY TO ANSWER QUESTIONS AND FOLLOW COMMANDS. BP HAS SLIGHTLY IMPROVED SINCE BUMEX DRIP WAS STOPPED. LAST BP WAS 98/55. LUNG SOUNDS DIMINISHED WITH FINE CRACKLES (BILATERAL BASES). ABDOMEN SOFT/NON TENDER WITH ACTIVE BOWEL SOUNDS. PT DIURESED 1150 THIS SHIFT. MILD EDEMA NOTED TO BLE. BATH AND LINEN CHANGE THIS SHIFT. NEW IV ACCESS NOTED TO THE RFA. WILL CONTINUE TO MONITOR.
--- NOTE | 2022-04-09 19:09 | PC.NURSE ---
NOTIFED ABOUT PT'S MANUAL BP 79/50. PT STATES SHE FEELS TIRED BUT IS AWAKE AND TALKING TO STAFF AND FAMILY. NO NEW ORDERS AT THIS TIME PER VIA JHONY JORDAN RN
--- NOTE | 2022-04-09 20:32 | EXP.ACUTE.PN ---
Subjective *Date: 04/09/22 *Time: 20:32 Interval history: Has responded very well to diuresis. Continuing Bumex drip. Over 8 L negative on rounds this morning. Breathing somewhat better. Patient fatigued. Kidney function still at goal. Denies nausea or vomiting. No chest pain. No confusion. Medical Exam Vital signs and Labs for Last 24 Hours: Vital Signs Temp Pulse Pulse Resp BP Pulse Ox FiO2 04/09/22 16:00 97.9 F 83 20 90/57 L 92 L 50 04/09/22 16:00 94 L 50 04/09/22 16:00 84 04/09/22 13:45 82 04/09/22 13:45 82 04/09/22 13:45 97 50 04/09/22 11:55 84 04/09/22 11:24 98.1 F 83 20 95/54 L 89 L 45 04/09/22 08:00 91 L 60 04/09/22 09:58 84 04/09/22 09:58 84 04/09/22 09:58 92 L 60 04/09/22 08:00 89 04/09/22 08:00 90 20 132/75 90 L 04/09/22 08:00 90 L 60 04/09/22 05:30 84 04/09/22 05:30 85 04/09/22 05:30 91 L 60 04/09/22 04:00 80 04/09/22 00:00 80 04/09/22 03:34 98.2 F 81 18 110/62 94 L 04/09/22 02:31 82 04/09/22 02:31 82 04/09/22 00:00 92 L 04/08/22 23:42 98.0 F 83 15 137/75 91 L 04/08/22 22:38 75 04/08/22 22:38 79 04/08/22 22:38 97 60 Intake and Output 04/09/22 04/09/22 04/09/22 07:59 15:59 23:59 Intake Total 115 / 1318.833 723.833 / 1318.833 480 / 1318.833 Output Total 2450 / 3600 950 / 3600 200 / 3600 Balance -2335 / -2281.167 -226.167 / -2281.167 280 / -2281.167 Intake: Intake, Oral Amount 480 / 960 480 / 960 Intake, Total IV Amount 115 / 358.833 243.833 / 358.833 Bumetanide 25 mg In 0.9 % 115 / 115 Sodium Chloride 150 ml @ 1 MG/ HR 10 mls/hr IV .Q24H [facility] Rx#: [id number] Output: Output, Urine Amount 2450 / 2450 Output, Urine Amount (Catheter) 950 / 1150 200 / 1150 [place] 950 / 1150 200 / 1150 Other: Number of Unmeasured Voids 1 Weight 97.607 kg 97 kg Patient Weight 04/09/22 23:59 Weight 97 kg Laboratory Results - last 24 hr 04/08/22 19:47: Sodium 136, Potassium 3.5, Chloride 90 L, Carbon Dioxide 32 H, Anion Gap 17.5 H, BUN 32 H, Creatinine 1.40 H, Estimated Creat Clear 65, Estimated GFR 38 L, Est GFR ( Amer) 46 L, Glucose 199 H D, Calcium 9.2 04/08/22 20:29: POC Glucose 189 H 04/09/22 05:47: WBC 11.4 H, RBC 4.08 L, Hgb 10.8 L, Hct 34.8 L, MCV 85.3, MCH 26.6 L, MCHC 31.1 L, RDW 19.0 H, Plt Count 364, MPV 9.1, Neut % (Auto) 74.7, Lymph % (Auto) 15.3, [place] % (Auto) 7.4, Eos % (Auto) 1.6, Baso % (Auto) 0.9, Neut # (Auto) 8.5 H, Lymph # (Auto) 1.7, [place] # (Auto) 0.9, Eos # (Auto) 0.2, Baso # (Auto) 0.1 04/09/22 05:47: Sodium 137, Potassium 3.0 L, Chloride 85 L, Carbon Dioxide 37 H, Anion Gap 18.0 H, BUN 32 H, Creatinine 1.40 H, Estimated Creat Clear 65, Estimated GFR 38 L, Est GFR ( Amer) 46 L, Glucose 112 H D, Calcium 9.4 04/09/22 05:49: POC Glucose 121 H 04/09/22 10:30: POC Glucose 151 H 04/09/22 16:02: Sodium 134 L, Potassium 4.0 D, Chloride 84 L, Carbon Dioxide 38 H, Anion Gap 16.0 H, BUN 39 H, Creatinine 2.00 H D, Estimated Creat Clear 45, Estimated GFR 25 L, Est GFR ( Amer) 31 L D, Glucose 233 H D, Calcium 8.9, Magnesium 1.4 L D 04/09/22 16:30: POC Glucose 226 H I & O for Labs for Last 24 Hours: Intake & Output 04/06/22 04/07/22 04/08/22 04/09/22 23:59 23:59 23:59 23:59 Intake Total 1475 / 1475 1318.833 / 1318.833 Output Total 0 / 0 8150 / 8150 3600 / 3600 Balance 0 / 0 -6675 / -6675 -2281.167 / -2281.167 Weight 97.522 kg 97 kg Microbiology Reports for the Last 24 Hours: Microbiology 04/07/22 14:46 Blood Blood Culture - Preliminary NO GROWTH AFTER 48 HOURS 04/07/22 14:46 Blood Blood Culture - Preliminary NO GROWTH AFTER 48 HOURS 04/07/22 17:00 Sputum - Expectorated Sputum Gram Stain - Final Constitutional: Present mild
[2022-04-09 22:35] LABS: POC Glucose,Bedside 198 (70-110)
[2022-04-09 22:35] LABS: POC Glucose,Bedside 225 (70-110)
[2022-04-10] VITALS (16 sets, daily range): BP systolic 86–97; BP diastolic 48–59; PULSE 70–84; RESP 18–22; TEMP 36.8–37.6; O2SAT 89–97; BMI 29.4
[2022-04-10 06:03] LABS: POC Glucose,Bedside 232 (70-110)
--- NOTE | 2022-04-10 06:42 | PC.NURSE ---
Pt was sustaining upper 80s, RT notified. RT titrated pt up to 40 L, 55% on vapotherm. Pt tolerating well with sats > 90%. No c.o voiced to staff. Urine dark vidhi. Call light within reach.
--- NOTE | 2022-04-10 09:58 | EXP.ACUTE.PN ---
Subjective *Date: 04/10/22 *Time: 19:34 Interval history: Weak but interactive today. States she is breathing better. Able to wean Vapotherm on rounds. Denies nausea, vomiting, chest pain. Does complain of some weakness. Has friend at bedside. Medical Exam Vital signs and Labs for Last 24 Hours: Vital Signs Temp Pulse Pulse Resp BP Pulse Ox FiO2 04/10/22 08:00 74 04/10/22 08:00 99.7 F H 75 20 95/57 L 95 04/10/22 08:00 96 55 04/10/22 05:40 72 04/10/22 05:40 72 04/10/22 05:40 97 55 04/10/22 04:00 98.3 F 80 20 94/59 L 96 04/10/22 04:00 80 04/10/22 01:37 74 04/10/22 01:37 75 04/09/22 20:00 92 L 50 04/10/22 00:00 92 L 50 04/10/22 00:00 80 04/09/22 20:00 80 04/10/22 00:00 98.8 F 74 22 86/52 L 90 L 04/09/22 21:36 79 04/09/22 21:36 80 04/09/22 21:36 90 L 50 04/09/22 20:00 98.6 F 78 20 83/45 L 94 L 04/09/22 16:00 97.9 F 83 20 90/57 L 92 L 50 04/09/22 16:00 94 L 50 04/09/22 16:00 84 04/09/22 13:45 82 04/09/22 13:45 82 04/09/22 13:45 97 50 04/09/22 11:55 84 04/09/22 11:24 98.1 F 83 20 95/54 L 89 L 45 Intake and Output 04/09/22 04/10/22 04/10/22 23:59 07:59 15:59 Intake Total 480 / 1318.833 0 / 960 960 / 960 Output Total 200 / 3600 200 / 850 650 / 850 Balance 280 / -2281.167 -200 / 110 310 / 110 Intake: Intake, Oral Amount 480 / 960 0 / 960 960 / 960 Output: Output, Urine Amount 200 / 850 650 / 850 Output, Urine Amount (Catheter) 200 / 1150 Wharton 200 / 1150 Other: Number of Unmeasured Voids 0 0 0 Weight 97 kg 87.997 kg Patient Weight 04/10/22 23:59 Weight 87.997 kg Laboratory Results - last 24 hr 04/09/22 10:30: POC Glucose 151 H 04/09/22 16:02: Sodium 134 L, Potassium 4.0 D, Chloride 84 L, Carbon Dioxide 38 H, Anion Gap 16.0 H, BUN 39 H, Creatinine 2.00 H D, Estimated Creat Clear 45, Estimated GFR 25 L, Est GFR ( Amer) 31 L D, Glucose 233 H D, Calcium 8.9, Magnesium 1.4 L D 04/09/22 16:30: POC Glucose 226 H 04/09/22 20:47: POC Glucose 225 H 04/09/22 22:29: POC Glucose 198 H 04/10/22 05:39: POC Glucose 232 H I & O for Labs for Last 24 Hours: Intake & Output 04/07/22 04/08/22 04/09/22 04/10/22 23:59 23:59 23:59 23:59 Intake Total 1475 / 1475 1318.833 / 1318.833 960 / 960 Output Total 0 / 0 8150 / 8150 3600 / 3600 850 / 850 Balance 0 / 0 -6675 / -6675 -2281.167 / -2281.167 110 / 110 Weight 97.522 kg 97 kg 87.997 kg Microbiology Reports for the Last 24 Hours: Microbiology 04/07/22 17:00 Sputum - Expectorated Sputum Gram Stain - Final 04/07/22 17:00 Sputum - Expectorated Sputum Sputum Culture - Preliminary 04/07/22 14:46 Blood Blood Culture - Preliminary NO GROWTH AFTER 48 HOURS 04/07/22 14:46 Blood Blood Culture - Preliminary NO GROWTH AFTER 48 HOURS Constitutional: Present mild distress, obese and chronically ill appearing Head: Present atraumatic and normocephalic ENT: Present normal exam Neck: Present normal inspection Respiratory: Present accessory muscle use, wheezes and distant breath sounds; Absent rhonchi or crackles Cardiac: Present Reg Rate and Rhythm and No Murmur GI: Present normal bowel sounds; Absent tenderness Extremities: Present normal inspection and edema ( 1+ BLE to knees) Skin: Present intact; Absent erythema Neuro: Present Grossly Intact, alert, awake, oriented x 3 and moves all extremities Assessment and Plan *Assessment and plan (1) Severe pulmonary hypertension: Status: Acute Category: Medical Code(s): I27.20 - Pulmonary hypertension, unspecified (2) Acute and chronic respiratory failure with hypoxia: Status: Acute Category: Medical Code(s): J96.21 - Acute and chronic respiratory failure with hypoxia (3) [place]
[2022-04-10 10:30] LABS: Basophils # 0.1 K/mm3 (0-0.2); Basophils % 0.8 % (0.1-2.0); Eosinophils # 0.3 K/mm3 (0.0-0.4); Eosinophils % 2.3 % (0.1-12.0); Hematocrit 33.1 % (37.0-47.0); Hemoglobin 10.6 g/dL (12.2-16.2); Lymphocytes # 1.7 K/mm3 (0.7-4.5); Lymphocytes % 15.3 % (10-50); Mean Corpuscular HGB Conc 31.9 g/dL (31.8-35.4); Mean Corpuscular Hemoglobin 26.9 pg (27.0-31.2); Mean Corpuscular Volume 84.3 fl (81-99); Mean Platelet Volume 9.1 fl (7.4-10.4); Monocytes # 0.9 K/mm3 (0.1-1.0); Monocytes % 8.3 % (1.7-9.3); Neutrophils # 8.1 K/mm3 (1.8-7.8); Neutrophils % 73.3 % (37.0-80.0); Platelet Count 391 K/mm3 (142-424); Red Blood Count 3.93 M/mm3 (4.20-5.40); Red Cell Distribution Width 18.7 % (11.5-17.5)
[2022-04-10 10:37] LABS: Chloride 84 mmol/L (98-107); Potassium 3.6 mmoL/L (3.5-5.1); Sodium 132 mmol/L (136-145)
[2022-04-10 10:40] LABS: Anion Gap 14.6 mEq/L (5-15); Blood Urea Nitrogen 44 mg/dl (7-17); Calcium 8.8 mg/dl (8.4-10.2); Carbon Dioxide 37 mmol/L (22.0-30.0); Creatinine Clearance Estimated 37 mL/min (50-200); Estimated Glomerular Filt Rate 23 ml/min (>60); GFR (African American) 27 ML/MIN (>60); Glucose 217 mg/dl (74-100)
[2022-04-10 10:41] LABS: Magnesium 1.9 mg/dl (1.6-2.3)
--- NOTE | 2022-04-10 18:27 | PC.NURSE ---
PT IS RESTING IN BED WITH FAMILY AT BEDSIDE. ALERT AND ORIENTED X4. EATING AND DRINKING FAIR. O2 SATURATION HAS MAINTAINED 90-96% ON VAPOTHERM 40 L 50 % FIO2. LUNG SOUNDS DIMINISHED. ABDOMEN SOFT/NON TENDER WITH ACTIVE BOWEL SOUNDS. MILD SWELLING NOTED TO BLE. BP HAS SLIGHTLY IMPROVED T/O THE SHIFT. WILL CONTINUE TO MONITOR.
[2022-04-11] VITALS (18 sets, daily range): BP systolic 97–128; BP diastolic 47–73; PULSE 70–100; RESP 18–22; TEMP 36.7–37; O2SAT 88–98; BMI 29.4
--- NOTE | 2022-04-11 06:28 | PC.NURSE ---
no changes from previous assessment, pt is alert and oriented x4, lung sounds diminished bilaterally, 02 sats have been 93-96% on vapotherm. pt weaned to 35/45 this am per RT, no acute distress, bilaterally pitting edema decreased to 1-2+, f/c to bsd. no acute distress, vss.
[2022-04-11 07:13] LABS: Basophils # 0.1 K/mm3 (0-0.2); Eosinophils # 0.4 K/mm3 (0.0-0.4); Hematocrit 33.6 % (37.0-47.0); Hemoglobin 10.6 g/dL (12.2-16.2); Lymphocytes # 1.6 K/mm3 (0.7-4.5); Lymphocytes % 16.6 % (10-50); Mean Corpuscular HGB Conc 31.6 g/dL (31.8-35.4); Mean Corpuscular Hemoglobin 26.4 pg (27.0-31.2); Mean Corpuscular Volume 83.4 fl (81-99); Mean Platelet Volume 8.7 fl (7.4-10.4); Monocytes # 0.7 K/mm3 (0.1-1.0); Monocytes % 7.2 % (1.7-9.3); Neutrophils # 6.9 K/mm3 (1.8-7.8); Neutrophils % 71.2 % (37.0-80.0); Platelet Count 320 K/mm3 (142-424); Red Blood Count 4.02 M/mm3 (4.20-5.40); Red Cell Distribution Width 18.5 % (11.5-17.5); White Blood Count 9.6 K/mm3 (4.8-10.8)
[2022-04-11 07:21] LABS: Alanine Aminotransferase 19 U/L (12-78); Albumin Level 4.4 g/dl (3.5-5.0); Albumin/Globulin Ratio 1.6 (1.1-1.8); Alkaline Phosphatase 115 U/L (38-126); Anion Gap 13.5 mEq/L (5-15); Aspartate Amino Transferase 26 U/L (14-36); Bilirubin,Total 1.1 mg/dl (0.2-1.3); Blood Urea Nitrogen 53 mg/dl (7-17); Calcium 9.2 mg/dl (8.4-10.2); Carbon Dioxide 38 mmol/L (22.0-30.0); Chloride 85 mmol/L (98-107); Creatinine Clearance Estimated 51 mL/min (50-200); Estimated Glomerular Filt Rate 33 ml/min (>60); GFR (African American) 40 ML/MIN (>60); Globulin 2.7 g/dL (1.3-3.2); Glucose 105 mg/dl (74-100); Magnesium 1.8 mg/dl (1.6-2.3); Potassium 3.5 mmoL/L (3.5-5.1); Sodium 133 mmol/L (136-145); Total Protein,Serum 7.1 g/dl (6.3-8.2)
[2022-04-11 10:01] LABS: POC Glucose,Bedside 221 (70-110)
[2022-04-11 10:01] LABS: POC Glucose,Bedside 195 (70-110)
[2022-04-11 10:01] LABS: POC Glucose,Bedside 276 (70-110)
[2022-04-11 10:01] LABS: POC Glucose,Bedside 120 (70-110)
--- NOTE | 2022-04-11 11:28 | EXP.ACUTE.PN ---
Subjective *Date: 04/11/22 *Time: 17:01 Interval history: Patient states she feels like she is breathing better today. Still complains of being weak. Denies headache, chest pain, nausea or vomiting. Transitioned to 6 L nasal cannula on rounds this morning. Stable saturations between 88 and 95%. Wanting to get out of bed today, encouraged her to stand to bedside, get in bedside chair, use bedside commode. Wharton removed. Tolerating p.o. intake. Medical Exam Vital signs and Labs for Last 24 Hours: Vital Signs Temp Pulse Pulse Resp BP Pulse Ox FiO2 04/11/22 10:17 79 04/11/22 10:17 79 04/11/22 10:17 97 04/11/22 08:09 98.0 F 79 22 97/47 L 98 04/11/22 06:17 75 04/11/22 06:17 76 04/11/22 06:17 93 L 50 04/11/22 04:23 70 04/11/22 04:00 98.4 F 75 22 99/62 L 95 04/11/22 03:09 80 04/11/22 03:09 88 04/11/22 00:00 83 22 100/61 L 94 L 04/11/22 00:00 96 04/11/22 00:00 80 04/10/22 20:00 94 L 04/10/22 23:23 50 04/10/22 22:30 83 04/10/22 22:10 83 04/10/22 18:35 84 04/10/22 18:21 81 04/10/22 20:00 98.7 F 79 18 97/58 L 94 L 50 04/10/22 20:00 84 04/10/22 16:00 94 L 50 04/10/22 16:00 83 04/10/22 13:45 84 04/10/22 13:45 84 04/10/22 13:45 92 L 50 04/10/22 15:31 98.4 F 83 18 95/55 L 90 L 04/10/22 12:15 99.0 F 78 20 97/48 L 95 04/10/22 12:00 78 Intake and Output 04/10/22 04/11/22 04/11/22 23:59 07:59 15:59 Intake Total 480 / 1900 100 / 340 240 / 340 Output Total 0 / 1550 1800 / 2600 800 / 2600 Balance 480 / 350 -1700 / -2260 -560 / -2260 Intake: Intake, Oral Amount 480 / 1900 100 / 340 240 / 340 Output: Output, Urine Amount 0 / 1550 1800 / 2100 300 / 2100 Output, Urine Amount (Catheter) 500 / 500 Wharton 500 / 500 Other: Number of Unmeasured Voids 0 0 0 Weight 87.997 kg Patient Weight 04/11/22 23:59 Weight 87.997 kg Laboratory Results - last 24 hr 04/10/22 11:14: POC Glucose 221 H 04/10/22 16:31: POC Glucose 276 H 04/10/22 21:04: POC Glucose 195 H 04/11/22 05:30: POC Glucose 120 H 04/11/22 06:38: WBC 9.6, RBC 4.02 L, Hgb 10.6 L, Hct 33.6 L, MCV 83.4, MCH 26.4 L, MCHC 31.6 L, RDW 18.5 H, Plt Count 320, MPV 8.7, Neut % (Auto) 71.2, Lymph % (Auto) 16.6, [place] % (Auto) 7.2, Eos % (Auto) 4.0, Baso % (Auto) 1.0, Neut # (Auto) 6.9, Lymph # (Auto) 1.6, [place] # (Auto) 0.7, Eos # (Auto) 0.4, Baso # (Auto) 0.1 04/11/22 06:38: Sodium 133 L, Potassium 3.5, Chloride 85 L, Carbon Dioxide 38 H, Anion Gap 13.5, BUN 53 H, Creatinine 1.60 H D, Estimated Creat Clear 51, Estimated GFR 33 L, Est GFR ( Amer) 40 L D, Glucose 105 H D, Calcium 9.2, Magnesium 1.8, Total Bilirubin 1.1, AST 26, ALT 19, Alkaline Phosphatase 115, Total Protein 7.1, Albumin 4.4, Globulin 2.7, Albumin/Globulin Ratio 1.6 I & O for Labs for Last 24 Hours: Intake & Output 04/08/22 04/09/22 04/10/22 04/11/22 23:59 23:59 23:59 23:59 Intake Total 1475 / 1475 1318.833 / 5251.593 4221 / 1900 340 / 340 Output Total 8150 / 8150 3600 / 3600 1550 / 1550 2600 / 2600 Balance -6675 / -6675 -2281.167 / -2281.167 250 / 350 -2260 / -2260 Weight 97 kg 87.997 kg 87.997 kg Microbiology Reports for the Last 24 Hours: Microbiology 04/07/22 17:00 Sputum - Expectorated Sputum Gram Stain - Final 04/07/22 17:00 Sputum - Expectorated Sputum Sputum Culture - Preliminary Constitutional: Present no acute distress, obese and chronically ill appearing Head: Present atraumatic and normocephalic ENT: Present normal exam Neck: Present normal inspection Respiratory: Present accessory muscle use, wheezes and distant breath sounds; Absent rhonchi or crackles Cardiac: Present Reg Rate and Rhythm and No Murmur GI: Present normal bowel sounds; Absent tenderness Extremities: Present normal inspection and edema (trace) Skin: Prese
[2022-04-11 17:51] LABS: POC Glucose,Bedside 256 (70-110)
--- NOTE | 2022-04-11 18:15 | PC.NURSE ---
Patient able to tolerate 6LNC for most of shift but had to be transitioned back to vapotherm between 1530 and 1600 due to continuous oxygen sats between 82 and 83% while asleep. Lung sounds diminished. VS stable. Patient fell at 1145 as she tried to use bedside commode by herself. Patient stated she slid down onto the floor and did not hit her head and had no complaints of pain anywhere. Vapotherm on 25L 55%.
[2022-04-11 18:56] LABS: Chloride 88 mmol/L (98-107); Potassium 5.4 mmoL/L (3.5-5.1); Sodium 137 mmol/L (136-145)
[2022-04-11 18:58] LABS: Blood Urea Nitrogen 48 mg/dl (7-17); Creatinine Clearance Estimated 48 mL/min (50-200); Estimated Glomerular Filt Rate 31 ml/min (>60); GFR (African American) 37 ML/MIN (>60)
[2022-04-11 18:59] LABS: Alanine Aminotransferase 21 U/L (12-78); Albumin Level 4.7 g/dl (3.5-5.0); Albumin/Globulin Ratio 1.4 (1.1-1.8); Alkaline Phosphatase 101 U/L (38-126); Anion Gap 20.4 mEq/L (5-15); Aspartate Amino Transferase 50 U/L (14-36); Bilirubin,Total 1.4 mg/dl (0.2-1.3); Calcium 9.8 mg/dl (8.4-10.2); Carbon Dioxide 34 mmol/L (22.0-30.0); Globulin 3.4 g/dL (1.3-3.2); Glucose 191 mg/dl (74-100); Total Protein,Serum 8.1 g/dl (6.3-8.2)
[2022-04-11 19:00] LABS: Magnesium 1.9 mg/dl (1.6-2.3)
[2022-04-11 23:35] LABS: POC Glucose,Bedside 279 (70-110)
[2022-04-12] VITALS (29 sets, daily range): BP systolic 105–139; BP diastolic 56–76; PULSE 72–108; RESP 18–22; TEMP 36.6–37.2; O2SAT 91–996; BMI 29.9
[2022-04-12 01:10] LABS: POC Glucose,Bedside 289 (70-110)
[2022-04-12 05:29] LABS: POC Glucose,Bedside 180 (70-110)
--- NOTE | 2022-04-12 06:43 | PC.NURSE ---
Pt has remained able to answer all orientation questions but at times will talk out of her head. She has been talking to herself and pulling off her oxygen t/o the night. Pt easily reoriented. No c/o voiced to staff. Call light within reach.
[2022-04-12 07:15] LABS: Basophils # 0.1 K/mm3 (0-0.2); Basophils % 0.8 % (0.1-2.0); Eosinophils # 0.3 K/mm3 (0.0-0.4); Eosinophils % 3.4 % (0.1-12.0); Hematocrit 33.4 % (37.0-47.0); Hemoglobin 10.5 g/dL (12.2-16.2); Lymphocytes # 1.5 K/mm3 (0.7-4.5); Lymphocytes % 16.2 % (10-50); Mean Corpuscular HGB Conc 31.3 g/dL (31.8-35.4); Mean Corpuscular Hemoglobin 26.3 pg (27.0-31.2); Mean Corpuscular Volume 84.1 fl (81-99); Mean Platelet Volume 9.3 fl (7.4-10.4); Monocytes # 0.9 K/mm3 (0.1-1.0); Monocytes % 9.1 % (1.7-9.3); Neutrophils # 6.7 K/mm3 (1.8-7.8); Neutrophils % 70.5 % (37.0-80.0); Platelet Count 348 K/mm3 (142-424); Red Blood Count 3.98 M/mm3 (4.20-5.40); Red Cell Distribution Width 18.4 % (11.5-17.5); White Blood Count 9.4 K/mm3 (4.8-10.8)
[2022-04-12 07:24] LABS: Anion Gap 16.2 mEq/L (5-15); Blood Urea Nitrogen 46 mg/dl (7-17); Calcium 9.5 mg/dl (8.4-10.2); Carbon Dioxide 38 mmol/L (22.0-30.0); Chloride 84 mmol/L (98-107); Creatinine Clearance Estimated 56 mL/min (50-200); Estimated Glomerular Filt Rate 35 ml/min (>60); GFR (African American) 43 ML/MIN (>60); Glucose 145 mg/dl (74-100); Magnesium 1.8 mg/dl (1.6-2.3); Potassium 3.2 mmoL/L (3.5-5.1); Sodium 135 mmol/L (136-145)
--- NOTE | 2022-04-12 08:19 | EXP.ACUTE.PN ---
Subjective *Date: 04/12/22 *Time: 14:14 Interval history: Patient alert and oriented this morning. Stable breathing on high flow nasal cannula. Maintaining saturations in the low 90s. Denies nausea, chest pain, headache. Complains of fatigue. Is down a total of almost 13 L since admission. Continuing to diurese with twice daily Bumex. Tolerating p.o. intake. Family at bedside. Medical Exam Vital signs and Labs for Last 24 Hours: Vital Signs Temp Pulse Pulse Resp BP Pulse Ox FiO2 04/12/22 07:56 99.0 F 93 H 20 122/56 L 97 04/12/22 06:11 90 04/12/22 06:11 94 L 50 04/12/22 04:00 98 F 72 19 126/69 94 L 04/11/22 20:00 92 L 50 04/12/22 00:00 93 L 50 04/12/22 02:17 87 04/12/22 02:16 83 04/12/22 00:00 98 F 90 18 110/68 93 L 04/11/22 22:34 90 04/11/22 22:33 88 04/11/22 20:00 98.1 F 91 H 18 124/68 92 L 04/11/22 19:02 50 04/11/22 18:15 94 H 04/11/22 18:00 90 04/11/22 16:00 92 H 04/11/22 15:51 98.6 F 91 H 22 124/70 90 L 04/11/22 14:17 95 H 04/11/22 14:17 86 04/11/22 12:00 100 H 04/11/22 11:42 98.4 F 86 20 128/73 88 L 04/11/22 10:17 79 04/11/22 10:17 79 04/11/22 10:17 97 Intake and Output 04/11/22 04/12/22 04/12/22 23:59 07:59 15:59 Intake Total 240 / 820 480 / 480 Output Total 750 / 3950 200 / 200 Balance -510 / -3130 280 / 280 Intake: Intake, Oral Amount 240 / 820 480 / 480 Output: Output, Urine Amount 750 / 3450 200 / 200 Other: Number of Voids 1 Weight 89.448 kg Patient Weight 04/12/22 23:59 Weight 89.448 kg Laboratory Results - last 24 hr 04/10/22 11:14: POC Glucose 221 H 04/10/22 16:31: POC Glucose 276 H 04/10/22 21:04: POC Glucose 195 H 04/11/22 05:30: POC Glucose 120 H 04/11/22 16:12: POC Glucose 256 H 04/11/22 18:10: Sodium 137, Potassium 5.4 H D, Chloride 88 L, Carbon Dioxide 34 H, Anion Gap 20.4 H, BUN 48 H, Creatinine 1.70 H, Estimated Creat Clear 48, Estimated GFR 31 L, Est GFR ( Amer) 37 L, Glucose 191 H D, Calcium 9.8, Magnesium 1.9, Total Bilirubin 1.4 H, AST 50 H D, ALT 21, Alkaline Phosphatase 101, Total Protein 8.1, Albumin 4.7, Globulin 3.4 H, Albumin/Globulin Ratio 1.4 04/11/22 21:50: POC Glucose 279 H 04/12/22 00:56: POC Glucose 289 H 04/12/22 05:12: POC Glucose 180 H 04/12/22 06:40: WBC 9.4, RBC 3.98 L, Hgb 10.5 L, Hct 33.4 L, MCV 84.1, MCH 26.3 L, MCHC 31.3 L, RDW 18.4 H, Plt Count 348, MPV 9.3, Neut % (Auto) 70.5, Lymph % (Auto) 16.2, [place] % (Auto) 9.1, Eos % (Auto) 3.4, Baso % (Auto) 0.8, Neut # (Auto) 6.7, Lymph # (Auto) 1.5, [place] # (Auto) 0.9, Eos # (Auto) 0.3, Baso # (Auto) 0.1 04/12/22 06:40: Sodium 135 L, Potassium 3.2 L D, Chloride 84 L, Carbon Dioxide 38 H, Anion Gap 16.2 H, BUN 46 H, Creatinine 1.50 H, Estimated Creat Clear 56, Estimated GFR 35 L, Est GFR ( Amer) 43 L, Glucose 145 H D, Calcium 9.5, Magnesium 1.8 I & O for Labs for Last 24 Hours: Intake & Output 04/09/22 04/10/22 04/11/2202/23 23:59 23:59 23:59 23:59 Intake Total 1318.833 / 2307.330 1214 / 1900 820 / 820 480 / 480 Output Total 3600 / 3600 1550 / 1550 3950 / 3950 200 / 200 Balance -2281.167 / -2281.167 250 / 350 -3130 / -3130 280 / 280 Weight 97 kg 87.997 kg 87.997 kg 89.448 kg Microbiology Reports for the Last 24 Hours: Microbiology 04/07/22 17:00 Sputum - Expectorated Sputum Gram Stain - Final 04/07/22 17:00 Sputum - Expectorated Sputum Sputum Culture - Final Normal Respiratory Amy Constitutional: Present no acute distress, obese and chronically ill appearing Head: Present atraumatic and normocephalic ENT: Present normal exam Neck: Present normal inspection Respiratory: Present accessory muscle use, wheezes and distant breath sounds; Absent rhonchi or crackles Cardiac: Present Reg Rate and Rhythm and No Murmur GI: Present normal bowel
--- NOTE | 2022-04-12 09:01 | IR_ITS ---
APPROVED REPORT Patient Location: Inpatient PROCEDURES Right heart catheterization Left heart catheterization INDICATION Critical pulmonary hypertension, Biventricular congestive heart failure, Acute on chronic respiratory failure Informed consent was obtained prior to the procedure. COMPLICATIONS NONE Estimated Blood Loss: LESS THAN 10 ML TECHNIQUE One percent lidocaine used to anesthetize the right anterior aspect of the wrist. The right radial artery was accessed via the Seldinger technique. A 6 Beninese sheath was placed in the right radial artery. 2.5 mg of verapamil, 800 mcg of nitroglycerin, 1mg Lidocaine and 5000 U Heparin were given through the arterial sheath. The papa catheter was also used to perform left heart catheterization. 1% lidocaine used anesthetize the right anterior aspect of the right wrist and the right internal jugular vein was accessed via the Salinger technique. A 7 [place] sheath was placed in the right internal jugular vein and right heart catheterization was performed. At the end the procedure the apparatus was removed good hemostasis was achieved using manual pressure the arterial sheath was removed with good hemostasis being achieved with TR banding patient was transferred to the postop putting in stable condition ANGIOGRAPHIC RESULTS Right atrial pressure 7 mmHg Right ventricular pressure 100/35 mmHg Pulmonary artery pressure 95/45 mmHg Pulmonary occlusion pressure 15 mmHg Left ventricular end-diastolic pressure 20 mmHg Right atrial saturation 34% Pulmonary artery saturation 40% Aortic saturation 92% Hemoglobin 10.6 Cardiac output 3.3 L/min Cardiac index 1.6 Pulmonary artery hypertension with pulmonary vascular resistance of 12.3 Wood units IMPRESSION Critical pulmonary hypertension with critically elevated pulmonary vascular resistance Group 2 pulmonary hypertension Possible combination of Group 1 pulmonary hypertension with possible component of group 3 PLAN 1. Continue high-dose diuresis while treating group 2 pulmonary hypertension 2. Patient has experienced significant clinical improvement with less oxygen requirement following large volume diuresis which basically confirms the group to diagnosis. Recommend uptitrating diuretics to further decrease pulmonary artery occlusion pressure to around 8 to 10 mmHg. This can be accomplished while keeping patient's creatinine between 2 and 2.5 3. Patient has critically elevated pulmonary vascular resistance with a Chin unit of 12.3. It is unlikely patient will respond to any medications and given the critical component of diastolic dysfunction secondary to group 2 pulmonary hypertension drugs such as sildenafil will unlikely benefit patient. Basically there is no data or evidence to support sildenafil benefiting this patient 4. If the patient is willing to discontinue tobacco products she may be a candidate for a trial at the [facility] called the Viktoria Trial which infuses Sotatercept. Patient will be referred to Dr. Vasquez at [facility] as an outpatient. 5. It is also reasonable to offer patient hospice care given her ongoing tobacco usage and unwillingness to discontinue tobacco. Given the critically elevated pulmonary vascular resistance patient has severely diminished life expectancy and certainly is a hospice candidate Electronically signed by : Roberto Zapata MD 04/12/2022 15:11:31
--- NOTE | 2022-04-12 09:47 | EXP.PULM.PN ---
Subjective *Date: 04/12/22 *Time: 13:57 Interval history: No acute respiratory events overnight. Patient denies any new respiratory complaints. Admits improving symptoms. Pulmonology Exam Inpatient Vital signs and Labs for Last 24 Hours: Temp Pulse Resp BP Pulse Ox FiO2 99.0 F 93 H 20 122/56 L 97 50 04/12/22 07:56 04/12/22 07:56 04/12/22 07:56 04/12/22 07:56 04/12/22 07:56 04/12/22 06:11 Laboratory Results - last 24 hr 04/10/22 11:14: POC Glucose 221 H 04/10/22 16:31: POC Glucose 276 H 04/10/22 21:04: POC Glucose 195 H 04/11/22 05:30: POC Glucose 120 H 04/11/22 16:12: POC Glucose 256 H 04/11/22 18:10: Sodium 137, Potassium 5.4 H D, Chloride 88 L, Carbon Dioxide 34 H, Anion Gap 20.4 H, BUN 48 H, Creatinine 1.70 H, Estimated Creat Clear 48, Estimated GFR 31 L, Est GFR ( Amer) 37 L, Glucose 191 H D, Calcium 9.8, Magnesium 1.9, Total Bilirubin 1.4 H, AST 50 H D, ALT 21, Alkaline Phosphatase 101, Total Protein 8.1, Albumin 4.7, Globulin 3.4 H, Albumin/Globulin Ratio 1.4 04/11/22 21:50: POC Glucose 279 H 04/12/22 00:56: POC Glucose 289 H 04/12/22 05:12: POC Glucose 180 H 04/12/22 06:40: WBC 9.4, RBC 3.98 L, Hgb 10.5 L, Hct 33.4 L, MCV 84.1, MCH 26.3 L, MCHC 31.3 L, RDW 18.4 H, Plt Count 348, MPV 9.3, Neut % (Auto) 70.5, Lymph % (Auto) 16.2, [place] % (Auto) 9.1, Eos % (Auto) 3.4, Baso % (Auto) 0.8, Neut # (Auto) 6.7, Lymph # (Auto) 1.5, [place] # (Auto) 0.9, Eos # (Auto) 0.3, Baso # (Auto) 0.1 04/12/22 06:40: Sodium 135 L, Potassium 3.2 L D, Chloride 84 L, Carbon Dioxide 38 H, Anion Gap 16.2 H, BUN 46 H, Creatinine 1.50 H, Estimated Creat Clear 56, Estimated GFR 35 L, Est GFR ( Amer) 43 L, Glucose 145 H D, Calcium 9.5, Magnesium 1.8 I & O for Labs for Last 24 Hours: Intake & Output 04/09/22 04/10/22 04/11/22 04/12/22 23:59 23:59 23:59 23:59 Intake Total 1318.833 / 7630.133 5616 / 1900 820 / 820 480 / 480 Output Total 3600 / 3600 1550 / 1550 3950 / 3950 200 / 200 Balance -2281.167 / -2281.167 250 / 350 -3130 / -3130 280 / 280 Weight 213 lb 13.574 oz 194 lb 194 lb 197 lb 3.2 oz Microbiology Reports for the Last 24 Hours: Microbiology 04/07/22 17:00 Sputum - Expectorated Sputum Gram Stain - Final 04/07/22 17:00 Sputum - Expectorated Sputum Sputum Culture - Final Normal Respiratory Amy Constitutional: Present moderate distress Head: Present normocephalic and atraumatic ENT: Present normal exam and mucous membranes moist Neck: Present normal inspection and full ROM Respiratory: Present respiratory distress; Absent accessory muscle use, wheezes or able to speak in complete sentences Cardiac: Present S1/S2, Tachycardia and radial pulses present GI: Present soft and distention; Absent tenderness or guarding Rectal (female): Present deferred (female): Present deferred Skin: Present intact; Absent cyanosis or jaundice Neuro: Present alert, awake and oriented x 3 Extremities: Present normal inspection; Absent clubbing or cyanosis Psychiatric: Present normal affect and cooperative Assessment and Plan *Assessment and plan (1) Severe pulmonary hypertension: Status: Acute Category: Medical Code(s): I27.20 - Pulmonary hypertension, unspecified (2) Shortness of Breath: Status: Acute Category: Medical Code(s): R06.02 - Shortness of breath (3) Acute and chronic respiratory failure with hypoxia: Status: Acute Category: Medical Code(s): J96.21 - Acute and chronic respiratory failure with hypoxia (4) COPD exacerbation: Status: Acute Category: Medical Code(s): J44.1 - Chronic obstructive pulmonary disease with (acute) exacerbation Plan 62-year-old female with reported history of COPD, Chronic hypoxic resp failure, Pulmonary HTN presented to the hospital with progressive worsening Shortness of breath CT chest from this admission Severe, pulmonary, negative diffuse bilateral upper lobe centrilobular emphys
--- NOTE | 2022-04-12 10:36 | EXP.CARD.PN ---
Subjective Subjective Date: 04/12/22 Time: 08:00 Principal diagnosis: diastolic dyfunction/CHF, pulmonary htn Interval history: Doing well, denies chest pain, reports soa is improving with diureses. Patient is -1630 balance. Labs reviewed, creatinine remains stable at 1.5 Echo 04/08/2022 Conclusion 1.? Biatrial enlargement, normal left ventricular size, mild concentric left ventricular hypertrophy, estimated ejection fraction 55% with no regional wall motion abnormality, there is flattening of the intraventricular septum during systole and diastole consistent with pressure and volume overload in right ventricle.? Grade 1 diastolic dysfunction seen without tissue Doppler evidence of raise left atrial pressure. 2.? Markedly enlarged right ventricle with moderate to severe reduction in right ventricular systolic function. 3.? Mild mitral and moderate tricuspid regurgitation, calculated right ventricular is 87 mmHg. 4.? Inferior vena cava is dilated with less than 50% inspiratory collapse. 5.? No significant pericardial effusion noted. Exam Data for Last 24 hours Vital signs and Labs for Last 24 Hours: Temp Pulse Resp BP Pulse Ox FiO2 99.0 F 93 H 20 122/56 L 97 50 04/12/22 07:56 04/12/22 07:56 04/12/22 07:56 04/12/22 07:56 04/12/22 07:56 04/12/22 06:11 Laboratory Results - last 24 hr 04/11/22 16:12: POC Glucose 256 H 04/11/22 18:10: Sodium 137, Potassium 5.4 H D, Chloride 88 L, Carbon Dioxide 34 H, Anion Gap 20.4 H, BUN 48 H, Creatinine 1.70 H, Estimated Creat Clear 48, Estimated GFR 31 L, Est GFR ( Amer) 37 L, Glucose 191 H D, Calcium 9.8, Magnesium 1.9, Total Bilirubin 1.4 H, AST 50 H D, ALT 21, Alkaline Phosphatase 101, Total Protein 8.1, Albumin 4.7, Globulin 3.4 H, Albumin/Globulin Ratio 1.4 04/11/22 21:50: POC Glucose 279 H 04/12/22 00:56: POC Glucose 289 H 04/12/22 05:12: POC Glucose 180 H 04/12/22 06:40: WBC 9.4, RBC 3.98 L, Hgb 10.5 L, Hct 33.4 L, MCV 84.1, MCH 26.3 L, MCHC 31.3 L, RDW 18.4 H, Plt Count 348, MPV 9.3, Neut % (Auto) 70.5, Lymph % (Auto) 16.2, [place] % (Auto) 9.1, Eos % (Auto) 3.4, Baso % (Auto) 0.8, Neut # (Auto) 6.7, Lymph # (Auto) 1.5, [place] # (Auto) 0.9, Eos # (Auto) 0.3, Baso # (Auto) 0.1 04/12/22 06:40: Sodium 135 L, Potassium 3.2 L D, Chloride 84 L, Carbon Dioxide 38 H, Anion Gap 16.2 H, BUN 46 H, Creatinine 1.50 H, Estimated Creat Clear 56, Estimated GFR 35 L, Est GFR ( Amer) 43 L, Glucose 145 H D, Calcium 9.5, Magnesium 1.8 I & O for Last 24 hours: Intake & Output 04/09/22 04/10/22 04/11/22 04/12/22 23:59 23:59 23:59 23:59 Intake Total 1318.833 / 2760.514 6371 / 1900 820 / 820 480 / 480 Output Total 3600 / 3600 1550 / 1550 3950 / 3950 700 / 700 Balance -2281.167 / -2281.167 250 / 350 -3130 / -3130 -220 / -220 Weight 213 lb 13.574 oz 194 lb 194 lb 197 lb 3.2 oz Microbiology Reports for the Last 24 Hours: Microbiology 04/07/22 17:00 Sputum - Expectorated Sputum Gram Stain - Final 04/07/22 17:00 Sputum - Expectorated Sputum Sputum Culture - Final Normal Respiratory Amy Constitutional Constitutional: no acute distress *Routine HEENT Exam Head: Present normocephalic Eye: Present EOMI and PERRL ENT: Present mucous membranes moist *Routine Neck Exam Neck: Present supple; Absent lymphadenopathy *Routine Respiratory Exam Respiratory: Present CTA bilaterally *Routine Cardiovascular Exam Cardiovascular: Present RRR *Routine Abdominal Exam Abdominal: Present soft and normoactive bowel sounds; Absent tenderness *Routine Extremities Exam Extremities: Absent cyanosis, clubbing or edema *Routine Skin Exam Skin: Present warm; Absent rash *Routine Neurological Exam Neurological: Present alert and oriented X3 Progress Note: A&P Assessment and plan (1) Severe pulmonary hypertension: Status: Acute (2) Shortness of Breath: Status: Acute (3) Acute and chronic respiratory failure with hypoxia: Status: Acute (4) COPD exa
[2022-04-12 11:38] LABS: ABG PH 7.44 mmol/L (7.35-7.45)
[2022-04-12 11:39] LABS: ABG HCO3 38.7 mmhg (22.0-26.0); ABG PCO2 58.1 mmhg (35.0-45.0); ABG PO2 27.3 mmhg (80-100); ABG TCO2 40.4 mmhg (23-27)
[2022-04-12 11:40] LABS: ABG Base Excess 14.5 mmol/L (-2.4-2.3); ABG Oxygen Saturation 44 % (90-100)
[2022-04-12 12:07] LABS: CATHL Arterial O2 SAT 40.3 % (90-100); CATHL Venous O2 SAT 34.1 % (75-80)
[2022-04-12 14:01] LABS: POC Glucose,Bedside 189 (70-110)
[2022-04-12 16:22] LABS: Legionella pneumophila Urinary Negative (Negative)
--- NOTE | 2022-04-12 17:10 | PC.NURSE ---
tracelet removed at this time. telfa and tegaderm placed. no complaints. gauze and tegaderm to r IJ remains clean dry and intact. vitals stable. remains drowsy and slightly confused since return from microbiology laboratory manager. family at bedside. noted yellow bruising to l knee. patient has sat on side of bed today. has tolerated 6 liters of o2 since return from microbiology laboratory manager. encouraged to ring out as needed. bed alarm in place
[2022-04-12 18:57] LABS: POC Glucose,Bedside 178 (70-110)
[2022-04-12 21:34] LABS: POC Glucose,Bedside 239 (70-110)
[2022-04-13] VITALS (9 sets, daily range): BP systolic 105–134; BP diastolic 50–76; PULSE 70–105; RESP 16–24; TEMP 36.5–36.8; O2SAT 92–100; BMI 29.3
[2022-04-13 05:20] LABS: POC Glucose,Bedside 219 (70-110)
--- NOTE | 2022-04-13 07:00 | PC.NURSE ---
Pt has been alert to person t/o majority of shift. Able to answer some orientation questions at times. Pt slept well. No c/o voiced to staff. Dsg to right neck and right radial CDI. Tolerated 6 l nc well with sats >90%. Call light within reach.
--- NOTE | 2022-04-13 09:48 | EXP.PULM.PN ---
Subjective *Date: 04/13/22 *Time: 15:06 Interval history: No acute respiratory vents overnight. Patient denies any improving respiratory symptoms. Pulmonology Exam Inpatient Vital signs and Labs for Last 24 Hours: Temp Pulse Resp BP Pulse Ox FiO2 97.7 F 100 H 17 130/69 95 50 04/13/22 08:00 04/13/22 08:00 04/13/22 08:00 04/13/22 08:00 04/13/22 08:00 04/12/22 08:00 Laboratory Results - last 24 hr 04/07/22 22:00: Ur L.pneumophila Ag Negative 04/07/22 23:34: MRSA (PCR) Comment 04/12/22 11:35: ABG pH 7.44, ABG pCO2 58.1 H, ABG pO2 27.3 L, ABG HCO3 38.7 H, ABG Total CO2 40.4 H, ABG O2 Saturation 44 L*, ABG Base Excess 14.5 H 04/12/22 11:40: ABG O2 Sat (Measured) 40.3 L, POC VBG O2 Sat (Mike) 34.1 L 04/12/22 13:52: POC Glucose 189 H 04/12/22 16:42: POC Glucose 178 H 04/12/22 21:13: POC Glucose 239 H 04/13/22 05:05: POC Glucose 219 H I & O for Labs for Last 24 Hours: Intake & Output 04/10/22 04/11/22 04/12/22 04/13/22 23:59 23:59 23:59 23:59 Intake Total 1800 / 1900 820 / 820 720 / 720 0 / 0 Output Total 1550 / 1550 3950 / 3950 1500 / 1500 Balance 250 / 350 -3130 / -3130 -780 / -780 0 / 0 Weight 194 lb 194 lb 197 lb 3.2 oz 193 lb 9.6 oz Microbiology Reports for the Last 24 Hours: Microbiology 04/07/22 14:46 Blood Blood Culture - Final NO GROWTH AFTER 5 DAYS 04/07/22 14:46 Blood Blood Culture - Final NO GROWTH AFTER 5 DAYS 04/07/22 17:00 Sputum - Expectorated Sputum Gram Stain - Final 04/07/22 17:00 Sputum - Expectorated Sputum Sputum Culture - Final Normal Respiratory Amy Constitutional: Present moderate distress Head: Present normocephalic and atraumatic ENT: Present normal exam and mucous membranes moist Neck: Present normal inspection and full ROM Respiratory: Present respiratory distress; Absent accessory muscle use, wheezes or able to speak in complete sentences Cardiac: Present S1/S2, Tachycardia and radial pulses present GI: Present soft and distention; Absent tenderness or guarding Rectal (female): Present deferred (female): Present deferred Skin: Present intact; Absent cyanosis or jaundice Neuro: Present alert, awake and oriented x 3 Extremities: Present normal inspection; Absent clubbing or cyanosis Psychiatric: Present normal affect and cooperative Assessment and Plan *Assessment and plan (1) Severe pulmonary hypertension: Status: Acute Category: Medical Code(s): I27.20 - Pulmonary hypertension, unspecified (2) Shortness of Breath: Status: Acute Category: Medical Code(s): R06.02 - Shortness of breath (3) Acute and chronic respiratory failure with hypoxia: Status: Acute Category: Medical Code(s): J96.21 - Acute and chronic respiratory failure with hypoxia (4) COPD exacerbation: Status: Acute Category: Medical Code(s): J44.1 - Chronic obstructive pulmonary disease with (acute) exacerbation Plan 62-year-old female with reported history of COPD, Chronic hypoxic resp failure, Pulmonary HTN presented to the hospital with progressive worsening Shortness of breath CT chest from this admission Severe, pulmonary, negative diffuse bilateral upper lobe centrilobular emphysematous changes along with volume overload. Also concerning for subpleural interstitial changes. Spirometry from 2019, moderate COPD and Decreased FVC. No lung volumes available for review. Echocardiography from January 2022, concerned for severe Pul HTN with RVSP at 101 mm Hg and septal flattening. Patient with hypoxic respiratory failure likely combination of volume overload, COPD, pulmonary hypertension II and III. Possibility of concomitant group I P-HTN and ILD cannot e ruled out, schedule for RHC tomorrow. RHC - Severe combined Type I,II and III phHTN with PA 90/46 with PVR of 12.3 reynolds units. Interval update: Plan: -Continue oxygen supplement
--- NOTE | 2022-04-13 10:11 | EXP.CARD.PN ---
Subjective Subjective Date: 04/13/22 Time: 08:00 Principal diagnosis: diastolic dyfunction/CHF, pulmonary htn Interval history: s/o RHC 04/12/2022 Right heart cath on 05/2022 ANGIOGRAPHIC RESULTS Right atrial pressure 7 mmHg Right ventricular pressure 100/35 mmHg Pulmonary artery pressure 95/45 mmHg Pulmonary occlusion pressure 15 mmHg Left ventricular end-diastolic pressure 20 mmHg Right atrial saturation 34% Pulmonary artery saturation 40% Aortic saturation 92% Hemoglobin 10.6 Cardiac output 3.3 L/min Cardiac index 1.6 Pulmonary artery hypertension with pulmonary vascular resistance of 12.3 Wood units IMPRESSION Critical pulmonary hypertension with critically elevated pulmonary vascular resistance Group 2 pulmonary hypertension Possible combination of Group 1 pulmonary hypertension with possible component of group 3 PLAN 1. Continue high-dose diuresis while treating group 2 pulmonary hypertension 2. Patient has experienced significant clinical improvement with less oxygen requirement following large volume diuresis which basically confirms the group to diagnosis.? Recommend uptitrating diuretics to further decrease pulmonary artery occlusion pressure to around 8 to 10 mmHg.? This can be accomplished while keeping patient's creatinine between 2 and 2.5 3. Patient has critically elevated pulmonary vascular resistance with a Chin unit of 12.3.? It is unlikely patient will respond to any medications and given the critical component of diastolic dysfunction secondary to group 2 pulmonary hypertension drugs such as sildenafil will unlikely benefit patient.? Basically there is no data or evidence to support sildenafil benefiting this patient 4. If the patient is willing to discontinue tobacco products she may be a candidate for a trial at the [facility] called the Viktoria Trial which infuses Sotatercept.? Patient will be referred to Dr. Vasquez at [facility] as an outpatient. 5. It is also reasonable to offer patient hospice care given her ongoing tobacco usage and unwillingness to discontinue tobacco.? Given the critically elevated pulmonary vascular resistance patient has severely diminished life expectancy and certainly is a hospice candidate Patient resting reports feeling overall better. Shortness of air has improved. Denies chest pain. Family at bedside. AM labs pending. Patient has a -560 balance. Exam Data for Last 24 hours Vital signs and Labs for Last 24 Hours: Temp Pulse Resp BP Pulse Ox FiO2 97.7 F 100 H 17 130/69 95 50 04/13/22 08:00 04/13/22 08:00 04/13/22 08:00 04/13/22 08:00 04/13/22 08:00 04/12/22 08:00 Laboratory Results - last 24 hr 04/07/22 22:00: Ur L.pneumophila Ag Negative 04/07/22 23:34: MRSA (PCR) Comment 04/12/22 11:35: ABG pH 7.44, ABG pCO2 58.1 H, ABG pO2 27.3 L, ABG HCO3 38.7 H, ABG Total CO2 40.4 H, ABG O2 Saturation 44 L*, ABG Base Excess 14.5 H 04/12/22 11:40: ABG O2 Sat (Measured) 40.3 L, POC VBG O2 Sat (Mike) 34.1 L 04/12/22 13:52: POC Glucose 189 H 04/12/22 16:42: POC Glucose 178 H 04/12/22 21:13: POC Glucose 239 H 04/13/22 05:05: POC Glucose 219 H I & O for Last 24 hours: Intake & Output 04/10/22 04/11/22 04/12/22 04/13/22 23:59 23:59 23:59 23:59 Intake Total 1800 / 1900 820 / 820 720 / 720 0 / 0 Output Total 1550 / 1550 3950 / 3950 1500 / 1500 Balance 250 / 350 -3130 / -3130 -780 / -780 0 / 0 Weight 194 lb 194 lb 197 lb 3.2 oz 193 lb 9.6 oz Microbiology Reports for the Last 24 Hours: Microbiology 04/07/22 14:46 Blood Blood Culture - Final NO GROWTH AFTER 5 DAYS 04/07/22 14:46 Blood Blood Culture - Final NO GROWTH AFTER 5 DAYS 04/07/22 17:00 Sputum - Expectorated Sputum Gram Stain - Final 04/07/22 17:00 Sputum - Expectorated Sputum Sputum Culture - Final Normal Respiratory Amy Constitutional Constitutional: no acute distress *Routine Res
[2022-04-13 10:46] LABS: Chloride 85 mmol/L (98-107)
[2022-04-13 10:47] LABS: Potassium 3.8 mmoL/L (3.5-5.1); Sodium 137 mmol/L (136-145)
[2022-04-13 10:50] LABS: Anion Gap 16.8 mEq/L (5-15); Blood Urea Nitrogen 34 mg/dl (7-17); Carbon Dioxide 39 mmol/L (22.0-30.0); Creatinine Clearance Estimated 48 mL/min (50-200); Estimated Glomerular Filt Rate 31 ml/min (>60); GFR (African American) 37 ML/MIN (>60); Glucose 209 mg/dl (74-100)
[2022-04-13 11:22] LABS: Magnesium 1.9 mg/dl (1.6-2.3)
--- NOTE | 2022-04-13 11:30 | HMH.OTEV ---
OT Inpatient Evaluation Rehab OT IP Evaluation Start: 04/13/22 10:20 Freq: ONCE Status: Active Protocol: Document 04/13/22 11:19 ZEESHAN (Rec: 04/13/22 11:29 ZEESHAN [id number]) Rehab OT IP Assessment Subjective History Ms. Escalona is a 62-year-old female with a past medical history that is positive for COPD, home oxygen dependent at 6L nasal cannula, chronic tobacco use, Pulmonary HTN, CAD, h/o SVT s/p Ablation, DM. She presented to [facility] via EMS due to progressive shortness of air and weakness over a reported 2 week period, but particulary worse over the last couple of days. Per discussion with the patient and chart review the patient was recently discharged from [facility] around 6 weeks ago due to a similar presentation. She was being treated per patient report for COPD exacerbation and CHF exacerbation. She reports that she received antibiotics, had increases in her diuretic therapy and was discharged to home. She reports that she took the medications as prescribed, but did not weigh as instructed daily or monitor her intake. She reports that she progressed to feel weak and became extremely short of air so she called 911 today. She denies any known fevers or myalgias, but does report a non-productive cough. In the Field despite 6L nasal cannula the patient was noted to have oxygen saturations in the 70's. She was given a duoneb by EMS and placed on a non-rebreather. Upon arrival to the ER, ABG showed a pH of 7.37 and PO2 of 51.7 with SpO2 of 84% taken on
--- NOTE | 2022-04-13 11:38 | HMH.PTEV ---
Physical Therapy Evaluation Rehab PT IP Evaluation Start: 04/13/22 10:20 Freq: ONCE Status: Active Protocol: Document 04/13/22 11:20 RAJESH (Rec: 04/13/22 11:38 RAJESH [id number]) Subjective/History History History Pt is a 62 y/o female with PMH consisting of COPD, home oxygen dependent at 6L nasal cannula, chronic tobacco use, Pulmonary HTN, CAD, h/o SVT s/ p Ablation, DM. Pt reported to [facility] via EMS on 04/07/22 due to progressive shortness of air and weakness over a reported 2 week period, but particulary worse over the last couple of days. Via history and physical note, Per discussion with the patient and chart review the patient was recently discharged from [facility] around 6 weeks ago due to a similar presentation. She was being treated per patient report for COPD exacerbation and CHF exacerbation. She reports that she received antibiotics, had increases in her diuretic therapy and was discharged to home. She reports that she took the medications as prescribed, but did not weigh as instructed daily or monitor her intake. She reports that she progressed to feel weak and became extremely short of air so she called 911 today. Subjective Subjective Pt reports prior to hospitalization, she was living in a mobile home with 4 steps to enter with her significant other. Pt's significant other was in the room and states he is having surgery tomorrow and will be hospitalized himself for a couple days. Pt reports her eysakx-mx-cit plans on coming to stay with her and her
--- NOTE | 2022-04-13 11:42 | SW/DCPLANNER ---
Addendum entered by Mayi Schroeder 04/13/22 15:32: Janette romero/ [facility] stated she can accept this patient for home health services. Addendum entered by Mayi Schroeder 04/13/22 14:03: Marlene romero/ [facility] stated they could not accept patient at this time. Patient information/order has been faxed to Janette romero/ [facility]. Original Note: The plan for this patient is to discharge home today with home health services. PT evaluated patient and recommended home health. Patient stated that she has used [facility] in the past and is agreeable to use services again. Patient information/order will be faxed to [facility]. Patient will discharge home later today.
--- NOTE | 2022-04-13 14:38 | EXP.DC.SUM ---
General Admission date:: 04/07/22 HPI HPI HPI: Ms. Escalona is a 62-year-old female with a past medical history that is positive for COPD, home oxygen dependent at 6L nasal cannula, chronic tobacco use, Pulmonary HTN, CAD, h/o SVT s/p Ablation, DM. She presented to [facility] via EMS due to progressive shortness of air and weakness over a reported 2 week period, but particulary worse over the last couple of days. Per discussion with the patient and chart review the patient was recently discharged from [facility] around 6 weeks ago due to a similar presentation. She was being treated per patient report for COPD exacerbation and CHF exacerbation. She reports that she received antibiotics, had increases in her diuretic therapy and was discharged to home. She reports that she took the medications as prescribed, but did not weigh as instructed daily or monitor her intake. She reports that she progressed to feel weak and became extremely short of air so she called 911 today. She denies any known fevers or myalgias, but does report a non-productive cough. In the Field despite 6L nasal cannula the patient was noted to have oxygen saturations in the 70's. She was given a duoneb by EMS and placed on a non-rebreather. Upon arrival to the ER, ABG showed a pH of 7.37 and PO2 of 51.7 with SpO2 of 84% taken on 100% non-rebreather. Cxray showed worsening alveolar opacities favoring edema over bilateral pneumonia. Procalcitonin was within normal range at 0.100, however Lactic Acid was elevated at 4.9. The patient was given Rocephin, Lasix and Admitted with initial impression of Acute on Chronic Hypoxic Respiratory Failure. At time of exam the patient is currently on a BIPAP with improvement of symptoms, she has a gan in place with approximately 2liters in the gan bag. An echo in the system from an outside facility shows a severely dilated right ventricle with RVSP at >70 mm. She is on Viagra for her Pulmonary HTN. Hospital Course Hospital Course Hospital Course: Admitted for acute on chronic hypoxic respiratory failure placed on nonrebreather, CT with alveolar opacities edema versus bilateral pneumonia. Given antibiotics and diuretics. Placed on BiPAP. Cardiology consulted for pulmonary hypertension, placed on Bumex drip 1 mg/h for diuresis, spironolactone metolazone continued. Sildenafil discontinued. Oxygen saturation continue to improve. Pulmonology consulted. Cardiac cath Critical pulmonary hypertension with critically elevated pulmonary vascular resistance, Group 2 pulmonary hypertension Possible combination of Group 1 pulmonary hypertension with possible component of group 3 . Patient would likely benefit from outpatient hospice. Will follow-up with pulmonology on outpatient basis Follow-up with cardiology on outpatient basis and refer to pulmonary hypertension center. Exam Data for Last 24 hours Vital signs and Labs for Last 24 Hours: Temp Pulse Resp BP Pulse Ox FiO2 97.8 F 81 20 134/55 L 96 50 04/13/22 12:00 04/13/22 13:33 04/13/22 12:00 04/13/22 12:00 04/13/22 12:00 04/12/22 08:00 Laboratory Results - last 24 hr 04/07/22 22:00: Ur L.pneumophila Ag Negative 04/07/22 23:34: MRSA (PCR) Comment 04/12/22 16:42: POC Glucose 178 H 04/12/22 21:13: POC Glucose 239 H 04/13/22 05:05: POC Glucose 219 H 04/13/22 10:34: Sodium 137, Potassium 3.8, Chloride 85 L, Carbon Dioxide 39 H, Anion Gap 16.8 H, BUN 34 H D, Creatinine 1.70 H, Estimated Creat Clear 48, Estimated GFR 31 L, Est GFR ( Amer) 37 L, Glucose 209 H, Calcium 10.0 04/13/22 10:34: Magnesium 1.9 I & O for Last 24 hours: Intake & Output 04/10/22 04/11/22 04/12/22 04/13/22 23:59 23:59 23:59 23:59 Intake Total 1800 / 1900 820 / 820 720 / 720 240 / 240 Output Total 1550 / 1550 3950 / 3950 1500 / 1500 Balance 250 / 350 -3130 / -3130 -780 / -780 240 / 240 Weight 87.997 kg 87.997 kg 89.448 kg 87.815 kg Microbiology Repor
[2022-04-13 17:12] LABS: POC Glucose,Bedside 408 (70-110)
[2022-04-13 17:12] LABS: POC Glucose,Bedside 224 (70-110)
--- NOTE | 2022-04-14 15:13 | CARE MANAGER ---
Spoke with patient for post-discharge phone interview, patient is doing well and has no issues.
[2022-04-14 21:03] LABS: Body Fluid Culture, Sterile Not indicated. (.); Organism ID Not indicated. (.); Specimen Source Urine (.); Streptococcus pneumoniae Ag Negative (Negative)
== END 2022-04-13 17:16 | disposition home health service (06) | DRG 286 ==
LOC: ER 17:06 → ICU 21:59 → 2ND 21:59
PROVIDERS: Internal Medicine; Nurse Practitioner; Nurse Practitioner Family; Admitting Provider Internal Medicine Adolescent Medicine; Emergency Provider Emergency Medicine; PCP Internal Medicine; Visit Provider Student in an Organized Health Care Education/Training Program
DX: I27.20 Pulmonary hypertension, unspecified (principal); I50.33 Acute on chronic diastolic (congestive) heart failure; J96.21 Acute and chronic respiratory failure with hypoxia; N17.9 Acute kidney failure, unspecified; I50.82 Biventricular heart failure; I25.10 Atherosclerotic heart disease of native coronary artery without angina pectoris; Z99.81 Dependence on supplemental oxygen; F17.210 Nicotine dependence, cigarettes, uncomplicated; Z79.4 Long term (current) use of insulin; E11.22 Type 2 diabetes mellitus with diabetic chronic kidney disease; N18.9 Chronic kidney disease, unspecified; Z71.6 Tobacco abuse counseling; E83.42 Hypomagnesemia; E87.6 Hypokalemia; J43.2 Centrilobular emphysema
CPT/HCPCS: 36415; 51702; 71045; 71250; 71275; 80048; 80053; 81001; 82803; 82810; 82962; 83036; 83605; 83735; 83880; 84145; 84484; 85007; 85025; 85378; 87040; 87070; 87205; 87581; 87632; 87641; 87798; 87899; 93005; 93306; 93460; 94640; 94760; 94761; 97162; 97165; 97530; 99152; 99153; 99291; C1725; C1769; C1894; C9803; J0692; J0696; J1644; J2405; J3370; J3475; Q9967; U0003; U0005

== ENCOUNTER → 2022-04-20 14:33 | Outpatient (CLI) | payer MEDICARE, MEDICAID, SELFPAY ==
--- NOTE | 2022-04-20 14:39 | XR_ITS ---
FINAL REPORT CLINICAL HISTORY: FALL,LT LEG/FOOT INJURY COMPARISON: 07/02/2021 FINDINGS: Left tibia fibula Two views were obtained. There is no acute fracture or dislocation. The joint spaces appear normal. No soft tissue abnormality is identified. IMPRESSION: No acute process. Reviewed, Interpreted and Dictated by Carmine Magaña III, MD Transcribed by Carmen Burris Authenticated and [facility]
--- NOTE | 2022-04-20 14:39 | XR_ITS ---
FINAL REPORT CLINICAL HISTORY: FALL,LT LEG/FOOT INJURY COMPARISON: 05/13/2021 FINDINGS: Left foot Three views were obtained. There is no acute fracture or dislocation. There are mild degenerative changes. Calcaneal spurs are noted. No soft tissue abnormality is identified. IMPRESSION: No acute process. Reviewed, Interpreted and Dictated by Carmine Magaña III, MD Transcribed by Carmen Burris Authenticated and . [facility]
[2022-04-20 17:23] LABS: Basophils # 0.1 K/mm3 (0-0.2); Basophils % 0.7 % (0.1-2.0); Eosinophils # 0.1 K/mm3 (0.0-0.4); Eosinophils % 0.7 % (0.1-12.0); Hematocrit 34.8 % (37.0-47.0); Hemoglobin 10.7 g/dL (12.2-16.2); Lymphocytes % 7.1 % (10-50); Mean Corpuscular HGB Conc 30.8 g/dL (31.8-35.4); Mean Corpuscular Hemoglobin 26.7 pg (27.0-31.2); Mean Corpuscular Volume 86.6 fl (81-99); Mean Platelet Volume 9.1 fl (7.4-10.4); Monocytes # 0.5 K/mm3 (0.1-1.0); Monocytes % 3.4 % (1.7-9.3); Neutrophils # 12.1 K/mm3 (1.8-7.8); Neutrophils % 88.1 % (37.0-80.0); Platelet Count 401 K/mm3 (142-424); Red Blood Count 4.02 M/mm3 (4.20-5.40); Red Cell Distribution Width 17.5 % (11.5-17.5); White Blood Count 13.7 K/mm3 (4.8-10.8)
[2022-04-20 17:26] LABS: MANUAL DIFFERENTIAL MANUAL DIFFERENTIAL (MANUAL DIFF)
[2022-04-20 19:35] LABS: Albumin Level 4.4 g/dl (3.5-5.0); Albumin/Globulin Ratio 1.7 (1.1-1.8); Alkaline Phosphatase 181 U/L (38-126); Bilirubin,Total 0.9 mg/dl (0.2-1.3); Blood Urea Nitrogen 21 mg/dl (7-17); Calcium 9.2 mg/dl (8.4-10.2); Carbon Dioxide 30 mmol/L (22.0-30.0); Chloride 94 mmol/L (98-107); Estimated Glomerular Filt Rate 46 ml/min (>60); GFR (African American) 55 ML/MIN (>60); Globulin 2.6 g/dL (1.3-3.2); Glucose 375 mg/dl (74-100); Sodium 136 mmol/L (136-145)
[2022-04-20 20:50] LABS: Alanine Aminotransferase 29 U/L (12-78); Aspartate Amino Transferase 32 U/L (14-36)
[2022-04-20 20:56] LABS: Anion Gap 16.2 mEq/L (5-15); Potassium 4.2 mmoL/L (3.5-5.1)
[2022-04-20 22:59] LABS: Lymphocytes % 9 % (10-50); Monocytes % 2 % (2-9); Neutrophils % 89 % (42-76); Total Cells Counted 100
[2022-04-20 23:00] LABS: Hypochromasia 1+; Ovalocytes 1+; Platelet Estimate Normal
== END ==
PROVIDERS: PCP Internal Medicine; Visit Provider Internal Medicine
DX: M79.605 Pain in left leg (principal); M79.672 Pain in left foot; S89.92XA Unspecified injury of left lower leg, initial encounter; W19.XXXA Unspecified fall, initial encounter
CPT/HCPCS: 73590; 73630; 80053; 85007; 85025

== ENCOUNTER → 2022-05-04 16:49 | Outpatient (CLI) | payer MEDICARE, MEDICAID, SELFPAY ==
[2022-05-04 19:01] LABS: Anion Gap 16.1 mEq/L (5-15); Blood Urea Nitrogen 17 mg/dl (7-17); Calcium 9.4 mg/dl (8.4-10.2); Carbon Dioxide 29 mmol/L (22.0-30.0); Chloride 99 mmol/L (98-107); Estimated Glomerular Filt Rate 31 ml/min (>60); GFR (African American) 37 ML/MIN (>60); Glucose 165 mg/dl (74-100); Potassium 4.1 mmoL/L (3.5-5.1); Sodium 140 mmol/L (136-145)
== END ==
PROVIDERS: PCP Internal Medicine; Visit Provider Internal Medicine
DX: I25.118 Atherosclerotic heart disease of native coronary artery with other forms of angina pectoris (principal); I27.81 Cor pulmonale (chronic); I10 Essential (primary) hypertension; E11.59 Type 2 diabetes mellitus with other circulatory complications; E11.42 Type 2 diabetes mellitus with diabetic polyneuropathy; J44.9 Chronic obstructive pulmonary disease, unspecified; Z79.4 Long term (current) use of insulin
CPT/HCPCS: 80048; 85014

== ENCOUNTER 2022-08-25 16:39 | Inpatient (IN) | payer OTHER, SELFPAY ==
[2022-08-25] VITALS (11 sets, daily range): BP systolic 77–156; BP diastolic 51–96; PULSE 103–110; RESP 18–24; TEMP 36.6–36.9; O2SAT 90–100; BMI 37.5; BMI 34.2
--- NOTE | 2022-08-25 16:17 | PC.NURSE ---
ED MD AT BEDSIDE
--- NOTE | 2022-08-25 16:29 | ECG_ITS ---
APPROVED REPORT Exam: Resting ECG HR:111 bpm ECG Measurements Heart Rate 111 AXES OH 207 P 71 QRSd 116 QRS 125 QT 428 T 48 QTc 493 Conclusion SINUS TACHYCARDIA INCOMPLETE RIGHT BUNDLE BRANCH BLOCK [90+ ms QRS DURATION, TERMINAL R IN V1/V2, 40+ ms S IN I/aVL/V4/V5/V6] POSSIBLE RIGHT VENTRICULAR HYPERTROPHY [SOME/ALL OF: PROMINENT R IN V1, LATE TRANSITION, RAD, SANAZ, SSS] MODERATE ST DEPRESSION [0.05+ mV ST DEPRESSION] ABNORMAL ECG UNCONFIRMED REPORT Electronically signed by : Kareem Newell MD 08/26/2022 21:39:51
--- NOTE | 2022-08-25 16:32 | PC.NURSE ---
RESPIRATORY AT BEDSIDE TO PLACE PT ON BIPAP
--- NOTE | 2022-08-25 16:49 | PC.NURSE ---
FAMILY AT BEDSIDE
--- NOTE | 2022-08-25 16:49 | PC.NURSE ---
1648 ABG RESULTS REPORTED TO ED MD AT THIS TIME, NO NEW ORDERS. RECEIVED FROM DAVID. PT NAME AND R/V
[2022-08-25 16:52] LABS: ABG Base Excess 1.2 mmol/L (-2.4-2.3); ABG HCO3 26.2 mmhg (22.0-26.0); ABG Oxygen Saturation 75 % (90-100); ABG PCO2 43.9 mmhg (35.0-45.0); ABG PH 7.39 mmol/L (7.35-7.45); ABG TCO2 27.5 mmhg (23-27)
[2022-08-25 16:53] LABS: Allen's Test Non Applicable; Oxygen ROOM AIR %; Source Left Radial
[2022-08-25 16:54] LABS: ABG PO2 41.7 mmhg (80-100)
--- NOTE | 2022-08-25 16:58 | XR_ITS ---
PROCEDURE INFORMATION: Exam: XR Chest Exam date and time: 08/25/2022 5:31 PM Age: 62 years old Clinical indication: Shortness of breath; Additional info: SOA TECHNIQUE: Imaging protocol: Radiologic exam of the chest. Views: 1 view. COMPARISON: CR XR CHEST PORTABLE 04/08/2022 4:58 AM FINDINGS: Lungs: Minor bilateral linear parenchymal scarring. No airspace consolidation. Mild pulmonary vascular congestion. Pleural spaces: Unremarkable. No pleural effusion. No pneumothorax. Heart/Mediastinum: Cardiomegaly. Bones/joints: Unremarkable. IMPRESSION: Cardiomegaly and mild pulmonary vascular congestion.
[2022-08-25 17:13] LABS: Alanine Aminotransferase 19 U/L (12-78); Albumin/Globulin Ratio 1.3 (1.1-1.8); Alkaline Phosphatase 144 U/L (38-126); Anion Gap 16.4 mEq/L (5-15); Aspartate Amino Transferase 32 U/L (14-36); Bilirubin,Total 1.2 mg/dl (0.2-1.3); Blood Urea Nitrogen 16 mg/dl (7-17); Calcium 8.4 mg/dl (8.4-10.2); Carbon Dioxide 28 mmol/L (22.0-30.0); Chloride 93 mmol/L (98-107); Creatinine Clearance Estimated 73 mL/min (50-200); Estimated Glomerular Filt Rate 38 ml/min (>60); GFR (African American) 46 ML/MIN (>60); Glucose 62 mg/dl (74-100); Potassium 3.4 mmoL/L (3.5-5.1); Sodium 134 mmol/L (136-145)
[2022-08-25 17:25] LABS: Troponin I 0.03 ng/ml (0.00-0.034)
--- NOTE | 2022-08-25 17:37 | PC.NURSE ---
ROUNDED ON PT, NO NEEDS AT THIS TIME. FAMILY AT BEDSIDE
[2022-08-25 18:13] LABS: Basophils % 0.6 % (0.1-2.0); Eosinophils # 0.1 K/mm3 (0.0-0.4); Eosinophils % 1.5 % (0.1-12.0); Hematocrit 32.1 % (37.0-47.0); Hemoglobin 9.4 g/dL (12.2-16.2); Lymphocytes # 1.3 K/mm3 (0.7-4.5); Lymphocytes % 18.3 % (10-50); Mean Corpuscular HGB Conc 29.4 g/dL (31.8-35.4); Mean Corpuscular Volume 74.8 fl (81-99); Mean Platelet Volume 10.6 fl (7.4-10.4); Monocytes # 0.6 K/mm3 (0.1-1.0); Monocytes % 8.8 % (1.7-9.3); Neutrophils # 5.2 K/mm3 (1.8-7.8); Neutrophils % 70.9 % (37.0-80.0); Platelet Count 320 K/mm3 (142-424); Red Blood Count 4.28 M/mm3 (4.20-5.40); Red Cell Distribution Width 18.7 % (11.5-17.5); White Blood Count 7.4 K/mm3 (4.8-10.8)
--- NOTE | 2022-08-25 18:21 | PC.NURSE ---
rounded on pt no complaints at this time
[2022-08-25 18:34] LABS: Coronavirus 19, PCR Not Detected (NotDetected); Influenza A, PCR Not Detected (NotDetected); Influenza B, PCR Not Detected (NotDetected)
--- NOTE | 2022-08-25 18:57 | CT_ITS ---
PROCEDURE INFORMATION: Exam: CT Head Without Contrast Exam date and time: 08/25/2022 7:16 PM Age: 62 years old Clinical indication: Other: Decreased oxygen saturation. Patient HX: Decreased oxygen saturation, on bipap machine. ; Additional info: AMS TECHNIQUE: Imaging protocol: Computed tomography of the head without contrast. Radiation optimization: All CT scans at this facility use at least one of these dose optimization techniques: automated exposure control; mA and/or kV adjustment per patient size (includes targeted exams where dose is matched to clinical indication); or iterative reconstruction. REPORTING DATA: Count of CT and Cardiac NM exams in prior 12 months: This patient has received 2 known CTs and 0 known cardiac nuclear medicine studies in the 12 months prior to the current study. COMPARISON: MR HEAD/BRAIN WO CON 08/14/2021 10:42 AM FINDINGS: Brain: Normal. No hemorrhage. Unremarkable white matter. No mass effect. Cerebral ventricles: No ventriculomegaly. Paranasal sinuses: Visualized sinuses are unremarkable. No fluid levels. Mastoid air cells: Visualized mastoid air cells are well aerated. Bones/joints: Unremarkable. No acute fracture. Soft tissues: Unremarkable. IMPRESSION: No acute intracranial abnormality.
--- NOTE | 2022-08-25 18:59 | HMH.EDGENADL ---
Discharge Plan Disposition Patient Disposition: Admitted As Inpatient Condition: Fair Chief Complaint: Shortness of Breath/Dyspnea Prescriptions Prescriptions: No Action atorvastatin 40 mg tablet 40 mg PO HS Qty: 30 ofainogeven-nrcraadrc-jwnfkovn 100-62.5-25 mcg blister with device 1 puff INHALATION DAILY duloxetine 60 mg capsule,delayed release(DR/EC) 60 mg PO DAILY Qty: 90 levothyroxine 50 mcg tablet 50 mcg PO DAILYDM Qty: 90 spironolactone 25 MG tablet 25 mg PO DAILY empagliflozin 25 MG tablet 25 mg PO DAILYDM metolazone 5 mg tablet 5 mg PO DAILY bisoprolol fumarate 10 mg tablet 10 mg PO DAILY Label Comments: TAKE ONE TABLET BY MOUTH EVERY DAY ferrous sulfate [FeroSul] 325 mg (65 mg iron) tablet 325 mg PO DAILY Label Comments: TAKE ONE TABLET BY MOUTH EVERY DAY gabapentin 300 mg capsule 300 mg PO 1300 Label Comments: TAKE TWO CAPSULES BY MOUTH EVERY DAY IN THE MORNING, TAKE ONE CAPSULE BY MOUTH EVERY DAY IN THE EVENING AND TAKE TWO CAPSULES BY MOUTH EVERY DAY AT BEDTIME MAY CAUSE DROWSINESS Trintellix 20 mg tablet 20 mg PO DAILY Label Comments: TAKE ONE TABLET BY MOUTH EVERY DAY Motegrity 2 mg tablet 2 mg PO DAILY Label Comments: TAKE ONE TABLET BY MOUTH EVERY DAY DIRECTED budesonide [Pulmicort] 0.5 mg/2 mL Suspension For Nebulization 0.5 mg inhalation BIDRT Qty: 60 0RF bumetanide 1 MG tablet 4 mg PO DAILY 1 Days Qty: 120 3RF prednisone 20 mg tablet 40 mg PO DAILY 5 Days Qty: 10 0RF clopidogrel 75 MG tablet 75 mg PO DAILY aspirin 81 MG tablet,chewable 81 mg PO DAILY pantoprazole 40 MG tablet,delayed release (DR/EC) 40 mg PO DAILY buspirone 10 MG tablet 10 mg PO BID lisinopril 2.5 MG tablet 2.5 mg PO DAILY diazepam 5 MG tablet 5 mg PO TIDP PRN (Reason: Anxiety) insulin glargine 100 unit/mL solution 85 unit SQ HS albuterol sulfate 8.5 GM HFA aerosol inhaler 2 puffs IH Q4HP PRN (Reason: Shortness Of Breath) Label Comments: INHALE TWO PUFFS BY MOUTH FOUR TIMES DAILY NEEDED --SHAKE WELL BEFORE USE-- glipizide 5 MG tablet 2.5 mg PO BIDWMEAL gabapentin 300 MG capsule 600 mg PO BID potassium chloride 10 mEq capsule, extended release 20 meq PO DAILY Label Comments: TAKE TWO CAPSULES BY MOUTH EVERY DAY WITH FUROSEMIDE Referrals Follow up/Referrals: Charles James MD [Primary Care Provider] - See instructions Clinical Impressions Clinical Impression: Respiratory failure with hypoxia, Intractable vomiting Print Language Print Language: Telugu Discharge ED Provider: Foreign Chery General Adult HPI General Chief complaint: Shortness of Breath/Dyspnea Stated complaint: SHORTNESS OF BREATH Time Seen by Provider: 08/25/22 19:54 Mode of Arrival: EMS Limitations: No Limitations Description of Symptoms (Recalled from ER Triage Doc. by RN): PT BROUGHT IN VIA EMS FOR INCREASED SHORTNESS OF BREATH AND BLE EDEMA History of Present Illness HPI narrative: Patient presents to the emergency department shortness of breath and edema. The patient has a history of end-stage COPD and CHF. She is on hospice and has only been wearing her BiPAP intermittently at home. She states that she feels her shortness of breath is worsened today. Denies any worsening fever or chills. Denies any vomiting or diarrhea at this time. Related Data Home Medications Medication Instructions Recorded Confirmed aspirin 81 mg chewable tablet 81 mg PO DAILY heart health 06/17/17 04/07/22 buspirone 10 mg tablet 10 mg PO BID Depression 06/17/17 04/07/22 clopidogrel 75 mg tablet 75 mg PO DAILY platelet inhibitor 06/17/17 04/07/22 diazepam 5 mg tablet 5 mg PO TIDP PRN Anxiety 06/17/17 04/07/22 lisinopril 2.5 mg tablet 2.5 mg PO DAILY Hypertension 06/17/17 04/07/22 pantoprazole 40 mg tablet,delayed 40 mg PO DAILY acid reflux 0
--- NOTE | 2022-08-25 19:33 | PC.NURSE ---
While rounding patient was noted to have taken off her bipap. Pt states that it was bothering her. I asked the patient if she would be willing to take medicine to relax so she can tolerate her bipap. Pt agrees. notified. Orders for 1mg ativan given.
--- NOTE | 2022-08-25 19:40 | PC.NURSE ---
speaking with Hospice care navigators.
--- NOTE | 2022-08-25 19:40 | PC.NURSE ---
Patient was placed back on bipap and given 1mg of ativan.
--- NOTE | 2022-08-25 19:46 | PC.NURSE ---
Dr. Zapata paged
--- NOTE | 2022-08-25 19:46 | PC.NURSE ---
HARSHIL HILL speaking with Dr. Zapata
--- NOTE | 2022-08-25 19:51 | PC.NURSE ---
Patient was accepted to the hospitalist. MD asks that patient bipap be removed and placed on high flow nasal cannula and possible titration to nasal cannula once patient goes to the floor.
--- NOTE | 2022-08-25 19:54 | PC.NURSE ---
Per rt, they don't have high flow nasal cannula but they do have vapotherm. MD notified. states that the vapotherm is appropriate at this time.
--- NOTE | 2022-08-25 20:00 | PC.NURSE ---
Hospitalist, Oz, at BS
--- NOTE | 2022-08-25 20:12 | EXP.HP ---
History of Present Illness *Admission Date: 08/25/22 *Reason for visit:: Shortness of air, vomiting *History of present illness: Ms. Ecsalona is a 62-year-old female who is a patient of Hospice due to Severe Pulmonary Hypertension. She has a past medical history of Severe Pulmonary Hypertension, Chronic Hypoxic Respiratory Failure, CAD, Hypothyroidism, HTN and Hyperlipidemia. She presents to [facility] due to a 1-day history of shortness of air outside her normal. In the ER, abg showed Hypoxia with pO2 41.7 and SpO2 75% on 21% FiO2. Cxray showed vascular congestion. She received Bumex 1 mg iv x 1. Resolution Analyst who diagnosed the patient with Severe Pulmonary HTN by right heart cath in 04/2022 was contacted due to her admission and case was discussed with ER Physician. Recommendations were for high flow oxygen, no bipap, diuretics. She was noted to have episodes of vomiting on admission. She is admitted with initial impression: Intractable Nausea, vomiting. Hospice was contacted in the ER prior to her admission. [facility] Disclaimer: The information contained in this section may have been updated after the patient was seen, as this information can be updated by other users. Medical History Acute and chronic respiratory failure with hypoxia Acute on chronic diastolic (congestive) heart failure Anemia CAD (coronary artery disease) CHF (congestive heart failure) CKD (chronic kidney disease) COPD (chronic obstructive pulmonary disease) COPD (chronic obstructive pulmonary disease) COPD exacerbation Diabetes Family history of coronary artery disease Family history of hypertension Generalized weakness GERD (gastroesophageal reflux disease) History of paroxysmal supraventricular tachycardia Hyperlipidemia Marijuana use Pulmonary hypertension Respiratory failure with hypoxia Severe pulmonary hypertension Shortness of Breath Sleep apnea Tobacco abuse Tobacco use Surgical History History of cardiac cath History of cardiac radiofrequency ablation (RFA) History of esophagogastroduodenoscopy (EGD) History of percutaneous coronary intervention Family History Other Coronary artery disease Hypertension Social History (Updated 08/25/22 @ 23:03 by Vanessa Zimmer RN) Smoking Status: Current every day smoker tobacco type: cigarettes packs per day: 1 quit status: considering quitting second hand exposure: No alcohol intake: never counseling provided: none substance use type: marijuana current occupational status: disabled Travel in the last 8 weeks: None household members: significant other housing: house lives independently: No (boyfriend ) marital status: single number of children: 1 current occupational exposures/hazards: No diet: diabetic caffeine: No physical activity: none special jose luis needs: No agree to transfusion: No do you feel safe at home: Yes victim of physical abuse: No victim of emotional abuse: No victim of sexual abuse: No Review of Systems Review of Systems Review of systems:: pertinent systems reviewed and negative unless documented below Constitutional Constitutional: Reports fatigue and Reports lethargy Eyes Eyes: Reports system reviewed and no additional complaints, except as documented ENT Ears, Nose, Mouth, and Throat: Reports system reviewed and no additional complaints, except as documented *Cardiovascular Cardiovascular: Reports dyspnea, Reports dyspnea on exertion and Reports edema *Respiratory Respiratory: Reports dyspnea and Reports dyspnea on exertion *Gastrointestinal Gastrointestinal: Reports nausea and Reports vomiting *Genitourinary Genitourinary: Reports system reviewed and no additional complaints, except as documented *Musculoskeletal Musculoskeletal: Reports system reviewed and no additional complaints, excep
--- NOTE | 2022-08-25 20:51 | PC.NURSE ---
Pt. arived to floor by stretcher at 20:47
[2022-08-25 22:06] LABS: Troponin I 0.03 ng/ml (0.00-0.034)
--- NOTE | 2022-08-25 22:25 | PC.NURSE ---
Pt cleaned and encouraged to provide urine sample at this time, pt unable.
[2022-08-25 23:40] LABS: POC Glucose,Bedside 112 (70-110)
[2022-08-26] VITALS (15 sets, daily range): BP systolic 116–153; BP diastolic 68–89; PULSE 80–107; RESP 16–22; TEMP 36.3–36.9; O2SAT 93–100; BMI 34.2
[2022-08-26 00:41] LABS: Troponin I 0.03 ng/ml (0.00-0.034)
[2022-08-26 01:59] LABS: Microscopic, Urine URINE MICROSCOPIC (MICROSCOPIC)
[2022-08-26 02:00] LABS: Appearance,Urine CLEAR (Clear); Blood, Urine Negative (Negative); Color,Urine YELLOW (Yellow); Glucose,Urine (UA) Negative (Negative); Ketones,Urine Negative (Negative); Leukocyte Esterase,Urine Negative (Negative); Nitrate,Urine POSITIVE (Negative); PH,Urine 5.5 (5.0-8.5); Protein,Urine 1+ (Negative); Specific Gravity, Urine 1.025 (1.005-1.030)
[2022-08-26 02:03] LABS: Bilirubin,Urine Negative (Negative)
[2022-08-26 02:21] LABS: Bacteria,Urine 1+ /lpf; Squamous Epithelial Cell,Urine Occasional #/hpf (0-5); WBC,Urine Occasional #/hpf (0-3)
[2022-08-26 06:42] LABS: POC Glucose,Bedside 148 (70-110)
--- NOTE | 2022-08-26 06:59 | PC.NURSE ---
Pt has not c/o nausea or pain t/o night. Pt remains on vapotherm at 30L/60%. Pt is a/o to person and sometimes to place. Bed alarm on for pt safety. Call light within rech.
--- NOTE | 2022-08-26 07:52 | EXP.ACUTE.PN ---
Subjective *Date: 08/26/22 *Time: 09:51 Interval history: No nausea or vomiting throughout the night. Appears to be responding to antiemetics. Afebrile. Requiring 60 L FiO2 on morning rounds, increased to 80 L after morning blood gas by pulmonology. Remains afebrile. No chest pain. Asking for a cigarette and a Coke this morning. Medical Exam Vital signs and Labs for Last 24 Hours: Vital Signs Temp Pulse Pulse Resp BP BP Pulse Ox 08/26/22 04:00 100 H 08/26/22 06:24 96 08/26/22 04:00 98.1 F 103 H 20 145/89 H 97 08/26/22 00:00 100 H 08/26/22 00:00 98.2 F 103 H 18 149/80 H 94 L 08/25/22 21:00 94 L 08/25/22 22:07 110 H 08/25/22 20:02 98.2 F 108 H 24 156/88 H 94 L 08/25/22 20:35 98 F 105 H 18 138/76 08/25/22 18:33 105 H 138/73 100 08/25/22 18:00 103 H 134/95 H 100 08/25/22 17:31 110 H 127/96 H 100 08/25/22 17:01 106 H 77/51 L 96 08/25/22 16:37 110 H 90 L 08/25/22 16:57 08/25/22 16:10 98.5 F 110 H 22 137/78 93 L FiO2 08/26/22 04:00 08/26/22 06:24 60 08/26/22 04:00 08/26/22 00:00 08/26/22 00:00 08/25/22 21:00 50 08/25/22 22:07 08/25/22 20:02 08/25/22 20:35 08/25/22 18:33 08/25/22 18:00 08/25/22 17:31 08/25/22 17:01 08/25/22 16:37 08/25/22 16:57 60 08/25/22 16:10 Intake and Output 08/25/22 08/25/22 08/26/22 15:59 23:59 07:59 Output Total 0 / 0 Balance 0 / 0 Output: Output, Urine Amount 0 / 0 Other: Number of Unmeasured Voids 1 Weight 98.997 kg 99.082 kg Patient Weight 08/26/22 23:59 Weight 99.082 kg Laboratory Results - last 24 hr 08/25/22 00:01: Troponin I 0.03 08/25/22 16:05: WBC 7.4, RBC 4.28, Hgb 9.4 L, Hct 32.1 L, MCV 74.8 L, MCH 22.0 L, MCHC 29.4 L, RDW 18.7 H, Plt Count 320, MPV 10.6 H, Neut % (Auto) 70.9, Lymph % (Auto) 18.3, Irion % (Auto) 8.8, Eos % (Auto) 1.5, Baso % (Auto) 0.6, Neut # (Auto) 5.2, Lymph # (Auto) 1.3, Irion # (Auto) 0.6, Eos # (Auto) 0.1, Baso # (Auto) 0.0 08/25/22 16:05: Sodium 134 L, Potassium 3.4 L, Chloride 93 L, Carbon Dioxide 28, Anion Gap 16.4 H, BUN 16, Creatinine 1.40 H, Estimated Creat Clear 73, Estimated GFR 38 L, Est GFR ( Amer) 46 L, Glucose 62 L, Calcium 8.4, Total Bilirubin 1.2, AST 32, ALT 19, Alkaline Phosphatase 144 H, Troponin I 0.03, Total Protein 7.0, Albumin 4.0, Globulin 3.0, Albumin/Globulin Ratio 1.3 08/25/22 16:48: Specimen Source Left radial, O2 % Room air, ABG pH 7.39, ABG pCO2 43.9, ABG pO2 41.7 L, ABG HCO3 26.2 H, ABG Total CO2 27.5 H, ABG O2 Saturation 75 L*, ABG Base Excess 1.2, Enrique Test Non applicable 08/25/22 18:30: SARS-CoV-2 (PCR) Not detected, Influenza A Untype (PCR) Not detected, Influenza Type B (PCR) Not detected 08/25/22 21:00: Troponin I 0.03 08/25/22 23:27: POC Glucose 112 H 08/26/22 01:47: Urine Color Yellow, Urine Appearance Clear, Urine pH 5.5, Ur Specific [place] 1.025, Urine Protein 1+, Urine Glucose (UA) Negative, Urine Ketones Negative, Urine Blood Negative, Urine Nitrate Positive, Urine Bilirubin Negative, Urine Urobilinogen 1.0, Ur Leukocyte Esterase Negative, Urine WBC Occasional, Ur Squamous Epith Cells Occasional, Urine Bacteria 1+ 08/26/22 06:34: POC Glucose 148 H I & O for Labs for Last 24 Hours: Intake & Output 08/23/22 08/24/22 08/25/22 08/26/22 23:59 23:59 23:59 23:59 Output Total 0 / 0 Balance 0 / 0 Weight 98.997 kg 99.082 kg Constitutional: Present moderate distress, obese and chronically ill appearing Head: Present atraumatic and normocephalic ENT: Present normal exam Neck: Present normal inspection Respiratory: Present accessory muscle use, wheezes and distant breath sounds; Absent rhonchi or crackles Cardiac: Present Reg Rate and Rhythm and No Murmur GI: Present normal bowel sounds; Absent tenderness Extremities: Present normal inspection and edema ( 1+ BLE to knees) Skin: Present intact; Absent erythema Neuro: Prese
--- NOTE | 2022-08-26 08:06 | P.CONPHA_ITS ---
Pharmacy Intervention Comments: HOME MEDICATIONS VERIFIED THROUGH HOME MEDICATION LIST FROM [facility]
--- NOTE | 2022-08-26 08:06 | HMH.PHAINT1 ---
Pharmacy Intervention Comments: HOME MEDICATIONS VERIFIED THROUGH HOME MEDICATION LIST FROM [facility]
--- NOTE | 2022-08-26 08:09 | SW/DCPLANNER ---
Addendum entered by Mayi Schroeder 08/26/22 11:09: Mary romero/ [facility] is onsite to evaluate this patient. Original Note: This patient is currently established with [facility]. I spoke with Parisa at [facility]: patient's stay is related. Updated patient information has been faxed to Parisa. Discharge date is unknown at this time.
[2022-08-26 08:14] LABS: ABG Base Excess -0.1 mmol/L (-2.4-2.3); ABG HCO3 25.2 mmhg (22.0-26.0); ABG Oxygen Saturation 85 % (90-100); ABG PCO2 44.5 mmhg (35.0-45.0); ABG PH 7.37 mmol/L (7.35-7.45); ABG PO2 51.9 mmhg (80-100); ABG TCO2 26.6 mmhg (23-27)
[2022-08-26 08:15] LABS: Allen's Test ACCEPTABLE; Source Left Radial
[2022-08-26 08:16] LABS: Alanine Aminotransferase 22 U/L (12-78); Albumin/Globulin Ratio 1.4 (1.1-1.8); Alkaline Phosphatase 156 U/L (38-126); Anion Gap 17.5 mEq/L (5-15); Aspartate Amino Transferase 35 U/L (14-36); Bilirubin,Total 1.5 mg/dl (0.2-1.3); Blood Urea Nitrogen 17 mg/dl (7-17); Calcium 8.5 mg/dl (8.4-10.2); Carbon Dioxide 28 mmol/L (22.0-30.0); Chloride 94 mmol/L (98-107); Creatinine Clearance Estimated 71 mL/min (50-200); Estimated Glomerular Filt Rate 42 ml/min (>60); GFR (African American) 50 ML/MIN (>60); Globulin 2.9 g/dL (1.3-3.2); Glucose 161 mg/dl (74-100); Magnesium 1.2 mg/dl (1.6-2.3); Potassium 4.5 mmoL/L (3.5-5.1); Sodium 135 mmol/L (136-145); Total Protein,Serum 6.9 g/dl (6.3-8.2)
--- NOTE | 2022-08-26 09:29 | EXP.PULM.CON ---
History of Present Illness History of present illness: Ms. perkins is a 62-year-old female currently under hospice care secondary to severe pulmonary hypertension presented to the hospital due to worsening respiratory distress and pulmonary was called for further evaluation. [facility] Disclaimer: The information contained in this section may have been updated after the patient was seen, as this information can be updated by other users. Medical History Acute and chronic respiratory failure with hypoxia Acute on chronic diastolic (congestive) heart failure Anemia CAD (coronary artery disease) CHF (congestive heart failure) CKD (chronic kidney disease) COPD (chronic obstructive pulmonary disease) COPD (chronic obstructive pulmonary disease) COPD exacerbation Diabetes Family history of coronary artery disease Family history of hypertension Generalized weakness GERD (gastroesophageal reflux disease) History of paroxysmal supraventricular tachycardia Hyperlipidemia Marijuana use Pulmonary hypertension Respiratory failure with hypoxia Severe pulmonary hypertension Shortness of Breath Sleep apnea Tobacco abuse Tobacco use Surgical History History of cardiac cath History of cardiac radiofrequency ablation (RFA) History of esophagogastroduodenoscopy (EGD) History of percutaneous coronary intervention Family History Other Coronary artery disease Hypertension Social History (Updated 08/25/22 @ 23:03 by Vanessa Zimmer RN) Smoking Status: Current every day smoker tobacco type: cigarettes packs per day: 1 quit status: considering quitting second hand exposure: No alcohol intake: never counseling provided: none substance use type: marijuana current occupational status: disabled Travel in the last 8 weeks: None household members: significant other housing: house lives independently: No (boyfriend ) marital status: single number of children: 1 current occupational exposures/hazards: No diet: diabetic caffeine: No physical activity: none special jose luis needs: No agree to transfusion: No do you feel safe at home: Yes victim of physical abuse: No victim of emotional abuse: No victim of sexual abuse: No Review of Systems Constitutional Constitutional: Reports anorexia, Reports body ache(s) and Reports fatigue Eyes Eyes: Denies eye discharge, Denies dry eyes, Denies irritation and Denies itchy eyes ENT Ears, Nose, Mouth, and Throat: Denies epistaxis, Denies facial pain, Denies lip swelling and Denies throat swelling *Cardiovascular Cardiovascular: Reports dyspnea, Reports dyspnea on exertion, Reports leg edema and Reports orthopnea *Respiratory Respiratory: Reports chest congestion, Reports cough, Reports dyspnea, Reports dyspnea on exertion, Denies excessive phlegm production, Denies hemoptysis, Denies pain on inspiration, Denies pain with cough and Denies wheezing *Gastrointestinal Gastrointestinal: Denies abdominal pain, Denies belching and Denies cramping *Musculoskeletal Musculoskeletal: Reports back pain, Reports myalgias and Reports other (No small joint swelling or Pain) *Neurologic Neurologic: Reports system reviewed and no additional complaints, except as documented Psychiatric Psychiatric: Denies homicidal ideation and Denies suicidal ideation Endocrine Endocrine: Reports fatigue and Denies heat intolerance Hematologic/Lymphatic Hematologic/Lymphatic: Denies easy bleeding and Denies lymphadenopathy Allergic/Immunologic Allergic/Immunologic: Denies itchy eyes, Denies lip swelling, Denies throat swelling and Denies wheezing Pulmonology Exam Inpatient Vital signs and Labs for Last 24 Hours: Temp Pulse Resp BP Pulse Ox FiO2 97.3 F L 104 H 22 116/81 96 60 08/26/22 08:00 08/26/22 08:00 08/26/22 08:00 08/26/22 08:00 08/26/22 08:00 08/26/22 06:24
--- NOTE | 2022-08-26 09:37 | EXP.CARD.CON ---
History of Present Illness History of Present Illness Consult date: 08/26/22 Requesting physician: Alex Choe Consult reason: congestive heart failure and shortness of breath Chief complaint: Nausea/Vomiting, Pulm HTN Additional Medical History:: 1.? Diabetes mellitus, treated for many years A.? Hemoglobin A1c, 5.7, 04/07/2022 2.? History of coronary artery disease with prior coronary stenting, [place], [place], records unavailable 3.? Smoking with history of centrilobular emphysema on CT of the chest back to 2019 A.? Tobacco use continued, 1 pack/day x 45 years B.? PFTs, 2019, moderately severe obstructive airway disease with decreased FVC C. Pulm HTN-severe/cor pulmonale (pulmonary hypertension group 2 versus possible combo of 1 and 3 ) D. Chest CTA, 04/08/2022, No PE or aortic dissection. Nonspecific mediastinal and bilateral hilar adenopathy could be reactive or neoplastic. Mild bibasilar atelectasis with a small right pleural effusion E. Right heart cath, 04/12/2022 ANGIOGRAPHIC RESULTS Right atrial pressure 7 mmHg Right ventricular pressure 100/35 mmHg Pulmonary artery pressure 95/45 mmHg Pulmonary occlusion pressure 15 mmHg Left ventricular end-diastolic pressure 20 mmHg Right atrial saturation 34% Pulmonary artery saturation 40% Aortic saturation 92% Hemoglobin 10.6 Cardiac output 3.3 L/min Cardiac index 1.6 Pulmonary artery hypertension with pulmonary vascular resistance of 12.3 Wood units IMPRESSION Critical pulmonary hypertension with critically elevated pulmonary vascular resistance Group 2 pulmonary hypertension Possible combination of Group 1 pulmonary hypertension with possible component of group 3 PLAN 1. Continue high-dose diuresis while treating group 2 pulmonary hypertension 2. Patient has experienced significant clinical improvement with less oxygen requirement following large volume diuresis which basically confirms the group to diagnosis.? Recommend uptitrating diuretics to further decrease pulmonary artery occlusion pressure to around 8 to 10 mmHg.? This can be accomplished while keeping patient's creatinine between 2 and 2.5 3. Patient has critically elevated pulmonary vascular resistance with a Chin unit of 12.3.? It is unlikely patient will respond to any medications and given the critical component of diastolic dysfunction secondary to group 2 pulmonary hypertension drugs such as sildenafil will unlikely benefit patient.? Basically there is no data or evidence to support sildenafil benefiting this patient 4. If the patient is willing to discontinue tobacco products she may be a candidate for a trial at the [facility] called the Viktoria Trial which infuses Sotatercept.? Patient will be referred to Dr. Vasqeuz at [facility] as an outpatient. 5. It is also reasonable to offer patient hospice care given her ongoing tobacco usage and unwillingness to discontinue tobacco.? Given the critically elevated pulmonary vascular resistance patient has severely diminished life expectancy and certainly is a hospice candidate Electronically signed by : Roberto Zapata MD? 04/12/2022 15:11:31 4.? Prior history of TIA with confusion, remotely with no residual.? Chronic Plavix therapy. A.? CT of head, 06/2021, age-appropriate cerebral atrophy with moderate changes of chronic small vessel ischemia within the cerebral white matter regions bilaterally.? No acute infarct or hemorrhage. B.? CTA of head, 06/2021, see noncontrast CT report above.? Limited atherosclerosis without dissection or flow-limiting lesion in the main intracranial arterial branching.? 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 C.? Brain MRI, 08/14/2021, essentially unremarkable nonenhanced brain MRI. 5.? CKD, stage 3 A. Cr 1.3 with GFR 42, 08/2022 B. Chronic anemia with Hgb 9.4 on 08/26/2022 6
[2022-08-26 11:36] LABS: C-Reactive Protein 12.2 mg/L (0-4)
[2022-08-26 13:00] LABS: POC Glucose,Bedside 206 (70-110)
--- NOTE | 2022-08-26 13:55 | CT_ITS ---
FINAL REPORT CLINICAL HISTORY: ILD COMPARISON: 04/08/2022 FINDINGS: 1.[address] axial slices were performed through the chest at 10 mm intervals utilizing high-resolution protocol. Supine inspiration high-resolution CT images were obtained.Coronal reformatted images were submitted. This study was performed with techniques to keep radiation doses as low as reasonably achievable (ALARA). Individualized dose reduction techniques using automated exposure control or adjustment of mA and/or kV according to the patient's size were employed. There is cardiomegaly. Multiple borderline sized mediastinal and hilar lymph nodes have improved. There is no axillary mass. A small right pleural effusion is present. There is bibasilar atelectasis or scarring which is stable. Mild emphysematous changes are seen. There are several calcified granulomas. There is mild fibrosis/scarring. Mild bronchial wall thickening is seen. There is no evidence of bronchiectasis. Limited images of the upper abdomen demonstrate a small amount of ascites. There is anasarca. IMPRESSION: Mild fibrosis/scarring. Bibasilar atelectasis or scarring. Partially improved thoracic adenopathy. Small amount of ascites and anasarca. Reviewed, Interpreted and Dictated by Carmine Magaña III, MD Transcribed by Kathleen Lazcano Authenticated and [facility]
--- NOTE | 2022-08-26 15:22 | PC.NURSE ---
Pt A&O to self. Has been confused today. Remains on Vapotherm. Currently at 35L 80%. Hospice visited with pt today. Pt administered diuretics. Has used BSC. Pt has been reminded multiple times this shift to use call light and not attempt to try to get oob without assistance. Safety alarm on bed. Family has been at bedside this shift. Call light within reach.
--- NOTE | 2022-08-26 19:15 | PC.WOUNDNOTE ---
REDNESS TO (R) SIDE OF BUTTOCK REDNESS TO NECK AND (R) SIDE OF BACK
[2022-08-27] VITALS (14 sets, daily range): BP systolic 109–137; BP diastolic 67–76; PULSE 75–113; RESP 16–22; TEMP 36.5–36.9; O2SAT 94–100; BMI 34.1
[2022-08-27 01:49] LABS: POC Glucose,Bedside 252 (70-110)
[2022-08-27 01:49] LABS: POC Glucose,Bedside 226 (70-110)
[2022-08-27 06:00] LABS: POC Glucose,Bedside 171 (70-110)
[2022-08-27 06:40] LABS: Basophils % 0.4 % (0.1-2.0); Eosinophils # 0.1 K/mm3 (0.0-0.4); Eosinophils % 1.1 % (0.1-12.0); Hematocrit 29.3 % (37.0-47.0); Hemoglobin 8.9 g/dL (12.2-16.2); Lymphocytes # 1.2 K/mm3 (0.7-4.5); Lymphocytes % 20.2 % (10-50); Mean Corpuscular HGB Conc 30.6 g/dL (31.8-35.4); Mean Corpuscular Hemoglobin 22.9 pg (27.0-31.2); Mean Corpuscular Volume 75.1 fl (81-99); Mean Platelet Volume 9.6 fl (7.4-10.4); Monocytes # 0.6 K/mm3 (0.1-1.0); Monocytes % 10.2 % (1.7-9.3); Neutrophils # 4.2 K/mm3 (1.8-7.8); Neutrophils % 68.1 % (37.0-80.0); Platelet Count 271 K/mm3 (142-424); Red Cell Distribution Width 18.9 % (11.5-17.5); White Blood Count 6.2 K/mm3 (4.8-10.8)
[2022-08-27 06:53] LABS: Alanine Aminotransferase 18 U/L (12-78); Albumin Level 3.7 g/dl (3.5-5.0); Albumin/Globulin Ratio 1.4 (1.1-1.8); Alkaline Phosphatase 144 U/L (38-126); Anion Gap 12.6 mEq/L (5-15); Aspartate Amino Transferase 27 U/L (14-36); Blood Urea Nitrogen 20 mg/dl (7-17); Carbon Dioxide 35 mmol/L (22.0-30.0); Chloride 93 mmol/L (98-107); Creatinine Clearance Estimated 71 mL/min (50-200); Estimated Glomerular Filt Rate 42 ml/min (>60); GFR (African American) 50 ML/MIN (>60); Globulin 2.6 g/dL (1.3-3.2); Glucose 148 mg/dl (74-100); Magnesium 1.7 mg/dl (1.6-2.3); Potassium 3.6 mmoL/L (3.5-5.1); Sodium 137 mmol/L (136-145); Total Protein,Serum 6.3 g/dl (6.3-8.2)
--- NOTE | 2022-08-27 09:17 | EXP.PULM.PN ---
Subjective *Date: 08/27/22 *Time: 11:48 Interval history: Patient denies any new respiratory complaints but explain her current clinical status. Pulmonology Exam Inpatient Vital signs and Labs for Last 24 Hours: Temp Pulse Resp BP Pulse Ox FiO2 98.1 F 106 H 22 124/75 100 80 08/27/22 08:00 08/27/22 08:00 08/27/22 08:00 08/27/22 08:00 08/27/22 08:00 08/27/22 06:40 Laboratory Results - last 24 hr 08/26/22 08:00: C-Reactive Protein 12.2 H 08/26/22 12:53: POC Glucose 206 H 08/26/22 16:55: POC Glucose 226 H 08/26/22 21:01: POC Glucose 252 H 08/27/22 05:53: POC Glucose 171 H 08/27/22 06:19: WBC 6.2, RBC 3.90 L, Hgb 8.9 L, Hct 29.3 L, MCV 75.1 L, MCH 22.9 L, MCHC 30.6 L, RDW 18.9 H, Plt Count 271, MPV 9.6, Neut % (Auto) 68.1, Lymph % (Auto) 20.2, Bowie % (Auto) 10.2 H, Eos % (Auto) 1.1, Baso % (Auto) 0.4, Neut # (Auto) 4.2, Lymph # (Auto) 1.2, Bowie # (Auto) 0.6, Eos # (Auto) 0.1, Baso # (Auto) 0.0 08/27/22 06:19: Sodium 137, Potassium 3.6, Chloride 93 L, Carbon Dioxide 35 H, Anion Gap 12.6, BUN 20 H, Creatinine 1.30 H, Estimated Creat Clear 71, Estimated GFR 42 L, Est GFR ( Amer) 50 L, Glucose 148 H, Calcium 8.0 L, Magnesium 1.7 D, Total Bilirubin 1.0, AST 27, ALT 18, Alkaline Phosphatase 144 H, Total Protein 6.3, Albumin 3.7, Globulin 2.6, Albumin/Globulin Ratio 1.4 I & O for Labs for Last 24 Hours: Intake & Output 05/16/23 05/17/23 05/18/23 05/19/23 23:59 23:59 23:59 23:59 Intake Total 1010 / 1250 480 / 480 Output Total 1851 / 1851 500 / 500 Balance -841 / -601 -20 / -20 Weight 218 lb 4 oz 218 lb 4.122 oz 217 lb 9.6 oz Constitutional: Present severe distress Head: Present normocephalic and atraumatic ENT: Present normal exam, normal oropharynx and mucous membranes moist Neck: Present normal inspection and full ROM Respiratory: Present respiratory distress and diminished air movement; Absent wheezes or able to speak in complete sentences Cardiac: Present S1/S2, Tachycardia and radial pulses present GI: Present soft and distention; Absent tenderness or guarding Rectal (female): Present deferred (female): Present deferred Skin: Present intact; Absent cyanosis or jaundice Neuro: Present alert, awake and oriented x 3 Extremities: Present normal inspection and edema; Absent clubbing or cyanosis Psychiatric: Present normal affect and cooperative Assessment and Plan *Assessment and plan (1) Severe pulmonary hypertension: Status: Acute Category: Medical Code(s): I27.20 - Pulmonary hypertension, unspecified (2) COPD exacerbation: Status: Acute Category: Medical Code(s): J44.1 - Chronic obstructive pulmonary disease with (acute) exacerbation (3) Acute and chronic respiratory failure with hypoxia: Status: Acute Category: Medical Code(s): J96.21 - Acute and chronic respiratory failure with hypoxia Plan Ms. perkins is a 62-year-old female currently under hospice care secondary to severe pulmonary hypertension presented to the hospital due to worsening respiratory distress and pulmonary was called for further evaluation. Echocardiogram from March 2022 left ventricular EF 55% with no regional wall abnormalities. Flattening of interventricular septum consistent with RV pressure overload. Calculated RVSP at 87. VQ scan from January [address] chest from October 2019 bilateral mediastinal hilar lymphadenopathy along with air trapping interstitial opacities concerning for sarcoidosis. Emphysematous changes also noted. RHC - Severe combined Type I,II and III phHTN with PA 90/46 with PVR of 12.3 reynolds units. This suspicion for type I pulmonary hypertension presented from her CT scan showing interstitial changes and was initially along with lymphadenopathy and an significantly elevated PVR. Chest x-ray evaluation bilateral diffuse interstitial changes, LL predominant No evidence of leukocytosis upon admission. COVID-19 and flu PCR negative.
--- NOTE | 2022-08-27 09:23 | PC.NURSE ---
COURTESY TECH NOTE; ROUNDED ON PT 0800, PT DENIED NEED FOR RESTROOM, DRINK, NEED TO REPOSITION. CALL LIGHT WITHIN REACH, NO FURTHER REQUESTS AT THIS TIME. Paul WEAVER, SRNA
--- NOTE | 2022-08-27 09:31 | EXP.CARD.PN ---
Subjective Subjective Date: 08/27/22 Time: 09:31 Principal diagnosis: End-stage pulmonary hypertension Interval history: 62-year-old white female sitting at bedside in no acute distress. She continues on Vapotherm at 35 L/min. Her alertness seems to have improved along with her ease of breathing. She states she feels better and her legs are less swollen today. Dr. Choe was able to ascertain that patient did see the heart failure clinic earlier this year and was advised that her only option was a lung transplant if she quit smoking. She did not want to quit smoking and chose hospice care. She is ready to go home back to hospice care. Exam Data for Last 24 hours Vital signs and Labs for Last 24 Hours: Temp Pulse Resp BP Pulse Ox FiO2 98.1 F 106 H 22 124/75 100 80 08/27/22 08:00 08/27/22 08:00 08/27/22 08:00 08/27/22 08:00 08/27/22 08:00 08/27/22 06:40 Laboratory Results - last 24 hr 08/26/22 08:00: C-Reactive Protein 12.2 H 08/26/22 12:53: POC Glucose 206 H 08/26/22 16:55: POC Glucose 226 H 08/26/22 21:01: POC Glucose 252 H 08/27/22 05:53: POC Glucose 171 H 08/27/22 06:19: WBC 6.2, RBC 3.90 L, Hgb 8.9 L, Hct 29.3 L, MCV 75.1 L, MCH 22.9 L, MCHC 30.6 L, RDW 18.9 H, Plt Count 271, MPV 9.6, Neut % (Auto) 68.1, Lymph % (Auto) 20.2, [place] % (Auto) 10.2 H, Eos % (Auto) 1.1, Baso % (Auto) 0.4, Neut # (Auto) 4.2, Lymph # (Auto) 1.2, [place] # (Auto) 0.6, Eos # (Auto) 0.1, Baso # (Auto) 0.0 08/27/22 06:19: Sodium 137, Potassium 3.6, Chloride 93 L, Carbon Dioxide 35 H, Anion Gap 12.6, BUN 20 H, Creatinine 1.30 H, Estimated Creat Clear 71, Estimated GFR 42 L, Est GFR ( Amer) 50 L, Glucose 148 H, Calcium 8.0 L, Magnesium 1.7 D, Total Bilirubin 1.0, AST 27, ALT 18, Alkaline Phosphatase 144 H, Total Protein 6.3, Albumin 3.7, Globulin 2.6, Albumin/Globulin Ratio 1.4 I & O for Last 24 hours: Intake & Output 08/24/22 08/25/22 08/26/22 08/27/22 11:59 11:59 11:59 11:59 Intake Total 470 / 470 1020 / 1020 Output Total 400 / 400 1950 Balance 70 / 70 -931 / -931 Weight 218 lb 4.122 oz 217 lb 9.6 oz Constitutional Constitutional: no acute distress *Routine Respiratory Exam Respiratory: Present decreased breath sounds and crackles *Routine Cardiovascular Exam Cardiovascular: Present RRR *Routine Extremities Exam Extremities: Present edema Progress Note: A&P Assessment and plan (1) Severe pulmonary hypertension: Status: Acute (2) COPD exacerbation: Status: Acute (3) Acute and chronic respiratory failure with hypoxia: Status: Acute Assessment and Plan Assessment and Plan for All Diagnoses:: 1.? Severe/End stage Pulm HTN with acute on chronic hypoxic resp failure Continue aggressive diuresis with goal Cr around 2 Only treatment option per [facility] heart failure/pulmonary hypertension clinic was for lung transplant, if she quit smoking, which patient refused and chose hospice care. 2.? COPD/continued tobacco use Defer to Pulmonary 3.? CAD Clinically stable with normal troponins 4.? CKD, stage III Continue to monitor with diuresis 5.? Hypomagnesemia Patient did receive 2 g of IV magnesium this admission 6.? Hypokalemia, resolved 7.? Chronic anemia, stable 8.? Diabetes mellitus Defer to Dr. Choe 9.? HTN with HHD/Diastolic dysfunction Cardiac recommendations to continue diuretics to a creatinine of around 2. Nothing further to add from our standpoint. Please call if needed.
[2022-08-27 11:36] LABS: POC Glucose,Bedside 213 (70-110)
[2022-08-27 15:04] LABS: Anti-Cyclic Citrullinated Pept 6 units (0-19)
[2022-08-27 16:14] LABS: Anti-DNA (DS) Ab Qn <1 IU/mL (0-9)
[2022-08-27 16:53] LABS: POC Glucose,Bedside 380 (70-110)
--- NOTE | 2022-08-27 18:00 | PC.NURSE ---
Patient alert and oriented during shift, able to use bedside commode for diuriesis. VS stable and vapotherm weaned to 25L 60%. No complaints of pain.
--- NOTE | 2022-08-27 18:23 | EXP.ACUTE.PN ---
Subjective *Date: 08/27/22 *Time: 18:23 Interval history: Breathing somewhat better today. Pulmonology decreasing oxygen on Vapotherm. Discussed patient's prognosis and condition with hospice nurse and significant other. Tolerating p.o. intake. Afebrile. Somewhat more alert today. Medical Exam Vital signs and Labs for Last 24 Hours: Vital Signs Temp Pulse Pulse Resp BP Pulse Ox FiO2 08/27/22 16:00 98.3 F 75 20 133/76 95 08/27/22 16:00 100 H 08/27/22 12:00 100 H 08/27/22 14:26 82 08/27/22 14:26 89 08/27/22 12:00 97.8 F 103 H 20 109/67 L 94 L 08/27/22 09:55 104 H 08/27/22 09:55 103 H 08/27/22 09:55 99 80 08/27/22 08:00 100 H 08/27/22 08:00 98.1 F 106 H 22 124/75 100 08/27/22 06:40 102 H 08/27/22 06:40 103 H 08/27/22 06:40 97 80 08/27/22 04:00 104 H 08/27/22 04:59 104 H 08/27/22 04:00 98.5 F 103 H 16 137/71 100 08/27/22 02:31 102 H 08/27/22 02:31 102 H 08/27/22 00:00 113 H 08/27/22 01:12 113 H 08/26/22 23:56 98.4 F 107 H 16 153/77 H 100 08/26/22 20:00 100 80 08/26/22 22:42 98 H 08/26/22 22:42 98 H 08/26/22 20:00 103 H 08/26/22 21:00 103 H 08/26/22 19:49 98.3 F 101 H 16 128/76 100 Intake and Output 08/27/22 08/27/22 08/27/22 07:59 15:59 23:59 Intake Total 240 / 1020 480 / 1020 300 / 1020 Output Total 500 / 5800 1650 / 5800 3650 / 5800 Balance -260 / -4780 -1170 / -4780 -3350 / -4780 Intake: Intake, Oral Amount 240 / 1020 480 / 1020 300 / 1020 Output: Output, Urine Amount 500 / 5800 1650 / 5800 3650 / 5800 Other: Weight 98.702 kg Patient Weight 08/27/22 23:59 Weight 98.702 kg Laboratory Results - last 24 hr 08/26/22 08:00: Anti-Cycl Citrul Peptide 6 08/26/22 08:00: Double Strand DNA Ab <1 08/26/22 16:55: POC Glucose 226 H 08/26/22 21:01: POC Glucose 252 H 08/27/22 05:53: POC Glucose 171 H 08/27/22 06:19: WBC 6.2, RBC 3.90 L, Hgb 8.9 L, Hct 29.3 L, MCV 75.1 L, MCH 22.9 L, MCHC 30.6 L, RDW 18.9 H, Plt Count 271, MPV 9.6, Neut % (Auto) 68.1, Lymph % (Auto) 20.2, [place] % (Auto) 10.2 H, Eos % (Auto) 1.1, Baso % (Auto) 0.4, Neut # (Auto) 4.2, Lymph # (Auto) 1.2, [place] # (Auto) 0.6, Eos # (Auto) 0.1, Baso # (Auto) 0.0 08/27/22 06:19: Sodium 137, Potassium 3.6, Chloride 93 L, Carbon Dioxide 35 H, Anion Gap 12.6, BUN 20 H, Creatinine 1.30 H, Estimated Creat Clear 71, Estimated GFR 42 L, Est GFR ( Amer) 50 L, Glucose 148 H, Calcium 8.0 L, Magnesium 1.7 D, Total Bilirubin 1.0, AST 27, ALT 18, Alkaline Phosphatase 144 H, Total Protein 6.3, Albumin 3.7, Globulin 2.6, Albumin/Globulin Ratio 1.4 08/27/22 11:16: POC Glucose 213 H 08/27/22 16:40: POC Glucose 380 H* I & O for Labs for Last 24 Hours: Intake & Output 08/24/22 08/25/22 08/26/22 08/27/22 23:59 23:59 23:59 23:59 Intake Total 1010 / 1250 1020 / 1020 Output Total 1851 / 1851 5800 / 5800 Balance -841 / -601 -4780 / -4780 Weight 98.997 kg 99 kg 98.702 kg Constitutional: Present mild distress, obese and chronically ill appearing Head: Present atraumatic and normocephalic ENT: Present normal exam Neck: Present normal inspection Respiratory: Present accessory muscle use, wheezes and distant breath sounds; Absent rhonchi or crackles Cardiac: Present Reg Rate and Rhythm and No Murmur GI: Present normal bowel sounds; Absent tenderness Extremities: Present normal inspection and edema ( 1+ BLE to knees) Skin: Present intact; Absent erythema Neuro: Present Grossly Intact, alert, awake, oriented x 3 and moves all extremities Assessment and Plan *Assessment and plan (1) Severe pulmonary hypertension: Status: Acute Category: Medical Code(s): I27.20 - Pulmonary hypertension, unspecified (2) Intractable nausea and vomiting: Status: Acute Category: Medical Code(s): R11.2 - Nausea w
[2022-08-27 21:38] LABS: POC Glucose,Bedside 282 (70-110)
[2022-08-28] VITALS (18 sets, daily range): BP systolic 111–135; BP diastolic 58–84; PULSE 96–110; RESP 18–22; TEMP 36.4–36.9; O2SAT 78–98; BMI 34.4
--- NOTE | 2022-08-28 03:08 | PC.NURSE ---
Patient is a Hospice patient. eND STAGE LUNG DISEASE. 02 SATS 93-96% ON VAPOTHERM 25 L/60 % 02. DENIES PAIN BUT HAS EPISODES OF ANXIETY. RECEIVED vALIUM 5 MG PO AT HS FOR NERVOUSNESS.MILDLY CONFUSED. NON PRODUCTIVE COUGH NOTED. VITAL SIGNS STABLE /AFEBRILE.
[2022-08-28 05:26] LABS: POC Glucose,Bedside 225 (70-110)
[2022-08-28 08:11] LABS: Alanine Aminotransferase 18 U/L (12-78); Albumin Level 3.6 g/dl (3.5-5.0); Albumin/Globulin Ratio 1.2 (1.1-1.8); Alkaline Phosphatase 157 U/L (38-126); Anion Gap 15.3 mEq/L (5-15); Aspartate Amino Transferase 24 U/L (14-36); Bilirubin,Total 0.9 mg/dl (0.2-1.3); Blood Urea Nitrogen 18 mg/dl (7-17); Calcium 8.1 mg/dl (8.4-10.2); Carbon Dioxide 36 mmol/L (22.0-30.0); Chloride 89 mmol/L (98-107); Creatinine Clearance Estimated 93 mL/min (50-200); Estimated Glomerular Filt Rate 56 ml/min (>60); GFR (African American) 68 ML/MIN (>60); Globulin 2.9 g/dL (1.3-3.2); Glucose 146 mg/dl (74-100); Potassium 3.3 mmoL/L (3.5-5.1); Sodium 137 mmol/L (136-145); Total Protein,Serum 6.5 g/dl (6.3-8.2)
--- NOTE | 2022-08-28 10:05 | EXP.ACUTE.PN ---
Subjective *Date: 08/28/22 *Time: 10:05 Interval history: Patient more alert this morning. Sitting at bedside. Has diuresed well with -6 L of output since admission. Down to 20 L and 50% on morning rounds. No nausea, vomiting, chest pain. Denies worsening shortness of breath, states she is feeling a little bit better. Medical Exam Vital signs and Labs for Last 24 Hours: Vital Signs Temp Pulse Pulse Resp BP Pulse Ox FiO2 08/28/22 07:41 97.6 F 106 H 18 121/64 96 08/28/22 06:17 104 H 08/28/22 06:17 104 H 08/28/22 06:17 98 60 08/28/22 04:00 98.4 F 103 H 19 135/84 97 08/28/22 04:27 103 H 08/28/22 00:30 106 H 08/28/22 00:00 110 H 08/28/22 00:00 98.4 F 108 H 19 125/58 L 96 08/27/22 23:52 60 08/27/22 23:47 98 H 08/27/22 23:47 98 H 08/27/22 20:00 97.7 F 106 H 18 131/75 95 08/27/22 20:00 95 60 08/27/22 18:21 78 08/27/22 18:21 80 08/27/22 18:21 95 60 08/27/22 16:00 98.3 F 75 20 133/76 95 08/27/22 16:00 100 H 08/27/22 12:00 100 H 08/27/22 14:26 82 08/27/22 14:26 89 08/27/22 12:00 97.8 F 103 H 20 109/67 L 94 L Intake and Output 08/27/22 08/28/22 08/28/22 23:59 07:59 15:59 Intake Total 540 / 1500 240 / 600 360 / 600 Output Total 4750 / 6900 Balance -4210 / -5400 240 / 600 360 / 600 Intake: Intake, Oral Amount 540 / 1500 240 / 600 360 / 600 Output: Output, Urine Amount 4750 / 6900 Other: Number of Unmeasured Voids 0 Weight 99.382 kg Patient Weight 08/28/22 23:59 Weight 99.382 kg Laboratory Results - last 24 hr 08/26/22 08:00: Anti-Cycl Citrul Peptide 6 08/26/22 08:00: Double Strand DNA Ab <1 08/27/22 11:16: POC Glucose 213 H 08/27/22 16:40: POC Glucose 380 H* 08/27/22 21:31: POC Glucose 282 H 08/28/22 05:20: POC Glucose 225 H 08/28/22 07:09: Sodium 137, Potassium 3.3 L, Chloride 89 L, Carbon Dioxide 36 H, Anion Gap 15.3 H, BUN 18 H, Creatinine 1.00 D, Estimated Creat Clear 93, Estimated GFR 56 L, Est GFR ( Amer) 68 D, Glucose 146 H, Calcium 8.1 L, Total Bilirubin 0.9, AST 24, ALT 18, Alkaline Phosphatase 157 H, Total Protein 6.5, Albumin 3.6, Globulin 2.9, Albumin/Globulin Ratio 1.2 I & O for Labs for Last 24 Hours: Intake & Output 08/25/22 08/26/22 08/27/22 08/28/22 23:59 23:59 23:59 23:59 Intake Total 1010 / 1250 1260 / 1500 600 / 600 Output Total 1851 / 1851 6900 / 6900 Balance -841 / -601 -5640 / -5400 600 / 600 Weight 98.997 kg 99 kg 98.702 kg 99.382 kg Constitutional: Present mild distress, obese and chronically ill appearing Head: Present atraumatic and normocephalic ENT: Present normal exam Neck: Present normal inspection Respiratory: Present accessory muscle use, wheezes and distant breath sounds; Absent rhonchi or crackles Cardiac: Present Reg Rate and Rhythm and No Murmur GI: Present normal bowel sounds; Absent tenderness Extremities: Present normal inspection and edema ( 1+ BLE to knees) Skin: Present intact; Absent erythema Neuro: Present Grossly Intact, alert, awake, oriented x 3 and moves all extremities Assessment and Plan *Assessment and plan (1) Severe pulmonary hypertension: Status: Acute Category: Medical Code(s): I27.20 - Pulmonary hypertension, unspecified (2) Intractable nausea and vomiting: Status: Acute Category: Medical Code(s): R11.2 - Nausea with vomiting, unspecified (3) Diabetes: Status: Acute Category: Medical Code(s): E11.9 - Type 2 diabetes mellitus without complications (4) Diastolic CHF: Status: Acute Category: Medical Code(s): I50.30 - Unspecified diastolic (congestive) heart failure (5) Hypothyroidism: Status: Acute Category: Medical Code(s): E03.9 - Hypothyroidism, unspecified (6) CAD (coronary artery disease): Status: Acute Categ
[2022-08-28 11:12] LABS: POC Glucose,Bedside 218 (70-110)
--- NOTE | 2022-08-28 11:51 | PC.NURSE ---
pt noted to be increasingly fatigued. requiring increased o2. MD notified. NNO at this time. pt is comfortable.
[2022-08-28 17:08] LABS: POC Glucose,Bedside 138 (70-110)
--- NOTE | 2022-08-28 18:02 | EXP.DC.SUM ---
General Admission date:: 08/25/22 Discharge date: 08/29/22 HPI HPI HPI: Ms. Escalona is a 62-year-old female who is a patient of Hospice due to Severe Pulmonary Hypertension.? She has a past medical history of Severe Pulmonary Hypertension, Chronic Hypoxic Respiratory Failure, CAD, Hypothyroidism, HTN and Hyperlipidemia. She presents to [facility] due to a 1-day history of shortness of air outside her normal.? In the ER, abg showed Hypoxia with pO2 41.7 and SpO2 75% on 21% FiO2.? Cxray showed vascular congestion.? She received Bumex 1 mg iv x 1.? Family Services Manager who diagnosed the patient with Severe Pulmonary HTN by right heart cath in 04/2022 was contacted due to her admission and case was discussed with ER Physician.? Recommendations were for high flow oxygen, no bipap, diuretics.? She was noted to have episodes of vomiting on admission.? She is admitted with initial impression:? Intractable Nausea, vomiting.? Hospice was contacted in the ER prior to her admission.? Hospital Course Hospital Course Hospital Course: 62-year-old female under the care of Hospice for Severe Pulmonary Hypertension presents with shortness of air outside her normal and nausea and vomiting.? Currently on Vapotherm 45-50%.? Pulmonology and cardiology consulted, appreciate their recommendations. Problems addressed as follows: - Severe Pulmonary Hypertension Under the Care of Hospice. Admitted from optimization. Cardiology and pulmonology consulted during admission. Patient treated with aggressive diuresis. Started on Bumex 2 mg twice daily. Diuresed over 8-1/2 L during admission. Initially on high levels of oxygen on high flow at 80%. Weaned to 20 L and 45% by day of discharge. Recommend continuing with oxygen of 45 to 50%, patient needs supplemental oxygen more than she does the flow. We will continue diuresis. Recommend Bumex 2 mg daily. Continue her DuoNebs every 6 hours as needed, home Trelegy, sildenafil 20 mg 3 times a day. Consider increasing sildenafil to 40 mg 3 times a day if tolerated by patient. She is medically stable to discharge home to continue treatment in the home setting under care of hospice. - Diabetes Sliding Scale insulin Fingersticks ACHS Continue insulin glargine, dose decreased to 30 units nightly. - Diastolic CHF -CAD Continue Bumex, Lisinopril, Bisprolol - Hypothyroidism: continue Levothyroxine -Anxiety: Continue Valium twice daily as needed, decreased seroquel. Patient showed some clinical improvement. Continue with optimization for medical management of her terminal pulmonary hypertension as above. Stable for discharge back to home setting under hospice care. Spent 40 minutes in discharge counseling and direct care with patient. Exam Data for Last 24 hours Vital signs and Labs for Last 24 Hours: Temp Pulse Resp BP Pulse Ox FiO2 98.3 F 100 H 18 111/60 95 60 08/28/22 15:26 08/28/22 16:13 08/28/22 15:26 08/28/22 15:26 08/28/22 15:26 08/28/22 14:04 Laboratory Results - last 24 hr 08/27/22 21:31: POC Glucose 282 H 08/28/22 05:20: POC Glucose 225 H 08/28/22 07:09: Sodium 137, Potassium 3.3 L, Chloride 89 L, Carbon Dioxide 36 H, Anion Gap 15.3 H, BUN 18 H, Creatinine 1.00 D, Estimated Creat Clear 93, Estimated GFR 56 L, Est GFR ( Amer) 68 D, Glucose 146 H, Calcium 8.1 L, Total Bilirubin 0.9, AST 24, ALT 18, Alkaline Phosphatase 157 H, Total Protein 6.5, Albumin 3.6, Globulin 2.9, Albumin/Globulin Ratio 1.2 08/28/22 11:02: POC Glucose 218 H 08/28/22 16:59: POC Glucose 138 H I & O for Last 24 hours: Intake & Output 08/25/22 08/26/22 08/27/22 08/28/22 23:59 23:59 23:59 23:59 Intake Total 1010 / 1250 1260 / 1500 1320 / 1320 Output Total 1851 / 1851 6900 / 6900 2200 / 2200 Balance -841 / -601 -5640 / -5400 -880 / -880 Weight 98.997 kg 99 kg 98.702 kg 99.382 kg Constitutional Constitutional: mild distress, obese, chronically ill appearing and cooperative *Routine HE
[2022-08-28 20:28] LABS: POC Glucose,Bedside 234 (70-110)
[2022-08-29] VITALS (9 sets, daily range): BP systolic 112–124; BP diastolic 56–68; PULSE 98–110; RESP 18–22; TEMP 36.7–37.1; O2SAT 87–98; BMI 33.7
--- NOTE | 2022-08-29 03:44 | PC.NURSE ---
ALERT AND ORIENTED TO PERSON AND PLACE. MILDLY CONFUSED. RECEIVED 2 RUNS 0F POTASSIUM. TOLERATED WELL. SINUS TACHYCARDIA/1 ST DEGREE AVB/BBB PER TELEMETRY.. EDEMA IN BILAT LOWER LEGS IMPROVED. NO C/O PAIN/SOA/DISCOMFORT NOTED.
[2022-08-29 05:29] LABS: POC Glucose,Bedside 106 (70-110)
[2022-08-29 06:55] LABS: Alanine Aminotransferase 16 U/L (12-78); Albumin Level 3.6 g/dl (3.5-5.0); Albumin/Globulin Ratio 1.4 (1.1-1.8); Alkaline Phosphatase 133 U/L (38-126); Anion Gap 13.4 mEq/L (5-15); Aspartate Amino Transferase 24 U/L (14-36); Blood Urea Nitrogen 15 mg/dl (7-17); Calcium 8.5 mg/dl (8.4-10.2); Carbon Dioxide 38 mmol/L (22.0-30.0); Chloride 90 mmol/L (98-107); Creatinine Clearance Estimated 91 mL/min (50-200); Estimated Glomerular Filt Rate 56 ml/min (>60); GFR (African American) 68 ML/MIN (>60); Globulin 2.6 g/dL (1.3-3.2); Glucose 92 mg/dl (74-100); Potassium 3.4 mmoL/L (3.5-5.1); Sodium 138 mmol/L (136-145); Total Protein,Serum 6.2 g/dl (6.3-8.2)
--- NOTE | 2022-08-29 10:26 | PC.NURSE ---
pt is being discharged home with hospice care. Spoke with Josselyn from hospice who will meet EMS at pts home when pt arrives to set up her oxygen. pts spouse notified of plan.
--- NOTE | 2022-08-29 13:49 | PC.NURSE ---
pt has been discahrged from the facility and transported via EMS. took all belongigns with her and voiced undersanding of all dc education. Saroj called and will meet pt at home.
[2022-09-26 20:59] LABS: Antinuclear Antibodies (ANA) NEGATIVE
[2022-09-26 21:00] LABS: Rheumatoid Factor IGM < 7 U (<7)
== END 2022-08-29 13:58 | disposition hospice, home (50) | DRG 189 ==
LOC: ER 19:54 → 2ND 20:11
PROVIDERS: Internal Medicine Pulmonary Disease; Admitting Provider Internal Medicine Adolescent Medicine; Emergency Provider Emergency Medicine; PCP Internal Medicine; Visit Provider Internal Medicine Adolescent Medicine
DX: J96.21 Acute and chronic respiratory failure with hypoxia (principal); J44.1 Chronic obstructive pulmonary disease with (acute) exacerbation; I50.30 Unspecified diastolic (congestive) heart failure; I13.0 Hypertensive heart and chronic kidney disease with heart failure and stage 1 through stage 4 chronic kidney disease, or unspecified chronic kidney disease; I27.20 Pulmonary hypertension, unspecified; Z79.899 Other long term (current) drug therapy; I25.10 Atherosclerotic heart disease of native coronary artery without angina pectoris; G47.30 Sleep apnea, unspecified; E78.5 Hyperlipidemia, unspecified; K21.9 Gastro-esophageal reflux disease without esophagitis; D63.1 Anemia in chronic kidney disease; F17.210 Nicotine dependence, cigarettes, uncomplicated; E03.9 Hypothyroidism, unspecified; Z66 Do not resuscitate; N18.30 Chronic kidney disease, stage 3 unspecified; E83.42 Hypomagnesemia; E87.6 Hypokalemia; E11.22 Type 2 diabetes mellitus with diabetic chronic kidney disease; F41.9 Anxiety disorder, unspecified; R11.2 Nausea with vomiting, unspecified
CPT/HCPCS: 36415; 70450; 71045; 71250; 80053; 81001; 82803; 82962; 83735; 84484; 85025; 86038; 86140; 86200; 86225; 86431; 87636; 93005; 94640; 94761; 99285; C9803; J0456; J3475; U0003; U0005